=== PATIENT | female | born 1955 | race Caucasian/White ===

== ENCOUNTER 2017-01-07 14:24 | Inpatient (IN) | payer MEDICARE, OTHER ==
[~2017-01-07] VITALS: Ht 172.7 cm; Wt 94.0 kg
[~2017-01-07 14:24] MED LIST: CYCL-36 PO; LORT5TAB PO
[2017-01-07] MEDS ORDERED: SODIUM CHLOR 0.9% 1000 ML INJ 1,000 ML IV ONE ×2 (14:34→18:15)
--- NOTE | 2017-01-07 14:37 | PD ---
HPI Chief Complaint: Seizure Time Seen by Provider: 14:37 Travel History International Travel<30 days: No Contact w/Intl Traveler<30days: No Traveled to known affect area: No History of Present Illness HPI 61-year-old female with history of Graves' disease presents to the emergency department for evaluation. Per [facility] report, patient was having bizarre behavior which caused her friends to call them. When they arrived they state they with just a "grand mal seizure. There is no tongue biting or loss of bowel or bladder. Patient here is a very poor historian. She states that she does not know what happened. She has a bizarre affect. She is intermittently mumbling and saying things that do not make sense. She reports no pain. She can tell me that she is in the hospital and her name. She cannot recall the president or the year at this time. Patient denies illicit drug use or alcohol consumption. PFSH Past Medical History Autoimmune Disease: Yes (GRAVES DISEASE) Diminished Hearing: No Hypertension: Yes Musculoskeletal: Yes (CHRONIC BACK PAIN; DEGENERATIVE DISK DISEASE) ?: Not Menopausal: Yes Social History Alcohol Use: No Tobacco Use: Yes (1 PPD) Substance Use: No Allergies-Medications (Allergen,Severity, Reaction): Coded Allergies: Penicillin (Verified Allergy, Severe, 01/07/17) Uncoded Allergies: NSAIDS (Allergy, Severe, 04/22/09) Reported Meds & Prescriptions Reported Meds & Active Scripts Active Reported Montelukast (Montelukast Sodium) 10 Mg Tab 10 Mg PO DAILY Alprazolam 1 Mg Tab 1 Mg PO TID PRN Crestor (Rosuvastatin Calcium) 10 Mg Tab 10 Mg PO DAILY Levothyroxine (Levothyroxine Sodium) 125 Mcg Tab 125 Mcg PO DAILY Lisinopril-Hctz 20-25 Mg Tab 1 Tab PO DAILY Propranolol (Propranolol HCl) 20 Mg Tab 20 Mg PO TID Review of Systems Except as stated in HPI: all other systems reviewed are Neg Physical Exam Narrative GENERAL: Well-nourished female patient, sitting up in bed, bizarre affect, but in no acute distress SKIN: Focused skin assessment warm/dry. HEAD: Atraumatic. Normocephalic. EYES: Pupils equal and round. No scleral icterus. No injection or drainage. ENT: No nasal bleeding or discharge. Mucous membranes pink and moist. NECK: Trachea midline. No JVD. CARDIOVASCULAR: Elevated rate and rhythm. No murmur appreciated. RESPIRATORY: No accessory muscle use. Clear to auscultation. Breath sounds equal bilaterally. GASTROINTESTINAL: Abdomen soft, non-tender, nondistended. Hepatic and splenic margins not palpable. MUSCULOSKELETAL: No obvious deformities. No clubbing. No cyanosis. No edema. NEUROLOGICAL: She is awake. She has clear speech with occasional intentional mumbling. No obvious cranial nerve deficits. She moves all extremities. Data Data Last Documented VS Vital Signs Date Time Temp Pulse Resp B/P Pulse Ox O2 Delivery O2 Flow Rate FiO2 01/07/17 15:44 92 17 116/55 96 Room Air 01/07/17 14:39 99.4 Orders Complete Blood Count With Diff (01/07/17 14:34) Alcohol (Ethanol) (01/07/17 14:34) Drug Screen, Random Urine (01/07/17 14:34) Blood Culture (01/07/17 14:34) Electrocardiogram (01/07/17 ) Ct Brain W/O Iv Contrast(Rout) (01/07/17 ) Blood Glucose (01/07/17 14:34) Ecg Monitoring (01/07/17 14:34) Iv Access Insert/Monitor (01/07/17 14:34) Oximetry (01/07/17 14:34) Comprehensive Metabolic Panel (01/07/17 14:34) Sodium Chlor 0.9% 1000 Ml Inj (Ns 1000 M (01/07/17 14:34) Sodium Chloride 0.9% Flush (Ns Flush) (01/07/17 14:45) Urinalysis - C+S If Indicated (01/07/17 14:34) Magnesium (Mg) (01/07/17 14:34) Cath For Specimen (01/07/17 14:34) Lorazepam Inj (Ativan Inj) (01/07/17 15:45) Lorazepam Inj (Ativan Inj) (01/07/17 16:00) Potassium Chlor 20 Meq Premix (Kcl 20 Me (01/07/17 16:30) Thyroid Stimulating Hormone (01/07/17 17:47) Labs Laboratory Tests Test 01/07/17 01/07/17 14:52 16:25 White Blood Count 8.5 TH/MM3 Red Blood Count 3.63 MIL/MM3 Hemoglobin 11.5 GM/DL Hematocrit 33.2 % Mean Corpuscular Volume 91.4 FL Mean Corpuscular Hemoglobin 31.8 PG Mean Corpuscular Hemoglobin 34.8 % Concent Red Cell Distribution Width 15.2 % Platelet Count 210 TH/MM3 Mean Platelet Volume 7.7 FL Neutrophils (%) (Auto) 88.5 % Lymphocytes (%) (Auto) 6.7 % Monocytes (%) (Auto) 4.2 % Eosinophils (%) (Auto) 0.3 % Basophils (%) (Auto) 0.3 % Neutrophils # (Auto) 7.5 TH/MM3 Lymphocytes # (Auto) 0.6 TH/MM3 Monocytes # (Auto) 0.4 TH/MM3 Eosinophils # (Auto) 0.0 TH/MM3 Basophils # (Auto) 0.0 TH/MM3 CBC Comment DIFF FINAL Differential Comment Sodium Level 141 MEQ/L Potassium Level 2.3 MEQ/L Chloride Level 100 MEQ/L Carbon Dioxide Level 30.6 MEQ/L Anion Gap 10 MEQ/L Blood Urea Nitrogen 14 MG/DL Creatinine 1.22 MG/DL Estimat Glomerular Filtration 45 ML/MIN Rate Random Glucose 157 MG/DL Calcium Level 10.1 MG/DL Magnesium Level 1.6 MG/DL Total Bilirubin 1.0 MG/DL Aspartate Amino Transf 21 U/L (AST/SGOT) Alanine Aminotransferase 19 U/L (ALT/SGPT) Alkaline Phosphatase 95 U/L Total Protein 7.2 GM/DL Albumin 3.7 GM/DL Ethyl Alcohol Level 4 MG/DL Urine Color YELLOW Urine Turbidity CLEAR Urine pH 5.5 Urine Specific [place] 1.019 Urine Protein TRACE mg/dL Urine Glucose (UA) NEG mg/dL Urine Ketones NEG mg/dL Urine Occult Blood NEG Urine Nitrite NEG Urine Bilirubin NEG Urine Urobilinogen LESS THAN 2.0 MG/DL Urine Leukocyte Esterase NEG Urine RBC LESS THAN 1 /hpf Urine WBC 1 /hpf Urine Hyaline Casts 8 /lpf Urine Mucus FEW /lpf Microscopic Urinalysis Comment CATH-CULT NOT IND Urine Opiates Screen POS Urine Barbiturates Screen NEG Urine Amphetamines Screen NEG Urine Benzodiazepines Screen POS Urine Cocaine Screen NEG Urine Cannabinoids Screen NEG MDM Medical Decision Making Medical Screen Exam Complete: Yes Emergency Medical Condition: Yes Medical Record Reviewed: Yes Differential Diagnosis Electrolyte abnormality versus intracranial process versus dehydration versus psychiatric etiology versus new onset seizure Narrative Course 61-year-old female presents to the emergency department for evaluation. Patient appears without distress. She has a bizarre affect and she is a poor historian. She has no obvious trauma. CBC is without acute concern. Hemoglobin is 11.5. BMP is with hypokalemia 2.3. Repletion as started in the emergency department with 40 mEq IV. Creatinine is 1.22 with a GFR 45. Otherwise without acute concern. Urinalysis is with out acute concern. Toxicology is positive for opiates and benzodiazepine. EtOH is 4. CT imaging of the brain is without acute intracranial on normality. Diagnosis Primary Impression: Altered mental status, unspecified Additional Impression: Hypokalemia Admitting Information Admitting Physician Requests: Admit Condition: Stable Tri Soriano Jan 07, 2017 14:37
[2017-01-07 14:39] VITALS: BP 107/71; PULSE 91; RESP 17; TEMP 99.4; O2SAT 93; O2SAT 94
[2017-01-07] MEDS ORDERED: ALPR1TAB3 PO (15:10)
[2017-01-07] MEDS ORDERED: PROP20TA3 PO (15:10)
[2017-01-07] MEDS ORDERED: LISI20TA3 PO (15:10)
[2017-01-07] MEDS ORDERED: LEVO125T4 PO (15:10)
[2017-01-07] MEDS ORDERED: ROSU10 PO (15:10)
[2017-01-07] MEDS ORDERED: MONT10TA4 PO (15:10)
[2017-01-07 15:11] LABS: AUTOMATED NEUTROPHIL # 7.5 TH/MM3 (1.8-7.7); BASOPHIL % 0.3 % (0.0-2.0); EOSINOPHIL % 0.3 % (0.0-4.0); HEMATOCRIT 33.2 % (35.0-46.0); HEMO FLAGS DIFF FINAL; LYMPH % 6.7 % (9.0-44.0); LYMPHOCYTE # 0.6 TH/MM3 (1.0-4.8); MEAN CELL VOLUME 91.4 FL (80.0-100.0); MEAN CORPUSCULAR HEMOGLOBIN 31.8 PG (27.0-34.0); MEAN CORPUSCULAR HGB CONC 34.8 % (32.0-36.0); MONO % 4.2 % (0.0-8.0); NEUT % 88.5 % (16.0-70.0); PLATELET COUNT 210 TH/MM3 (150-450); RED BLOOD COUNT 3.63 MIL/MM3 (4.00-5.30); RED CELL DISTRIBUTION WIDTH 15.2 % (11.6-17.2); WHITE BLOOD COUNT 8.5 TH/MM3 (4.0-11.0)
[2017-01-07 15:44] VITALS: BP 116/55; PULSE 92; RESP 17; O2SAT 96
[2017-01-07] MEDS ORDERED: LORazepam 2 MG/ML VIAL IV PUSH ONE ×2 (15:45→16:00)
[2017-01-07 15:53] LABS: ALKALINE PHOSPHATASE 95 U/L (45-117); ALT (GPT) 19 U/L (10-53); ANION GAP 10 MEQ/L (5-15); AST (GOT) 21 U/L (15-37); BICARBONATE 30.6 MEQ/L (21.0-32.0); BLOOD UREA NITROGEN 14 MG/DL (7-18); CHLORIDE 100 MEQ/L (98-107); GLOMERULAR FILTRATION RATE 45 ML/MIN (>89); MAGNESIUM 1.6 MG/DL (1.5-2.5); SODIUM (NA) 141 MEQ/L (136-145)
[2017-01-07 16:01] LABS: POTASSIUM 2.3 MEQ/L (3.5-5.1)
[2017-01-07] MEDS: SODIUM CHLORIDE 0.9% FLUSH 10 ML FLUSH IVF PRN (16:44)
[2017-01-07] MEDS: POTASSIUM CHLOR 20 MEQ PREMIX 100 ML IV SCH ×2 (16:44→20:48)
[2017-01-07 16:58] LABS: BLOOD, URINE NEG (NEG); GLUCOSE,URINE NEG (NEG); HYALINE CAST, URINE 8 /lpf (RARE); KETONE, URINE NEG (NEG); MUCUS URINE FEW /lpf (OCC); NITRITE,URINE NEG (NEG); PH, URINE 5.5 (5.0-8.5); URINE COLOR YELLOW (YELLW/STRAW)
[2017-01-07 16:59] LABS: COMMENT (UR) CATH-CULT NOT IND; CULTURE IF INDICATED CATH CULTURE NOT IND
[2017-01-07 17:04] LABS: AMPHETAMINE, URINE NEG (NEG); BARBITURATES, URINE NEG (NEG); COCAINE, URINE NEG (NEG)
--- NOTE | 2017-01-07 17:09 | RADRPT ---
EXAM DATE/TIME: 01/07/2017 16:52 [facility] COMPARISON: No previous studies available for comparison. INDICATIONS : Post ictal, gran mal RADIATION DOSE: 37.37 CTDIvol (mGy) MEDICAL HISTORY : Hypertension. Graves disease SURGICAL HISTORY : None. ENCOUNTER: Initial ACUITY: 1 day PAIN SCALE: 0/10 LOCATION: cranial TECHNIQUE: Multiple contiguous axial images were obtained of the head. Using automated exposure control and adj ustment of the mA and/or kV according to patient size, radiation dose was kept as low as reasonably a chievable to obtain optimal diagnostic quality images. DICOM format image data is available electro nically for review and comparison. FINDINGS: CEREBRUM: The ventricles are normal for age. No evidence of midline shift, mass lesion, hemorrhage or acute in farction. No extra-axial fluid collections are seen. POSTERIOR FOSSA: The cerebellum and brainstem are intact. The 4th ventricle is midline. The cerebellopontine angle i s unremarkable. EXTRACRANIAL: The visualized portion of the orbits is intact. SKULL: The calvaria is intact. No evidence of skull fracture. CONCLUSION: 1. No acute intracranial abnormality. Delio Bourne MD on January 07, 2017 at 17:05 Board Certified Radiologist. This report was verified electronically.
[2017-01-07] MEDS ORDERED: POTASSIUM CHLORIDE 10 MEQ CONTROLLED RELEASE TAB PO ONE (18:15)
--- NOTE | 2017-01-07 18:16 | HHI.HP ---
[facility] [place] [facility] Primary Care Physician Akira Donovan MD Admission Diagnosis ams; hypokalemia; new onset seizure Diagnoses: (1) Altered mental status, unspecified Diagnosis: Principal (2) Hypokalemia Diagnosis: Principal Chief Complaint: seizure Travel History International Travel<30 Days: No Contact w/Intl Traveler <30 Da: No Traveled to Known Affected Are: No History of Present Illness patient is a 61 y/o female with history of Grave's disease and hypertension who was brought to ER after she had a seizure earlier today. she's not a good historian but she says that she's been under a lot of stress lately and hasn't been able to eat or sleep as much. she says that the last thing that she remembers is that she went to sleep earlier this afternoon. she apparently had a witnessed grandmal seizure for which she was brought to ER. there's no report of tongue biting or urine incontinence. she's complaining of mild dull headache.she denies any nausea, vomiting or diarrhea. Review of Systems ROS Limitations: Poor Historian Neurologic: COMPLAINS OF: Seizures Past Family Social History Past Medical History grave's disease hypertension chronic back pain Past Surgical History none reported. Reported Medications Montelukast (Montelukast Sodium) 10 Mg Tab 10 Mg PO DAILY Alprazolam 1 Mg Tab 1 Mg PO TID PRN Crestor (Rosuvastatin Calcium) 10 Mg Tab 10 Mg PO DAILY Levothyroxine (Levothyroxine Sodium) 125 Mcg Tab 125 Mcg PO DAILY Lisinopril-Hctz 20-25 Mg Tab 1 Tab PO DAILY Propranolol (Propranolol HCl) 20 Mg Tab 20 Mg PO TID Allergies: Coded Allergies: Penicillin (Verified Allergy, Severe, 01/07/17) Uncoded Allergies: NSAIDS (Allergy, Severe, 04/22/09) Active Ordered Medications Current Medications Sodium Chloride (NS 1000 ml Inj) 1,000 ml @ 1,000 mls/hr Q1H ONCE IV Last administered on 01/07/17t 15:04; Start 01/07/17 at 14:34; Stop 01/07/17 at 15:33 ; Status DC Sodium Chloride (NS Flush) 2 ml UNSCH PRN IVF FLUSH AFTER USING IV ACCESS; Start 01/07/17 at 14:45 Lorazepam (Ativan Inj) 1 mg ONCE ONCE IV PUSH Last administered on 01/07/17 15:41; Start 01/07/17 at 15:45; Stop 01/07/17 at 15:46; Status DC Lorazepam 1 mg 1 mg ONCE ONCE IV PUSH Last administered on 01/07/17 16:43; Start 01/07/17 at 16:00; Stop 01/07/17 at 16:01; Status DC Potassium Chloride (KCl 20 Meq Premix Inj) 100 ml @ 50 mls/hr Q2H IV Last administered on 01/07/17 16:44; Start 01/07/17 at 16:30; Stop 01/07/17 at 20:29 Family History not relevant to this presentation. Social History smokes a pack a day. denies illicit drug abuse. Physical Exam Vital Signs Vital Signs Date Time Temp Pulse Resp B/P Pulse Ox O2 Delivery O2 Flow Rate FiO2 01/07/17 15:44 92 17 116/55 96 Room Air 01/07/17 14:39 94 Room Air 01/07/17 14:39 99.4 91 17 107/71 93 Room Air Physical Exam GENERAL: This is a well-nourished, well-developed patient, in no apparent distress. SKIN: No rashes, ecchymoses or lesions. Cool and dry. HEAD: Atraumatic. Normocephalic. No temporal or scalp tenderness. EYES: Pupils equal round and reactive. Extraocular motions intact. No scleral icterus. No injection or drainage. ENT: Nose without bleeding, purulent drainage or septal hematoma. Throat without erythema, tonsillar hypertrophy or exudate. Uvula midline. Airway patent. NECK: Trachea midline. No JVD or lymphadenopathy. Supple, nontender, no meningeal signs. CARDIOVASCULAR: Regular rate and rhythm without murmurs, gallops, or rubs. RESPIRATORY: Clear to auscultation. Breath sounds equal bilaterally. No wheezes , rales, or rhonchi. GASTROINTESTINAL: Abdomen soft, non-tender, nondistended. No hepato-splenomegaly , or palpable masses. No guarding. MUSCULOSKELETAL: Extremities without clubbing, cyanosis, or edema. No joint tenderness, effusion, or edema noted. No calf tenderness. Negative Homans sign bilaterally. NEUROLOGICAL: Awake and alert. Cranial nerves II through XII intact. Motor and sensory grossly within normal limits. Five out of 5 muscle strength in all muscle groups. Normal speech. Laboratory Laboratory Tests Test 01/07/17 01/07/17 14:52 16:25 White Blood Count 8.5 Red Blood Count 3.63 Hemoglobin 11.5 Hematocrit 33.2 Mean Corpuscular Volume 91.4 Mean Corpuscular Hemoglobin 31.8 Mean Corpuscular Hemoglobin 34.8 Concent Red Cell Distribution Width 15.2 Platelet Count 210 Mean Platelet Volume 7.7 Neutrophils (%) (Auto) 88.5 Lymphocytes (%) (Auto) 6.7 Monocytes (%) (Auto) 4.2 Eosinophils (%) (Auto) 0.3 Basophils (%) (Auto) 0.3 Neutrophils # (Auto) 7.5 Lymphocytes # (Auto) 0.6 Monocytes # (Auto) 0.4 Eosinophils # (Auto) 0.0 Basophils # (Auto) 0.0 CBC Comment DIFF FINAL Differential Comment Sodium Level 141 Potassium Level 2.3 Chloride Level 100 Carbon Dioxide Level 30.6 Anion Gap 10 Blood Urea Nitrogen 14 Creatinine 1.22 Estimat Glomerular Filtration 45 Rate Random Glucose 157 Calcium Level 10.1 Magnesium Level 1.6 Total Bilirubin 1.0 Aspartate Amino Transf 21 (AST/SGOT) Alanine Aminotransferase 19 (ALT/SGPT) Alkaline Phosphatase 95 Total Protein 7.2 Albumin 3.7 Ethyl Alcohol Level 4 Urine Color YELLOW Urine Turbidity CLEAR Urine pH 5.5 Urine Specific [place] 1.019 Urine Protein TRACE Urine Glucose (UA) NEG Urine Ketones NEG Urine Occult Blood NEG Urine Nitrite NEG Urine Bilirubin NEG Urine Urobilinogen LESS THAN 2.0 Urine Leukocyte Esterase NEG Urine RBC LESS THAN 1 Urine WBC 1 Urine Hyaline Casts 8 Urine Mucus FEW Microscopic Urinalysis Comment CATH-CULT NOT IND Urine Opiates Screen POS Urine Barbiturates Screen NEG Urine Amphetamines Screen NEG Urine Benzodiazepines Screen POS Urine Cocaine Screen NEG Urine Cannabinoids Screen NEG Date/Time Procedure Status Source Growth 01/07/17 14:42 Aerobic Blood Culture Received Blood Peripheral Pending 01/07/17 14:42 Anaerobic Blood Culture Received Blood Peripheral Pending Result Diagram: 01/07/17 1452 01/07/17 1452 Imaging Last Impressions Head CT 01/07/17 0000 Signed Impressions: Service Date/Time: Saturday, January 07, 2017 16:52 - CONCLUSION: 1. No acute intracranial abnormality. Delio Bourne MD Assessment and Plan Assessment and Plan A/P - seizure- ; the patient doesn't have any history of seizure in the past but says that she's been under a lot of stress lately. CT head with no acute abnormality neuro checks and seizure precautions- ativan as needed- will consult neurology. -hypokalemia; will replace and monitor -acute kidney injury; start IV fluid and monitor the renal function -hypertension; hold lisinopril-HCTZ- resume propranolol- will monitor and adjust the regimen as needed. -grave's disease- resume levothyroxine -DVT prophylaxis with SCD's Discussed Condition With ER and the patient. Physician Certification 2 Midnight Certification Type: Admission for Inpatient Services Order for Inpatient Services The services are ordered in accordance with Medicare regulations or non- Medicare payer requirements, as applicable. In the case of services not specified as inpatient-only, they are appropriately provided as inpatient services in accordance with the 2-midnight benchmark. Estimated LOS (days): 2 days is the estimated time the patient will need to remain in the hospital, assuming treatment plan goals are met and no additional complications. Post-Hospital Plan: Home Marycarmen Camejo MD Jan 07, 2017 18:16
--- NOTE | 2017-01-07 18:31 | RADRPT ---
EXAM DATE/TIME: 01/07/2017 18:13 [facility] COMPARISON: No previous studies available for comparison. INDICATIONS : Short of breath. MEDICAL HISTORY : None. SURGICAL HISTORY : None. ENCOUNTER: Initial ACUITY: 1 day PAIN SCORE: Non-responsive. LOCATION: Bilateral chest FINDINGS: A single view of the chest demonstrates the lungs to be symmetrically aerated without evidence of mas s, infiltrate or effusion. The cardiomediastinal contours are unremarkable. Osseous structures are intact. CONCLUSION: Normal examination. Akira Gardner MD on January 07, 2017 at 18:27 Board Certified Radiologist. This report was verified electronically.
[2017-01-07 18:33] VITALS: BP 128/73; PULSE 91; RESP 17; O2SAT 96
[2017-01-07 19:09] VITALS: BP 135/70
[2017-01-07 20:00] VITALS: BP 132/89; PULSE 101; RESP 20; TEMP 97.1; O2SAT 94
[2017-01-07] MEDS: LORazepam 2 MG/ML VIAL IV PUSH PRN (21:14)
[2017-01-08] VITALS (14 sets, daily range): BP systolic 101–138; BP diastolic 57–90; PULSE 65–105; RESP 12–23; TEMP 97–99.3; O2SAT 93–100
[2017-01-08] MEDS ORDERED: POTASSIUM CHLORIDE 25 MEQ EFFERVESCENT TAB PO ONE (00:30)
[2017-01-08] MEDS ORDERED: LORazepam 2 MG/ML VIAL IV PUSH ONE (00:30)
[2017-01-08] MEDS: POTASSIUM CHLOR 20 MEQ PREMIX 100 ML IV SCH ×2 (00:45→03:14)
[2017-01-08] MEDS: LORazepam 2 MG/ML VIAL IV PUSH PRN ×7 (04:33→17:11)
[2017-01-08] MEDS: LEVOTHYROXINE SODIUM 125 MCG TAB PO SCH (05:05)
--- NOTE | 2017-01-08 08:25 | MB ---
cc: CHAYO WAITE DATE OF CONSULTATION: 01/08/2017 HISTORY OF PRESENT ILLNESS A 61-year-old right-handed woman with a history of hypothyroidism, hypertension, hypercholesterolemia, says she had three seizures. I am asked to see her for seizures. She denies any history of seizures. She never had any odd smells, taste, marguerite vu, never woke up, wet the bed of bit her tongue. She lives with her sister. She was having bizarre behavior and the friends called the blacking machine operator. When they arrived they said she just had a grand mal seizure. She was mumbling and saying things that did not make any sense. She has chronic back pain. MEDICATIONS AT HOME 1. Propranolol. 2. Lisinopril. 3. Hydrochlorothiazide. 4. Thyroid medicine. 5. Crestor. 6. Xanax 1 mg three times a day as needed. 7. Montelukast. ALLERGIES PENICILLIN AND NONSTEROIDALS. REVIEW OF SYSTEMS She denied any history of diabetes, ND, CABG, stents, angioplasty, atrial fibrillation, Coumadin, renal, hepatic or pulmonary disease, lupus, ulcer, cancer, seizure, stroke. SOCIAL HISTORY She is a smoker. She says she is not a drinker. She denies any drugs. She has not been on Wellbutrin or tramadol. She lives with his sister. FAMILY HISTORY Positive cancer, negative for seizure or stroke, according to the patient. PHYSICAL EXAMINATION VITAL SIGNS: Afebrile, 78, 18, 130/90. NECK: There are no carotid bruits. HEART: Regular rhythm. I do not detect a murmur. NEURO: Pupils are equal. Visual sepulveda are full. Extraocular movements intact without nystagmus. Face is symmetric with normal sensation. Tongue was midline. There is no drift. She has normal strength in upper and lower extremities bilaterally. She has some scabs on her knees, it looks like she fell in the recent past. DTRs are trace. Pinprick is intact throughout. She is awake and alert. She knows the month and the year. She knows she is in the hospital, she thinks its [facility]. Short-term memory is 0/3 at 3 minutes. She follows commands well. A little bit tangential in her thinking. LABORATORY DATA CBC is normal. Potassium was 2.3. Basic metabolic profile LFTs, TSH otherwise normal. Urine drug screen positive for benzos and opiates. UA was negative. Chest x-ray was normal. CT of the brain negative. IMPRESSION New-onset seizure, a little bit of confusion. Will check an EEG, MRI of the brain, some additional blood work. She says she does not take her Xanax regularly and has not run out of it recently. She tells me she is on some chronic Lortab one to two a day, sometimes a little bit more. She is mildly confused and we will keep an eye on that. MD AKIN Fang/CHRISTA /7:56 AM /8:10 AM
[2017-01-08] MEDS: ATORVASTATIN 20 MG TAB PO SCH (08:46)
[2017-01-08] MEDS: ALPRAZolam 0.25 MG TAB PO SCH ×2 (08:47→20:12)
[2017-01-08] MEDS: PROPRANOLOL HCL 20 MG TAB PO SCH ×4 (08:47→16:11)
[2017-01-08] MEDS: MONTELUKAST SODIUM 10 MG TAB PO SCH (08:48)
[2017-01-08 09:07] LABS: BLOOD GAS BASE EXCESS 3.5 mmol/L (-2-2); BLOOD GAS CARBOXYHEMOGLOBIN 1.9 % (0-4); BLOOD GAS HCO3 27 mmol/L (22-26); BLOOD GAS METHEMOGLOBIN 0.8 % (0-2); BLOOD GAS O2 HGB SATURATION 93 % (90-100); BLOOD GAS OXYGEN CONTENT 15.7 Vol % (12.0-20.0); BLOOD GAS PCO2 33 mmHg (38-42); BLOOD GAS PO2 73 mmHg (61-120); TEMP CORR TO 98.6
--- NOTE | 2017-01-08 09:07 | HHI.PR ---
Subjective Remarks just had another episode of tonic-clonic seizure. received a dose of ativan and now is awake with no acute distress. noted that had to be placed on restraints this morning. has some back pain. no fever. d/w the RN at the bedside. Objective Vitals Vital Signs Date Time Temp Pulse Resp B/P Pulse Ox O2 Delivery O2 Flow Rate FiO2 01/08/17 07:45 99.3 78 18 130/90 96 01/08/17 05:30 97.0 80 18 122/74 96 01/08/17 00:45 98.8 105 20 130/80 95 01/07/17 20:00 97.1 101 20 132/89 94 01/07/17 19:09 89 17 135/70 96 01/07/17 18:33 91 17 128/73 96 Room Air 01/07/17 15:44 92 17 116/55 96 Room Air 01/07/17 14:39 94 Room Air 01/07/17 14:39 99.4 91 17 107/71 93 Room Air I/O 01/07/17 01/07/17 01/07/17 01/08/17 01/08/17 01/08/17 07:00 15:00 23:00 07:00 15:00 23:00 Intake Total 100 ml Balance 100 ml Intake Oral 100 ml # Voids 5 # Bowel Movements 0 Result Diagram: 01/07/17 1452 01/07/17 2302 Imaging Last Impressions Head CT 01/07/17 0000 Signed Impressions: Service Date/Time: Saturday, January 07, 2017 16:52 - CONCLUSION: 1. No acute intracranial abnormality. Delio Bourne MD Chest X-Ray 01/07/17 0000 Signed Impressions: Service Date/Time: Saturday, January 07, 2017 18:13 - CONCLUSION: Normal examination. Akira Gardner MD Objective Remarks GENERAL: This is a well-nourished, well-developed patient, in no apparent distress. CARDIOVASCULAR: Regular rate and regular rhythm without murmurs, gallops, or rubs. RESPIRATORY: Clear to auscultation. Breath sounds equal bilaterally. No wheezes , rales, or rhonchi. GASTROINTESTINAL: Abdomen soft, non-tender, nondistended. Normal, active bowel sounds MUSCULOSKELETAL: Extremities without clubbing, cyanosis, or edema. NEURO: awake and alert. Procedures none Medications and IVs Current Medications Sodium Chloride (NS 1000 ml Inj) 1,000 ml @ 1,000 mls/hr Q1H ONCE IV Last administered on 01/07/17 15:04; Start 01/07/17 at 14:34; Stop 01/07/17 at 15:33 ; Status DC Sodium Chloride (NS Flush) 2 ml UNSCH PRN IVF FLUSH AFTER USING IV ACCESS; Start 01/07/17 at 14:45 Lorazepam (Ativan Inj) 1 mg ONCE ONCE IV PUSH Last administered on 01/07/17 15:41; Start 01/07/17 at 15:45; Stop 01/07/17 at 15:46; Status DC Lorazepam 1 mg 1 mg ONCE ONCE IV PUSH Last administered on 01/07/17 16:43; Start 01/07/17 at 16:00; Stop 01/07/17 at 16:01; Status DC Potassium Chloride (KCl 20 Meq Premix Inj) 100 ml @ 50 mls/hr Q2H IV Last administered on 01/07/17 20:48; Start 01/07/17 at 16:30; Stop 01/07/17 at 20:29 ; Status DC Potassium Chloride 40 meq 40 meq ONCE ONCE PO ; Start 01/07/17 at 18:15; Stop 01/07/17 at 18:17; Status DC Sodium Chloride (NS 1000 ml Inj) 1,000 ml @ 100 mls/hr Q10H ONCE IV Last administered on 01/07/17 18:32; Start 01/07/17 at 18:15; Stop 01/08/17 at 04:14 ; Status DC Lorazepam (Ativan Inj) 1 mg Q15M PRN IV PUSH SEIZURE Last administered on 08:16; Start 01/07/17 at 18:15 Levothyroxine Sodium (Synthroid) 125 mcg DAILY@0600 PO Last administered on 05:05; Start 01/08/17 at 06:00 Montelukast Sodium (Singulair) 10 mg DAILY PO Last administered on 01/08/17 08 :48; Start 01/08/17 at 09:00 Propranolol HCl (Inderal) 20 mg TID PO Last administered on 01/08/17 08:47; Start 01/08/17 at 09:00 Atorvastatin Calcium (Lipitor) 20 mg DAILY PO Last administered on 01/08/17 08 :46; Start 01/08/17 at 09:00 Potassium Bicarb/ Potassium Chloride 50 meq 50 meq ONCE ONCE PO Last administered on 01/08/17 00:44; Start 01/08/17 at 00:30; Stop 01/08/17 at 00:31 ; Status DC Potassium Chloride (KCl 20 Meq Premix Inj) 100 ml @ 50 mls/hr Q2H IV Last administered on 01/08/17 03:14; Start 01/08/17 at 00:30; Stop 01/08/17 at 04:29 ; Status DC Lorazepam (Ativan Inj) 2 mg ONCE ONCE IV PUSH Last administered on 01/08/17 00:44; Start 01/08/17 at 00:30; Stop 01/08/17 at 00:31; Status DC Alprazolam (Xanax) 0.25 mg BID PO Last administered on 01/08/17 08:47; Start 01/08/17 at 09:00 A/P Assessment and Plan A/P seizure- ; the patient doesn't have any history of seizure in the past but says that she's been under a lot of stress lately. patient had another tonic-clonic seizure this morning. continue with ativan- a dose of Keppra was ordered. CT head with no acute abnormality. will check MRI brain and EEG. neurology consult appreciated. continue with neuro checks and seizure precautions- -hypokalemia; will replace and monitor -acute kidney injury; started on IV fluid and monitor the renal function -hypertension; hold lisinopril-HCTZ- resumed propranolol- will monitor and adjust the regimen as needed. -grave's disease- resumed levothyroxine -DVT prophylaxis with SCD's Marycarmen Camejo MD Jan 08, 2017 09:07
[2017-01-08 09:10] LABS: CRITICAL VALUE YES; DRAW SITE RT RADIAL; FIO2 21 %; NUMBER OF ARTERIAL PUNCTURES 1; STAT YES; ULNAR PULSE PRESENT
[2017-01-08] MEDS: levETIRAcetam 1000 MG INJ 100 ML IV SCH ×2 (09:40→21:32)
[2017-01-08 10:49] LABS: BICARBONATE 29.4 MEQ/L (21.0-32.0)
[2017-01-08 11:05] LABS: POTASSIUM 2.8 MEQ/L (3.5-5.1)
[2017-01-08] MEDS: POTASSIUM CHLORIDE 10 MEQ CONTROLLED RELEASE TAB PO ONE ×4 (12:15→15:31)
[2017-01-08] MEDS ORDERED: POTASSIUM CHLOR 20 MEQ PREMIX 100 ML IV ONE (13:00)
--- NOTE | 2017-01-08 14:32 | HHI.PR ---
Addendum To [facility] Progress Not Reason for addendum: Additonal documentation (was notified by the RN that the patient had another seizure episode . patient will be transferred to the ICU for close monitoring,) Marycarmen Camejo MD Jan 08, 2017 14:32
[2017-01-08] MEDS ORDERED: FOSPHENYTOIN SODIUM 500 MG PE/10 ML VIAL IV ONE (16:30)
--- NOTE | 2017-01-08 16:41 | PD.CONS ---
HPI Service Critical Care Medicine Consult Requested By [facility] Reason for Consult Generalized seizures Primary Care Physician Akira Donovan MD History of Present Illness 61 y/o woman has new onset generalized tonic-clonic seizures. Moved to [facility] earlier today. Controlled after ativan 4 mg. History of regular daily xanax use and she states she ran out recently. Neurology Service evaluating for cause. She is conversant now but confused. No further seizure activity. Intermittently very agitated. Review of Systems Constitutional: DENIES: Diaphoretic episodes, Fatigue, Fever, Weight gain, Weight loss, Chills, Dizziness, Change in appetite, Night Sweats Endocrine: DENIES: Abnorml menstrual pattern, Heat/cold intolerance, Polydipsia , Polyuria, Polyphagia Eyes: DENIES: Blurred vision, Diplopia, Eye inflammation, Eye pain, Vision loss , Photosensitivity, Double Vision Respiratory: DENIES: Apneas, Cough, Snoring, Wheezing, Hemoptysis, Sputum production, Shortness of breath Gastrointestinal: DENIES: Abdominal pain, Black stools, Bloody stools, Constipation, Diarrhea, Nausea, Vomiting, Difficulty Swallowing, Anorexia Neurologic: COMPLAINS OF: Seizures Psychiatric: COMPLAINS OF: Confusion Past Family Social History Allergies: Coded Allergies: Penicillin (Verified Allergy, Severe, 01/07/17) Uncoded Allergies: NSAIDS (Allergy, Severe, 04/22/09) Past Medical History Past Medical History grave's disease hypertension chronic back pain Past Surgical History none reported. Reported Medications Montelukast (Montelukast Sodium) 10 Mg Tab 10 Mg PO DAILY Alprazolam 1 Mg Tab 1 Mg PO TID PRN Crestor (Rosuvastatin Calcium) 10 Mg Tab 10 Mg PO DAILY Levothyroxine (Levothyroxine Sodium) 125 Mcg Tab 125 Mcg PO DAILY Lisinopril-Hctz 20-25 Mg Tab 1 Tab PO DAILY Propranolol (Propranolol HCl) 20 Mg Tab 20 Mg PO TID Allergies: Coded Allergies: Penicillin (Verified Allergy, Severe, 01/07/17) Uncoded Allergies: NSAIDS (Allergy, Severe, 04/22/09) Physical Exam Vital Signs Vital Signs Date Time Temp Pulse Resp B/P Pulse Ox O2 Delivery O2 Flow Rate FiO2 01/08/17 16:00 78 01/08/17 16:00 99.3 78 22 132/89 97 01/08/17 14:00 74 01/08/17 12:00 99.3 74 23 119/88 93 01/08/17 12:00 70 01/08/17 11:30 74 01/08/17 11:30 99.3 74 22 101/57 95 01/08/17 08:00 76 01/08/17 07:45 99.3 78 18 130/90 96 01/08/17 05:30 97.0 80 18 122/74 96 01/08/17 00:45 98.8 105 20 130/80 95 01/07/17 20:00 97.1 101 20 132/89 94 01/07/17 19:09 89 17 135/70 96 01/07/17 18:33 91 17 128/73 96 Room Air Physical Exam Gen: Active, talkative. Head: Atraumatic. Neck: Supple. Airway widely patent. No obstruction. Lung: Clear, no wheezes or crackles. Good vanessa air movement. Heart: NL S1S2, 2/6 RADHA, LSB. RRR. No JVD. Abdomen: Soft, no guarding or tenderness. BS active. Extremities: Warm, well perfused. Nailo beds pink. Neuro: Moves 4 limbs with 5/5 strength and purpose. NHI, 2 mm. Speech mildly slurred. Confused. EOMs intact. DTRs patellar 3+ vanessa. Toes down vanessa. Laboratory Laboratory Tests Test 01/07/17 01/08/17 01/08/17 23:02 08:55 09:55 Potassium Level 2.3 2.8 Blood Gas Puncture Site RT RADIAL Blood Gas Patient Temperature 98.6 Blood Gas HCO3 27 Blood Gas Base Excess 3.5 Blood Gas Oxygen Saturation 93 Arterial Blood pH 7.52 Arterial Blood Partial 33 Pressure CO2 Arterial Blood Partial 73 Pressure O2 Arterial Blood Oxygen Content 15.7 Arterial Blood 1.9 Carboxyhemoglobin Arterial Blood Methemoglobin 0.8 Blood Gas Hemoglobin 12.0 Blood Gas Inspired Oxygen 21 Sodium Level 141 Chloride Level 104 Carbon Dioxide Level 29.4 Anion Gap 8 Blood Urea Nitrogen 10 Creatinine 0.78 Estimat Glomerular Filtration 75 Rate Random Glucose 120 Calcium Level 10.0 Vitamin B12 Level 399 Date/Time Procedure Status Source Growth 01/07/17 14:42 Aerobic Blood Culture - Preliminary Resulted Blood Peripheral NO GROWTH IN 1 DAY 01/07/17 14:42 Anaerobic Blood Culture - Preliminary Resulted Blood Peripheral NO GROWTH IN 1 DAY Result Diagram: 01/07/17 1452 01/08/17 0955 Assessment and Plan Assessment and Plan Assessment: 1. New seizures, tonic-clonic. 2. Respiratory alkalosis. 3. Hypokalemia due to #2. 4. Possible benzo dependence. 5. Grave's disease. Plan: 1. Supple O2, maintain sats > 92% 2. Elect protocol. 3. Check Mag and phos. 4. Neurology consult. 5. Pepcid. 6. SCDs. 7. Stat MRI. Overall impression: Highly agitated. Conversant but confused. Will require sedation for MRI. Mauro Gomez MD Jan 08, 2017 16:41
[2017-01-08] MEDS ORDERED: POTASSIUM PHOSPHATE MONOBASIC 500 MG TAB PO PRN (16:45)
[2017-01-08] MEDS ORDERED: POTASSIUM CHLORIDE 25 MEQ EFFERVESCENT TAB PO PRN (16:45)
[2017-01-08] MEDS ORDERED: LACTULOSE SYRUP 20 GM/30 ML CUP PO PRN (16:45)
[2017-01-08] MEDS ORDERED: ACETAMINOPHEN 325 MG TAB PO PRN (16:45)
[2017-01-08] MEDS ORDERED: POTASSIUM CHLOR 40 MEQ PREMIX 100 ML IV PRN ×2 (16:45)
[2017-01-08] MEDS ORDERED: POTASSIUM CHLOR 20 MEQ PREMIX 100 ML IV PRN (16:45)
[2017-01-08] MEDS ORDERED: MAGNESIUM SULFATE INJ 4 GM in SODIUM CHLORIDE 0.9% INJ 92 ML IV PRN (16:45)
[2017-01-08] MEDS ORDERED: MAGNESIUM HYDROXIDE SUSP 30 ML CUP PO PRN (16:45)
[2017-01-08] MEDS ORDERED: POTASSIUM PHOSPHATE INJ 30 MMOL in SODIUM CHLOR 0.9% 250 ML INJ 250 ML IV PRN (16:45)
[2017-01-08] MEDS ORDERED: SODIUM PHOSPHATE INJ 30 MMOL in SODIUM CHLOR 0.9% 250 ML INJ 240 ML IV PRN (16:45)
[2017-01-08] MEDS ORDERED: CHLORHEXIDINE GLUCONATE 2 % 1 PACK (2 CLOTHS) TOP PRN (16:45)
[2017-01-08] MEDS ORDERED: POTASSIUM PHOSPHATE MONOBASIC 500 MG TAB PO/TUBE PRN (16:45)
[2017-01-08] MEDS ORDERED: SENNOSIDES 8.6 MG TAB PO PRN (16:45)
[2017-01-08] MEDS ORDERED: BISACODYL 10 MG SUPP RECTAL PRN (16:45)
[2017-01-08] MEDS ORDERED: MAGNESIUM OXIDE 400 MG TAB PO PRN (16:45)
[2017-01-08] MEDS ORDERED: ONDANSETRON HCL 4 MG/2 ML VIAL IV PRN (16:45)
[2017-01-08] MEDS ORDERED: MISCELLANEOUS NURSING INFORMATION XX SCH (16:45)
[2017-01-08] MEDS ORDERED: MAGNESIUM SULFATE INJ 2 GM in SODIUM CHLORIDE 0.9% INJ 96 ML IV PRN (16:45)
--- NOTE | 2017-01-08 19:13 | MG ---
cc: DESI SAVAGE M.D. Lab No: Date: 01/08/2017 Age: Sex: F Race: REQUESTING PHYSICIAN Dr. Bermudez. INTRODUCTION The patient presents with bizarre behavior. DESCRIPTION The patient is awake and drowsy and confused, and at times she sat up in bed and had to be restrained. This EEG shows some mild rhythmic theta activity posteriorly. There is lot of artifact but this activity seems to build up suspiciously. There are some intermittent reductions of the artifact and there is clear background EEG activity. Some sharp discharges are noted with phase reversal bilaterally, possibly right more than left. There are some alpha rhythms and some beta activity. At times there appears to be a buildup of some rhythmic delta activity bilaterally. This also seems more so on the right than left and it becomes more obvious later on, though there is a lot of associated artifactual activity. This can be seen at epoch 58, on. The patient is described as having some body movements, will sit up and mumbling at times. INTERPRETATION Abnormal EEG because of some mild generalized slowing, bilateral sharp discharges possibly right more than left and a buildup of rhythmic theta activity posteriorly and intermittently there is some build up of rhythmic delta activity bilaterally along with artifact. This is suspicious for an ictal abnormality. Photic stimulation disclosed no change. Followup EEG is recommended. It is my understanding that Dr. Bermudez, neurologist, reviewed this EEG briefly at the time of the recording. MD BRI Ordaz/KK /6:30 PM /7:10 PM
[2017-01-08] MEDS ORDERED: EPINEPHrine HCL (1:10,000) 1 MG/10 ML SYRINGE ONE (19:28)
[2017-01-08] MEDS: FAMOTIDINE 20 MG TAB PO SCH (20:12)
[2017-01-08] MEDS: DOCUSATE SODIUM 50 MG/SENNA 8.6 MG TAB PO SCH (20:12)
[2017-01-08] MEDS ORDERED: GADODIAMIDE PF 287 MG/ML 20 ML VIAL (for RAD MRI) IV ONE (20:13)
[2017-01-08] MEDS ORDERED: PROPOFOL 1000 MG/100 ML INJ 100 ML ONE (20:20)
--- NOTE | 2017-01-08 20:28 | RADRPT ---
EXAM DATE/TIME: 01/08/2017 19:56 [place] COMPARISON: CT BRAIN W/O CONTRAST, January 07, 2017, 16:52. INDICATIONS : Altered mental status. New onset of seizures. CONTRAST: 19 cc Omniscan (gadodiamide) IV MEDICAL HISTORY : Hypertension. Graves disease. SURGICAL HISTORY : None. ENCOUNTER: Initial ACUITY: 1 day PAIN SCORE: 0/10 LOCATION: Head. TECHNIQUE: Multiplanar, multisequence MRI of the brain was performed both prior to and following the administrat ion of paramagnetic contrast. FINDINGS: CEREBRUM: The ventricles are normal for age. No evidence of midline shift, mass lesion, hemorrhage or acute in farction. No extraaxial fluid collections are seen. The pituitary gland and suprasellar cistern are normal in configuration. WHITE MATTER: No significant signal abnormalities are seen in the white matter. POSTERIOR FOSSA: The cerebellum and brainstem are intact. The 4th ventricle is midline. The cerebellopontine angle is unremarkable. The cerebellar tonsils are normal in position. DIFFUSION IMAGING: No focal areas of restricted diffusion are seen. No evidence of acute infarction. EXTRACRANIAL: The visualized portions of the orbits and paranasal sinuses are unremarkable. POST-CONTRAST: No abnormal areas of parenchymal or dural enhancement. No evidence of blood-brain barrier breakdown. CONCLUSION: Unremarkable exam no evidence of acute hemorrhage, mass or infarction. Carlton Vigil MD on January 08, 2017 at 20:23 Board Certified Radiologist. This report was verified electronically.
[2017-01-08] MEDS: POTASSIUM CHLOR 20 MEQ PREMIX 100 ML IV PRN (21:32)
[2017-01-08 21:58] LABS: BLOOD GAS BASE EXCESS 2.1 mmol/L (-2-2); BLOOD GAS CARBOXYHEMOGLOBIN 1.8 % (0-4); BLOOD GAS HCO3 26 mmol/L (22-26); BLOOD GAS METHEMOGLOBIN 0.9 % (0-2); BLOOD GAS O2 HGB SATURATION 94 % (90-100); BLOOD GAS OXYGEN CONTENT 14.8 Vol % (12.0-20.0); BLOOD GAS PCO2 39 mmHg (38-42); BLOOD GAS PO2 83 mmHg (61-120); BLOOD GAS TOTAL HGB 11.1 G/DL (12.0-16.0); CRITICAL VALUE NO; DRAW SITE RT RADIAL; FIO2 40 %; NUMBER OF ARTERIAL PUNCTURES 1; OXYGEN DEVICE VENTILATOR; STAT NO; TEMP CORR TO 98.6; ULNAR PULSE PRESENT; VENT SETTINGS AC 12/500/5PEEP
[2017-01-08] MEDS: FOSPHENYTOIN SODIUM 100 MG PE/2 ML VIAL IV SCH (22:25)
[2017-01-08] MEDS: PROPOFOL 1000 MG/100 ML IV SCH (22:30)
[2017-01-08] MEDS ORDERED: MIDAZOLAM HCL 5 MG/ML VIAL (1 ML) ONE (23:28)
[2017-01-08] MEDS ORDERED: MIDAZOLAM HCL 5 MG/ML VIAL (1 ML) IV PUSH ONE (23:30)
--- NOTE | 2017-01-08 23:41 | EKG ---
Date Performed: 01/07/2017 Time Performed: 14:46:49 PTAGE: 61 years EKG: Sinus rhythm PROBABLE INFERIOR MYOCARDIAL INFARCTION ABNORMAL ECG NO PREVIOUS TRACING DOCTOR: Shelley Tovar Interpretating Date/Time 01/08/2017 23:40:07
[2017-01-09] VITALS (14 sets, daily range): BP systolic 84–146; BP diastolic 54–82; PULSE 50–71; RESP 12–22; TEMP 97.4–99.1; O2SAT 96–100
[2017-01-09] MEDS ORDERED: MIDAZOLAM HCL 2 MG/2 ML VIAL IV PUSH PRN
[2017-01-09] MEDS: PROPOFOL 1000 MG/100 ML IV SCH (00:07)
[2017-01-09 00:48] LABS: GROSS BLOOD TUBE #1 TRACE (0); GROSS BLOOD TUBE #2 1+ (0); SUPERNATE COLOR TUBE #1 CLEAR (CLEAR); SUPERNATE COLOR TUBE #2 CLEAR (CLEAR); SUPERNATE COLOR TUBE #3 CLEAR (CLEAR); VOLUME TUBE # 1 1.7 ML; VOLUME TUBE # 2 1.9 ML
[2017-01-09 00:49] LABS: GROSS BLOOD TUBE #3 1+ (0); GROSS BLOOD TUBE #4 2+ (0); SUPERNATE COLOR TUBE #4 CLEAR (CLEAR); WBC TUBE #4 5 /MM3 (0-10)
[2017-01-09] MEDS: CHLORHEXIDINE GLUCONATE 2 % 1 PACK (2 CLOTHS) TOP SCH (01:06)
[2017-01-09 01:29] LABS: CSF LYMPHOCYTES 43 %; CSF MONOCYTES 11 %; CSF NEUTROPHILS 46 %
--- NOTE | 2017-01-09 03:45 | PD.PROCEDR ---
Procedure Note Procedure Lumbar puncture A time-out was completed verifying correct patient, procedure, site, positioning , and special equipment if applicable. The patient was placed in the left lateral decubitus position in a semi- position with help from the nursing staff. The area was cleansed and draped in usual sterile fashion. 1% lidocaine was used anesthetize the surrounding skin area. A 20-gauge 3.5-inch spinal needle was placed in the L3-L4 interspace. Clear cerebral spinal fluid was obtained and the opening pressure was noted to be 23. Four tubes were filled with 4 mL of CSF. These were sent for the usual tests, including 1 tube to be held for further analysis if needed. The closing pressure was noted to be 16. Estimated Blood Loss: 1 mL The patient tolerated the procedure well and there were no complications. Wallace Sullivan MD Jan 09, 2017 03:45
[2017-01-09] MEDS: DEXMEDETOMIDINE INJ 200 MCG in SODIUM CHLORIDE 0.9% INJ 50 ML IV SCH ×3 (04:35→23:25)
[2017-01-09 05:05] LABS: BICARBONATE 27.6 MEQ/L (21.0-32.0); MAGNESIUM 1.5 MG/DL (1.5-2.5)
[2017-01-09 05:23] LABS: POTASSIUM 2.8 MEQ/L (3.5-5.1)
[2017-01-09] MEDS: LEVOTHYROXINE SODIUM 125 MCG TAB PO SCH (05:25)
[2017-01-09] MEDS: POTASSIUM CHLOR 20 MEQ PREMIX 100 ML IV PRN ×2 (05:29→08:09)
[2017-01-09] MEDS: FOSPHENYTOIN SODIUM 100 MG PE/2 ML VIAL IV SCH ×3 (05:29→21:10)
[2017-01-09] MEDS: levETIRAcetam 1000 MG INJ 100 ML IV SCH ×2 (08:09→19:27)
[2017-01-09] MEDS: FAMOTIDINE 20 MG TAB PO SCH ×2 (08:09→19:26)
[2017-01-09] MEDS: DOCUSATE SODIUM 50 MG/SENNA 8.6 MG TAB PO SCH ×2 (08:09→19:27)
[2017-01-09] MEDS: PROPRANOLOL HCL 20 MG TAB PO SCH ×3 (08:09→17:30)
--- NOTE | 2017-01-09 08:09 | HHI.PR ---
Objective Vital Signs Date Time Temp Pulse Resp B/P Pulse Ox O2 Delivery O2 Flow Rate FiO2 01/09/17 07:00 Nasal Cannula 2.00 01/09/17 06:00 53 01/09/17 04:50 96 21 01/09/17 04:40 96 Room Air 21 01/09/17 04:32 100 40 01/09/17 04:00 61 01/09/17 04:00 99.1 61 17 146/74 100 01/09/17 02:00 59 01/09/17 01:04 100 40 01/09/17 00:00 40 01/09/17 00:00 97.4 58 12 129/82 100 01/09/17 00:00 71 01/08/17 22:25 100 40 01/08/17 22:00 71 01/08/17 20:30 100 40 01/08/17 20:00 98.8 65 12 138/89 100 01/08/17 20:00 65 01/08/17 18:00 84 01/08/17 17:06 97 21 01/08/17 16:00 78 01/08/17 16:00 99.3 78 22 132/89 97 01/08/17 14:00 74 01/08/17 12:00 99.3 74 23 119/88 93 01/08/17 12:00 70 01/08/17 12:00 71 01/08/17 11:30 74 01/08/17 11:30 99.3 74 22 101/57 95 I/O 01/08/17 01/08/17 01/08/17 01/09/17 01/09/17 01/09/17 07:00 15:00 23:00 07:00 15:00 23:00 Intake Total 100 ml 192 ml 491 ml 556 ml Output Total 275 ml 200 ml Balance 100 ml 192 ml 216 ml 356 ml Intake Oral 100 ml IV Total 192 ml 491 ml 556 ml Output Urine Total 275 ml 200 ml # Voids 5 1 # Bowel Movements 0 1 0 0 Result Diagram: 01/07/17 1452 01/09/17 0355 Objective Remarks just off precedex awake a little drowsy december [address] shows left thumb 5/5 t/o no aphasic Assessment and Plan Assessment and Plan imp on keppra and dil 5.9 alb nl mri nl eeg bilat [facility] ok so far dc precedex should do better today evidently ran out of xanax recheck eeg inc dil 200 bid cont keppra 1500 bid should do beter today keep off precedex Jayson Bermudez MD Jan 09, 2017 08:09
[2017-01-09] MEDS: MONTELUKAST SODIUM 10 MG TAB PO SCH (08:10)
[2017-01-09] MEDS: ATORVASTATIN 20 MG TAB PO SCH (08:11)
[2017-01-09 09:33] LABS: RAPID PLASMA REAGIN SCREEN NON-REACTIVE (NON-REACTVE)
[2017-01-09] MEDS: ALPRAZolam 0.25 MG TAB PO SCH ×2 (09:35→19:26)
--- NOTE | 2017-01-09 11:32 | HHI.CCPN ---
Subjective Remarks/Hospital Course 1 y/o woman has new onset generalized tonic-clonic seizures. Moved to [facility] earlier today. Controlled after ativan 4 mg. History of regular daily xanax use and she states she ran out recently. Neurology Service evaluating for cause. She is conversant now but confused. No further seizure activity. Intermittently very agitated. 01/09: No seizures today. Protects airway well. Objective Vital Signs Date Time Temp Pulse Resp B/P Pulse Ox O2 Delivery O2 Flow Rate FiO2 01/09/17 08:00 51 01/09/17 08:00 97.7 22 84/54 97 01/09/17 07:00 Nasal Cannula 2.00 01/09/17 04:50 21 Intake and Output 01/08/17 01/08/17 01/09/17 08:00 16:00 00:00 Intake Total 100 ml 192 ml 491 ml Output Total 275 ml Balance 100 ml 192 ml 216 ml Result Diagram: 01/07/17 1452 01/09/17 0355 Other Results Laboratory Tests Test 01/08/17 21:28 Blood Gas Puncture Site RT RADIAL Blood Gas Patient Temperature 98.6 Blood Gas HCO3 26 mmol/L (22-26) Blood Gas Base Excess 2.1 mmol/L (-2-2) Blood Gas Oxygen Saturation 94 % (90-100) Arterial Blood pH 7.44 (7.380-7.420) Arterial Blood Partial 39 mmHg (38-42) Pressure CO2 Arterial Blood Partial 83 mmHg Pressure O2 (61-120) Arterial Blood Oxygen Content 14.8 Vol % (12.0-20.0) Arterial Blood 1.8 % (0-4) Carboxyhemoglobin Arterial Blood Methemoglobin 0.9 % (0-2) Blood Gas Hemoglobin 11.1 G/DL (12.0-16.0) Oxygen Delivery Device VENTILATOR Blood Gas Ventilator Setting AC 12/500/5PEEP Blood Gas Inspired Oxygen 40 % Objective Remarks Gen: Calm. Head: Atraumatic. Neck: Supple. Airway widely patent. No obstruction. Lung: Clear, no wheezes or crackles. Good vanessa air movement. Heart: NL S1S2, 2/6 RADHA, LSB. RRR. No JVD. Abdomen: Soft, no guarding or tenderness. BS active. Extremities: Warm, well perfused. Nailo beds pink. Neuro: Moves 4 limbs with 5/5 strength and purpose. NHI, 2 mm. Confused. EOMs intact. Procedures none A/P Assessment and Plan Assessment: 1. New seizures, tonic-clonic. 2. Respiratory alkalosis. 3. Hypokalemia due to #2. 4. Possible benzo dependence. 5. Grave's disease. Plan: 1. Supple O2, maintain sats > 92% 2. Elect protocol. 3. Check Mag and phos. 4. Neurology consult. 5. Pepcid. 6. SCDs. Overall impression: Seizure control achieved. LP looks benign. MRI benign. Mauro Gomez MD Jan 09, 2017 11:32
--- NOTE | 2017-01-09 16:49 | MG ---
cc: CHAYO BERMUDEZ Lab No: Date:01/09/2017 Age: 61 Sex: F Race: REQUESTING PHYSICIAN: Dr. Bermudez. An EEG was obtained on this 61-year-old patient with history of seizure. MEDICATIONS 1. Cerebyx 2. Inderal PROCEDURE: The patient is described as awake during the study. The EEG shows a mixture of beta with alpha rhythms diffusely. There is some intermittent slower alpha with theta rhythms seen bilaterally and probably more so during drowsiness. There is intermixed sharp contoured waves in the temporal head regions bilaterally. At times there are some low rhythmic theta activity on the temporal head regions, left more than right, no ictal pattern noted. Photic stimulation showed some possible driving response. INTERPRETATION This EEG is mildly abnormal. There is some intermittent slowing bilaterally, possibly maximum left temporal. There are some associated sharp waves which do not seem to be distinctively epileptiform but at times the rhythmicity of the sharp waves / theta activity in the temporal head region is suspicious for an epileptiform abnormality. MD BRI Ordaz/siena /4:24 PM /4:44 PM
[2017-01-09] MEDS: LORazepam 2 MG/ML VIAL IV PRN (19:47)
[2017-01-10] VITALS (12 sets, daily range): BP systolic 79–148; BP diastolic 42–96; PULSE 49–94; RESP 18–27; TEMP 98.2–99.1; O2SAT 92–98
[2017-01-10] MEDS: CHLORHEXIDINE GLUCONATE 2 % 1 PACK (2 CLOTHS) TOP SCH ×2 (04:38→21:28)
[2017-01-10] MEDS: LORazepam 2 MG/ML VIAL IV PRN (04:52)
[2017-01-10] MEDS: LEVOTHYROXINE SODIUM 125 MCG TAB PO SCH (06:23)
[2017-01-10 06:42] LABS: BICARBONATE 24.2 MEQ/L (21.0-32.0); POTASSIUM 3.3 MEQ/L (3.5-5.1)
--- NOTE | 2017-01-10 08:17 | HHI.PR ---
Subjective Remarks still on precedex Objective Vital Signs Date Time Temp Pulse Resp B/P Pulse Ox O2 Delivery O2 Flow Rate FiO2 01/10/17 07:00 97 Room Air 21 01/10/17 06:00 82 01/10/17 04:00 58 01/10/17 04:00 98.9 58 23 135/78 94 01/10/17 02:00 51 01/10/17 00:00 49 01/10/17 00:00 98.5 49 22 79/42 92 01/09/17 22:00 51 01/09/17 20:00 51 01/09/17 20:00 98.5 50 18 94/55 100 01/09/17 19:13 99 Nasal Cannula 2.00 01/09/17 19:00 100 Nasal Cannula 2.00 01/09/17 16:00 98.9 51 19 93/55 97 01/09/17 12:00 98.8 60 19 85/62 96 I/O 01/09/17 01/09/17 01/09/17 01/10/17 01/10/17 01/10/17 07:00 15:00 23:00 07:00 15:00 23:00 Intake Total 556 ml 1303 ml 713 ml 484 ml Output Total 200 ml 600 ml 700 ml 400 ml Balance 356 ml 703 ml 13 ml 84 ml Intake Oral 480 ml IV Total 556 ml 823 ml 713 ml 484 ml Output Urine Total 200 ml 600 ml 700 ml 400 ml # Bowel Movements 0 0 2 3 Result Diagram: 01/07/17 1452 01/10/17 0557 Objective Remarks awake a little drowsy december 2016 hospital shows left thumb 5/5 t/o not aphasic agitated bue constant moves Assessment and Plan Assessment and Plan imp on keppra and dil 5.9 alb nl mri nl eeg bilat [facility] ok so far dc precedex should do better today evidently ran out of xanax recheck eeg inc dil 200 bid cont keppra 1500 bid should do beter today keep off precedex 01/10/17 LP neg mri neg labs ok dil level pend eeg still some sharps keppra very restless could be med effect dc precedex and banegas and osen let her work some of her motor energy off call me with [employer] xanax dose not a drinker she tells me Jayson Bermudez MD Jan 10, 2017 08:16
[2017-01-10] MEDS: DOCUSATE SODIUM 50 MG/SENNA 8.6 MG TAB PO SCH ×2 (09:00→21:00)
[2017-01-10 09:11] LABS: HSV 1,PCR Negative (Negative)
[2017-01-10] MEDS: levETIRAcetam 1000 MG INJ 100 ML IV SCH ×2 (09:32→21:22)
[2017-01-10] MEDS: FAMOTIDINE 20 MG TAB PO SCH ×2 (09:33→21:26)
[2017-01-10] MEDS: FOSPHENYTOIN SODIUM 100 MG PE/2 ML VIAL IV SCH (09:33)
[2017-01-10] MEDS: ATORVASTATIN 20 MG TAB PO SCH (09:33)
[2017-01-10] MEDS: MONTELUKAST SODIUM 10 MG TAB PO SCH (09:34)
[2017-01-10] MEDS: PROPRANOLOL HCL 20 MG TAB PO SCH ×3 (09:35→17:30)
[2017-01-10] MEDS: ALPRAZolam 0.5 MG TAB PO SCH ×2 (09:42→21:26)
--- NOTE | 2017-01-10 10:07 | HHI.CCPN ---
Subjective Remarks/Hospital Course 61 y/o woman has new onset generalized tonic-clonic seizures. Moved to [facility] earlier today. Controlled after ativan 4 mg. History of regular daily xanax use and she states she ran out recently. Neurology Service evaluating for cause. She is conversant now but confused. No further seizure activity. Intermittently very agitated. 01/09: No seizures today. Protects airway well. 01/10: Sleeping now. Nonfocal exam. This process looks more and more like acute benzodiazepine withdrawal. Objective Vital Signs Date Time Temp Pulse Resp B/P Pulse Ox O2 Delivery O2 Flow Rate FiO2 01/10/17 08:00 60 01/10/17 07:00 97 Room Air 21 01/10/17 04:00 98.9 23 135/78 01/09/17 19:13 2.00 Intake and Output 01/09/17 01/09/17 01/10/17 08:00 16:00 00:00 Intake Total 556 ml 1303 ml 713 ml Output Total 200 ml 600 ml 700 ml Balance 356 ml 703 ml 13 ml Result Diagram: 01/07/17 1452 01/10/17 0557 Objective Remarks Gen: Calm. Asleep. Head: Atraumatic. Neck: Supple. Airway widely patent. No obstruction. Lung: Clear, no wheezes or crackles. Good vanessa air movement. Heart: NL S1S2, 2/6 RADHA, LSB. RRR. No JVD. Abdomen: Soft, no guarding or tenderness. BS active. Extremities: Warm, well perfused. Neuro: Moves 4 limbs with 5/5 strength and purpose when awake. NHI, 2 mm. EOMs intact. Procedures none A/P Assessment and Plan Assessment: 1. New seizures, tonic-clonic. 2. Respiratory alkalosis. 3. Hypokalemia due to #2. 4. Possible benzo dependence. 5. Grave's disease. Plan: 1. Supple O2, maintain sats > 92% 2. Elect protocol. 3. Check Mag and phos. 4. Neurology consult. 5. Pepcid. 6. SCDs. 7. Stat MRI -> no pathology. Overall impression: She ran out of xanax several days prior to admission. She takes it 3 X day. Suspect seizures from sudden withdrawal. Remainder of neurological workup is benign. Mauro Gomez MD Jan 10, 2017 10:07
[2017-01-10 11:25] LABS: ANA SCREEN NEG (NEG)
[2017-01-10] MEDS ORDERED: PHENYTOIN SODIUM 100 MG CAP PO ONE (13:00)
[2017-01-10] MEDS: POTASSIUM CHLOR 20 MEQ PREMIX 100 ML IV PRN (17:30)
[2017-01-10] MEDS: PHENYTOIN SODIUM 100 MG CAP PO SCH (21:27)
[2017-01-11 01:29] LABS: ENTEROVIRUS PCR RESULT Negative (Negative); ENTEROVIRUS PCR SPEC SOURCE CSF (()); LYME IGG IMMUNOBLOT CSF None Detected bands (None Detected); LYME IGM IMMUNOBLOT CSF None Detected bands (None Detected)
[2017-01-11 04:00] VITALS: BP 165/109; PULSE 76; RESP 20; TEMP 98.6; O2SAT 98
[2017-01-11] MEDS: LEVOTHYROXINE SODIUM 125 MCG TAB PO SCH (05:18)
[2017-01-11 08:15] VITALS: BP 158/86; PULSE 75; RESP 19; TEMP 99; O2SAT 98
[2017-01-11] MEDS: levETIRAcetam 1000 MG INJ 100 ML IV SCH ×2 (09:45→21:46)
[2017-01-11] MEDS: PHENYTOIN SODIUM 100 MG CAP PO SCH ×2 (09:46→21:48)
[2017-01-11] MEDS: FAMOTIDINE 20 MG TAB PO SCH ×2 (09:47→21:00)
[2017-01-11] MEDS: ALPRAZolam 0.5 MG TAB PO SCH ×2 (09:47→21:48)
[2017-01-11] MEDS: MONTELUKAST SODIUM 10 MG TAB PO SCH (09:47)
[2017-01-11] MEDS: PROPRANOLOL HCL 20 MG TAB PO SCH ×3 (09:48→17:13)
[2017-01-11] MEDS: DOCUSATE SODIUM 50 MG/SENNA 8.6 MG TAB PO SCH ×2 (09:48→21:00)
[2017-01-11] MEDS: ATORVASTATIN 20 MG TAB PO SCH (09:48)
[2017-01-11 11:02] LABS: ALBUMIN SERUM 3780 mg/dL (3200 - 4800); IGG CSF 4.1 mg/dL (<=8.1); IGG INDEX CSF 0.61 (<=0.85); IGG SERUM 866 mg/dL (767 - 1590); IGG/ALBUMIN CSF 0.14 (<=0.21); IGG/ALBUMIN SERUM 0.23 (<=0.40); SYNTHESIS RATE CSF 4.04 mg/24 h (<=12)
[2017-01-11 12:04] VITALS: BP 154/75; PULSE 64; RESP 18; TEMP 97.5; O2SAT 97
--- NOTE | 2017-01-11 12:21 | HHI.PR ---
Subjective Remarks in no acute distress. awake and alert. no seizures over night. has mild low back pain. d/w the RN. Objective Vitals Vital Signs Date Time Temp Pulse Resp B/P Pulse Ox O2 Delivery O2 Flow Rate FiO2 01/11/17 12:04 97.5 64 18 154/75 97 01/11/17 08:15 99.0 75 19 158/86 98 01/11/17 04:00 98.6 76 20 165/109 98 01/10/17 20:00 99.1 62 18 145/84 97 01/10/17 19:00 98 Room Air 01/10/17 18:08 99.1 66 19 148/75 98 01/10/17 16:00 71 01/10/17 16:00 98.3 65 25 128/71 96 01/10/17 14:00 72 I/O 01/10/17 01/10/17 01/10/17 01/11/17 01/11/17 01/11/17 07:00 15:00 23:00 07:00 15:00 23:00 Intake Total 484 ml 570 ml 240 ml Output Total 400 ml 450 ml Balance 84 ml 120 ml 240 ml Intake Oral 420 ml 240 ml IV Total 484 ml 150 ml Output Urine Total 400 ml 450 ml # Voids 1 1 # Bowel Movements 3 2 1 Result Diagram: 01/07/17 1452 01/10/17 0557 Imaging Last Impressions Brain MRI 01/08/17 0755 Signed Impressions: Service Date/Time: Sunday, January 08, 2017 19:56 - CONCLUSION: Unremarkable exam no evidence of acute hemorrhage, mass or infarction. Carlton Vigil MD Head CT 01/07/17 0000 Signed Impressions: Service Date/Time: Saturday, January 07, 2017 16:52 - CONCLUSION: 1. No acute intracranial abnormality. Delio Bourne MD Chest X-Ray 01/07/17 0000 Signed Impressions: Service Date/Time: Saturday, January 07, 2017 18:13 - CONCLUSION: Normal examination. Akira Gardner MD Objective Remarks GENERAL: This is a well-nourished, well-developed patient, in no apparent distress. CARDIOVASCULAR: Regular rate and regular rhythm without murmurs, gallops, or rubs. RESPIRATORY: Clear to auscultation. Breath sounds equal bilaterally. No wheezes , rales, or rhonchi. GASTROINTESTINAL: Abdomen soft, non-tender, nondistended. Normal, active bowel sounds MUSCULOSKELETAL: Extremities without clubbing, cyanosis, or edema. NEURO: awake and alert. Procedures LP Medications and IVs Current Medications Sodium Chloride (NS 1000 ml Inj) 1,000 ml @ 1,000 mls/hr Q1H ONCE IV Last administered on 01/07/17 15:04; Start 01/07/17 at 14:34; Stop 01/07/17 at 15:33 ; Status DC Sodium Chloride (NS Flush) 2 ml UNSCH PRN IVF FLUSH AFTER USING IV ACCESS; Start 01/07/17 at 14:45 Lorazepam (Ativan Inj) 1 mg ONCE ONCE IV PUSH Last administered on 01/07/17 15:41; Start 01/07/17 at 15:45; Stop 01/07/17 at 15:46; Status DC Lorazepam 1 mg 1 mg ONCE ONCE IV PUSH Last administered on 01/07/17 16:43; Start 01/07/17 at 16:00; Stop 01/07/17 at 16:01; Status DC Potassium Chloride (KCl 20 Meq Premix Inj) 100 ml @ 50 mls/hr Q2H IV Last administered on 01/07/17 20:48; Start 01/07/17 at 16:30; Stop 01/07/17 at 20:29 ; Status DC Potassium Chloride 40 meq 40 meq ONCE ONCE PO ; Start 01/07/17 at 18:15; Stop 01/07/17 at 18:17; Status DC Sodium Chloride (NS 1000 ml Inj) 1,000 ml @ 100 mls/hr Q10H ONCE IV Last administered on 01/07/17 18:32; Start 01/07/17 at 18:15; Stop 01/08/17 at 04:14 ; Status DC Lorazepam (Ativan Inj) 1 mg Q15M PRN IV PUSH SEIZURE Last administered on 17:11; Start 01/07/17 at 18:15; Stop 01/08/17 at 18:07; Status DC Levothyroxine Sodium (Synthroid) 125 mcg DAILY@0600 PO Last administered on 01/11 05:18; Start 01/08/17 at 06:00 Montelukast Sodium (Singulair) 10 mg DAILY PO Last administered on 01/11/17 09: 47; Start 01/08/17 at 09:00 Propranolol HCl (Inderal) 20 mg TID PO Last administered on 01/11/17 09:48; Start 01/08/17 at 09:00 Atorvastatin Calcium (Lipitor) 20 mg DAILY PO Last administered on 01/11/17 09: 48; Start 01/08/17 at 09:00 Potassium Bicarb/ Potassium Chloride 50 meq 50 meq ONCE ONCE PO Last administered on 01/08/17 00:44; Start 01/08/17 at 00:30; Stop 01/08/17 at 00:31 ; Status DC Potassium Chloride (KCl 20 Meq Premix Inj) 100 ml @ 50 mls/hr Q2H IV Last administered on 01/08/17 03:14; Start 01/08/17 at 00:30; Stop 01/08/17 at 04:29 ; Status DC Lorazepam (Ativan Inj) 2 mg ONCE ONCE IV PUSH Last administered on 01/08/17 00:44; Start 01/08/17 at 00:30; Stop 01/08/17 at 00:31; Status DC Alprazolam 0.25 mg 0.25 mg BID PO Last administered on 01/09/17 19:26; Start 01/08/17 at 09:00; Stop 01/10/17 at 08:12; Status DC Levetriacetam 100 ml @ 400 mls/hr Q12HR IV Last administered on 01/11/17 09:45 ; Start 01/08/17 at 09:30 Potassium Chloride (KCl 20 Meq Premix Inj) 100 ml @ 50 mls/hr BOLUS ONCE IV Last administered on 01/08/17 12:33; Start 01/08/17 at 13:00; Stop 01/08/17 at 14:59; Status DC Potassium Chloride (KCl) 30 meq ONCE ONCE PO ; Start 01/08/17 at 12:15; Stop at 12:20; Status DC Potassium Chloride (KCl) 30 meq ONCE ONCE PO ; Start 01/08/17 at 16:00; Stop at 16:01; Status DC Fosphenytoin Sodium (Cerebyx Inj) 1,000 mgpe ONCE ONCE IV Last administered on 01/08/17 17:25; Start 01/08/17 at 16:30; Stop 01/08/17 at 16:31; Status DC Fosphenytoin Sodium (Cerebyx Inj) 100 mgpe Q8HR IV Last administered on 05:29; Start 01/08/17 at 22:00; Stop 01/09/17 at 08:09; Status DC Acetaminophen (Tylenol) 650 mg Q6H PRN PO PAIN 1-10 AND/OR FEVER >101F Last administered on 01/11/17 00:55; Start 01/08/17 at 16:45 Famotidine (Pepcid) 20 mg Q12HR PO Last administered on 01/11/17 09:47; Start 01/08/17 at 21:00 Lorazepam (Ativan Inj) 1 mg Q1H PRN IV seizures Last administered on 01/10/17 04:52; Start 01/08/17 at 16:45 Ondansetron HCl (Zofran Inj) 4 mg Q6H PRN IV NAUSEA OR VOMITING; Start at 16:45 Miscellaneous Information 1 Q361D XX Last administered on 01/08/17 20:12; Start 01/08/17 at 16:45 Chlorhexidine Gluconate (Chlorhexidine 2% Cloth) 3 pack Taper DAILY@04 TOP Last administered on 01/10/17 04:38; Start 01/09/17 at 04:00; Stop 01/05/18 at 03:59 Chlorhexidine Gluconate (Chlorhexidine 2% Cloth) 3 pack UNSCH PRN TOP HYGIENIC CARE; Start 01/08/17 at 16:45 Senna/Docusate Sodium (Marilyn-Colace) 1 tab BID PO Last administered on 01/11/17 09:48; Start 01/08/17 at 21:00 Magnesium Hydroxide (Milk Of Magnesia Liq) 30 ml Q12H PRN PO MILD - MODERATE CONSTIPATION; Start 01/08/17 at 16:45 Sennosides (Senokot) 17.2 mg Q12H PRN PO MODERATE - SEVERE CONSTIPATION; Start 01/08/17 at 16:45 Bisacodyl (Dulcolax Supp) 10 mg DAILY PRN RECTAL SEVERE CONSITIPATION; Start at 16:45 Lactulose 30 ml 30 ml DAILY PRN PO SEVERE CONSITIPATION; Start 01/08/17 at 16: 45 Potassium Chloride 100 ml @ 50 mls/hr Q2H PRN IV For Potassium 2.8 - 3.2 mEq/L ; Start 01/08/17 at 16:45; Stop 01/11/17 at 08:32; Status DC Potassium Chloride (KCl 20 Meq Premix Inj) 100 ml @ 50 mls/hr Q2H PRN IV For Potassium 2.8 - 3.2 mEq/L Last administered on 01/10/17 17:30; Start 01/08/17 at 16:45; Stop 01/11/17 at 08:32; Status DC Potassium Bicarb/ Potassium Chloride 50 meq 50 meq UNSCH PRN PO For Potassium 3.3 - 3.5 mEq/L; Start 01/08/17 at 16:45; Stop 01/11/17 at 08:32; Status DC Potassium Chloride 100 ml @ 25 mls/hr UNSCH PRN IV For Potassium 3.3 - 3.5 mEq /L; Start 01/08/17 at 16:45; Stop 01/11/17 at 08:32; Status DC Potassium Chloride 100 ml @ 50 mls/hr Q2H PRN IV For Potassium 3.3 - 3.5 mEq/ L Last administered on 01/10/17 09:32; Start 01/08/17 at 16:45; Stop 01/11/17 at 08:32; Status DC Magnesium Sulfate/ Sodium Chloride (Magnesium Sulfate Inj/NS Inj) 100 ml @ 50 mls/hr UNSCH PRN IV For Magnesium 0.9 - 1.1 mg/dL; Start 01/08/17 at 16:45; Stop 01/11/17 at 08:32; Status DC Magnesium Oxide 800 mg 800 mg UNSCH PRN PO For Magnesium 1.2 - 1.6 mg/dL; Start 01/08/17 at 16:45; Stop 01/11/17 at 08:32; Status DC Magnesium Sulfate/ Sodium Chloride (Magnesium Sulfate Inj/NS Inj) 100 ml @ 50 mls/hr UNSCH PRN IV For Magnesium 1.2 - 1.6 mg/dL; Start 01/08/17 at 16:45; Stop 01/11/17 at 08:32; Status DC Potassium Phosphate 2000 mg 2,000 mg Q4H PRN PO For Phosphorus < 2.5 mg/dL; Start 01/08/17 at 16:45; Stop 01/11/17 at 08:32; Status DC Sodium Phosphate/ Sodium Chloride (Sodium Phosphate Inj/NS 250 ml Inj) 250 ml @ 42 mls/hr UNSCH PRN IV For Phosphorus < 2.5 mg/dL; Start 01/08/17 at 16:45; Stop 01/11/17 at 08:32; Status DC Potassium Phosphate 2000 mg 2,000 mg UNSCH PRN PO/TUBE SEE LABEL COMMENTS; Start 01/08/17 at 16:45; Stop 01/11/17 at 08:32; Status DC Potassium Phosphate/Sodium Chloride (Potassium Phosphate Inj/NS 250 ml Inj) 260 ml @ 42 mls/hr UNSCH PRN IV SEE LABEL COMMENTS; Start 01/08/17 at 16:45; Stop 01/11/17 at 08:32; Status DC Fentanyl Citrate (fentaNYL INJ) 100 mcg STK-MED ONCE .ROUTE ; Start 01/08/17 at 19:06; Stop 01/08/17 at 19:07; Status DC Epinephrine HCl (EPINEPHrine (1:10,000) INJ) 1 mg STK-MED ONCE .ROUTE ; Start at 19:28; Stop 01/08/17 at 19:29; Status DC Gadodiamide 19 ml 19 ml STK-MED ONCE IV Last administered on 01/08/17 20:13; Start 01/08/17 at 20:13; Stop 01/08/17 at 20:14; Status DC Propofol 100 ml @ As Directed STK-MED ONCE .ROUTE ; Start 01/08/17 at 20:20; Stop 01/08/17 at 20:21; Status DC Propofol (Diprivan 1000 Mg/100ml Inj) 100 ml @ 0 mls/hr TITRATE IV Last administered on 01/09/17 00:07; Start 01/08/17 at 22:15 Fentanyl Citrate (fentaNYL INJ) 100 mcg STK-MED ONCE .ROUTE ; Start 01/08/17 at 23:28; Stop 01/08/17 at 23:29; Status DC Midazolam HCl (Versed Inj) 5 mg STK-MED ONCE .ROUTE ; Start 01/08/17 at 23:28; Stop 01/08/17 at 23:29; Status DC Midazolam HCl (Versed Inj) 2 mg Q1H PRN IV PUSH agitation Last administered on 01/09/17 02:10; Start 01/09/17 at 00:00 Fentanyl Citrate (fentaNYL INJ) 100 mcg ONCE ONCE IV PUSH Last administered on 01/09/17 00:27; Start 01/08/17 at 23:30; Stop 01/09/17 at 00:25; Status DC Midazolam HCl 2 mg 2 mg ONCE ONCE IV PUSH Last administered on 01/09/17 00:27 ; Start 01/08/17 at 23:30; Stop 01/09/17 at 00:25; Status DC Dexmedetomidine HCl/Sodium Chloride (Precedex Inj/NS Inj) 52 ml @ 0 mls/hr TITRATE IV Last administered on 01/09/17 23:25; Start 01/09/17 at 04:30; Stop 01/10/17 at 08:09; Status DC Fosphenytoin Sodium (Cerebyx Inj) 200 mgpe BID IV Last administered on 09:33; Start 01/09/17 at 09:00; Stop 01/10/17 at 12:51; Status DC Alprazolam (Xanax) 0.5 mg BID PO Last administered on 01/11/17 09:47; Start at 09:00 Phenytoin (Dilantin) 300 mg BID PO Last administered on 01/11/17 09:46; Start 01/10/17 at 21:00 Phenytoin (Dilantin) 100 mg NOW ONCE PO Last administered on 01/10/17 12:57; Start 01/10/17 at 13:00; Stop 01/10/17 at 13:01; Status DC A/P Assessment and Plan A/P seizure- ; the patient doesn't have any history of seizure in the past . suspicious for benzo withdrawal. MRI with no acute abnormality. EEG with some sharp waves in temporal lobe CSF culture negative so far. continue Keppra and Dilantin. neurology following. continue with neuro checks and seizure precautions- -hypokalemia; replaced. -acute kidney injury; resolved. -hypertension; lisinopril-HCTZ on hold- resumed propranolol- will monitor and adjust the regimen as needed. -grave's disease- resumed levothyroxine -DVT prophylaxis with SCD's -PT consulted; recommended short-term rehab. Discharge Planning case management for dc planning to rehab. Marycarmen Camejo MD Jan 11, 2017 12:21
[2017-01-11 16:19] VITALS: BP 133/77; PULSE 66; RESP 19; TEMP 97; O2SAT 99
--- NOTE | 2017-01-11 16:37 | HHI.PR ---
Review/Management Daily Summary 01/11 no seizures per staff she feels fine anxious but pleasant and grossly oriented moves 4 limbs well continue meds as is Subjective Subjective Comments No seizure events reported No headache Active Medications Current Medications Medications (Trade) Dose Ordered Sig/Sheng Route Start Time Stop Time Status Last Admin (NS Flush) 2 ml UNSCH PRN IVF 01/07/17 14:45 (Synthroid) 125 mcg DAILY@0600 PO 01/08/17 06:00 01/11/17 05:18 (Singulair) 10 mg DAILY PO 01/08/17 09:00 01/11/17 09:47 (Inderal) 20 mg TID PO 01/08/17 09:00 01/11/17 13:29 Atorvastatin Calcium 20 mg 20 mg DAILY PO 01/08/17 09:00 01/11/17 09:48 (Keppra 1000 Mg Inj) 100 ml @ 400 mls/hr Q12HR IV 01/08/17 09:30 01/11/17 09:45 (Tylenol) 650 mg Q6H PRN PO 01/08/17 16:45 01/11/17 00:55 (Pepcid) 20 mg Q12HR PO 01/08/17 21:00 01/11/17 09:47 (Ativan Inj) 1 mg Q1H PRN IV 01/08/17 16:45 01/10/17 04:52 (Zofran Inj) 4 mg Q6H PRN IV 01/08/17 16:45 Miscellaneous Information 1 Q361D XX 01/08/17 16:45 01/08/17 20:12 (Chlorhexidine 2% Cloth) 3 pack Taper DAILY@04 TOP 01/09/17 04:00 01/05/18 03:59 01/10/17 04:38 (Chlorhexidine 2% Cloth) 3 pack UNSCH PRN TOP 01/08/17 16:45 (Marilyn-Colace) 1 tab BID PO 01/08/17 21:00 01/11/17 09:48 (Milk Of Magnesia Liq) 30 ml Q12H PRN PO 01/08/17 16:45 (Senokot) 17.2 mg Q12H PRN PO 01/08/17 16:45 (Dulcolax Supp) 10 mg DAILY PRN RECTAL 01/08/17 16:45 Lactulose 30 ml 30 ml DAILY PRN PO 01/08/17 16:45 (Diprivan 1000 Mg/100ml Inj) 100 ml @ 0 mls/hr TITRATE IV 01/08/17 22:15 01/09/17 00:07 (Versed Inj) 2 mg Q1H PRN IV PUSH 01/09/17 00:00 01/09/17 02:10 (Xanax) 0.5 mg BID PO 01/10/17 09:00 01/11/17 09:47 (Dilantin) 300 mg BID PO 01/10/17 21:00 01/11/17 09:46 Allergies Allergies Coded Allergies Penicillin (Verified Allergy, Severe, 01/07/17) Uncoded Allergies NSAIDS ( Allergy, Severe, 04/22/09) Exam I&O / VS 01/10/17 01/10/17 01/11/17 15:00 23:00 07:00 Intake Total 570 ml 240 ml Output Total 450 ml Balance 120 ml 240 ml Intake Oral 420 ml 240 ml IV Total 150 ml Output Urine Total 450 ml # Voids 1 # Bowel Movements 2 1 Vital Signs Date Time Temp Pulse Resp B/P Pulse Ox O2 Delivery O2 Flow Rate FiO2 01/11/17 16:19 97.0 66 19 133/77 99 01/11/17 13:30 Room Air 01/11/17 12:04 97.5 64 18 154/75 97 01/11/17 08:15 99.0 75 19 158/86 98 01/11/17 04:00 98.6 76 20 165/109 98 01/10/17 20:00 99.1 62 18 145/84 97 01/10/17 19:00 98 Room Air 01/10/17 18:08 99.1 66 19 148/75 98 Objective Micro and Labs Laboratory Tests Test 01/11/17 05:43 Phenytoin (Dilantin) Level 9.1 Date/Time Procedure Status Source Growth 01/08/17 23:45 Gram Stain - Final Resulted Cerebral Spinal Fluid Lumbar Puncture 01/08/17 23:45 CSF Culture - Preliminary Resulted Cerebral Spinal Fluid Lumbar Puncture NO GROWTH IN 48 HOURS. 01/07/17 14:42 Aerobic Blood Culture - Preliminary Resulted Blood Peripheral NO GROWTH IN 4 DAYS 01/07/17 14:42 Anaerobic Blood Culture - Preliminary Resulted Blood Peripheral NO GROWTH IN 4 DAYS Dontrell Garcia MD Jan 11, 2017 16:36
[2017-01-11 17:51] LABS: VDRL CSF NON-REACTIVE (())
[2017-01-11 20:00] VITALS: BP 130/76; PULSE 68; RESP 20; TEMP 98.1; O2SAT 98
[2017-01-11] MEDS: CHLORHEXIDINE GLUCONATE 2 % 1 PACK (2 CLOTHS) TOP SCH (23:11)
[2017-01-12] VITALS (7 sets, daily range): BP systolic 103–142; BP diastolic 60–100; PULSE 58–76; RESP 18–19; TEMP 97.5–99.2; O2SAT 96–99
[2017-01-12 03:51] LABS: CSF ANGIOTENSIN CONV ENZYME LESS THAN 5 U/L (< OR = 15)
[2017-01-12] MEDS: LEVOTHYROXINE SODIUM 125 MCG TAB PO SCH (05:00)
[2017-01-12] MEDS: FAMOTIDINE 20 MG TAB PO SCH ×2 (08:37→21:00)
[2017-01-12] MEDS: levETIRAcetam 1000 MG INJ 100 ML IV SCH ×2 (08:37→21:27)
[2017-01-12] MEDS: PHENYTOIN SODIUM 100 MG CAP PO SCH ×2 (08:38→21:27)
[2017-01-12] MEDS: ALPRAZolam 0.5 MG TAB PO SCH ×2 (08:39→21:27)
[2017-01-12] MEDS: MONTELUKAST SODIUM 10 MG TAB PO SCH (08:39)
[2017-01-12] MEDS: PROPRANOLOL HCL 20 MG TAB PO SCH ×3 (08:39→17:49)
[2017-01-12] MEDS: ATORVASTATIN 20 MG TAB PO SCH (08:39)
[2017-01-12] MEDS: DOCUSATE SODIUM 50 MG/SENNA 8.6 MG TAB PO SCH ×2 (08:39→21:00)
[2017-01-12] MEDS: SODIUM CHLORIDE 0.9% FLUSH 10 ML FLUSH IVF PRN (08:40)
[2017-01-12 10:07] LABS: POTASSIUM 3.7 MEQ/L (3.5-5.1)
--- NOTE | 2017-01-12 10:11 | HHI.PR ---
Subjective Remarks in no acute distress. no reported seizures. had confusional episodes over night per RN. Objective Vitals Vital Signs Date Time Temp Pulse Resp B/P Pulse Ox O2 Delivery O2 Flow Rate FiO2 01/12/17 08:53 96 Room Air 01/12/17 08:04 98.6 67 19 131/87 96 01/12/17 04:11 97.6 76 18 142/81 98 01/12/17 00:11 98.2 65 18 135/82 98 01/11/17 21:48 Room Air 01/11/17 20:00 98.1 68 20 130/76 98 01/11/17 16:19 97.0 66 19 133/77 99 01/11/17 13:30 Room Air 01/11/17 12:04 97.5 64 18 154/75 97 I/O 01/11/17 01/11/17 01/11/17 01/12/17 01/12/17 01/12/17 07:00 15:00 23:00 07:00 15:00 23:00 Intake Total 100 ml Balance 100 ml IV Total 100 ml # Voids 1 6 3 1 # Bowel Movements 0 0 Result Diagram: 01/10/17 0557 Imaging Last Impressions Brain MRI 01/08/17 0755 Signed Impressions: Service Date/Time: Sunday, January 08, 2017 19:56 - CONCLUSION: Unremarkable exam no evidence of acute hemorrhage, mass or infarction. Carlton Vigil MD Head CT 01/07/17 0000 Signed Impressions: Service Date/Time: Saturday, January 07, 2017 16:52 - CONCLUSION: 1. No acute intracranial abnormality. Delio Bourne MD Chest X-Ray 01/07/17 0000 Signed Impressions: Service Date/Time: Saturday, January 07, 2017 18:13 - CONCLUSION: Normal examination. Akira Gardner MD Objective Remarks GENERAL: This is a well-nourished, well-developed patient, in no apparent distress. CARDIOVASCULAR: Regular rate and regular rhythm without murmurs, gallops, or rubs. RESPIRATORY: Clear to auscultation. Breath sounds equal bilaterally. No wheezes , rales, or rhonchi. GASTROINTESTINAL: Abdomen soft, non-tender, nondistended. Normal, active bowel sounds MUSCULOSKELETAL: Extremities without clubbing, cyanosis, or edema. NEURO: awake , alert, oriented to person, place and partly to time. Procedures LP Medications and IVs Current Medications Sodium Chloride (NS 1000 ml Inj) 1,000 ml @ 1,000 mls/hr Q1H ONCE IV Last administered on 01/07/17 15:04; Start 01/07/17 at 14:34; Stop 01/07/17 at 15:33 ; Status DC Sodium Chloride (NS Flush) 2 ml UNSCH PRN IVF FLUSH AFTER USING IV ACCESS Last administered on 01/12/17 08:40; Start 01/07/17 at 14:45 Lorazepam (Ativan Inj) 1 mg ONCE ONCE IV PUSH Last administered on 01/07/17 15:41; Start 01/07/17 at 15:45; Stop 01/07/17 at 15:46; Status DC Lorazepam 1 mg 1 mg ONCE ONCE IV PUSH Last administered on 01/07/17 16:43; Start 01/07/17 at 16:00; Stop 01/07/17 at 16:01; Status DC Potassium Chloride (KCl 20 Meq Premix Inj) 100 ml @ 50 mls/hr Q2H IV Last administered on 01/07/17 20:48; Start 01/07/17 at 16:30; Stop 01/07/17 at 20:29 ; Status DC Potassium Chloride 40 meq 40 meq ONCE ONCE PO ; Start 01/07/17 at 18:15; Stop 01/07/17 at 18:17; Status DC Sodium Chloride (NS 1000 ml Inj) 1,000 ml @ 100 mls/hr Q10H ONCE IV Last administered on 01/07/17 18:32; Start 01/07/17 at 18:15; Stop 01/08/17 at 04:14 ; Status DC Lorazepam (Ativan Inj) 1 mg Q15M PRN IV PUSH SEIZURE Last administered on 17:11; Start 01/07/17 at 18:15; Stop 01/08/17 at 18:07; Status DC Levothyroxine Sodium (Synthroid) 125 mcg DAILY@0600 PO Last administered on 01/12 05:00; Start 01/08/17 at 06:00 Montelukast Sodium (Singulair) 10 mg DAILY PO Last administered on 01/12/17 08: 39; Start 01/08/17 at 09:00 Propranolol HCl (Inderal) 20 mg TID PO Last administered on 01/12/17 08:39; Start 01/08/17 at 09:00 Atorvastatin Calcium (Lipitor) 20 mg DAILY PO Last administered on 01/12/17 08: 39; Start 01/08/17 at 09:00 Potassium Bicarb/ Potassium Chloride 50 meq 50 meq ONCE ONCE PO Last administered on 01/08/17 00:44; Start 01/08/17 at 00:30; Stop 01/08/17 at 00:31 ; Status DC Potassium Chloride (KCl 20 Meq Premix Inj) 100 ml @ 50 mls/hr Q2H IV Last administered on 01/08/17 03:14; Start 01/08/17 at 00:30; Stop 01/08/17 at 04:29 ; Status DC Lorazepam (Ativan Inj) 2 mg ONCE ONCE IV PUSH Last administered on 01/08/17 00:44; Start 01/08/17 at 00:30; Stop 01/08/17 at 00:31; Status DC Alprazolam 0.25 mg 0.25 mg BID PO Last administered on 01/09/17 19:26; Start 01/08/17 at 09:00; Stop 01/10/17 at 08:12; Status DC Levetriacetam 100 ml @ 400 mls/hr Q12HR IV Last administered on 01/12/17 08:37 ; Start 01/08/17 at 09:30 Potassium Chloride (KCl 20 Meq Premix Inj) 100 ml @ 50 mls/hr BOLUS ONCE IV Last administered on 01/08/17 12:33; Start 01/08/17 at 13:00; Stop 01/08/17 at 14:59; Status DC Potassium Chloride (KCl) 30 meq ONCE ONCE PO ; Start 01/08/17 at 12:15; Stop at 12:20; Status DC Potassium Chloride (KCl) 30 meq ONCE ONCE PO ; Start 01/08/17 at 16:00; Stop at 16:01; Status DC Fosphenytoin Sodium (Cerebyx Inj) 1,000 mgpe ONCE ONCE IV Last administered on 01/08/17 17:25; Start 01/08/17 at 16:30; Stop 01/08/17 at 16:31; Status DC Fosphenytoin Sodium (Cerebyx Inj) 100 mgpe Q8HR IV Last administered on 05:29; Start 01/08/17 at 22:00; Stop 01/09/17 at 08:09; Status DC Acetaminophen (Tylenol) 650 mg Q6H PRN PO PAIN 1-10 AND/OR FEVER >101F Last administered on 01/11/17 00:55; Start 01/08/17 at 16:45 Famotidine (Pepcid) 20 mg Q12HR PO Last administered on 01/12/17 08:37; Start 01/08/17 at 21:00 Lorazepam (Ativan Inj) 1 mg Q1H PRN IV seizures Last administered on 01/10/17 04:52; Start 01/08/17 at 16:45 Ondansetron HCl (Zofran Inj) 4 mg Q6H PRN IV NAUSEA OR VOMITING; Start at 16:45 Miscellaneous Information 1 Q361D XX Last administered on 01/08/17 20:12; Start 01/08/17 at 16:45 Chlorhexidine Gluconate (Chlorhexidine 2% Cloth) 3 pack Taper DAILY@04 TOP Last administered on 01/10/17 04:38; Start 01/09/17 at 04:00; Stop 01/05/18 at 03:59 Chlorhexidine Gluconate (Chlorhexidine 2% Cloth) 3 pack UNSCH PRN TOP HYGIENIC CARE; Start 01/08/17 at 16:45 Senna/Docusate Sodium (Marilyn-Colace) 1 tab BID PO Last administered on 01/11/17 09:48; Start 01/08/17 at 21:00 Magnesium Hydroxide (Milk Of Magnesia Liq) 30 ml Q12H PRN PO MILD - MODERATE CONSTIPATION; Start 01/08/17 at 16:45 Sennosides (Senokot) 17.2 mg Q12H PRN PO MODERATE - SEVERE CONSTIPATION; Start 01/08/17 at 16:45 Bisacodyl (Dulcolax Supp) 10 mg DAILY PRN RECTAL SEVERE CONSITIPATION; Start at 16:45 Lactulose 30 ml 30 ml DAILY PRN PO SEVERE CONSITIPATION; Start 01/08/17 at 16: 45 Potassium Chloride 100 ml @ 50 mls/hr Q2H PRN IV For Potassium 2.8 - 3.2 mEq/L ; Start 01/08/17 at 16:45; Stop 01/11/17 at 08:32; Status DC Potassium Chloride (KCl 20 Meq Premix Inj) 100 ml @ 50 mls/hr Q2H PRN IV For Potassium 2.8 - 3.2 mEq/L Last administered on 01/10/17 17:30; Start 01/08/17 at 16:45; Stop 01/11/17 at 08:32; Status DC Potassium Bicarb/ Potassium Chloride 50 meq 50 meq UNSCH PRN PO For Potassium 3.3 - 3.5 mEq/L; Start 01/08/17 at 16:45; Stop 01/11/17 at 08:32; Status DC Potassium Chloride 100 ml @ 25 mls/hr UNSCH PRN IV For Potassium 3.3 - 3.5 mEq /L; Start 01/08/17 at 16:45; Stop 01/11/17 at 08:32; Status DC Potassium Chloride 100 ml @ 50 mls/hr Q2H PRN IV For Potassium 3.3 - 3.5 mEq/ L Last administered on 01/10/17t 09:32; Start 01/08/17 at 16:45; Stop 01/11/17 at 08:32; Status DC Magnesium Sulfate/ Sodium Chloride (Magnesium Sulfate Inj/NS Inj) 100 ml @ 50 mls/hr UNSCH PRN IV For Magnesium 0.9 - 1.1 mg/dL; Start 01/08/17 at 16:45; Stop 01/11/17 at 08:32; Status DC Magnesium Oxide 800 mg 800 mg UNSCH PRN PO For Magnesium 1.2 - 1.6 mg/dL; Start 01/08/17 at 16:45; Stop 01/11/17 at 08:32; Status DC Magnesium Sulfate/ Sodium Chloride (Magnesium Sulfate Inj/NS Inj) 100 ml @ 50 mls/hr UNSCH PRN IV For Magnesium 1.2 - 1.6 mg/dL; Start 01/08/17 at 16:45; Stop 01/11/17 at 08:32; Status DC Potassium Phosphate 2000 mg 2,000 mg Q4H PRN PO For Phosphorus < 2.5 mg/dL; Start 01/08/17 at 16:45; Stop 01/11/17 at 08:32; Status DC Sodium Phosphate/ Sodium Chloride (Sodium Phosphate Inj/NS 250 ml Inj) 250 ml @ 42 mls/hr UNSCH PRN IV For Phosphorus < 2.5 mg/dL; Start 01/08/17 at 16:45; Stop 01/11/17 at 08:32; Status DC Potassium Phosphate 2000 mg 2,000 mg UNSCH PRN PO/TUBE SEE LABEL COMMENTS; Start 01/08/17 at 16:45; Stop 01/11/17 at 08:32; Status DC Potassium Phosphate/Sodium Chloride (Potassium Phosphate Inj/NS 250 ml Inj) 260 ml @ 42 mls/hr UNSCH PRN IV SEE LABEL COMMENTS; Start 01/08/17 at 16:45; Stop 01/11/17 at 08:32; Status DC Fentanyl Citrate (fentaNYL INJ) 100 mcg STK-MED ONCE .ROUTE ; Start 01/08/17 at 19:06; Stop 01/08/17 at 19:07; Status DC Epinephrine HCl (EPINEPHrine (1:10,000) INJ) 1 mg STK-MED ONCE .ROUTE ; Start at 19:28; Stop 01/08/17 at 19:29; Status DC Gadodiamide 19 ml 19 ml STK-MED ONCE IV Last administered on 01/08/17 20:13; Start 01/08/17 at 20:13; Stop 01/08/17 at 20:14; Status DC Propofol 100 ml @ As Directed STK-MED ONCE .ROUTE ; Start 01/08/17 at 20:20; Stop 01/08/17 at 20:21; Status DC Propofol (Diprivan 1000 Mg/100ml Inj) 100 ml @ 0 mls/hr TITRATE IV Last administered on 01/09/17 00:07; Start 01/08/17 at 22:15 Fentanyl Citrate (fentaNYL INJ) 100 mcg STK-MED ONCE .ROUTE ; Start 01/08/17 at 23:28; Stop 01/08/17 at 23:29; Status DC Midazolam HCl (Versed Inj) 5 mg STK-MED ONCE .ROUTE ; Start 01/08/17 at 23:28; Stop 01/08/17 at 23:29; Status DC Midazolam HCl (Versed Inj) 2 mg Q1H PRN IV PUSH agitation Last administered on 01/09/17 02:10; Start 01/09/17 at 00:00 Fentanyl Citrate (fentaNYL INJ) 100 mcg ONCE ONCE IV PUSH Last administered on 01/09/17 00:27; Start 01/08/17 at 23:30; Stop 01/09/17 at 00:25; Status DC Midazolam HCl 2 mg 2 mg ONCE ONCE IV PUSH Last administered on 01/09/17 00:27 ; Start 01/08/17 at 23:30; Stop 01/09/17 at 00:25; Status DC Dexmedetomidine HCl/Sodium Chloride (Precedex Inj/NS Inj) 52 ml @ 0 mls/hr TITRATE IV Last administered on 01/09/17 23:25; Start 01/09/17 at 04:30; Stop 01/10/17 at 08:09; Status DC Fosphenytoin Sodium (Cerebyx Inj) 200 mgpe BID IV Last administered on 09:33; Start 01/09/17 at 09:00; Stop 01/10/17 at 12:51; Status DC Alprazolam (Xanax) 0.5 mg BID PO Last administered on 01/12/17 08:39; Start at 09:00 Phenytoin (Dilantin) 300 mg BID PO Last administered on 01/12/17 08:38; Start 01/10/17 at 21:00 Phenytoin (Dilantin) 100 mg NOW ONCE PO Last administered on 01/10/17 12:57; Start 01/10/17 at 13:00; Stop 01/10/17 at 13:01; Status DC A/P Assessment and Plan A/P seizure- ; the patient doesn't have any history of seizure in the past . suspicious for benzo withdrawal. MRI with no acute abnormality. EEG with some sharp waves in temporal lobe CSF culture negative so far. continue Keppra and Dilantin. neurology follow-up appreciated. continue with neuro checks and seizure precautions- -hypokalemia; replaced. -acute kidney injury; resolved. -hypertension; lisinopril-HCTZ on hold- resumed propranolol- will monitor and adjust the regimen as needed. -grave's disease- resumed levothyroxine -DVT prophylaxis with SCD's -PT consulted; recommended short-term rehab. Discharge Planning dc to SNF when cleared by neurology. Marycarmen Camejo MD Jan 12, 2017 10:11
[2017-01-12] MEDS ORDERED: PHENYTOIN INJ 250 MG/5 ML VIAL IV ONE (14:15)
--- NOTE | 2017-01-12 19:08 | HHI.PR ---
Review/Management Daily Summary 01/11 no seizures per staff she feels fine anxious but pleasant and grossly oriented moves 4 limbs well continue meds as is 01/12 she had 2 episodes of confusion and behavior change after first seizure, we ordered bolus dph as level was low, then she had another episode possible complex partial seizures, dilantin boost given when i saw her this evening she was back to baseline, some anxiety dx as well , Subjective Subjective Comments she has had a couple of episodes of confusion and begavior change Active Medications Current Medications Medications (Trade) Dose Ordered Sig/Sheng Route Start Time Stop Time Status Last Admin (NS Flush) 2 ml UNSCH PRN IVF 01/07/17 14:45 01/12/17 08:40 (Synthroid) 125 mcg DAILY@0600 PO 01/08/17 06:00 01/12/17 05:00 (Singulair) 10 mg DAILY PO 01/08/17 09:00 01/12/17 08:39 (Inderal) 20 mg TID PO 01/08/17 09:00 01/12/17 17:49 Atorvastatin Calcium 20 mg 20 mg DAILY PO 01/08/17 09:00 01/12/17 08:39 (Keppra 1000 Mg Inj) 100 ml @ 400 mls/hr Q12HR IV 01/08/17 09:30 01/12/17 08:37 (Tylenol) 650 mg Q6H PRN PO 01/08/17 16:45 01/11/17 00:55 (Pepcid) 20 mg Q12HR PO 01/08/17 21:00 01/12/17 08:37 (Ativan Inj) 1 mg Q1H PRN IV 01/08/17 16:45 01/10/17 04:52 (Zofran Inj) 4 mg Q6H PRN IV 01/08/17 16:45 Miscellaneous Information 1 Q361D XX 01/08/17 16:45 01/08/17 20:12 (Chlorhexidine 2% Cloth) 3 pack Taper DAILY@04 TOP 01/09/17 04:00 01/05/18 03:59 01/10/17 04:38 (Chlorhexidine 2% Cloth) 3 pack UNSCH PRN TOP 01/08/17 16:45 (Marilyn-Colace) 1 tab BID PO 01/08/17 21:00 01/11/17 09:48 (Milk Of Magnesia Liq) 30 ml Q12H PRN PO 01/08/17 16:45 (Senokot) 17.2 mg Q12H PRN PO 01/08/17 16:45 (Dulcolax Supp) 10 mg DAILY PRN RECTAL 01/08/17 16:45 Lactulose 30 ml 30 ml DAILY PRN PO 01/08/17 16:45 (Diprivan 1000 Mg/100ml Inj) 100 ml @ 0 mls/hr TITRATE IV 01/08/17 22:15 01/09/17 00:07 (Versed Inj) 2 mg Q1H PRN IV PUSH 01/09/17 00:00 01/09/17 02:10 (Xanax) 0.5 mg BID PO 01/10/17 09:00 01/12/17 08:39 (Dilantin) 400 mg BID PO 01/12/17 21:00 Allergies Allergies Coded Allergies Penicillin (Verified Allergy, Severe, 01/07/17) Uncoded Allergies NSAIDS ( Allergy, Severe, 04/22/09) Exam I&O / VS 01/11/17 01/11/17 01/12/17 14:59 22:59 06:59 Intake Total 100 ml Balance 100 ml IV Total 100 ml # Voids 1 6 3 # Bowel Movements 0 0 Vital Signs Date Time Temp Pulse Resp B/P Pulse Ox O2 Delivery O2 Flow Rate FiO2 01/12/17 16:15 99.1 59 18 135/67 96 01/12/17 13:36 103/60 01/12/17 12:02 99.2 58 18 120/65 99 01/12/17 08:53 96 Room Air 01/12/17 08:04 98.6 67 19 131/87 96 01/12/17 04:11 97.6 76 18 142/81 98 01/12/17 00:11 98.2 65 18 135/82 98 01/11/17 21:48 Room Air 01/11/17 20:00 98.1 68 20 130/76 98 Objective Micro and Labs Laboratory Tests Test 01/12/17 01/12/17 08:23 15:38 Potassium Level 3.7 Phenytoin (Dilantin) Level 7.9 9.3 Date/Time Procedure Status Source Growth 01/08/17 23:45 Gram Stain - Final Complete Cerebral Spinal Fluid Lumbar Puncture 01/08/17 23:45 CSF Culture - Final Complete Cerebral Spinal Fluid Lumbar Puncture NO GROWTH IN 72 HOURS Dontrell Garcia MD Jan 12, 2017 19:08
[2017-01-12 23:53] LABS: B. BURGDORFERI DNA PCR CSF NOT DETECTED (())
[2017-01-13] VITALS: BP_SYST 135; BP_SYST 140; BP_DIAS 78; BP_DIAS 82; PULSE 61; PULSE 74; RESP 20; TEMP 97.9; TEMP 99; O2SAT 97; O2SAT 98
[2017-01-13] MEDS: CHLORHEXIDINE GLUCONATE 2 % 1 PACK (2 CLOTHS) TOP SCH (01:00)
[2017-01-13 04:00] VITALS: BP 140/82; PULSE 74; RESP 20; TEMP 99; O2SAT 97
[2017-01-13] MEDS: LEVOTHYROXINE SODIUM 125 MCG TAB PO SCH (05:33)
[2017-01-13 08:00] VITALS: BP 147/81; PULSE 77; RESP 18; TEMP 98.3; O2SAT 96
[2017-01-13] MEDS: levETIRAcetam 1000 MG INJ 100 ML IV SCH ×2 (08:54→21:06)
[2017-01-13] MEDS: PROPRANOLOL HCL 20 MG TAB PO SCH ×3 (08:55→17:50)
[2017-01-13] MEDS: ALPRAZolam 0.5 MG TAB PO SCH ×2 (08:55→21:07)
[2017-01-13] MEDS: PHENYTOIN SODIUM 100 MG CAP PO SCH ×2 (08:55→21:07)
[2017-01-13] MEDS: MONTELUKAST SODIUM 10 MG TAB PO SCH (08:56)
[2017-01-13] MEDS: DOCUSATE SODIUM 50 MG/SENNA 8.6 MG TAB PO SCH ×2 (08:56→21:00)
[2017-01-13] MEDS: ATORVASTATIN 20 MG TAB PO SCH (08:56)
[2017-01-13] MEDS: FAMOTIDINE 20 MG TAB PO SCH ×2 (08:56→21:07)
--- NOTE | 2017-01-13 09:18 | HHI.PR ---
Subjective Remarks off sedatives one cpsz yest Objective Vital Signs Date Time Temp Pulse Resp B/P Pulse Ox O2 Delivery O2 Flow Rate FiO2 01/13/17 08:00 98.3 77 18 147/81 96 01/13/17 04:00 99.0 74 20 140/82 97 01/13/17 00:00 97.9 61 20 135/78 98 01/12/17 21:27 98 Room Air 01/12/17 20:55 97.5 62 18 114/100 98 01/12/17 16:15 99.1 59 18 135/67 96 01/12/17 13:36 103/60 01/12/17 12:02 99.2 58 18 120/65 99 I/O 01/12/17 01/12/17 01/12/17 01/13/17 01/13/17 01/13/17 07:00 15:00 23:00 07:00 15:00 23:00 Intake Total 100 ml 400 ml Balance 100 ml 400 ml Intake Oral 400 ml IV Total 100 ml # Voids 3 4 3 2 # Bowel Movements 0 0 Result Diagram: 01/12/17822 Objective Remarks awake alert january 13 2017 hospital not aphasic no gait speeech clear Assessment and Plan Assessment and Plan imp on keppra and dil 5.9 alb nl mri nl eeg bilat [facility] lab ok so far dc precedex should do better today evidently ran out of xanax recheck eeg inc dil 200 bid cont keppra 1500 bid should do beter today keep off precedex 01/10/17 LP neg mri neg labs ok dil level pend eeg still some sharps keppra very restless could be med effect dc precedex and [place] and oob let her work some of her motor energy off call me with noon update inc xanax dose not a drinker she tells me 01/13/17 she looks ok now get dil over 12 cont keppra last eeg ok much better unclear why sz starting up now should be dc few day maybe tomorrow Jayson Bermudez MD Jan 13, 2017 09:18
--- NOTE | 2017-01-13 10:19 | HHI.PR ---
Subjective Remarks resting comfortably with no distress. no new complaints. Objective Vitals Vital Signs Date Time Temp Pulse Resp B/P Pulse Ox O2 Delivery O2 Flow Rate FiO2 01/13/17 08:00 98.3 77 18 147/81 96 01/13/17 04:00 99.0 74 20 140/82 97 01/13/17 00:00 97.9 61 20 135/78 98 01/12/17 21:27 98 Room Air 01/12/17 20:55 97.5 62 18 114/100 98 01/12/17 16:15 99.1 59 18 135/67 96 01/12/17 13:36 103/60 01/12/17 12:02 99.2 58 18 120/65 99 I/O 01/12/17 01/12/17 01/12/17 01/13/17 01/13/17 01/13/17 07:00 15:00 23:00 07:00 15:00 23:00 Intake Total 100 ml 400 ml Balance 100 ml 400 ml Intake Oral 400 ml IV Total 100 ml # Voids 3 4 3 2 # Bowel Movements 0 0 Result Diagram: 01/12/17 0823 Imaging Last Impressions Brain MRI 01/08/17 0755 Signed Impressions: Service Date/Time: Sunday, January 08, 2017 19:56 - CONCLUSION: Unremarkable exam no evidence of acute hemorrhage, mass or infarction. Carlton Vigil MD Head CT 01/07/17 0000 Signed Impressions: Service Date/Time: Saturday, January 07, 2017 16:52 - CONCLUSION: 1. No acute intracranial abnormality. Delio Bourne MD Chest X-Ray 01/07/17 0000 Signed Impressions: Service Date/Time: Saturday, January 07, 2017 18:13 - CONCLUSION: Normal examination. Akira Gardner MD Objective Remarks GENERAL: This is a well-nourished, well-developed patient, in no apparent distress. CARDIOVASCULAR: Regular rate and regular rhythm without murmurs, gallops, or rubs. RESPIRATORY: Clear to auscultation. Breath sounds equal bilaterally. No wheezes , rales, or rhonchi. GASTROINTESTINAL: Abdomen soft, non-tender, nondistended. Normal, active bowel sounds MUSCULOSKELETAL: Extremities without clubbing, cyanosis, or edema. NEURO: awake , alert, oriented to person, place and partly to time. Procedures LP Medications and IVs Current Medications Sodium Chloride (NS 1000 ml Inj) 1,000 ml @ 1,000 mls/hr Q1H ONCE IV Last administered on 01/07/17 15:04; Start 01/07/17 at 14:34; Stop 01/07/17 at 15:33 ; Status DC Sodium Chloride (NS Flush) 2 ml UNSCH PRN IVF FLUSH AFTER USING IV ACCESS Last administered on 01/12/17 08:40; Start 01/07/17 at 14:45 Lorazepam (Ativan Inj) 1 mg ONCE ONCE IV PUSH Last administered on 01/07/17 15:41; Start 01/07/17 at 15:45; Stop 01/07/17 at 15:46; Status DC Lorazepam 1 mg 1 mg ONCE ONCE IV PUSH Last administered on 01/07/17 16:43; Start 01/07/17 at 16:00; Stop 01/07/17 at 16:01; Status DC Potassium Chloride (KCl 20 Meq Premix Inj) 100 ml @ 50 mls/hr Q2H IV Last administered on 01/07/17 20:48; Start 01/07/17 at 16:30; Stop 01/07/17 at 20:29 ; Status DC Potassium Chloride 40 meq 40 meq ONCE ONCE PO ; Start 01/07/17 at 18:15; Stop 01/07/17 at 18:17; Status DC Sodium Chloride (NS 1000 ml Inj) 1,000 ml @ 100 mls/hr Q10H ONCE IV Last administered on 01/07/17 18:32; Start 01/07/17 at 18:15; Stop 01/08/17 at 04:14 ; Status DC Lorazepam (Ativan Inj) 1 mg Q15M PRN IV PUSH SEIZURE Last administered on 17:11; Start 01/07/17 at 18:15; Stop 01/08/17 at 18:07; Status DC Levothyroxine Sodium (Synthroid) 125 mcg DAILY@0600 PO Last administered on 01/13 05:33; Start 01/08/17 at 06:00 Montelukast Sodium (Singulair) 10 mg DAILY PO Last administered on 01/13/17 08: 56; Start 01/08/17 at 09:00 Propranolol HCl (Inderal) 20 mg TID PO Last administered on 01/13/17 08:55; Start 01/08/17 at 09:00 Atorvastatin Calcium (Lipitor) 20 mg DAILY PO Last administered on 01/13/17 08: 56; Start 01/08/17 at 09:00 Potassium Bicarb/ Potassium Chloride 50 meq 50 meq ONCE ONCE PO Last administered on 01/08/17 00:44; Start 01/08/17 at 00:30; Stop 01/08/17 at 00:31 ; Status DC Potassium Chloride (KCl 20 Meq Premix Inj) 100 ml @ 50 mls/hr Q2H IV Last administered on 01/08/17 03:14; Start 01/08/17 at 00:30; Stop 01/08/17 at 04:29 ; Status DC Lorazepam (Ativan Inj) 2 mg ONCE ONCE IV PUSH Last administered on 01/08/17 00:44; Start 01/08/17 at 00:30; Stop 01/08/17 at 00:31; Status DC Alprazolam 0.25 mg 0.25 mg BID PO Last administered on 01/09/17 19:26; Start 01/08/17 at 09:00; Stop 01/10/17 at 08:12; Status DC Levetriacetam 100 ml @ 400 mls/hr Q12HR IV Last administered on 01/13/17 08:54 ; Start 01/08/17 at 09:30 Potassium Chloride (KCl 20 Meq Premix Inj) 100 ml @ 50 mls/hr BOLUS ONCE IV Last administered on 01/08/17 12:33; Start 01/08/17 at 13:00; Stop 01/08/17 at 14:59; Status DC Potassium Chloride (KCl) 30 meq ONCE ONCE PO ; Start 01/08/17 at 12:15; Stop at 12:20; Status DC Potassium Chloride (KCl) 30 meq ONCE ONCE PO ; Start 01/08/17 at 16:00; Stop at 16:01; Status DC Fosphenytoin Sodium (Cerebyx Inj) 1,000 mgpe ONCE ONCE IV Last administered on 01/08/17 17:25; Start 01/08/17 at 16:30; Stop 01/08/17 at 16:31; Status DC Fosphenytoin Sodium (Cerebyx Inj) 100 mgpe Q8HR IV Last administered on 05:29; Start 01/08/17 at 22:00; Stop 01/09/17 at 08:09; Status DC Acetaminophen (Tylenol) 650 mg Q6H PRN PO PAIN 1-10 AND/OR FEVER >101F Last administered on 01/11/17 00:55; Start 01/08/17 at 16:45 Famotidine (Pepcid) 20 mg Q12HR PO Last administered on 01/13/17 08:56; Start 01/08/17 at 21:00 Lorazepam (Ativan Inj) 1 mg Q1H PRN IV seizures Last administered on 01/10/17 04:52; Start 01/08/17 at 16:45 Ondansetron HCl (Zofran Inj) 4 mg Q6H PRN IV NAUSEA OR VOMITING; Start at 16:45 Miscellaneous Information 1 [id number] XX Last administered on 01/08/17 20:12; Start 01/08/17 at 16:45 Chlorhexidine Gluconate (Chlorhexidine 2% Cloth) 3 pack Taper DAILY@04 TOP Last administered on 01/10/17 04:38; Start 01/09/17 at 04:00; Stop 01/05/18 at 03:59 Chlorhexidine Gluconate (Chlorhexidine 2% Cloth) 3 pack UNSCH PRN TOP HYGIENIC CARE; Start 01/08/17 at 16:45 Senna/Docusate Sodium (Marilyn-Colace) 1 tab BID PO Last administered on 01/11/17 09:48; Start 01/08/17 at 21:00 Magnesium Hydroxide (Milk Of Magnesia Liq) 30 ml Q12H PRN PO MILD - MODERATE CONSTIPATION; Start 01/08/17 at 16:45 Sennosides (Senokot) 17.2 mg Q12H PRN PO MODERATE - SEVERE CONSTIPATION; Start 01/08/17 at 16:45 Bisacodyl (Dulcolax Supp) 10 mg DAILY PRN RECTAL SEVERE CONSITIPATION; Start at 16:45 Lactulose 30 ml 30 ml DAILY PRN PO SEVERE CONSITIPATION; Start 01/08/17 at 16: 45 Potassium Chloride 100 ml @ 50 mls/hr Q2H PRN IV For Potassium 2.8 - 3.2 mEq/L ; Start 01/08/17 at 16:45; Stop 01/11/17 at 08:32; Status DC Potassium Chloride (KCl 20 Meq Premix Inj) 100 ml @ 50 mls/hr Q2H PRN IV For Potassium 2.8 - 3.2 mEq/L Last administered on 01/10/17t 17:30; Start 01/08/17 at 16:45; Stop 01/11/17 at 08:32; Status DC Potassium Bicarb/ Potassium Chloride 50 meq 50 meq UNSCH PRN PO For Potassium 3.3 - 3.5 mEq/L; Start 01/08/17 at 16:45; Stop 01/11/17 at 08:32; Status DC Potassium Chloride 100 ml @ 25 mls/hr UNSCH PRN IV For Potassium 3.3 - 3.5 mEq /L; Start 01/08/17 at 16:45; Stop 01/11/17 at 08:32; Status DC Potassium Chloride 100 ml @ 50 mls/hr Q2H PRN IV For Potassium 3.3 - 3.5 mEq/ L Last administered on 01/10/17t 09:32; Start 01/08/17 at 16:45; Stop 01/11/17 at 08:32; Status DC Magnesium Sulfate/ Sodium Chloride (Magnesium Sulfate Inj/NS Inj) 100 ml @ 50 mls/hr UNSCH PRN IV For Magnesium 0.9 - 1.1 mg/dL; Start 01/08/17 at 16:45; Stop 01/11/17 at 08:32; Status DC Magnesium Oxide 800 mg 800 mg UNSCH PRN PO For Magnesium 1.2 - 1.6 mg/dL; Start 01/08/17 at 16:45; Stop 01/11/17 at 08:32; Status DC Magnesium Sulfate/ Sodium Chloride (Magnesium Sulfate Inj/NS Inj) 100 ml @ 50 mls/hr UNSCH PRN IV For Magnesium 1.2 - 1.6 mg/dL; Start 01/08/17 at 16:45; Stop 01/11/17 at 08:32; Status DC Potassium Phosphate 2000 mg 2,000 mg Q4H PRN PO For Phosphorus < 2.5 mg/dL; Start 01/08/17 at 16:45; Stop 01/11/17 at 08:32; Status DC Sodium Phosphate/ Sodium Chloride (Sodium Phosphate Inj/NS 250 ml Inj) 250 ml @ 42 mls/hr UNSCH PRN IV For Phosphorus < 2.5 mg/dL; Start 01/08/17 at 16:45; Stop 01/11/17 at 08:32; Status DC Potassium Phosphate 2000 mg 2,000 mg UNSCH PRN PO/TUBE SEE LABEL COMMENTS; Start 01/08/17 at 16:45; Stop 01/11/17 at 08:32; Status DC Potassium Phosphate/Sodium Chloride (Potassium Phosphate Inj/NS 250 ml Inj) 260 ml @ 42 mls/hr UNSCH PRN IV SEE LABEL COMMENTS; Start 01/08/17 at 16:45; Stop 01/11/17 at 08:32; Status DC Fentanyl Citrate (fentaNYL INJ) 100 mcg STK-MED ONCE .ROUTE ; Start 01/08/17 at 19:06; Stop 01/08/17 at 19:07; Status DC Epinephrine HCl (EPINEPHrine (1:10,000) INJ) 1 mg STK-MED ONCE .ROUTE ; Start at 19:28; Stop 01/08/17 at 19:29; Status DC Gadodiamide 19 ml 19 ml STK-MED ONCE IV Last administered on 01/08/17 20:13; Start 01/08/17 at 20:13; Stop 01/08/17 at 20:14; Status DC Propofol 100 ml @ As Directed STK-MED ONCE .ROUTE ; Start 01/08/17 at 20:20; Stop 01/08/17 at 20:21; Status DC Propofol (Diprivan 1000 Mg/100ml Inj) 100 ml @ 0 mls/hr TITRATE IV Last administered on 01/09/17 00:07; Start 01/08/17 at 22:15 Fentanyl Citrate (fentaNYL INJ) 100 mcg STK-MED ONCE .ROUTE ; Start 01/08/17 at 23:28; Stop 01/08/17 at 23:29; Status DC Midazolam HCl (Versed Inj) 5 mg STK-MED ONCE .ROUTE ; Start 01/08/17 at 23:28; Stop 01/08/17 at 23:29; Status DC Midazolam HCl (Versed Inj) 2 mg Q1H PRN IV PUSH agitation Last administered on 01/09/17 02:10; Start 01/09/17 at 00:00 Fentanyl Citrate (fentaNYL INJ) 100 mcg ONCE ONCE IV PUSH Last administered on 01/09/17 00:27; Start 01/08/17 at 23:30; Stop 01/09/17 at 00:25; Status DC Midazolam HCl 2 mg 2 mg ONCE ONCE IV PUSH Last administered on 01/09/17 00:27 ; Start 01/08/17 at 23:30; Stop 01/09/17 at 00:25; Status DC Dexmedetomidine HCl/Sodium Chloride (Precedex Inj/NS Inj) 52 ml @ 0 mls/hr TITRATE IV Last administered on 01/09/17 23:25; Start 01/09/17 at 04:30; Stop 01/10/17 at 08:09; Status DC Fosphenytoin Sodium (Cerebyx Inj) 200 mgpe BID IV Last administered on 09:33; Start 01/09/17 at 09:00; Stop 01/10/17 at 12:51; Status DC Alprazolam (Xanax) 0.5 mg BID PO Last administered on 01/13/17 08:55; Start at 09:00 Phenytoin (Dilantin) 300 mg BID PO Last administered on 01/12/17 08:38; Start 01/10/17 at 21:00; Stop 01/12/17 at 14:06; Status DC Phenytoin (Dilantin) 100 mg NOW ONCE PO Last administered on 01/10/17 12:57; Start 01/10/17 at 13:00; Stop 01/10/17 at 13:01; Status DC Phenytoin Sodium (Dilantin Inj) 500 mg NOW ONCE IV Last administered on 15:19; Start 01/12/17 at 14:15; Stop 01/12/17 at 14:16; Status DC Phenytoin (Dilantin) 400 mg BID PO Last administered on 01/13/17 08:55; Start 01/12/17 at 21:00 A/P Assessment and Plan A/P seizure- ; the patient doesn't have any history of seizure in the past . suspicious for benzo withdrawal. MRI with no acute abnormality. EEG with some sharp waves in temporal lobe CSF culture negative so far. continue Keppra and Dilantin- will monitor dilantin level. neurology follow-up appreciated. continue with neuro checks and seizure precautions- -hypokalemia; replaced. -acute kidney injury; resolved. -hypertension; lisinopril-HCTZ on hold- resumed propranolol- will monitor and adjust the regimen as needed. -grave's disease- resumed levothyroxine -DVT prophylaxis with SCD's -PT consulted; recommended short-term rehab. Discharge Planning dc to SNF when cleared by neurology. Marycarmen Camejo MD Jan 13, 2017 10:18
[2017-01-13 12:00] VITALS: BP 142/78; PULSE 62; RESP 18; TEMP 98.8; O2SAT 99
[2017-01-13 16:00] VITALS: BP 142/83; PULSE 69; RESP 18; TEMP 98.4; O2SAT 96
[2017-01-14 00:32] VITALS: BP 122/78; PULSE 66; RESP 20; TEMP 98.8; O2SAT 96
[2017-01-14] MEDS: CHLORHEXIDINE GLUCONATE 2 % 1 PACK (2 CLOTHS) TOP SCH (04:00)
[2017-01-14 04:45] VITALS: BP 160/77; PULSE 69; RESP 16; TEMP 98.5; O2SAT 97
[2017-01-14] MEDS: LEVOTHYROXINE SODIUM 125 MCG TAB PO SCH (05:41)
[2017-01-14 08:00] VITALS: BP 142/81; PULSE 65; RESP 20; TEMP 98.8; O2SAT 96
[2017-01-14] MEDS: levETIRAcetam 1000 MG INJ 100 ML IV SCH ×2 (08:16→20:43)
[2017-01-14] MEDS: PHENYTOIN SODIUM 100 MG CAP PO SCH ×2 (08:16→20:43)
[2017-01-14] MEDS: ATORVASTATIN 20 MG TAB PO SCH (08:17)
[2017-01-14] MEDS: FAMOTIDINE 20 MG TAB PO SCH ×2 (08:17→20:44)
[2017-01-14] MEDS: ALPRAZolam 0.5 MG TAB PO SCH ×2 (08:17→20:44)
[2017-01-14] MEDS: PROPRANOLOL HCL 20 MG TAB PO SCH ×3 (08:17→18:19)
[2017-01-14] MEDS: MONTELUKAST SODIUM 10 MG TAB PO SCH (08:19)
[2017-01-14] MEDS: DOCUSATE SODIUM 50 MG/SENNA 8.6 MG TAB PO SCH ×2 (08:19→20:45)
[2017-01-14 12:00] VITALS: BP 127/80; PULSE 58; RESP 20; TEMP 98.1; O2SAT 98
--- NOTE | 2017-01-14 13:20 | HHI.PR ---
Subjective Remarks Follow-up seizure disorder 01/14/17-patient seen and examined, stable and no seizure activity 3 days. No acute event overnight. Vitals stable Objective Vitals Vital Signs Date Time Temp Pulse Resp B/P Pulse Ox O2 Delivery O2 Flow Rate FiO2 01/14/17 12:00 98.1 58 20 127/80 98 01/14/17 08:00 98.8 65 20 142/81 96 01/14/17 04:45 98.5 69 16 160/77 97 01/14/17 02:37 Room Air 01/14/17 00:32 98.8 66 20 122/78 96 01/13/17 20:00 Room Air 01/13/17 16:00 98.4 69 18 142/83 96 I/O 01/13/17 01/13/17 01/13/17 01/14/17 01/14/17 01/14/17 07:00 15:00 23:00 07:00 15:00 23:00 # Voids 2 6 2 # Bowel Movements 2 0 Result Diagram: 01/12/17 0823 Imaging Last Impressions Brain MRI 01/08/17 0755 Signed Impressions: Service Date/Time: Sunday, January 08, 2017 19:56 - CONCLUSION: Unremarkable exam no evidence of acute hemorrhage, mass or infarction. Carlton Vigil MD Head CT 01/07/17 0000 Signed Impressions: Service Date/Time: Saturday, January 07, 2017 16:52 - CONCLUSION: 1. No acute intracranial abnormality. Delio Bourne MD Chest X-Ray 01/07/17 0000 Signed Impressions: Service Date/Time: Saturday, January 07, 2017 18:13 - CONCLUSION: Normal examination. Akira Gardner MD Objective Remarks GENERAL: NAD SKIN: Warm and dry. HEAD: Normocephalic. EYES: No scleral icterus. No injection or drainage. NECK: Supple, trachea midline. No JVD or lymphadenopathy. CARDIOVASCULAR: Regular rate and rhythm without murmurs, gallops, or rubs. RESPIRATORY: Breath sounds equal bilaterally. No accessory muscle use. GASTROINTESTINAL: Abdomen soft, non-tender, nondistended. MUSCULOSKELETAL: No cyanosis, or edema. BACK: Nontender without obvious deformity. No CVA tenderness. Procedures LP A/P Problem List: (1) Altered mental status, unspecified ICD Code: R41.82 Status: Acute (2) Hypokalemia ICD Code: E87.6 Status: Acute (3) Seizure disorder ICD Code: G40.909 Status: Acute Assessment and Plan 61-year-old female with -Seizure disorder No known history of seizure prior to these admissions however suspicious for benzo withdrawal All workup negative including brain MRI, CSF EEG with some sharp waves in temporal lobe Currently on Keppra and Dilantin, seizure precautions Appreciate input from neurology Anxiety: Stable on Xanax twice a day -Hypokalemia: Resolved -Acute kidney injury; resolved. -Hypertension: Normotensive on Inderal, continue to hold lisinopril -Hyperlipidemia: Continue Lipitor -Grave's disease- continue levothyroxine -DVT prophylaxis with SCD's -PT consulted; recommended short-term rehab. Hesham Forbes MD Jan 14, 2017 13:20
[2017-01-14 16:00] VITALS: BP 129/78; PULSE 65; RESP 20; TEMP 97.6; O2SAT 100
[2017-01-14 22:13] VITALS: BP 140/80; PULSE 63; RESP 20; TEMP 98.7; O2SAT 98
[2017-01-15] VITALS: BP 131/67; PULSE 60; RESP 18; TEMP 98.4; O2SAT 98
[2017-01-15] MEDS: CHLORHEXIDINE GLUCONATE 2 % 1 PACK (2 CLOTHS) TOP SCH (04:00)
[2017-01-15] MEDS: LEVOTHYROXINE SODIUM 125 MCG TAB PO SCH (05:55)
[2017-01-15 08:04] VITALS: BP 147/85; PULSE 64; RESP 17; TEMP 98.4; O2SAT 96
--- NOTE | 2017-01-15 08:27 | HHI.PR ---
Subjective Remarks no more sz Objective Vital Signs Date Time Temp Pulse Resp B/P Pulse Ox O2 Delivery O2 Flow Rate FiO2 01/15/17 08:04 98.4 64 17 147/85 96 01/15/17 00:00 98.4 60 18 131/67 98 01/14/17 22:13 98.7 63 20 140/80 98 01/14/17 20:00 Room Air 01/14/17 16:00 97.6 65 20 129/78 100 01/14/17 12:00 98.1 58 20 127/80 98 I/O 01/14/17 01/14/17 01/14/17 01/15/17 01/15/17 01/15/17 07:00 15:00 23:00 07:00 15:00 23:00 # Voids 2 5 # Bowel Movements 0 2 Result Diagram: 01/12/17 0823 Objective Remarks awake alert january 15 2017 hospital not aphasic nl gait nl exam Assessment and Plan Assessment and Plan imp on keppra and dil 5.9 alb nl mri nl eeg bilat [facility] lab ok so far dc precedex should do better today evidently ran out of xanax recheck eeg inc dil 200 bid cont keppra 1500 bid should do beter today keep off precedex 01/10/17 LP neg mri neg labs ok dil level pend eeg still some sharps keppra very restless could be med effect dc precedex and [place]eg[place] and joel let her work some of her motor energy off call me with [employer] inc xanax dose not a drinker she tells me 01/13/17 she looks ok now get dil over 12 cont keppra last eeg ok much better unclear why sz starting up now should be dc few day maybe tomorrow 01/15/17 dil 16 on keppra no more sz ok to dc check dil level in am eduardo need office fu in one month should not live alone until then Jayson Bermudez MD Jan 15, 2017 08:27
[2017-01-15] MEDS: PROPRANOLOL HCL 20 MG TAB PO SCH ×2 (08:29→13:34)
[2017-01-15] MEDS: FAMOTIDINE 20 MG TAB PO SCH (08:29)
[2017-01-15] MEDS: MONTELUKAST SODIUM 10 MG TAB PO SCH (08:29)
[2017-01-15] MEDS: ATORVASTATIN 20 MG TAB PO SCH (08:29)
[2017-01-15] MEDS: levETIRAcetam 1000 MG INJ 100 ML IV SCH (08:30)
[2017-01-15] MEDS: DOCUSATE SODIUM 50 MG/SENNA 8.6 MG TAB PO SCH (09:00)
[2017-01-15] MEDS: ALPRAZolam 0.5 MG TAB PO SCH (09:20)
[2017-01-15] MEDS: PHENYTOIN SODIUM 100 MG CAP PO SCH (09:20)
[2017-01-15] MEDS ORDERED: LEVE500 PO (10:08)
[2017-01-15] MEDS ORDERED: ALPR.5 PO (10:08)
[2017-01-15] MEDS ORDERED: DILA100C PO (10:08)
--- NOTE | 2017-01-15 10:11 | HHI.PR ---
Subjective Remarks Follow-up seizure disorder 01/14/17-patient seen and examined, stable and no seizure activity 3 days. No acute event overnight. Vitals stable 01/15/17-patient seen and examined, stable and no seizure activity. No acute event overnight. Afebrile Objective Vitals Vital Signs Date Time Temp Pulse Resp B/P Pulse Ox O2 Delivery O2 Flow Rate FiO2 01/15/17 08:04 98.4 64 17 147/85 96 01/15/17 00:00 98.4 60 18 131/67 98 01/14/17 22:13 98.7 63 20 140/80 98 01/14/17 20:00 Room Air 01/14/17 16:00 97.6 65 20 129/78 100 01/14/17 12:00 98.1 58 20 127/80 98 I/O 01/14/17 01/14/17 01/14/17 01/15/17 01/15/17 01/15/17 07:00 15:00 23:00 07:00 15:00 23:00 # Voids 2 5 # Bowel Movements 0 2 Result Diagram: 01/12/17 0823 Imaging Last Impressions Brain MRI 01/08/17 0755 Signed Impressions: Service Date/Time: Sunday, January 08, 2017 19:56 - CONCLUSION: Unremarkable exam no evidence of acute hemorrhage, mass or infarction. Carlton Vigil MD Head CT 01/07/17 0000 Signed Impressions: Service Date/Time: Saturday, January 07, 2017 16:52 - CONCLUSION: 1. No acute intracranial abnormality. Delio Bourne MD Chest X-Ray 01/07/17 0000 Signed Impressions: Service Date/Time: Saturday, January 07, 2017 18:13 - CONCLUSION: Normal examination. Akira Gardner MD Objective Remarks GENERAL: NAD SKIN: Warm and dry. HEAD: Normocephalic. EYES: No scleral icterus. No injection or drainage. NECK: Supple, trachea midline. No JVD or lymphadenopathy. CARDIOVASCULAR: Regular rate and rhythm without murmurs, gallops, or rubs. RESPIRATORY: Breath sounds equal bilaterally. No accessory muscle use. GASTROINTESTINAL: Abdomen soft, non-tender, nondistended. MUSCULOSKELETAL: No cyanosis, or edema. BACK: Nontender without obvious deformity. No CVA tenderness. Procedures LP A/P Problem List: (1) Altered mental status, unspecified ICD Code: R41.82 Status: Acute (2) Hypokalemia ICD Code: E87.6 Status: Acute (3) Seizure disorder ICD Code: G40.909 Status: Acute Assessment and Plan 61-year-old female with -Seizure disorder No known history of seizure prior to these admissions however suspicious for benzo withdrawal All workup negative including brain MRI, CSF EEG with some sharp waves in temporal lobe Currently on Keppra and Dilantin, seizure precautions Appreciate input from neurology Anxiety: Stable on Xanax twice a day -Hypokalemia: Resolved -Acute kidney injury; resolved. -Hypertension: Normotensive on Inderal, will resume lisinopril on discharge -Hyperlipidemia: Continue Lipitor -Grave's disease- continue levothyroxine -DVT prophylaxis with SCD's -PT consulted; recommended short-term rehab. Hesham Forbes MD Jan 15, 2017 10:11
--- NOTE | 2017-01-15 10:13 | HHI.DS ---
Discharge Summary Admission Date Jan 07, 2017 at 17:56 Discharge Date: Jan 15, 2017 Admitting Diagnosis ams; hypokalemia; new onset seizure (1) Altered mental status, unspecified ICD Code: R41.82 (2) Hypokalemia ICD Code: E87.6 (3) Seizure disorder ICD Code: G40.909 Procedures LP Brief History - From Admission patient is a 61 y/o female with history of Grave's disease and hypertension who was brought to ER after she had a seizure earlier today. she's not a good historian but she says that she's been under a lot of stress lately and hasn't been able to eat or sleep as much. she says that the last thing that she remembers is that she went to sleep earlier this afternoon. she apparently had a witnessed grandmal seizure for which she was brought to ER. there's no report of tongue biting or urine incontinence. she's complaining of mild dull headache.she denies any nausea, vomiting or diarrhea. CBC/BMP: 01/12/17 0823 Significant Findings Laboratory Tests Test 01/12/17 15:38 Phenytoin (Dilantin) Level 9.3 MCG/ML (10.0-20.0) Imaging Last Impressions Brain MRI 01/08/17 0755 Signed Impressions: Service Date/Time: Sunday, January 08, 2017 19:56 - CONCLUSION: Unremarkable exam no evidence of acute hemorrhage, mass or infarction. Carlton Vigil MD Head CT 01/07/17 0000 Signed Impressions: Service Date/Time: Saturday, January 07, 2017 16:52 - CONCLUSION: 1. No acute intracranial abnormality. Delio Bourne MD Chest X-Ray 01/07/17 0000 Signed Impressions: Service Date/Time: Saturday, January 07, 2017 18:13 - CONCLUSION: Normal examination. Akira Gardner MD PE at Discharge GENERAL: NAD SKIN: Warm and dry. HEAD: Normocephalic. EYES: No scleral icterus. No injection or drainage. NECK: Supple, trachea midline. No JVD or lymphadenopathy. CARDIOVASCULAR: Regular rate and rhythm without murmurs, gallops, or rubs. RESPIRATORY: Breath sounds equal bilaterally. No accessory muscle use. GASTROINTESTINAL: Abdomen soft, non-tender, nondistended. MUSCULOSKELETAL: No cyanosis, or edema. BACK: Nontender without obvious deformity. No CVA tenderness. Hospital Course Patient admitted secondary to seizure which all worked up were negative, however patient started on antiepileptic drugs with consultation to neurology. Her conditions improved. Patient was subsequently put back on her blood pressure medications. PT was consulted. DVT and GI prophylaxis were provided. Prior to discharge, patient conditions improved and vitals remained stable. Pt Condition on Discharge: Stable Discharge Disposition: Discharge to SNF Discharge Time: > 30 minutes Discharge Instructions DIET: Follow Instructions for: Heart Healthy Diet Activities you can perform: Regular-No Restrictions Activities to Avoid: Driving Follow up Referrals: Neurology - 1 Month PCP Follow-up - 2-3 Days New Orders: PHENYTOIN (DILANTIN) - 2-3 Days New Medications: Alprazolam (Xanax) 0.5 Mg Tab 0.5 MG PO BID Control Anxiety #10 TAB Levetiracetam (Keppra) 500 Mg Tab 500 MG PO Q12HR Control Seizures #60 Ref 3 TAB Phenytoin Extended (Dilantin) 100 Mg Cap 400 MG PO BID Control Seizures #60 Ref 3 CAP Continued Medications: Levothyroxine (Levothyroxine) 125 Mcg Tab 125 MCG PO DAILY Thyroid #30 Ref 0 TAB Lisinopril-Hctz (Lisinopril-Hctz) 20-25 Mg Tab 1 TAB PO DAILY Blood Pressure Management #30 Ref 0 TAB Montelukast (Montelukast) 10 Mg Tab 10 MG PO DAILY Allergies #30 Ref 0 TAB Propranolol (Propranolol) 20 Mg Tab 20 MG PO TID #90 Ref 0 TAB Rosuvastatin (Crestor) 10 Mg Tab 10 MG PO DAILY Cholesterol Management #30 Ref 0 TAB Discontinued Medications: Alprazolam (Alprazolam) 1 Mg Tab 1 MG PO TID PRN ANXIETY Ref 0 TAB Hesham Forbes MD Jan 15, 2017 10:13
[2017-01-15 12:04] VITALS: BP 125/67; PULSE 57; RESP 17; TEMP 97.7; O2SAT 97
[2017-01-15 13:24] VITALS: PULSE 66
[2017-01-15] MEDS ORDERED: levETIRAcetam 500 MG TAB PO SCH (21:00)
== END 2017-01-15 13:45 | DRG 101 ==
LOC: NEPE 14:24 → NEDA 17:56 → N05A 20:37 → N03B 01-08 11:22 → N05A 01-10 17:40 → N05B 01-13 21:53
PROVIDERS: ADMIT Hospitalist; ATTEND Hospitalist
PROC: 009U3ZX Drainage of Spinal Canal, Percutaneous Approach, Diagnostic (ICD-10-PCS; principal; 2017-01-09)
DX: G40.909 Epilepsy, unspecified, not intractable, without status epilepticus (principal); N17.9 Acute kidney failure, unspecified; E87.3 Alkalosis; F13.239 Sedative, hypnotic or anxiolytic dependence with withdrawal, unspecified; T42.4X5A Adverse effect of benzodiazepines, initial encounter; Y92.009 Unspecified place in unspecified non-institutional (private) residence as the place of occurrence of the external cause; F41.9 Anxiety disorder, unspecified; I10 Essential (primary) hypertension; E87.6 Hypokalemia; E05.00 Thyrotoxicosis with diffuse goiter without thyrotoxic crisis or storm; G89.29 Other chronic pain; M54.5 Low back pain; E78.5 Hyperlipidemia, unspecified; F17.210 Nicotine dependence, cigarettes, uncomplicated; Z78.1 Physical restraint status; Z79.899 Other long term (current) drug therapy
CPT/HCPCS: 36600; 70450; 70553; 71010; 80048; 80053; 80185; 80307; 81001; 82040; 82042; 82140; 82164; 82607; 82784; 82805; 82945; 83605; 83615; 83735; 84100; 84132; 84157; 84425; 84443; 85025; 85652; 86038; 86592; 86618; 87040; 87070; 87205; 87498; 87529; 87641; 87801; 89051; 93005; 94002; 94003; 95819; 96365; 96374; 96376; A9579; J0171; J1165; J1953; J2060; J2250; J3010; J3480; J7030; P9612; Q2009

== ENCOUNTER 2017-02-13 14:44 | Inpatient (IN) | payer MEDICARE, OTHER ==
[~2017-02-13] VITALS: Ht 167.6 cm; Wt 88.5 kg
[~2017-02-13 14:44] MED LIST changes: +ALPR.5 PO; -CYCL-36 PO; +DILA100C PO; +LEVE500 PO; +LEVO125T4 PO; +LISI20TA3 PO; -LORT5TAB PO; +MONT10TA4 PO; +PROP20TA3 PO; +ROSU10 PO
[2017-02-13 15:15] VITALS: BP 118/80; PULSE 77; RESP 21; TEMP 99.1; O2SAT 96
[2017-02-13] MEDS ORDERED: SODIUM CHLOR 0.9% 1000 ML INJ 1,000 ML IV ONE ×3 (15:37→22:00)
[2017-02-13 15:40] LABS: MEAN CORPUSCULAR HGB CONC 36.4 % (32.0-36.0)
[2017-02-13] MEDS ORDERED: SODIUM CHLORIDE 0.9% FLUSH 10 ML FLUSH IVF PRN (15:45)
--- NOTE | 2017-02-13 15:57 | PD ---
HPI Chief Complaint: Syncope/Near-Syncope Time Seen by Provider: 15:52 Travel History International Travel<30 days: No Contact w/Intl Traveler<30days: No Traveled to known affect area: No History of Present Illness HPI 61-year-old female presents to the ED for evaluation of 3 day history of dizziness. Patient states that the dizziness is constant. She states that she has had 2 falls at home. The first was 2 days ago, she states she fell, landing on her left hip. The second was at 2 AM this morning. She fell and struck her face on a milk crate. Also complains of intermittent nauseous and decreased appetite accompanying the dizziness. She denies chest pain, shortness of breath, abdominal pain, dysuria, unilateral weakness, difficulties with speech. She thinks the dizziness is caused by recent initiation of Dilantin and Keppra. PFSH Past Medical History Arthritis: No Autoimmune Disease: Yes (GRAVES DISEASE) Heart Rhythm Problems: No Cardiovascular Problems: Yes High Cholesterol: Yes Chest Pain: No Congestive Heart Failure: No Cerebrovascular Accident: No Diminished Hearing: No Hypertension: Yes Medical other: Yes (DEGENERATIVE CERVICAL SPINE, LUMBAR) Musculoskeletal: No Neurologic: No Respiratory: No Migraines: No Seizures: Yes Thyroid Disease: Yes (HYPOTHYROIDISM ) Menopausal: Yes Past Surgical History Surgical History: No Previous Surgery Other Surgery: No Social History Alcohol Use: No Tobacco Use: Yes (1 PPD) Substance Use: No Allergies-Medications (Allergen,Severity, Reaction): Coded Allergies: Penicillin (Verified Allergy, Severe, 02/13/17) Uncoded Allergies: NSAIDS (Allergy, Severe, 04/22/09) Reported Meds & Prescriptions Reported Meds & Active Scripts Active Dilantin (Phenytoin Extended) 100 Mg Cap 400 Mg PO BID Keppra (Levetiracetam) 500 Mg Tab 500 Mg PO Q12HR Xanax (Alprazolam) 0.5 Mg Tab 0.5 Mg PO BID Reported Montelukast (Montelukast Sodium) 10 Mg Tab 10 Mg PO DAILY Crestor (Rosuvastatin Calcium) 10 Mg Tab 10 Mg PO DAILY Levothyroxine (Levothyroxine Sodium) 125 Mcg Tab 125 Mcg PO DAILY Lisinopril-Hctz 20-25 Mg Tab 1 Tab PO DAILY Propranolol (Propranolol HCl) 20 Mg Tab 20 Mg PO TID Review of Systems Except as stated in HPI: all other systems reviewed are Neg Physical Exam Narrative GENERAL: Well-nourished, well-developed white female in no acute distress. SKIN: Warm and dry. Thorough evaluation reveals no other edema, ecchymosis, abrasion, or laceration of the skin. HEAD: Normocephalic. Atraumatic. No schulz sign. Bilateral periorbital ecchymosis and edema .++ TPP of the nasal bones. No tenderness to palpation of the skull. No bony step-offs. No malocclusion of the teeth. EYES: No scleral icterus. No injection or drainage. PERRLA. EOMI. ENT: Pearly amor tympanic membrane is bilaterally. Nasal mucosa is moist. Oropharynx without erythema, edema or exudate. NECK: Supple, trachea midline. No JVD or lymphadenopathy. No midline tenderness to palpation. Patient retains full, active, painless range of motion of the neck. CARDIOVASCULAR: Regular rate and rhythm without murmurs, gallops, or rubs. 2+ DP and radial pulses bilaterally. RESPIRATORY: Breath sounds clear and equal bilaterally. No accessory muscle use. GASTROINTESTINAL: Abdomen soft, non-tender, nondistended. + Bowel sounds MUSCULOSKELETAL: No cyanosis, or edema. No tenderness to palpation or limitations to range of motion of the joints of the upper and lower extremities bilaterally. NEUROLOGICAL: Awake and alert. Cranial nerves II through XII intact. Motor and sensory grossly within normal limits. 5/5 muscle strength in all muscle groups. Normal speech. BACK: Nontender without obvious deformity. No CVA tenderness. No midline tenderness. Data Data Last Documented VS Vital Signs Date Time Temp Pulse Resp B/P Pulse Ox O2 Delivery O2 Flow Rate FiO2 02/13/17 21:45 68 18 117/69 98 Room Air 02/13/17 15:15 99.1 Orders Electrocardiogram (02/13/17 15:37) Complete Blood Count With Diff (02/13/17 15:37) Comprehensive Metabolic Panel (02/13/17 15:37) Magnesium (Mg) (02/13/17 15:37) Ckmb (Isoenzyme) Profile (02/13/17 15:37) Troponin I (02/13/17 15:37) Act Partial Throm Time (Ptt) (02/13/17 15:37) Prothrombin Time / Inr (Pt) (02/13/17 15:37) Urinalysis - C+S If Indicated (02/13/17 15:37) Chest, Single Ap (02/13/17 15:37) Ct Brain W/O Iv Contrast(Rout) (02/13/17 15:37) Ct Cerv Spine W/O Contrast (02/13/17 15:37) Ecg Monitoring (02/13/17 15:37) Iv Access Insert/Monitor (02/13/17 15:37) Oximetry (02/13/17 15:37) Sodium Chloride 0.9% Flush (Ns Flush) (02/13/17 15:45) Sodium Chlor 0.9% 1000 Ml Inj (Ns 1000 M (02/13/17 15:37) Ct Facial Bones W/O Iv Cont (02/13/17 ) Sodium Chlor 0.9% 1000 Ml Inj (Ns 1000 M (02/13/17 15:45) Ondansetron Inj (Zofran Inj) (02/13/17 16:00) Orthostatic Blood Pressure (02/13/17 16:17) Meclizine (Antivert) (02/13/17 19:15) Phenytoin (Dilantin) (02/13/17 14:30) CKMB (02/13/17 20:55) CKMB% (02/13/17 20:55) Sodium Chlor 0.9% 1000 Ml Inj (Ns 1000 M (02/13/17 22:00) Admit Order (Ed Use Only) (02/13/17 21:55) Labs Laboratory Tests Test 02/13/17 02/13/17 02/13/17 14:30 19:30 20:55 White Blood Count 6.5 TH/MM3 Red Blood Count 3.71 MIL/MM3 Hemoglobin 12.2 GM/DL Hematocrit 33.6 % Mean Corpuscular Volume 90.5 FL Mean Corpuscular Hemoglobin 33.0 PG Mean Corpuscular Hemoglobin 36.4 % Concent Red Cell Distribution Width 14.9 % Platelet Count 268 TH/MM3 Mean Platelet Volume 8.4 FL Neutrophils (%) (Auto) 82.7 % Lymphocytes (%) (Auto) 11.2 % Monocytes (%) (Auto) 5.1 % Eosinophils (%) (Auto) 0.3 % Basophils (%) (Auto) 0.7 % Neutrophils # (Auto) 5.3 TH/MM3 Lymphocytes # (Auto) 0.7 TH/MM3 Monocytes # (Auto) 0.3 TH/MM3 Eosinophils # (Auto) 0.0 TH/MM3 Basophils # (Auto) 0.0 TH/MM3 CBC Comment AUTO DIFF Differential Comment AUTO DIFF CONFIRMED Prothrombin Time 11.1 SEC Prothromb Time International 1.0 RATIO Ratio Activated Partial 22.4 SEC Thromboplast Time Urine Color YELLOW Urine Turbidity HAZY Urine pH 5.5 Urine Specific [place] 1.014 Urine Protein NEG mg/dL Urine Glucose (UA) NEG mg/dL Urine Ketones NEG mg/dL Urine Occult Blood NEG Urine Nitrite NEG Urine Bilirubin NEG Urine Urobilinogen LESS THAN 2.0 MG/DL Urine Leukocyte Esterase NEG Urine RBC 1 /hpf Urine WBC 2 /hpf Urine Squamous Epithelial 4 /hpf Cells Urine Bacteria RARE /hpf Urine Mucus FEW /lpf Microscopic Urinalysis Comment CULT NOT INDICATED Sodium Level 129 MEQ/L Potassium Level 3.4 MEQ/L Chloride Level 91 MEQ/L Carbon Dioxide Level 26.1 MEQ/L Anion Gap 12 MEQ/L Blood Urea Nitrogen 14 MG/DL Creatinine 1.08 MG/DL Estimat Glomerular Filtration 52 ML/MIN Rate Random Glucose 120 MG/DL Calcium Level 10.1 MG/DL Magnesium Level 1.3 MG/DL Total Bilirubin 0.6 MG/DL Aspartate Amino Transf 25 U/L (AST/SGOT) Alanine Aminotransferase 29 U/L (ALT/SGPT) Alkaline Phosphatase 138 U/L Total Creatine Kinase 138 U/L Creatine Kinase MB 0.9 NG/ML Troponin I LESS THAN 0.02 NG/ML Total Protein 7.5 GM/DL Albumin 3.8 GM/DL Phenytoin (Dilantin) Level 39.0 MCG/ML [facility] Medical Decision Making Medical Screen Exam Complete: Yes Emergency Medical Condition: Yes Differential Diagnosis medication side effect versus electrolyte abnormality versus UTI versus ICH versus ACS versus orthostatic hypotension versus altered mental status versus other Narrative Course 61-year-old female with recent diagnosis of seizures of unknown origin presents to the ED for evaluation 3 day history of constant dizziness. Patient states that she's had 2 falls at home. She also complains of intermittent nausea and decreased appetite. She was discharged from the hospital on January 15 and from rehabilitation 3 days ago. She states that she started taking Dilantin since discharge. She called her primary care provider who told her to stop this medication. Last dose yesterday. Vitals reviewed. Physical exam reveals a white female in no acute distress. She has bilateral periorbital ecchymosis and edema but the physical exam is otherwise unremarkable. She was administered a liter of fluids, Zofran and meclizine. EKG rate 70, sinus rhythm. WY interval 175, QRS 74, QTC 372. Normal axis. No acute ST changes. Reviewed by Dr. Dos Santos. CT of the head, cervical spine and facial bones negative for acute process. Chest x-ray without acute abnormality. CBC: No acute abnormalities. CMP: Dilantin level: 39.0 UA: No culture indicated. Review of the record reveals the patient had a negative MRI on 01/08. On recheck the patient states that her symptoms have not improved at all. We' ll admit her to observation for intractable dizziness 2/2 Dilantin toxicity. I spoke with Dr. Boss who agrees to accept the patient to the medicine service. Please see medicine notes for disposition. Agnes Larry Feb 13, 2017 15:57
[2017-02-13] MEDS ORDERED: ONDANSETRON HCL 4 MG/2 ML VIAL IV PUSH ONE (16:00)
--- NOTE | 2017-02-13 16:37 | RADRPT ---
EXAM DATE/TIME: 02/13/2017 16:27 [facility] COMPARISON: CT BRAIN W/O CONTRAST, January 07, 2017, 16:52. INDICATIONS : Head pain from fall. RADIATION DOSE: 36.97 CTDIvol (mGy) MEDICAL HISTORY : Seizures. Cardiovascular disease Hypertension.Graves Disease, Hypothyroidism. SURGICAL HISTORY : None. ENCOUNTER: Initial ACUITY: 2 days PAIN SCALE: 3/10 LOCATION: Bilateral cranial TECHNIQUE: Multiple contiguous axial images were obtained of the head. Using automated exposure control and adj ustment of the mA and/or kV according to patient size, radiation dose was kept as low as reasonably a chievable to obtain optimal diagnostic quality images. DICOM format image data is available electro nically for review and comparison. FINDINGS: CEREBRUM: The ventricles are normal for age. No evidence of midline shift, mass lesion, hemorrhage or acute in farction. No extra-axial fluid collections are seen. POSTERIOR FOSSA: The cerebellum and brainstem are intact. The 4th ventricle is midline. The cerebellopontine angle i s unremarkable. EXTRACRANIAL: The visualized portion of the orbits is intact. SKULL: The calvaria is intact. No evidence of skull fracture. CONCLUSION: Normal examination. No significant change has occurred. Delfino Stapleton MD on February 13, 2017 at 16:33 Board Certified Radiologist. This report was verified electronically.
--- NOTE | 2017-02-13 16:39 | RADRPT ---
EXAM DATE/TIME: 02/13/2017 15:43 [facility] COMPARISON: CHEST SINGLE AP, January 07, 2017, 18:13. INDICATIONS : Chest palpitations. Dizziness. MEDICAL HISTORY : Hypertension. Graves disease. SURGICAL HISTORY : None. ENCOUNTER: Initial ACUITY: 2 days PAIN SCORE: 0/10 LOCATION: Bilateral chest FINDINGS: Portable AP view of the chest demonstrates a normal-sized cardiac silhouette. No effusion, consolidat ion, or pneumothorax is visualized. The bones and soft tissues demonstrate no acute abnormality. CONCLUSION: No acute cardiopulmonary abnormality is identified. Akira Hernandez MD on February 13, 2017 at 16:37 Board Certified Radiologist. This report was verified electronically.
[2017-02-13 17:00] VITALS: O2SAT 100
--- NOTE | 2017-02-13 17:43 | RADRPT ---
EXAM DATE/TIME: 02/13/2017 16:27 [facility] COMPARISON: No previous studies available for comparison. INDICATIONS : Facial pain from fall. RADIATION DOSE: 63.01 CTDIvol (mGy) MEDICAL HISTORY : Seizures. Cardiovascular disease Hypertension.Graves Disease, Hypothyroidism. SURGICAL HISTORY : None. ENCOUNTER: Initial ACUITY: 2 days PAIN SCORE: 3/10 LOCATION: Bilateral facial upper nose region. TECHNIQUE: Volumetric scanning of the facial bones was performed. Using automated exposure control and adjustme nt of the mA and/or kV according to patient size, radiation dose was kept as low as reasonably achiev able to obtain optimal diagnostic quality images. DICOM format image data is available electronicall y for review and comparison. FINDINGS: ORBITS: The orbital and infraorbital osseous structures are intact. The retroconal structures have a normal configuration. No radiopaque foreign bodies are seen. NASAL BONE: The nasal bone and maxillary spine are intact ZYGOMATIC ARCHES: Symmetric without evidence of fracture. SINUSES: The maxillary, ethmoid and frontal sinuses are intact. No air-fluid levels seen. NASAL CAVITY: The nasal septum is intact and midline. The lacrimal ducts are intact. SOFT TISSUES: No radiopaque foreign bodies seen. No soft-tissue swelling is seen. INTRACRANIAL: No intracranial air seen. CRIBIFORM PLATE: Grossly intact. CONCLUSION: 1. No acute findings. Delfino Stapleton MD on February 13, 2017 at 17:39 Board Certified Radiologist. This report was verified electronically.
--- NOTE | 2017-02-13 17:46 | RADRPT ---
EXAM DATE/TIME: 02/13/2017 16:27 [facility] COMPARISON: No previous studies available for comparison. INDICATIONS : Neck pain from fall. RADIATION DOSE: 20.70 CTDIvol (mGy) MEDICAL HISTORY : Seizures. Hypothyroidism. Hypertension.Graves Disease, Cardiac. SURGICAL HISTORY : None. ENCOUNTER: Initial ACUITY: 2 days PAIN SCALE: 8/10 LOCATION: Bilateral neck region. TECHNIQUE: Volumetric scanning of the cervical spine was performed. Multiplanar reconstructions in the sagittal, coronal and oblique axial planes were performed. Using automated exposure control and adjustment o f the mA and/or kV according to patient size, radiation dose was kept as low as reasonably achievable to obtain optimal diagnostic quality images. DICOM format image data is available electronically f or review and comparison. FINDINGS: There is moderate to severe degenerative disc disease and facet arthropathy in the cervical spine wit h slight reversal of the normal cervical lordosis. There is no significant central canal stenosis. Th ere is multilevel foraminal encroachment which is chronic. No prevertebral soft tissue swelling. No f racture or spondylolisthesis. CONCLUSION: 1. No acute findings. Multilevel degenerative disc disease and facet arthropathy. Delfino Stapleton MD on February 13, 2017 at 17:42 Board Certified Radiologist. This report was verified electronically.
[2017-02-13 17:56] VITALS: PULSE 78; RESP 19; O2SAT 100
[2017-02-13 18:14] LABS: AUTOMATED NEUTROPHIL # 5.3 TH/MM3 (1.8-7.7); BASOPHIL % 0.7 % (0.0-2.0); EOSINOPHIL % 0.3 % (0.0-4.0); HEMATOCRIT 33.6 % (35.0-46.0); LYMPH % 11.2 % (9.0-44.0); LYMPHOCYTE # 0.7 TH/MM3 (1.0-4.8); MEAN CELL VOLUME 90.5 FL (80.0-100.0); MONO % 5.1 % (0.0-8.0); NEUT % 82.7 % (16.0-70.0); PLATELET COUNT 268 TH/MM3 (150-450); RED BLOOD COUNT 3.71 MIL/MM3 (4.00-5.30); RED CELL DISTRIBUTION WIDTH 14.9 % (11.6-17.2); WHITE BLOOD COUNT 6.5 TH/MM3 (4.0-11.0)
[2017-02-13 18:24] LABS: HEMO FLAGS AUTO DIFF
[2017-02-13] MEDS ORDERED: MECLIZINE HCL 25 MG TAB PO ONE (19:15)
[2017-02-13 19:20] LABS: APTT (PATIENT) 22.4 SEC (24.3-30.1); PROTHROMBIN TIME - PATIENT 11.1 SEC (9.8-11.6)
[2017-02-13 19:35] LABS: SCAN/DIFF AUTO DIFF CONFIRMED
[2017-02-13 21:19] LABS: BACTERIA, URINE RARE /hpf; BLOOD, URINE NEG (NEG); COMMENT (UR) CULT NOT INDICATED; CULTURE IF INDICATED CULT NOT INDICATED; GLUCOSE,URINE NEG (NEG); KETONE, URINE NEG (NEG); MUCUS URINE FEW /lpf (OCC); NITRITE,URINE NEG (NEG); PH, URINE 5.5 (5.0-8.5); SQUAMOUS EPITHELIAL CELL URINE 4 /hpf (0-5); URINE COLOR YELLOW (YELLW/STRAW)
[2017-02-13 21:30] LABS: ALT (GPT) 29 U/L (10-53)
[2017-02-13 21:37] LABS: ALKALINE PHOSPHATASE 138 U/L (45-117); ANION GAP 12 MEQ/L (5-15); AST (GOT) 25 U/L (15-37); BICARBONATE 26.1 MEQ/L (21.0-32.0); BLOOD UREA NITROGEN 14 MG/DL (7-18); CHLORIDE 91 MEQ/L (98-107); CREATINE KINASE 138 U/L (26-192); GLOMERULAR FILTRATION RATE 52 ML/MIN (>89); MAGNESIUM 1.3 MG/DL (1.5-2.5); POTASSIUM 3.4 MEQ/L (3.5-5.1); SODIUM (NA) 129 MEQ/L (136-145); TOTAL BILIRUBIN ADULT 0.6 MG/DL (0.2-1.0)
[2017-02-13 21:45] VITALS: BP 117/69; PULSE 68; RESP 18; O2SAT 98
[2017-02-13 21:52] LABS: CKMB 0.9 NG/ML (0.5-3.6)
--- NOTE | 2017-02-13 22:13 | HHI.HP ---
[facility] Kaycee Wong MD Admission Diagnosis Dilantin toxicity, hyponatremia Diagnoses: (1) Dizziness Diagnosis: Principal (2) Dilantin toxicity Diagnosis: Principal (3) Renal insufficiency Diagnosis: Principal (4) Seizure disorder Diagnosis: Principal (5) Tobacco abuse Diagnosis: Principal Travel History International Travel<30 Days: No Contact w/Intl Traveler <30 Da: No Traveled to Known Affected Are: No History of Present Illness This is a 61-year-old female with a PMH of Seizure Disorder, HTN, Hyperlipidemia and Tobacco Abuse who presents to ER with complaints of dizziness in addition to multiple falls at home for the last 2-3 days. Denies LOC or seizure activity. No fever, chills, nausea, vomiting or diarrhea. Recent admit 01/07-01/15/17 w/ AMS and New Onset Seizure Disorder, d/c'd home on Keppra 500mg bid and Dilantin 400mg bid, reports compliance w/ medications. States dizziness started shortly after starting new medications. On arrival, BP 118/80, HR 77, O2 sat 96% on RA, Temp 99.1. CBC essentially unremarkable. K + 3.4. Creatinine 1.08, previously 0.71 on 01/10/17. Trop negative. Phenytoin 39. CT Head normal. CT C-spine with degenerative disc disease, no acute findings. CT Maxillofacial negative. CXR with no acute findings. S/p IVF and Meclizine in ER. Review of Systems Except as stated in HPI: all other systems reviewed are Neg ROS: 14 point review of systems otherwise negative. Past Family Social History Past Medical History PMH: Seizure Disorder, HTN, Hyperlipidemia and Tobacco Abuse Past Surgical History PAST SURGICAL HISTORY: None Allergies: Coded Allergies: Penicillin (Verified Allergy, Severe, 02/13/17) Uncoded Allergies: NSAIDS (Allergy, Severe, 04/22/09) Family History PAST FAMILY HISTORY: Reviewed. No h/o DM or CAD Social History PAST SOCIAL HISTORY: Negative for alcohol or drugs. Smokes 1ppd. Physical Exam Vital Signs Vital Signs Date Time Temp Pulse Resp B/P Pulse Ox O2 Delivery O2 Flow Rate FiO2 02/13/17 17:56 78 19 100 Room Air 02/13/17 17:00 100 Room Air 02/13/17 15:15 99.1 77 21 118/80 96 Physical Exam PE: GENERAL: Middle-aged female in no acute distress. HEENT: PERRLA, EOMI. No scleral icterus or conjunctival pallor. No lid lag or facial droop. Facial ecchymosis CARDIOVASCULAR: Regular rate and rhythm. No obvious murmurs to auscultation. No chest tenderness to palpation. RESPIRATORY: No obvious rhonchi or wheezing. Clear to auscultation. Breath sounds equal bilaterally. GASTROINTESTINAL: Abdomen soft, non-tender, nondistended. BS normal. MUSCULOSKELETAL: Extremities without clubbing, cyanosis, or edema. No obvious deformities. NEUROLOGICAL: Awake, alert and oriented x4. No focal neurologic deficits. Moving both upper and lower extremities spontaneously. Laboratory Laboratory Tests Test 02/13/17 02/13/17 02/13/17 14:30 19:30 20:55 White Blood Count 6.5 Red Blood Count 3.71 Hemoglobin 12.2 Hematocrit 33.6 Mean Corpuscular Volume 90.5 Mean Corpuscular Hemoglobin 33.0 Mean Corpuscular Hemoglobin 36.4 Concent Red Cell Distribution Width 14.9 Platelet Count 268 Mean Platelet Volume 8.4 Neutrophils (%) (Auto) 82.7 Lymphocytes (%) (Auto) 11.2 Monocytes (%) (Auto) 5.1 Eosinophils (%) (Auto) 0.3 Basophils (%) (Auto) 0.7 Neutrophils # (Auto) 5.3 Lymphocytes # (Auto) 0.7 Monocytes # (Auto) 0.3 Eosinophils # (Auto) 0.0 Basophils # (Auto) 0.0 CBC Comment AUTO DIFF Differential Comment AUTO DIFF CONFIRMED Prothrombin Time 11.1 Prothromb Time International 1.0 Ratio Activated Partial 22.4 Thromboplast Time Urine Color YELLOW Urine Turbidity HAZY Urine pH 5.5 Urine Specific [place] 1.014 Urine Protein NEG Urine Glucose (UA) NEG Urine Ketones NEG Urine Occult Blood NEG Urine Nitrite NEG Urine Bilirubin NEG Urine Urobilinogen LESS THAN 2.0 Urine Leukocyte Esterase NEG Urine RBC 1 Urine WBC 2 Urine Squamous Epithelial 4 Cells Urine Bacteria RARE Urine Mucus FEW Microscopic Urinalysis Comment CULT NOT INDICATED Sodium Level 129 Potassium Level 3.4 Chloride Level 91 Carbon Dioxide Level 26.1 Anion Gap 12 Blood Urea Nitrogen 14 Creatinine 1.08 Estimat Glomerular Filtration 52 Rate Random Glucose 120 Calcium Level 10.1 Magnesium Level 1.3 Total Bilirubin 0.6 Aspartate Amino Transf 25 (AST/SGOT) Alanine Aminotransferase 29 (ALT/SGPT) Alkaline Phosphatase 138 Total Creatine Kinase 138 Creatine Kinase MB 0.9 Troponin I LESS THAN 0.02 Total Protein 7.5 Albumin 3.8 Phenytoin (Dilantin) Level 39.0 Result Diagram: 02/13/17 1430 02/13/172054 Assessment and Plan Problem List: (1) Dizziness ICD Code: R42 Status: Acute (2) Dilantin toxicity ICD Code: T42.0X1A Status: Acute (3) Renal insufficiency ICD Code: N28.9 Status: Acute (4) Seizure disorder ICD Code: G40.909 Status: Acute (5) Tobacco abuse ICD Code: Z72.0 Status: Acute Assessment and Plan A/P: 1. Dizziness: Likely secondary to medication/Dilantin toxicity. CT Head w/ no acute findings, images reviewed by me. S/p recurrent falls due to symptoms, CT C-Spine/Maxillofacial w/ no acute findings, images reviewed by me. 2. Dilantin Toxicity: Dilantin 39. On Dilatin 400mg po bid at home, will hold , repeat Dilantin level in am. 3. Seizure Disorder: No reported seizure activity. Hold Dilantin secondary to above, resume Keppra 500mg bid. Neuro eval if needed. 4. Renal Insufficiency: HE. Creatinine 1.08, previously 0.71 on 01/10/17. UA negative. IVF for hydration and repeat labs in a.m. 5. DVT Prophylaxis: SCD/teds. 6. Social work for DC planning as needed. 7. Case discussed at length with ER physician. Katherine Boss MD Feb 13, 2017 22:13
[2017-02-13 22:14] LABS: MEAN CORPUSCULAR HGB CONC 36.1 % (32.0-36.0)
[2017-02-13] MEDS ORDERED: BISACODYL 10 MG SUPP RECTAL PRN (22:15)
[2017-02-13] MEDS ORDERED: LACTULOSE SYRUP 20 GM/30 ML CUP PO PRN (22:15)
[2017-02-13] MEDS ORDERED: MAGNESIUM HYDROXIDE SUSP 30 ML CUP PO PRN (22:15)
[2017-02-13] MEDS ORDERED: SENNOSIDES 8.6 MG TAB PO PRN (22:15)
[2017-02-13] MEDS ORDERED: ACETAMINOPHEN 325 MG TAB PO PRN (22:15)
[2017-02-13] MEDS: SODIUM CHLOR 0.9% 1000 ML INJ 1,000 ML IV SCH (23:02)
[2017-02-14] VITALS (8 sets, daily range): BP systolic 93–162; BP diastolic 61–88; PULSE 64–80; RESP 17–20; TEMP 97.6–98.7; O2SAT 94–100
[2017-02-14] MEDS: SODIUM CHLORIDE 0.9% FLUSH 10 ML FLUSH IV FLUSH PRN (00:26)
[2017-02-14] MEDS: ONDANSETRON HCL 4 MG/2 ML VIAL IVP PRN ×4 (00:26→20:08)
[2017-02-14] MEDS: ACETAMINOPHEN/HYDROcodone 325 MG/5 MG TAB PO PRN (05:09)
[2017-02-14] MEDS: SODIUM CHLOR 0.9% 1000 ML INJ 1,000 ML IV SCH ×2 (08:10→22:08)
[2017-02-14 08:18] LABS: ALKALINE PHOSPHATASE 117 U/L (45-117); ALT (GPT) 24 U/L (10-53); ANION GAP 9 MEQ/L (5-15); AST (GOT) 22 U/L (15-37); BICARBONATE 26.5 MEQ/L (21.0-32.0); BLOOD UREA NITROGEN 9 MG/DL (7-18); CHLORIDE 98 MEQ/L (98-107); GLOMERULAR FILTRATION RATE 83 ML/MIN (>89); POTASSIUM 3.2 MEQ/L (3.5-5.1); SODIUM (NA) 133 MEQ/L (136-145); TOTAL BILIRUBIN ADULT 0.5 MG/DL (0.2-1.0)
[2017-02-14] MEDS ORDERED: PROMETHAZINE HCL 25 MG SUPP RECTAL PRN (08:30)
--- NOTE | 2017-02-14 08:45 | HHI.PR ---
Subjective Remarks Follow-up for dizziness and abdominal pain. The patient continues to complain of dizziness. Symptoms are persistent at rest, but are worse with sitting or standing. She states it feels like she is spinning. She states the dizziness has been going on for the past 2 or 3 days since she was released from [facility]. She states she called her neurologist because she missed the appointment with them yesterday, and says her neurologist told her to stop Dilantin and Keppra. The patient states about 4 AM she developed left-sided abdominal discomfort. She states that she's been having nausea and retching with vomiting for the past few days. Reports no improvement with Zofran. She reports small soft stools, no dark or bloody stools. She has chronic neck and back pain for which she is on [place], denies any acute worsening. She does have facial pain from where she fell. Objective Vitals Vital Signs Date Time Temp Pulse Resp B/P Pulse Ox O2 Delivery O2 Flow Rate FiO2 02/14/17 03:21 97.6 72 17 93/61 94 02/14/17 00:14 98.7 74 18 162/85 100 146/85 154/88 02/13/17 21:45 68 18 117/69 98 Room Air 02/13/17 17:56 78 19 100 Room Air 02/13/17 17:00 100 Room Air 02/13/17 15:15 99.1 77 21 118/80 96 Result Diagram: 02/13/17 1430 02/13/172054 Imaging Last Impressions Head CT 02/13/177 Signed Impressions: Service Date/Time: February 16:27 - CONCLUSION: Normal examination. No significant change has occurred. Delfino Stapleton MD Chest X-Ray 02/13/171536 Signed Impressions: Service Date/Time: February 15:43 - CONCLUSION: No acute cardiopulmonary abnormality is identified. Akira Hernandez MD Cervical Spine CT 02/13/171536 Signed Impressions: Service Date/Time: February 16:27 - CONCLUSION: 1. No acute findings. Multilevel degenerative disc disease and facet arthropathy. Delfino Stapleton MD Maxillofacial CT 02/13/17 0000 Signed Impressions: Service Date/Time: February 16:27 - CONCLUSION: 1. No acute findings. Delfino Stapleton MD Objective Remarks GENERAL: Well-developed well-nourished. In no acute distress. SKIN: Warm and dry. No lesions noted. HEENT: Normocephalic. Bilateral periorbital ecchymosis and swelling. Pupils equal and round. Mucous membranes pink and moist. CARDIOVASCULAR: Regular rate and rhythm. No murmur appreciated. RESPIRATORY: No accessory muscle use. Clear to auscultation. Breath sounds equal bilaterally. GASTROINTESTINAL: Abdomen soft, mild LLQ TTP, nondistended. Bowel sounds x4. MUSCULOSKELETAL: No obvious deformities. No clubbing or cyanosis. No edema. NEUROLOGICAL: Awake and alert. No focal neurological deficits. Moves upper and lower extremities spontaneously. Normal speech. PSYCHIATRIC: Appropriate mood and affect; insight and judgment normal. A/P Problem List: (1) Dizziness ICD Code: R42 Status: Acute (2) Dilantin toxicity ICD Code: T42.0X1A Status: Acute (3) Renal insufficiency ICD Code: N28.9 Status: Resolved (4) Seizure disorder ICD Code: G40.909 Status: Chronic (5) Tobacco abuse ICD Code: Z72.0 Status: Chronic Assessment and Plan 61-year-old female with a PMH of Seizure Disorder, HTN, Hyperlipidemia and Tobacco Abuse who presented for dizziness and multiple falls Dizziness: Likely secondary to medication/Dilantin toxicity, dehydration, and possibly over controlled BP. CT Head w/ no acute findings. Not orthostatic. Hold Dilantin and BP meds. IVF. Check TSH. Falls: Secondary to dizziness. CT C-Spine/Maxillofacial w/ no acute findings. Continue [place] for pain control. PT eval. Dilantin Toxicity: Dilantin 39. On Dilatin 400mg po bid at home, holding. Level improving to 31.7. Continue to monitor. Abdominal pain: Left lower quadrant. New-onset overnight. Suspect abdominal cramping from nausea and retching due to Dilantin toxicity. Check abdominal CT and lipase. Zofran and Phenergan as needed for nausea. Seizure Disorder: No reported seizure activity. Hold Dilantin secondary to above. Continue Keppra 500mg bid. Neuro eval if needed. HE: Creatinine 1.08, previously 0.71 on 01/10/17. Creatinine improved to 0.72 with IVF overnight. DVT Prophylaxis: SCD/teds. Discharge Planning Discussed with case management, meets inpatient criteria. [place] Feb 14, 2017 08:45
[2017-02-14 09:21] LABS: AUTOMATED NEUTROPHIL # 7.7 TH/MM3 (1.8-7.7); BASOPHIL # 0.1 TH/MM3 (0-0.2); BASOPHIL % 0.9 % (0.0-2.0); EOSINOPHIL # 0.1 TH/MM3 (0-0.4); EOSINOPHIL % 0.6 % (0.0-4.0); HEMATOCRIT 32.4 % (35.0-46.0); LYMPH % 5.6 % (9.0-44.0); LYMPHOCYTE # 0.5 TH/MM3 (1.0-4.8); MEAN CELL VOLUME 91.4 FL (80.0-100.0); MONO % 5.8 % (0.0-8.0); NEUT % 87.1 % (16.0-70.0); PLATELET COUNT 179 TH/MM3 (150-450); RED BLOOD COUNT 3.54 MIL/MM3 (4.00-5.30); RED CELL DISTRIBUTION WIDTH 14.7 % (11.6-17.2); WHITE BLOOD COUNT 8.9 TH/MM3 (4.0-11.0)
[2017-02-14 09:39] LABS: HEMO FLAGS AUTO DIFF
[2017-02-14] MEDS: DOCUSATE SODIUM 50 MG/SENNA 8.6 MG TAB PO SCH ×2 (09:56→21:00)
[2017-02-14] MEDS: MONTELUKAST SODIUM 10 MG TAB PO SCH (09:56)
[2017-02-14] MEDS: ATORVASTATIN 20 MG TAB PO SCH (09:57)
[2017-02-14] MEDS: ALPRAZolam 0.5 MG TAB PO SCH ×2 (09:57→22:55)
[2017-02-14] MEDS: levETIRAcetam 500 MG TAB PO SCH ×2 (09:57→22:02)
[2017-02-14] MEDS ORDERED: DIATRIZOATE MEGLUM/DIATRIZOATE SOD 9 ML CUP PO ONE (10:00)
[2017-02-14 10:20] LABS: SCAN/DIFF AUTO DIFF CONFIRMED
[2017-02-14] MEDS ORDERED: POTASSIUM CHLORIDE 20 MEQ PWD PACKET PO ONE (10:30)
[2017-02-14] MEDS: ACETAMINOPHEN/HYDROcodone 325 MG/10 MG TAB PO PRN ×3 (10:33→22:03)
[2017-02-14] MEDS: SODIUM CHLORIDE 0.9% FLUSH 10 ML FLUSH IV FLUSH SCH ×2 (10:34→21:00)
--- NOTE | 2017-02-14 11:06 | EKG ---
Date Performed: 02/13/2017 Time Performed: 16:56:33 PTAGE: 61 years EKG: Sinus rhythm NONSPECIFIC T-WAVE ABNORMALITY BORDERLINE ECG Since PREVIOUS TRACING , no significant change noted PREVIOUS TRACIN01/07/2017 14.46 DOCTOR: Jayson Murray Interpretating Date/Time 02/14/2017 11:05:30
[2017-02-14] MEDS ORDERED: IOHEXOL 350 MG/ML 10 ML VIAL (for RAD DIAG) IV ONE (15:13)
--- NOTE | 2017-02-14 15:43 | RADRPT ---
EXAM DATE/TIME: 02/14/2017 15:13 [place] COMPARISON: No previous studies available for comparison. INDICATIONS : Abdominal pain. IV CONTRAST: 100 cc Omnipaque 350 (iohexol) IV ORAL CONTRAST: Prescribed oral contrast ingested. RADIATION DOSE: 11.56 CTDIvol (mGy) MEDICAL HISTORY : Hypertension. Graves disease. SURGICAL HISTORY : None. ENCOUNTER: Initial ACUITY: 1 day PAIN SCALE: 8/10 LOCATION: Left lower quadrant TECHNIQUE: Volumetric scanning of the abdomen and pelvis was performed. Using automated exposure control and ad justment of the mA and/or kV according to patient size, radiation dose was kept as low as reasonably achievable to obtain optimal diagnostic quality images. DICOM format image data is available electro nically for review and comparison. FINDINGS: LOWER LUNGS: The visualized lower lungs are clear. There is a soft tissue density mass containing a small focus of calcification in the right posterior mediastinum abutting the proximal distal esophagus and inferior vena cava. The lesion contains no fat and there is no connection with the spinal canal. LIVER: Homogeneous density without lesion. The liver is enlarged measuring 23 cm in length. There is mild i ntrahepatic bile duct dilatation in the left lobe and the common bile duct measures between 9 and 10 mm. There is a 4 mm round hyperdense structure in the distal common bile duct. SPLEEN: Mildly enlarged measuring 13.3 cm. PANCREAS: Within normal limits. KIDNEYS: Normal in size and shape. There is no stone or hydronephrosis. There are 2 hyperdense lesions in the left kidney does not meet criteria for simple cysts. One of the upper pole measures 18 mm and anothe r in the midportion measures 13 mm. ADRENAL GLANDS: Within normal limits. VASCULAR: There is no aortic aneurysm. There is moderate atherosclerotic disease. BOWEL/MESENTERY: The stomach, small bowel, and colon demonstrate no acute abnormality. There is no free intraperitone al air or fluid. Sigmoid diverticulosis is present. ABDOMINAL WALL: Within normal limits. RETROPERITONEUM: There is no lymphadenopathy. BLADDER: No wall thickening or mass. REPRODUCTIVE: Uterus demonstrates a lobular contour on the right likely representing a fibroid. INGUINAL: There is no lymphadenopathy or hernia. MUSCULOSKELETAL: There are degenerative changes of the lumbar spine with mild scoliosis. CONCLUSION: 1. There is a 4 mm round hyperdense structure in the distal common bile duct with associated enlargem ent of the common bile duct and left intrahepatic bile ducts. The small density could represent a sto ne or small mass. 2. 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 Etiology is uncertain. N eurogenic tumor is a consideration but there is no connection with the spinal canal. Complex duplicat ion cyst/lesion of the esophagus is another consideration. Suggest correlating with any prior imaging studies to assess for chronicity of this finding. This lesion would be amenable to image guided perc utaneous biopsy, if needed. 3. There are 2 hyperdense lesions in the left kidney measuring up to 1.8 cm. The sternotomy criteria for simple cysts. Again, suggest correlating with prior imaging studies that could offer additional c haracterization. If none are available suggest elective further evaluation with either ultrasound or renal protocol CT or MRI. 4. Nonacute findings include mild splenomegaly, moderate atherosclerotic disease, and sigmoid diverti culosis. Akira Hernandez MD on February 14, 2017 at 15:25 Board Certified Radiologist. This report was verified electronically.
[2017-02-15] VITALS (7 sets, daily range): BP systolic 95–174; BP diastolic 60–86; PULSE 69–114; RESP 16–19; TEMP 97.2–99.1; O2SAT 94–99
[2017-02-15] MEDS: LEVOTHYROXINE SODIUM 125 MCG TAB PO SCH (06:37)
[2017-02-15] MEDS: SODIUM CHLOR 0.9% 1000 ML INJ 1,000 ML IV SCH ×2 (06:38→14:10)
[2017-02-15] MEDS: SODIUM CHLORIDE 0.9% FLUSH 10 ML FLUSH IV FLUSH SCH ×2 (09:34→21:00)
[2017-02-15] MEDS: DOCUSATE SODIUM 50 MG/SENNA 8.6 MG TAB PO SCH ×2 (09:35→20:24)
[2017-02-15] MEDS: MONTELUKAST SODIUM 10 MG TAB PO SCH (09:35)
[2017-02-15] MEDS: ATORVASTATIN 20 MG TAB PO SCH (09:35)
[2017-02-15] MEDS: ALPRAZolam 0.5 MG TAB PO SCH ×3 (09:35→20:24)
[2017-02-15] MEDS: ACETAMINOPHEN/HYDROcodone 325 MG/5 MG TAB PO PRN ×2 (09:36→09:38)
[2017-02-15] MEDS: levETIRAcetam 500 MG TAB PO SCH ×2 (09:38→20:21)
[2017-02-15] MEDS: ONDANSETRON HCL 4 MG/2 ML VIAL IVP PRN ×2 (09:42→17:03)
--- NOTE | 2017-02-15 10:21 | HHI.PR ---
Subjective Remarks This is a 61-year-old female with a PMH of Seizure Disorder, HTN, Hyperlipidemia and Tobacco Abuse who presents to ER with complaints of dizziness in addition to multiple falls at home for the last 2-3 days. Denies LOC or seizure activity. No fever, chills, nausea, vomiting or diarrhea. Recent admit 01/07-01/15/17 w/ AMS and New Onset Seizure Disorder, d/c'd home on Keppra 500mg bid and Dilantin 400mg bid, reports compliance w/ medications. States dizziness started shortly after starting new medications. On arrival, BP 118/80, HR 77, O2 sat 96% on RA, Temp 99.1. CBC essentially unremarkable. K + 3.4. Creatinine 1.08, previously 0.71 on 01/10/17. Trop negative. Phenytoin 39. CT Head normal. CT C-spine with degenerative disc disease, no acute findings. CT Maxillofacial negative. CXR with no acute findings. S/p IVF and Meclizine in ER. 8-4 Follow-up for dizziness and abdominal pain. The patient continues to complain of dizziness. Symptoms are persistent at rest, but are worse with sitting or standing. She states it feels like she is spinning. She states the dizziness has been going on for the past 2 or 3 days since she was released from SNF. She states she called her neurologist because she missed the appointment with them yesterday, and says her neurologist told her to stop Dilantin and Keppra. The patient states about 4 AM she developed left-sided abdominal discomfort. She states that she's been having nausea and retching with vomiting for the past few days. Reports no improvement with Zofran. She reports small soft stools, no dark or bloody stools. She has chronic neck and back pain for which she is on Plain, denies any acute worsening. She does have facial pain from where she fell. 8-5 MEDIASTINAL MASS - WILL ASK INTERVENTIONAL TO BIOPSY IF THEY CAN STILL COMPLAINS OF DIZZINESS HAS NOT BEEN VERY MOBILE YET LIVES IN A HOUSE WITH A FEW ROOMMATES STATES SHE CAN DO IT BY HERSELF SEEN WITH RN NO NAUSEA, NO VOMITING, NO FEVERS, NO CHILLS, SOME DIZZINESS STILL DW PATIENT AND RN Objective Vitals Vital Signs Date Time Temp Pulse Resp B/P Pulse Ox O2 Delivery O2 Flow Rate FiO2 02/15/17 08:00 99.1 69 18 99/60 96 02/15/17 04:07 99.0 73 16 107/64 96 02/15/17 00:05 99.1 77 16 95/66 96 02/14/17 22:51 69 102/61 95 02/14/17 20:20 67 02/14/17 19:54 98.5 73 20 110/75 100 121/79 157/87 02/14/17 16:28 97.9 70 18 117/82 95 02/14/17 12:22 97.9 64 18 115/78 96 02/14/17 10:27 98.5 80 20 121/77 95 I/O 02/14/17 02/14/17 02/14/17 02/15/17 02/15/17 02/15/17 07:00 15:00 23:00 07:00 15:00 23:00 Intake Total 1672 ml 240 ml Balance 1672 ml 240 ml Intake Oral 1426 ml 240 ml IV Total 246 ml # Voids 6 3 # Bowel Movements 1 0 Result Diagram: 02/14/17 0841 02/14/17 0610 Other Results Laboratory Tests Test 02/13/17 02/13/17 02/13/17 02/14/17 14:30 19:30 20:55 06:10 White Blood Count 6.5 TH/MM3 Red Blood Count 3.71 MIL/MM3 Hemoglobin 12.2 GM/DL Hematocrit 33.6 % Mean Corpuscular Volume 90.5 FL Mean Corpuscular Hemoglobin 33.0 PG Mean Corpuscular Hemoglobin 36.4 % Concent Red Cell Distribution Width 14.9 % Platelet Count 268 TH/MM3 Mean Platelet Volume 8.4 FL Neutrophils (%) (Auto) 82.7 % Lymphocytes (%) (Auto) 11.2 % Monocytes (%) (Auto) 5.1 % Eosinophils (%) (Auto) 0.3 % Basophils (%) (Auto) 0.7 % Neutrophils # (Auto) 5.3 TH/MM3 Lymphocytes # (Auto) 0.7 TH/MM3 Monocytes # (Auto) 0.3 TH/MM3 Eosinophils # (Auto) 0.0 TH/MM3 Basophils # (Auto) 0.0 TH/MM3 CBC Comment AUTO DIFF Differential Comment AUTO DIFF CONFIRMED Prothrombin Time 11.1 SEC Prothromb Time International 1.0 RATIO Ratio Activated Partial 22.4 SEC Thromboplast Time Urine Color YELLOW Urine Turbidity HAZY Urine pH 5.5 Urine Specific [place] 1.014 Urine Protein NEG mg/dL Urine Glucose (UA) NEG mg/dL Urine Ketones NEG mg/dL Urine Occult Blood NEG Urine Nitrite NEG Urine Bilirubin NEG Urine Urobilinogen LESS THAN 2.0 MG/DL Urine Leukocyte Esterase NEG Urine RBC 1 /hpf Urine WBC 2 /hpf Urine Squamous Epithelial 4 /hpf Cells Urine Bacteria RARE /hpf Urine Mucus FEW /lpf Microscopic Urinalysis Comment CULT NOT INDICATED Sodium Level 129 MEQ/L 133 MEQ/L Potassium Level 3.4 MEQ/L 3.2 MEQ/L Chloride Level 91 MEQ/L 98 MEQ/L Carbon Dioxide Level 26.1 MEQ/L 26.5 MEQ/L Anion Gap 12 MEQ/L 9 MEQ/L Blood Urea Nitrogen 14 MG/DL 9 MG/DL Creatinine 1.08 MG/DL 0.72 MG/DL Estimat Glomerular Filtration 52 ML/MIN 83 ML/MIN Rate Random Glucose 120 MG/DL 89 MG/DL Calcium Level 10.1 MG/DL 9.1 MG/DL Magnesium Level 1.3 MG/DL Total Bilirubin 0.6 MG/DL 0.5 MG/DL Aspartate Amino Transf 25 U/L 22 U/L (AST/SGOT) Alanine Aminotransferase 29 U/L 24 U/L (ALT/SGPT) Alkaline Phosphatase 138 U/L 117 U/L Total Creatine Kinase 138 U/L Creatine Kinase MB 0.9 NG/ML Troponin I LESS THAN 0.02 NG/ML Total Protein 7.5 GM/DL 6.5 GM/DL Albumin 3.8 GM/DL 3.2 GM/DL Phenytoin (Dilantin) Level 39.0 MCG/ML 31.7 MCG/ML Lipase 82 U/L Thyroid Stimulating Hormone 2.400 uIU/ML 3rd Gen Test 02/14/17 08:41 White Blood Count 8.9 TH/MM3 Red Blood Count 3.54 MIL/MM3 Hemoglobin 11.7 GM/DL Hematocrit 32.4 % Mean Corpuscular Volume 91.4 FL Mean Corpuscular Hemoglobin 33.0 PG Mean Corpuscular Hemoglobin 36.1 % Concent Red Cell Distribution Width 14.7 % Platelet Count 179 TH/MM3 Mean Platelet Volume 7.5 FL Neutrophils (%) (Auto) 87.1 % Lymphocytes (%) (Auto) 5.6 % Monocytes (%) (Auto) 5.8 % Eosinophils (%) (Auto) 0.6 % Basophils (%) (Auto) 0.9 % Neutrophils # (Auto) 7.7 TH/MM3 Lymphocytes # (Auto) 0.5 TH/MM3 Monocytes # (Auto) 0.5 TH/MM3 Eosinophils # (Auto) 0.1 TH/MM3 Basophils # (Auto) 0.1 TH/MM3 CBC Comment AUTO DIFF Differential Comment AUTO DIFF CONFIRMED Imaging Last 72 hours Impressions Abdomen/Pelvis CT 02/14/17 0000 Signed Impressions: Service Date/Time: Tuesday, February 14, 2017 15:13 - CONCLUSION: 1. There is a 4 mm round hyperdense structure in the distal common bile duct with associated enlargement of the common bile duct and left intrahepatic bile ducts. The small density could represent a stone or small mass. 2. 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 Etiology is uncertain. Neurogenic tumor is a consideration but there is no connection with the spinal canal. Complex duplication cyst/lesion of the esophagus is another consideration. Suggest correlating with any prior imaging studies to assess for chronicity of this finding. This lesion would be amenable to image guided percutaneous biopsy, if needed. 3. There are 2 hyperdense lesions in the left kidney measuring up to 1.8 cm. The sternotomy criteria for simple cysts. Again , suggest correlating with prior imaging studies that could offer additional characterization. If none are available suggest elective further evaluation with either ultrasound or renal protocol CT or MRI. 4. Nonacute findings include mild splenomegaly, moderate atherosclerotic disease, and sigmoid diverticulosis. Akira Hernandez MD Head CT 02/13/17 1537 Signed Impressions: Service Date/Time: February 16:27 - CONCLUSION: Normal examination. No significant change has occurred. Delfino Stapleton MD Chest X-Ray 02/13/17 1537 Signed Impressions: Service Date/Time: February 15:43 - CONCLUSION: No acute cardiopulmonary abnormality is identified. Akira Hernandez MD Cervical Spine CT 02/13/17 1537 Signed Impressions: Service Date/Time: , February 13, 2017 16:27 - CONCLUSION: 1. No acute findings. Multilevel degenerative disc disease and facet arthropathy. Delfino Stapleton MD Maxillofacial CT 02/13/17 0000 Signed Impressions: Service Date/Time: February 16:27 - CONCLUSION: 1. No acute findings. Delfino Stapleton MD Objective Remarks GENERAL: SKIN: Warm and dry. HEAD: Atraumatic. Normocephalic. EYES: Pupils equal and round. No scleral icterus. No injection or drainage. ECCHYMOSIS BL ORBITAL AREA- RACCOON EYES ENT: No nasal bleeding or discharge. Mucous membranes pink and moist.TONGUE MIDLINE NECK: Trachea midline. No JVD. CARDIOVASCULAR: Regular rate and rhythm. RESPIRATORY: No accessory muscle use. Clear to auscultation. Breath sounds equal bilaterally. GASTROINTESTINAL: Abdomen soft, non-tender, nondistended. Hepatic and splenic margins not palpable. MUSCULOSKELETAL: Extremities without clubbing, cyanosis, or edema. No obvious deformities. NEUROLOGICAL: Awake and alert. No obvious cranial nerve deficits. Motor grossly within normal limits. Five out of 5 muscle strength in the arms and legs. Normal speech.SOME DIZZINESS PSYCHIATRIC: Appropriate mood and affect; insight and judgment normal. Medications and IVs Current Medications Sodium Chloride 2 ml 2 ml UNSCH PRN IVF FLUSH AFTER USING IV ACCESS; Start 02/13 at 15:45; Stop 02/13/17 at 22:36; Status DC Sodium Chloride 1,000 ml @ 1,000 mls/hr Q1H ONCE IV Last administered on 16:17; Start 02/13/17 at 15:37; Stop 02/13/17 at 16:36; Status DC Sodium Chloride (NS 1000 ml Inj) 1,000 ml @ 999 mls/hr BOLUS ONCE IV Last administered on 02/13/17 15:45; Start 02/13/17 at 15:45; Stop 02/13/17 at 16:45; Status DC Ondansetron HCl (Zofran Inj) 4 mg ONCE ONCE IV PUSH Last administered on 16:17; Start 02/13/17 at 16:00; Stop 02/13/17 at 16:01; Status DC Meclizine HCl 25 mg 25 mg ONCE ONCE PO Last administered on 02/13/17 19:39; Start 02/13/17 at 19:15; Stop 02/13/17 at 19:16; Status DC Sodium Chloride 1,000 ml @ 999 mls/hr BOLUS ONCE IV Last administered on 22:01; Start 02/13/17 at 22:00; Stop 02/13/17 at 23:00; Status DC Sodium Chloride (NS 1000 ml Inj) 1,000 ml @ 100 mls/hr Q10H IV Last administered on 02/15/17 06:38; Start 02/13/17 at 22:10 Sodium Chloride (NS Flush) 2 ml UNSCH PRN IV FLUSH FLUSH AFTER USING IV ACCESS Last administered on 02/14/17 00:26; Start 02/13/17 at 22:15 Sodium Chloride (NS Flush) 2 ml BID IV FLUSH Last administered on 02/15/17 09: 34; Start 02/14/17 at 09:00 Ondansetron HCl (Zofran Inj) 4 mg Q6H PRN IVP NAUSEA OR VOMITING Last administered on 02/15/17 09:42; Start 02/13/17 at 22:15 Acetaminophen (Tylenol) 650 mg Q6H PRN PO FEVER/PAIN 1-2; Start 02/13/17 at 22: 15 Acetaminophen/ Hydrocodone Bitart (Plain 5-325 Mg) 1 tab Q4H PRN PO PAIN SCALE 3 TO 5 Last administered on 02/15/17 09:38; Start 02/13/17 at 22:15 Acetaminophen/ Hydrocodone Bitart (Plain 10-325 Mg) 1 tab Q4H PRN PO PAIN SCALE 6 TO 10 Last administered on 02/14/17 22:03; Start 02/13/17 at 22:15 Senna/Docusate Sodium (Marilyn-Colace) 1 tab BID PO Last administered on 02/14/17 09:56; Start 02/14/17 at 09:00 Magnesium Hydroxide (Milk Of Magnesia Liq) 30 ml Q12H PRN PO MILD - MODERATE CONSTIPATION; Start 02/13/17 at 22:15 Sennosides (Senokot) 17.2 mg Q12H PRN PO MODERATE - SEVERE CONSTIPATION; Start 02/13/17 at 22:15 Bisacodyl (Dulcolax Supp) 10 mg DAILY PRN RECTAL SEVERE CONSITIPATION; Start at 22:15 Lactulose (Lactulose Liq) 30 ml DAILY PRN PO SEVERE CONSITIPATION; Start at 22:15 Alprazolam (Xanax) 0.5 mg BID PO Last administered on 02/14/17 22:55; Start 02/14/17 at 09:00 Levetriacetam (Keppra) 500 mg Q12HR PO Last administered on 02/15/17 09:38; Start 02/14/17 at 09:00 Montelukast Sodium (Singulair) 10 mg DAILY PO Last administered on 02/15/17 09: 35; Start 02/14/17 at 09:00 Atorvastatin Calcium (Lipitor) 20 mg DAILY PO CM Last administered on 02/15/17 09:35; Start 02/14/17 at 09:00 Promethazine HCl (Phenergan Supp) 25 mg Q6H PRN RECTAL NAUSEA OR VOMITING; Start 02/14/17 at 08:30 Diatrizoate Meglum/ Diatrizoate Sod ( Gastroview Liq) 18 ml ONCE ONCE PO Last administered on 02/14/17 10:35; Start 02/14/17 at 10:00; Stop 02/14/17 at 10: 01; Status DC Levothyroxine Sodium (Synthroid) 125 mcg DAILY@06 PO Last administered on 06:37; Start 02/15/17 at 06:00 Potassium Chloride (KCl Powder) 40 meq ONCE ONCE PO Last administered on 11:38; Start 02/14/17 at 10:30; Stop 02/14/17 at 10:43; Status DC Urinary Catheter: No Vascular Central Line Catheter: No A/P Problem List: (1) Dizziness ICD Code: R42 Status: Acute Plan: POSSIBLY DUE TO DILANTIN TOXICITY RECHECK LEVEL TODAY AND TOMORROW (2) Dilantin toxicity ICD Code: T42.0X1A Status: Acute Plan: RECHECK LEVELS TODAY AND TOMORROW (3) Renal insufficiency ICD Code: N28.9 Status: Resolved Plan: AM LABS (4) Seizure disorder ICD Code: G40.909 Status: Chronic Plan: HOLD DILANTIN CONTINUE KEPPRA BID 500MG (5) Tobacco abuse ICD Code: Z72.0 Status: Chronic Plan: SMOKING CESSATION RECOMMENDED Assessment and Plan 61-year-old female with a PMH of Seizure Disorder, HTN, Hyperlipidemia and Tobacco Abuse who presented for dizziness and multiple falls Dizziness: Likely secondary to medication/Dilantin toxicity, dehydration, and possibly over controlled BP. CT Head w/ no acute findings. Not orthostatic. Hold Dilantin and BP meds. IVF. Check TSH. Falls: Secondary to dizziness. CT C-Spine/Maxillofacial w/ no acute findings. Continue Plain for pain control. PT eval. AND OT EVEL Dilantin Toxicity: Dilantin 39. On Dilatin 400mg po bid at home, holding. Level improving to 31.7. Continue to monitor. CHECK LEVEL TODAY AND TOMORROW Abdominal pain: Left lower quadrant. New-onset overnight. Suspect abdominal cramping from nausea and retching due to Dilantin toxicity. Check abdominal CT and lipase. Zofran and Phenergan as needed for nausea. IMPROVED- MEDIASTINAL MASS NOTED ON CT Seizure Disorder: No reported seizure activity. Hold Dilantin secondary to above. Continue Keppra 500mg bid. Neuro eval if needed. HE: Creatinine 1.08, previously 0.71 on 01/10/17. Creatinine improved to 0.72 with IVF overnight. HYPOKALEMIA- REPLACE MEDIASTINAL MASS- CONSULT INTERVENTIONAL RADIOLOGY FOR BIOPSY DVT Prophylaxis: SCD/teds. Discharge Planning PT AND OT EVAL SNF VS [facility] Fawad Pagan DO Feb 15, 2017 10:21
[2017-02-15] MEDS: ACETAMINOPHEN/HYDROcodone 325 MG/10 MG TAB PO PRN ×2 (15:56→20:21)
[2017-02-15] MEDS ORDERED: LORazepam 2 MG/ML VIAL IV PUSH ONE (21:15)
[2017-02-15] MEDS ORDERED: HYDROmorphone HCL PF 1 MG/ML VIAL IV PUSH ONE (23:00)
[2017-02-16 00:10] VITALS: BP 136/85; PULSE 75; RESP 18; TEMP 97.1; O2SAT 97
[2017-02-16] MEDS: SODIUM CHLOR 0.9% 1000 ML INJ 1,000 ML IV SCH ×3 (00:10→20:10)
[2017-02-16 04:03] VITALS: BP 113/65; PULSE 63; RESP 18; TEMP 96.8; O2SAT 98
[2017-02-16] MEDS: LEVOTHYROXINE SODIUM 125 MCG TAB PO SCH (05:46)
[2017-02-16] MEDS: ACETAMINOPHEN/HYDROcodone 325 MG/10 MG TAB PO PRN ×2 (05:51→11:03)
[2017-02-16 08:00] VITALS: BP 98/56; PULSE 60; PULSE 63; RESP 18; TEMP 97.2; O2SAT 98
[2017-02-16 08:26] LABS: AUTOMATED NEUTROPHIL # 1.7 TH/MM3 (1.8-7.7); BASOPHIL % 0.4 % (0.0-2.0); EOSINOPHIL # 0.1 TH/MM3 (0-0.4); EOSINOPHIL % 4.5 % (0.0-4.0); HEMATOCRIT 25.6 % (35.0-46.0); HEMO FLAGS DIFF FINAL; LYMPH % 29.7 % (9.0-44.0); LYMPHOCYTE # 0.8 TH/MM3 (1.0-4.8); MEAN CELL VOLUME 92.8 FL (80.0-100.0); MEAN CORPUSCULAR HEMOGLOBIN 32.4 PG (27.0-34.0); MEAN CORPUSCULAR HGB CONC 34.9 % (32.0-36.0); MONO % 6.6 % (0.0-8.0); NEUT % 58.8 % (16.0-70.0); PLATELET COUNT 177 TH/MM3 (150-450); RED BLOOD COUNT 2.75 MIL/MM3 (4.00-5.30); RED CELL DISTRIBUTION WIDTH 14.7 % (11.6-17.2); WHITE BLOOD COUNT 2.8 TH/MM3 (4.0-11.0)
[2017-02-16 08:49] LABS: ANION GAP 8 MEQ/L (5-15); AST (GOT) 12 U/L (15-37); BICARBONATE 27.7 MEQ/L (21.0-32.0); BLOOD UREA NITROGEN 7 MG/DL (7-18); CHLORIDE 101 MEQ/L (98-107); GLOMERULAR FILTRATION RATE 98 ML/MIN (>89); MAGNESIUM 1.3 MG/DL (1.5-2.5); POTASSIUM 3.3 MEQ/L (3.5-5.1); SODIUM (NA) 137 MEQ/L (136-145)
[2017-02-16 08:58] LABS: ALKALINE PHOSPHATASE 103 U/L (45-117); ALT (GPT) 15 U/L (10-53); TOTAL BILIRUBIN ADULT 0.3 MG/DL (0.2-1.0)
[2017-02-16] MEDS: ATORVASTATIN 20 MG TAB PO SCH (09:29)
[2017-02-16] MEDS: levETIRAcetam 500 MG TAB PO SCH ×2 (09:29→23:46)
[2017-02-16] MEDS: MONTELUKAST SODIUM 10 MG TAB PO SCH (09:29)
[2017-02-16] MEDS: ALPRAZolam 0.5 MG TAB PO SCH ×2 (09:29→18:29)
[2017-02-16] MEDS: DOCUSATE SODIUM 50 MG/SENNA 8.6 MG TAB PO SCH ×2 (09:30→21:00)
[2017-02-16] MEDS: SODIUM CHLORIDE 0.9% FLUSH 10 ML FLUSH IV FLUSH SCH ×2 (09:30→23:46)
[2017-02-16 12:00] VITALS: BP 118/69; PULSE 61; RESP 18; TEMP 97.4; O2SAT 97
[2017-02-16] MEDS: ONDANSETRON HCL 4 MG/2 ML VIAL IVP PRN (12:32)
[2017-02-16] MEDS: SODIUM CHLORIDE 0.9% FLUSH 10 ML FLUSH IV FLUSH PRN (12:33)
[2017-02-16 12:58] LABS: HEMOGLOBIN A1a 0.8 %; HEMOGLOBIN A1b 1.1 %; HEMOGLOBIN F 0.2 %; HEMOGLOBIN LA1C 1.6 %; HEMOGLOBIN P3 4.4 %
[2017-02-16] MEDS ORDERED: POTASSIUM CHLORIDE 20 MEQ CONTROLLED RELEASE TAB PO ONE (14:15)
[2017-02-16] MEDS ORDERED: oxyCODONE/ACETAMINOPHEN 5 MG/325 MG TAB PO PRN (14:15)
[2017-02-16] MEDS ORDERED: oxyCODONE/ACETAMINOPHEN 7.5 MG/325 MG TAB PO PRN (14:15)
--- NOTE | 2017-02-16 14:30 | HHI.PR ---
Subjective Remarks Patient with no acute events overnight. Afebrile, vital signs stable. She complains of severe pain all over her body. She has a history of chronic neck and back pain for which she is disabled, states the pain has been worse recently. States her [place] is no longer working. Requests Dilaudid. Patient also continues to complain of dizziness that is worse when she sits up. She states if she sits up for more than just a moment she feels as though she is spinning within the room. She states the dizziness causes severe nausea. Also complains of sensitivity to light which she states is from her cataracts. This is not an acute finding. Objective Vitals Vital Signs Date Time Temp Pulse Resp B/P Pulse Ox O2 Delivery O2 Flow Rate FiO2 02/16/17 12:00 97.4 61 18 118/69 97 02/16/17 08:00 97.2 63 18 98/56 98 02/16/17 04:03 96.8 63 18 113/65 98 02/16/17 00:10 97.1 75 18 136/85 97 02/15/17 20:40 98.0 90 19 174/85 99 02/15/17 16:00 98.0 114 18 133/86 94 I/O 02/15/17 02/15/17 02/15/17 02/16/17 02/16/17 02/16/17 07:00 15:00 23:00 07:00 15:00 23:00 Intake Total 240 ml 650 ml 240 ml 240 ml Balance 240 ml 650 ml 240 ml 240 ml Intake Oral 240 ml 650 ml 240 ml 240 ml # Voids 3 4 1 3 # Bowel Movements 0 1 0 0 Result Diagram: 02/16/17 0656 02/16/17 0656 Objective Remarks SKIN: Warm and dry. Ecchymoses on left posterior thigh near gluteal region, right knee, left back/chest. HEAD: Atraumatic. Normocephalic. EYES: Pupils equal and round. No scleral icterus. No injection or drainage. ECCHYMOSIS BL ORBITAL AREA- RACCOON EYES. No Nystagmus Noted. ENT: No nasal bleeding or discharge. Mucous membranes pink and moist.TONGUE MIDLINE NECK: Trachea midline. No JVD. CARDIOVASCULAR: Regular rate and rhythm. RESPIRATORY: No accessory muscle use. Clear to auscultation. Breath sounds equal bilaterally. GASTROINTESTINAL: Abdomen soft, non-tender, nondistended. Hepatic and splenic margins not palpable. MUSCULOSKELETAL: Extremities without clubbing, cyanosis, or edema. No obvious deformities. NEUROLOGICAL: Awake and alert. No obvious cranial nerve deficits. Motor grossly within normal limits. Five out of 5 muscle strength in the arms and legs. Normal speech. DIZZINESS PSYCHIATRIC: Appropriate mood and affect; insight and judgment normal. A/P Problem List: (1) Dizziness ICD Code: R42 Status: Acute (2) Dilantin toxicity ICD Code: T42.0X1A Status: Acute (3) Renal insufficiency ICD Code: N28.9 Status: Resolved (4) Seizure disorder ICD Code: G40.909 Status: Chronic (5) Tobacco abuse ICD Code: Z72.0 Status: Chronic Assessment and Plan 61-year-old female with a PMH of Seizure Disorder, HTN, Hyperlipidemia and Tobacco Abuse who presented for dizziness and multiple falls. Found to have Dilantin toxicity on admission, since that time Dilantin has been discontinued. Patient remains on Keppra. Dizziness: Unclear etiology at this time. Was initially thought to be secondary to Dilantin toxicity, dehydration and hypotension however all of these have resolved and patient continues to complain of spinning within the room. TSH within normal limits. Head CT with no acute findings. Holding Dilantin and blood pressure medications. Given persistent nature of this symptom, will consult neurology for further evaluation and workup. Appreciate their recommendations. Falls: Secondary to dizziness. CT C-Spine/Maxillofacial w/ no acute findings. Dilantin Toxicity: Dilantin 39 on admission. On Dilatin 400mg po bid at home, holding. Level currently 16.1. Appreciate Neurology recommendations as to whether to continue this mediation. Abdominal pain: Resolved. CT of abdomen and pelvis showed mediastinal mass. Mediastinal mass: Interventional radiology consulted for biopsy of mass Seizure Disorder: No reported seizure activity. Hold Dilantin secondary to above. Continue Keppra 500mg bid. Appreciate neurology recommendations. HE: Creatinine 1.08, previously 0.71 on 01/10/17. Resolved with IV fluids. HYPOKALEMIA: Replace 02/16. Repeat BMP in the morning DVT Prophylaxis: SCD/teds. Discharge Planning Plan pending clinical improvement and neurology recommendations. Cassie Padilla MD R3 Feb 16, 2017 14:30
[2017-02-16] MEDS: oxyCODONE/ACETAMINOPHEN 10 MG/325 MG TAB PO PRN ×2 (15:41→23:47)
[2017-02-16 20:05] VITALS: BP 150/87; PULSE 60; RESP 17; TEMP 97.7; O2SAT 97
[2017-02-16] MEDS: BACLOFEN 10 MG TAB PO SCH (23:46)
[2017-02-17] VITALS (10 sets, daily range): BP systolic 99–173; BP diastolic 43–95; PULSE 58–97; RESP 16–19; TEMP 96.4–98.3; O2SAT 95–98
[2017-02-17] MEDS: SODIUM CHLOR 0.9% 1000 ML INJ 1,000 ML IV SCH (06:10)
[2017-02-17] MEDS: BACLOFEN 10 MG TAB PO SCH ×3 (06:22→21:34)
[2017-02-17] MEDS: LEVOTHYROXINE SODIUM 125 MCG TAB PO SCH (06:22)
[2017-02-17] MEDS: oxyCODONE/ACETAMINOPHEN 10 MG/325 MG TAB PO PRN (06:23)
[2017-02-17] MEDS: DOCUSATE SODIUM 50 MG/SENNA 8.6 MG TAB PO SCH ×2 (09:00→21:35)
[2017-02-17] MEDS: MONTELUKAST SODIUM 10 MG TAB PO SCH (09:47)
[2017-02-17] MEDS: levETIRAcetam 500 MG TAB PO SCH ×2 (09:47→21:26)
[2017-02-17] MEDS: ATORVASTATIN 20 MG TAB PO SCH (09:47)
[2017-02-17] MEDS: SODIUM CHLORIDE 0.9% FLUSH 10 ML FLUSH IV FLUSH SCH ×2 (09:47→21:25)
[2017-02-17] MEDS: ALPRAZolam 0.5 MG TAB PO SCH ×3 (09:47→18:00)
[2017-02-17] MEDS: ONDANSETRON HCL 4 MG/2 ML VIAL IVP PRN (09:55)
[2017-02-17] MEDS ORDERED: LIDOCAINE 1%/EPINEPHrine 1:100,000 SOLN 20 ML VIAL ONE (12:56)
--- NOTE | 2017-02-17 13:08 | HHI.PR ---
Subjective Remarks Follow up for dizziness, mediastinal mass. The patient is seen after returning from unsuccessful biopsy attempt. She is very upset, anxious, agitated. She believes she is having a panic attack. States her pain is not controlled at all. She states she's had increasing diffuse pain since her fall, much worse at the lower back. Denies any lower extremity numbness/weakness. Patient states both the percocet and norco is not touching her pain. She is requesting "at least" oxycodone. Explained percocet has oxycodone however then patient states she has friend's that are on oxycodone 30mg and she doesn't understand why she can't get that. She is very fixed on discussing pain medications throughout conversation. Otherwise, she denies any specific dizziness or chest pains, she states "well yeah it's all related to my anxiety". Objective Vitals Vital Signs Date Time Temp Pulse Resp B/P Pulse Ox O2 Delivery O2 Flow Rate FiO2 02/17/17 12:00 97.4 65 17 148/87 98 02/17/17 08:40 58 02/17/17 08:00 97.3 62 16 99/69 96 02/17/17 07:45 Room Air 02/17/17 04:10 96.4 72 17 135/95 97 02/17/17 00:10 98.3 66 17 128/74 98 02/16/17 20:05 97.7 60 17 150/87 97 I/O 02/16/17 02/16/17 02/16/17 02/17/17 02/17/17 02/17/17 07:00 15:00 23:00 07:00 15:00 23:00 Intake Total 240 ml 600 ml 240 ml 240 ml Balance 240 ml 600 ml 240 ml 240 ml Intake Oral 240 ml 600 ml 240 ml 240 ml # Voids 3 2 1 3 # Bowel Movements 0 0 0 0 Result Diagram: 02/16/17 0656 02/16/17 0656 Imaging Last Impressions Abdomen/Pelvis CT 02/14/17 0000 Signed Impressions: Service Date/Time: Tuesday, February 14, 2017 15:13 - CONCLUSION: 1. There is a 4 mm round hyperdense structure in the distal common bile duct with associated enlargement of the common bile duct and left intrahepatic bile ducts. The small density could represent a stone or small mass. 2. 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 Etiology is uncertain. Neurogenic tumor is a consideration but there is no connection with the spinal canal. Complex duplication cyst/lesion of the esophagus is another consideration. Suggest correlating with any prior imaging studies to assess for chronicity of this finding. This lesion would be amenable to image guided percutaneous biopsy, if needed. 3. There are 2 hyperdense lesions in the left kidney measuring up to 1.8 cm. The sternotomy criteria for simple cysts. Again , suggest correlating with prior imaging studies that could offer additional characterization. If none are available suggest elective further evaluation with either ultrasound or renal protocol CT or MRI. 4. Nonacute findings include mild splenomegaly, moderate atherosclerotic disease, and sigmoid diverticulosis. Akira Hernandez MD Head CT 02/13/17 1537 Signed Impressions: Service Date/Time: , February 13, 2017 16:27 - CONCLUSION: Normal examination. No significant change has occurred. Delfino Stapleton MD Chest X-Ray 02/13/17 153 Signed Impressions: Service Date/Time: , February 13, 2017 15:43 - CONCLUSION: No acute cardiopulmonary abnormality is identified. Akira Hernandez MD Cervical Spine CT 02/13/17 1537 Signed Impressions: Service Date/Time: February 16:27 - CONCLUSION: 1. No acute findings. Multilevel degenerative disc disease and facet arthropathy. Delfino Stapleton MD Maxillofacial CT 02/13/17 0000 Signed Impressions: Service Date/Time: February 16:27 - CONCLUSION: 1. No acute findings. Delfino tSapleton MD Objective Remarks GENERAL: Well-nourished, well-developed female patient in NAD. SKIN: Warm and dry. Diffuse ecchymosis throughout left thigh, b/l knees, back/ chest. HEENT: Normocephalic. Periorbital ecchymosis. Pupils equal and round. Mucous membranes pink and moist. NECK: Supple. Trachea midline. CARDIOVASCULAR: Regular rate and rhythm. S1, S2 noted. No murmur appreciated. RESPIRATORY: No accessory muscle use. Clear to auscultation. Breath sounds equal bilaterally. GASTROINTESTINAL: Abdomen soft, non-tender, nondistended. Normoactive bowel sounds x4. MUSCULOSKELETAL: No obvious deformities. Extremities without clubbing, cyanosis , or edema. Diffuse lumbar paraspinous muscle TTP, no bony point tenderness. NEUROLOGICAL: Awake and alert. No obvious cranial nerve deficits. Motor grossly within normal limits. Normal speech. PSYCHIATRIC: Very anxious mood; histrionic; insight and judgement normal. Medications and IVs Current Medications Medications (Trade) Dose Ordered Sig/Sheng Route Start Time Stop Time Status Last Admin (NS 1000 ml Inj) 1,000 ml @ 100 mls/hr Q10H IV 02/13/17 22:10 02/15/17 06:38 (NS Flush) 2 ml UNSCH PRN IV FLUSH 02/13/17 22:15 02/16/17 12:33 (NS Flush) 2 ml BID IV FLUSH 02/14/17 09:00 02/17/17 09:47 (Zofran Inj) 4 mg Q6H PRN IVP 02/13/17 22:15 02/17/17 09:55 (Tylenol) 650 mg Q6H PRN PO 02/13/17 22:15 (Marilyn-Colace) 1 tab BID PO 02/14/17 09:00 02/14/17 09:56 (Milk Of Magnesia Liq) 30 ml Q12H PRN PO 02/13/17 22:15 (Senokot) 17.2 mg Q12H PRN PO 02/13/17 22:15 (Dulcolax Supp) 10 mg DAILY PRN RECTAL 02/13/17 22:15 (Lactulose Liq) 30 ml DAILY PRN PO 02/13/17 22:15 (Keppra) 500 mg Q12HR PO 02/14/17 09:00 02/17/17 09:47 (Singulair) 10 mg DAILY PO 02/14/17 09:00 02/17/17 09:47 (Lipitor) 20 mg DAILY PO 02/14/17 09:00 02/17/17 09:47 (Phenergan Supp) 25 mg Q6H PRN RECTAL 02/14/17 08:30 (Synthroid) 125 mcg DAILY@06 PO 02/15/17 06:00 02/17/17 06:22 (Xanax) 0.5 mg TID PO 02/16/17 18:00 02/17/17 09:47 (Percocet 5-325 Mg) 1 tab Q6H PRN PO 02/16/17 14:15 (Percocet 7.5-325 Mg) 1 tab Q6H PRN PO 02/16/17 14:15 (Percocet 10-325 Mg) 1 tab Q6H PRN PO 02/16/17 14:15 02/17/17 06:23 (Lioresal) 10 mg Q8HR PO 02/16/17 22:00 02/17/17 06:22 A/P Problem List: (1) Dizziness ICD Code: R42 Status: Acute (2) Dilantin toxicity ICD Code: T42.0X1A Status: Acute (3) Renal insufficiency ICD Code: N28.9 Status: Resolved (4) Seizure disorder ICD Code: G40.909 Status: Chronic (5) Tobacco abuse ICD Code: Z72.0 Status: Chronic Assessment and Plan 61-year-old female with a PMH of Seizure Disorder, HTN, Hyperlipidemia and Tobacco Abuse who presented for dizziness and multiple falls. Found to have Dilantin toxicity on admission, since that time Dilantin has been discontinued. Patient remains on Keppra. Dizziness: Unclear etiology, initially thought to be secondary to Dilantin toxicity, dehydration, and hypotension however all of these have resolved and patient continues to complain of dizziness/room spinning. Possible BPPV, no nystagmus on exam. TSH wnl. Head CT with no acute findings. Orthostatics negative. -Holding Dilantin and BP meds. -Trial of meclizine 25mg q8h sheng -Antiemetics prn -Given persistent nature of the dizziness, consulted neurology for further evaluation and workup, appreciate recommendations. -Discussed with Dr. Felix, recommends brain MRI w&w/out contrast Falls: Secondary to dizziness. CT C-Spine/Maxillofacial w/ no acute findings. -Consult PT, recommends HHC and walker Dilantin Toxicity: Dilantin 39 on admission. -On Dilantin 400mg po bid at home, holding. -Level currently 16.1. -Appreciate Neurology recommendations as to whether to continue this mediation. Abdominal pain: Resolved. -CT of abdomen and pelvis showed mediastinal mass, see below -antiemetics and pain control prn Mediastinal mass: unclear etiology -IR consulted for biopsy of mass, attempt unsuccessful 02/17, plan for biopsy under anesthesia 02/18 -await cytology results Seizure Disorder: No reported seizure activity. -Hold Dilantin secondary to above. -Continue Keppra 500mg bid. -Appreciate neurology recommendations. -seizure precautions HE: Creatinine 1.08, previously 0.71 on 01/10/17. -Resolved with IV fluids. Hypokalemia: Replaced 02/16. -Repeat BMP pending Normocytic Anemia: Hgb 8.9 today, no reported active bleeding -check stool hemoccult -check iron studies/ferritin/folate/B12 -Monitor CBC Anxiety: acute on chronic, patient complains of multiple panic attacks and uncontrolled anxiety while in hospital -continue patient's Xanax 1mg tid (verified on [facility]) -patient appears in anxiety attack, received po Xanax with no relief, will give IV Ativan 1mg x1 now Acute on Chronic Pain: patient sees Dr. Wong as outpatient, per [facility], patient fills Soma 350mg tid, Xanax 1mg tid, and [place] 10/325mg q6h. -holding patient's Soma, may be contributing to dizziness -continue patient's xanax prn -patient complains [place] not working, changed to Percocet po however still not working, change to oxycodone and increased from q6h to q4h -patient in "excruciating" 10/10 low back pain today, give IV dilaudid 0.5mg x1, check lumbar spine MRI DVT Prophylaxis: SCD/teds. I spent 35 minutes [id number] with the patient or on the young discussing the patient's disposition, prognosis, and plan of care with her caregivers. Over half the time spent was devoted to counseling the patient regarding placement in coordinating care with caregivers and case management. Gaby Nathan PA-C Feb 17, 2017 1:08 pm
[2017-02-17] MEDS ORDERED: fentaNYL CITRATE 250 MCG/5 ML AMP ONE (13:27)
[2017-02-17] MEDS ORDERED: MIDAZOLAM HCL 2 MG/2 ML VIAL ONE (13:27)
--- NOTE | 2017-02-17 14:34 | RADRPT ---
EXAM DATE/TIME: 02/17/2017 13:32 [facility] COMPARISON: No previous studies available for comparison. INDICATIONS : Mediastinal mass. RADIATION DOSE: 12.79 CTDIvol (mGy) MEDICAL HISTORY : Cardiovascular disease. Hypertension. SURGICAL HISTORY : None. ENCOUNTER: Initial ACUITY: 1 day PAIN SCALE: 0/10 LOCATION: Right chest TECHNIQUE: Volumetric scanning of the chest was performed. Using automated exposure control and adjustment of t he mA and/or kV according to patient size, radiation dose was kept as low as reasonably achievable to obtain optimal diagnostic quality images. DICOM format image data is available electronically for r eview and comparison. Follow-up recommendations for incidentally detected pulmonary nodules are based at a minimum on nodul e size and patient risk factors according to Fleischner Society Guidelines. FINDINGS: An attempt was made to biopsy the posterior mediastinal mass under conscious sedation. This was unsu ccessful. The patient has been rescheduled for repeat biopsy with anesthesia provided sedation. The mass is identified as the 5.4 cm soft tissue mass slightly to the right of midline. This is accessible by right paravertebral approach. Cores and culture will be obtained. CONCLUSION: Unsuccessful attempt at biopsy. Rescheduled in the AM with anesthesia. Fawad Murguia MD FACR on February 17, 2017 at 14:31 Board Certified Radiologist. This report was verified electronically.
[2017-02-17] MEDS: MECLIZINE HCL 25 MG TAB PO SCH ×2 (15:06→21:26)
[2017-02-17] MEDS ORDERED: HYDROmorphone HCL PF 1 MG/ML VIAL IV PUSH ONE (15:30)
[2017-02-17] MEDS ORDERED: LORazepam 2 MG/ML VIAL IV PUSH ONE (15:30)
[2017-02-17] MEDS ORDERED: GADODIAMIDE PF 287 MG/ML 5 ML VIAL (for RAD MRI) IV ONE (18:40)
--- NOTE | 2017-02-17 19:18 | RADRPT ---
EXAM DATE/TIME: 02/17/2017 18:00 [facility] COMPARISON: No previous studies available for comparison. INDICATIONS : Pain. MEDICAL HISTORY : Hypertension. Hypercholesterolemia. Graves disease. Neuropathy. SURGICAL HISTORY : None. ENCOUNTER: Subsequent ACUITY: 3 day PAIN SCORE: 5/10 LOCATION: Lower back. TECHNIQUE: Multiplanar multisequence MRI of the lumbar spine was performed without contrast. FINDINGS: There is a very mild syrinx in the conus medullaris measuring just over 1 mm in diameter at the centr al canal. At T12-L1 there is no significant abnormality. At L1-2, L2-3, L3-4 and L4-5 there are mild posterior disc osteophyte complexes without significant c entral canal stenosis. Minimal encroachment the lateral recesses. No significant foraminal encroachme nt. At L5-S1 is a broad-based posterior disc protrusion with extruded disc material extending above the d isc interspace on the right side resulting in lateral recess encroachment and slight contact with the right S1 nerve root. CONCLUSION: 1. Mild syrinx and conus medullaris with central canal measuring just over 1 mm in diameter. 2. At L5-S1 there is a broad-based central to right paracentral disc protrusion with extruded disc ma terial extending cephalad above the disc interspace, slightly more the right side with encroachment o f the lateral recesses bilaterally as above. 3. Mild degenerative changes in the remainder of the lumbar spine without significant central canal s tenosis Delfino Stapleton MD on February 17, 2017 at 19:12 Board Certified Radiologist. This report was verified electronically.
--- NOTE | 2017-02-17 21:19 | MB ---
cc: KIM LATIF M.D. DATE OF CONSULTATION 02/17/2017 REASON FOR CONSULTATION Dizziness. HISTORY OF PRESENT ILLNESS Ms. Navarro is a 61-year-old woman who has history of seizure disorder for which she takes Dilantin as well as Keppra. She came in with severe dizziness and numerous falls with head trauma. Her Dilantin dose was 400 mg b.i.d. Keppra dose 500 mg b.i.d. Her initial Dilantin level was high at 39. It has been on hold and her level today is 16 but she still has dizziness and vertigo. PAST MEDICAL HISTORY 1. Seizures. 2. Hypertension. 3. Hyperlipidemia. ALLERGIES PENICILLIN. MEDICATIONS Current medications are: 1. Meclizine 25 milligrams q.8h. 2. Baclofen 10 mg q.8h. 3. Xanax as needed for anxiety. 4. Percocet for pain. 5. Synthroid. 6. Keppra 500 mg b.i.d. 7. Lipitor 20 mg daily. 8. Zofran p.r.n. 9. Tylenol p.r.n. 10. Milk of Magnesia as needed. 11. Lactulose. NEUROLOGIC EXAMINATION VITAL SIGNS: Blood pressure is 173/72, pulse 67, respirations 18, temperature 98 degrees. Higher cortical functions are intact. Cranial nerves are normal. Motor exam, normal strength and tone of all groups. No focal deficits. There is no drift. Reflexes are symmetric. IMAGING CT scan of the head is normal. Maxillofacial CT is normal with no fracture. Cervical spine CT no acute change. No fracture identified. LABORATORY DATA The white count is 2800, hemoglobin 8.9, hematocrit 25.6%, platelet count 177,000. PT 11.1, INR 1.0, APTT 22.4. Sodium is 137, potassium 3.3, chloride 101, CO2 is 27.7. The BUN is 7, creatinine 0.62, GFR is 98, glucose is 78. AST 12, ALT 15. Dilantin level today 16.1. IMPRESSION Vertigo, probably related to recent Dilantin toxicity and also head injury with concussion. RECOMMENDATIONS MRI brain. Would recommend restarting Dilantin at a lower dose of 200 mg b.i.d. Follow levels. Continue Keppra. MD DARRICK Holm /3:36 PM /9:06 PM
[2017-02-17] MEDS: PHENYTOIN SODIUM 100 MG CAP PO SCH (21:26)
[2017-02-17] MEDS ORDERED: ALPRAZolam 1 MG TAB PO ONE (21:45)
[2017-02-17] MEDS ORDERED: CHLORHEXIDINE GLUCONATE 2 % 1 PACK (2 CLOTHS) TOPICAL PRN (22:30)
[2017-02-17] MEDS ORDERED: SODIUM CHLORID 0.9% 500 ML IV PRN (22:30)
[2017-02-17] MEDS ORDERED: INSULIN HUMAN REGULAR 1,000 UNITS/10 ML VIAL SQ PRN (22:30)
[2017-02-17] MEDS ORDERED: POVIDONE IODINE 5% (ANTISEPSIS KIT) 4 APPLICATIONS EACH NARE PRN (22:30)
[2017-02-17] MEDS ORDERED: METOPROLOL TARTRATE 25 MG TAB PO PRN (22:30)
[2017-02-17] MEDS ORDERED: LACTATED RINGER'S 1000 ML IV PRN (22:30)
[2017-02-17 22:34] LABS: AUTOMATED NEUTROPHIL # 3.1 TH/MM3 (1.8-7.7); BASOPHIL % 0.7 % (0.0-2.0); EOSINOPHIL # 0.2 TH/MM3 (0-0.4); EOSINOPHIL % 3.9 % (0.0-4.0); HEMATOCRIT 30.8 % (35.0-46.0); HEMO FLAGS DIFF FINAL; LYMPH % 21.8 % (9.0-44.0); MEAN CELL VOLUME 92.8 FL (80.0-100.0); MEAN CORPUSCULAR HEMOGLOBIN 32.4 PG (27.0-34.0); MONO % 5.1 % (0.0-8.0); NEUT % 68.5 % (16.0-70.0); PLATELET COUNT 246 TH/MM3 (150-450); RED BLOOD COUNT 3.32 MIL/MM3 (4.00-5.30); RED CELL DISTRIBUTION WIDTH 14.8 % (11.6-17.2); WHITE BLOOD COUNT 4.5 TH/MM3 (4.0-11.0)
[2017-02-17 22:40] LABS: BICARBONATE 29.8 MEQ/L (21.0-32.0); POTASSIUM 3.7 MEQ/L (3.5-5.1)
--- NOTE | 2017-02-17 23:21 | RADRPT ---
EXAM DATE/TIME: 02/17/2017 18:00 [facility] COMPARISON: MRI BRAIN W & W/O CONTRAST, January 08, 2017, 19:56. INDICATIONS : Cephalgia. CONTRAST: 18 cc Omniscan (gadodiamide) IV MEDICAL HISTORY : Hypertension. Hypercholesterolemia. Graves disease. Neuropathy. SURGICAL HISTORY : None. ENCOUNTER: Subsequent ACUITY: 3 day PAIN SCORE: 5/10 LOCATION: cranial TECHNIQUE: Multiplanar, multisequence MRI of the brain was performed both prior to and following the administrat ion of paramagnetic contrast. FINDINGS: CEREBRUM: The ventricles are normal for age. No evidence of midline shift, mass lesion, hemorrhage or acute in farction. No extraaxial fluid collections are seen. The pituitary gland and suprasellar cistern are normal in configuration. WHITE MATTER: No significant signal abnormalities are seen in the white matter. POSTERIOR FOSSA: The cerebellum and brainstem are intact. The 4th ventricle is midline. The cerebellopontine angle is unremarkable. The cerebellar tonsils are normal in position. DIFFUSION IMAGING: No focal areas of restricted diffusion are seen. No evidence of acute infarction. EXTRACRANIAL: The visualized portions of the orbits and paranasal sinuses are unremarkable. POST-CONTRAST: No abnormal areas of parenchymal or dural enhancement. No evidence of blood-brain barrier breakdown. CONCLUSION: Normal examination. Keegan Weaver MD on February 17, 2017 at 23:18 Board Certified Radiologist. This report was verified electronically.
[2017-02-18] VITALS (8 sets, daily range): BP systolic 105–156; BP diastolic 66–89; PULSE 57–73; RESP 16–21; TEMP 96.4–97.9; O2SAT 96–99
[2017-02-18] MEDS: LEVOTHYROXINE SODIUM 125 MCG TAB PO SCH (03:49)
[2017-02-18] MEDS: MECLIZINE HCL 25 MG TAB PO SCH ×3 (03:49→22:00)
[2017-02-18] MEDS: BACLOFEN 10 MG TAB PO SCH ×3 (06:11→22:00)
[2017-02-18 08:54] LABS: BASOPHIL % 0.4 % (0.0-2.0); EOSINOPHIL # 0.2 TH/MM3 (0-0.4); EOSINOPHIL % 3.5 % (0.0-4.0); HEMATOCRIT 28.8 % (35.0-46.0); HEMO FLAGS DIFF FINAL; LYMPH % 24.9 % (9.0-44.0); LYMPHOCYTE # 1.1 TH/MM3 (1.0-4.8); MEAN CELL VOLUME 93.5 FL (80.0-100.0); MEAN CORPUSCULAR HEMOGLOBIN 32.2 PG (27.0-34.0); MEAN CORPUSCULAR HGB CONC 34.4 % (32.0-36.0); MONO % 4.9 % (0.0-8.0); NEUT % 66.3 % (16.0-70.0); PLATELET COUNT 227 TH/MM3 (150-450); RED BLOOD COUNT 3.08 MIL/MM3 (4.00-5.30); WHITE BLOOD COUNT 4.5 TH/MM3 (4.0-11.0)
[2017-02-18 09:24] LABS: ANION GAP 6 MEQ/L (5-15); BICARBONATE 29.4 MEQ/L (21.0-32.0); CHLORIDE 103 MEQ/L (98-107); GLOMERULAR FILTRATION RATE 76 ML/MIN (>89); POTASSIUM 3.8 MEQ/L (3.5-5.1); SODIUM (NA) 138 MEQ/L (136-145)
[2017-02-18] MEDS: MONTELUKAST SODIUM 10 MG TAB PO SCH (09:28)
[2017-02-18] MEDS: ATORVASTATIN 20 MG TAB PO SCH (09:28)
[2017-02-18] MEDS: DOCUSATE SODIUM 50 MG/SENNA 8.6 MG TAB PO SCH ×2 (09:28→22:03)
[2017-02-18] MEDS: levETIRAcetam 500 MG TAB PO SCH ×2 (09:28→22:00)
[2017-02-18] MEDS: PHENYTOIN SODIUM 100 MG CAP PO SCH ×2 (09:29→22:00)
[2017-02-18] MEDS: SODIUM CHLORIDE 0.9% FLUSH 10 ML FLUSH IV FLUSH SCH ×2 (09:29→22:07)
[2017-02-18] MEDS: ALPRAZolam 0.5 MG TAB PO SCH ×3 (09:34→17:52)
[2017-02-18 10:11] LABS: FERRITIN 72 NG/ML (8-252); TRANSFERRIN IRON PROFILE 199 MG/DL (200-360)
[2017-02-18 10:22] LABS: BLOOD UREA NITROGEN 13 MG/DL (7-18)
[2017-02-18] MEDS ORDERED: LIDOCAINE 1%/EPINEPHrine 1:100,000 SOLN 20 ML VIAL ONE (13:40)
[2017-02-18] MEDS ORDERED: fentaNYL CITRATE 250 MCG/5 ML AMP ONE (13:44)
--- NOTE | 2017-02-18 14:56 | PD.RAD ---
Post CT Procedure Prog Note Pre Procedure Diagnosis: (1) Mediastinal mass Post Procedure Diagnosis: (1) Mediastinal mass Procedure Date: Feb 18, 2017 Supervising Radiologist: Titus Brunner Anesthesia: General, Local Plan of Activity Patient to Unit: PACU Patient Condition: Good See PACS Report for procedural detail/treatment Biopsy Side: Right Biopsy Procedure: Mediastinal Mass Specimen: Core Biopsy Titus Brunner MD Feb 18, 2017 14:56
[2017-02-18] MEDS ORDERED: DO NOT ADM ANY ANTICOAGULANT DRUGS PRN (15:15)
[2017-02-18] MEDS ORDERED: LORazepam 2 MG/ML VIAL ONE (15:31)
[2017-02-18] MEDS ORDERED: *morphine SULFATE 8 MG/ML PERIprocedure ONLY ONE (15:40)
--- NOTE | 2017-02-18 15:58 | RADRPT ---
EXAM DATE/TIME: 02/18/2017 14:14 [facility] COMPARISON: No previous studies available for comparison. INDICATIONS : Right mediastinal mass BIOPSY SITE: Right lung/mediastinum Anesthesia and pain control was provided by the Anesthesia department. DEVICE(S): 1.) 20 gauge [place] core biopsy needle 2.) 18 gauge [place] blunt needle MEDICAL HISTORY : Seizures. SURGICAL HISTORY : None. ENCOUNTER: Initial ACUITY: 1 day PAIN SCORE: 0/10 LOCATION: Right chest A total of eight core specimen(s) were obtained and sent to the laboratory for pathologic evaluation. PROCEDURE: 1. CT guided mediastinal biopsy. Prior to the procedure informed consent was obtained. Any appropriate prior imaging studies were rev iewed. Using automated exposure control and adjustment of the mA and/or kV according to patient size, radiation dose was kept as low as reasonably achievable to obtain optimal diagnostic quality images. DICOM format image data is available electronically for review and comparison. The site was prepped in a sterile fashion. Full sterile technique was used, including cap, mask, sukhjinder rile gloves and gown and a large sterile sheet. Hand hygiene and 2% chlorhexidine and/or betadine/al cohol prep was utilized per protocol for cutaneous antisepsis. The skin and subcutaneous tissues wer e infiltrated with local anesthetic solution. With CT guidance the previously identified target was localized. Biopsy was performed using the presc ribed needle as above. Adequate hemostasis was obtained with compression at the puncture site. Follow-up CT scan reveals no pneumothorax. Conscious sedation was performed with the prescribed dosages and duration as above in the presence of an independent trained radiology nurse to assist in the monitoring of the patient. EKG and oximetry remained stable throughout the procedure. The patient tolerated the procedure well and there were no complications. The patient was sent to Radiology Outpatient Unit in stable condition. CONCLUSION: Uncomplicated CT guided biopsy. Titus Brunner MD on February 18, 2017 at 15:55 Board Certified Radiologist. This report was verified electronically.
[2017-02-18] MEDS ORDERED: LORazepam 2 MG/ML VIAL IV PUSH ONE (16:00)
--- NOTE | 2017-02-18 16:08 | RADRPT ---
EXAM DATE/TIME: 02/18/2017 15:20 [facility] COMPARISON: No previous studies available for comparison. INDICATIONS : Post right lung biopsy. MEDICAL HISTORY : Cardiovascular disease. Hypertension. SURGICAL HISTORY : None. ENCOUNTER: Subsequent ACUITY: 2 days PAIN SCORE: 0/10 LOCATION: Bilateral chest FINDINGS: A single frontal expiratory view of the chest was performed. The lungs demonstrate mild interstitial prominence but no evidence of consolidating airspace disease. No evidence of pneumothorax. Mediast inal structures are in the midline. The cardio-mediastinal contours and bronchopulmonary markings are unremarkable for an expiratory exam . Osseous structures are intact. CONCLUSION: No evidence of pneumothorax post right-sided mediastinal biopsy. Titus Brunner MD on February 18, 2017 at 16:06 Board Certified Radiologist. This report was verified electronically.
[2017-02-18] MEDS ORDERED: HYDROmorphone HCL PF 1 MG/ML VIAL IV PUSH PRN (16:15)
--- NOTE | 2017-02-18 16:20 | HHI.PR ---
Subjective Remarks The patient was seen in the PACU. She was complaining of pain and anxiety. She said she has light sensitivity secondary to cataracts so she must keep her eyes covered. Discussed with nursing. Objective Vitals Vital Signs Date Time Temp Pulse Resp B/P Pulse Ox O2 Delivery O2 Flow Rate FiO2 02/18/17 12:00 96.4 67 18 105/66 98 02/18/17 08:00 97.5 73 18 114/66 98 02/18/17 04:17 96.9 64 18 117/70 98 02/18/17 00:10 97.0 68 18 156/89 96 02/17/17 20:10 96.7 69 18 146/95 96 I/O 02/17/17 02/17/17 02/17/17 02/18/17 02/18/17 02/18/17 07:00 15:00 23:00 07:00 15:00 23:00 Intake Total 240 ml 0 ml 240 ml 0 ml Balance 240 ml 0 ml 240 ml 0 ml Intake Oral 240 ml 0 ml 240 ml 0 ml # Voids 3 5 3 3 # Bowel Movements 0 0 0 0 Result Diagram: 02/18/17 0611 02/18/17 0611 Imaging Last Impressions Lung Biopsy CT 02/18/17 1009 Signed Impressions: Service Date/Time: Saturday, February 18, 2017 14:14 - CONCLUSION: Uncomplicated CT guided biopsy. Titus Brunner MD Chest X-Ray 02/18/17 0000 Signed Impressions: Service Date/Time: Saturday, February 18, 2017 15:20 - CONCLUSION: No evidence of pneumothorax post right-sided mediastinal biopsy. Titus Brunner MD Lumbar Spine MRI 02/17/17 0000 Signed Impressions: Service Date/Time: Friday, February 17, 2017 18:00 - CONCLUSION: 1. Mild syrinx and conus medullaris with central canal measuring just over 1 mm in diameter. 2. At L5-S1 there is a broad-based central to right paracentral disc protrusion with extruded disc material extending cephalad above the disc interspace, slightly more the right side with encroachment of the lateral recesses bilaterally as above. 3. Mild degenerative changes in the remainder of the lumbar spine without significant central canal stenosis Delfino Stapleton MD Chest CT 02/17/17 0000 Signed Impressions: Service Date/Time: Friday, February 17, 2017 13:32 - CONCLUSION: Unsuccessful attempt at biopsy. Rescheduled in the AM with anesthesia. Fawad Murguia MD FACR Brain MRI 02/17/17 Signed Impressions: Service Date/Time: Friday, February 17, 2017 18:00 - CONCLUSION: Normal examination. Keegan Weaver MD Abdomen/Pelvis CT 02/14/17 Signed Impressions: Service Date/Time: Tuesday, February 14, 2017 15:13 - CONCLUSION: 1. There is a 4 mm round hyperdense structure in the distal common bile duct with associated enlargement of the common bile duct and left intrahepatic bile ducts. The small density could represent a stone or small mass. 2. 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 Etiology is uncertain. Neurogenic tumor is a consideration but there is no connection with the spinal canal. Complex duplication cyst/lesion of the esophagus is another consideration. Suggest correlating with any prior imaging studies to assess for chronicity of this finding. This lesion would be amenable to image guided percutaneous biopsy, if needed. 3. There are 2 hyperdense lesions in the left kidney measuring up to 1.8 cm. The sternotomy criteria for simple cysts. Again , suggest correlating with prior imaging studies that could offer additional characterization. If none are available suggest elective further evaluation with either ultrasound or renal protocol CT or MRI. 4. Nonacute findings include mild splenomegaly, moderate atherosclerotic disease, and sigmoid diverticulosis. Akira Hernandez MD Head CT 02/13/17 1537 Signed Impressions: Service Date/Time: February 16:27 - CONCLUSION: Normal examination. No significant change has occurred. Delfino Stapleton MD Cervical Spine CT 02/13/17 1537 Signed Impressions: Service Date/Time: February 16:27 - CONCLUSION: 1. No acute findings. Multilevel degenerative disc disease and facet arthropathy. Delfino Stapleton MD Maxillofacial CT 02/13/17 0000 Signed Impressions: Service Date/Time: February 16:27 - CONCLUSION: 1. No acute findings. Delfino Stapleton MD Objective Remarks GENERAL: Well-nourished, well-developed female sitting up in bed in some discomfort. SKIN: Warm and dry. Diffuse ecchymosis throughout left thigh, b/l knees, back/ chest. HEENT: Normocephalic. Mucous membranes pink and moist. Eyes are currently wrapped up s/t light sensitivity. NECK: Supple. Trachea midline. CARDIOVASCULAR: Regular rate and rhythm. S1, S2 noted. No murmur appreciated. RESPIRATORY: No accessory muscle use. Clear to auscultation. Breath sounds equal bilaterally. GASTROINTESTINAL: Abdomen soft, non-tender, nondistended. Normoactive bowel sounds x4. MUSCULOSKELETAL: No obvious deformities. Extremities without clubbing, cyanosis , or edema. Diffuse lumbar paraspinous muscle TTP, no bony point tenderness. NEUROLOGICAL: Awake and alert. No obvious cranial nerve deficits. Motor grossly within normal limits. Normal speech. PSYCHIATRIC: Very anxious. Procedures CT guided mediastinal mass biopsy Medications and IVs Current Medications Medications (Trade) Dose Ordered Sig/Sheng Route Start Time Stop Time Status Last Admin (NS Flush) 2 ml UNSCH PRN IV FLUSH 02/13/17 22:15 02/16/17 12:33 (NS Flush) 2 ml BID IV FLUSH 02/14/17 09:00 02/18/17 09:29 (Zofran Inj) 4 mg Q6H PRN IVP 02/13/17 22:15 02/17/17 09:55 (Tylenol) 650 mg Q6H PRN PO 02/13/17 22:15 (Marilyn-Colace) 1 tab BID PO 02/14/17 09:00 02/18/17 09:28 (Milk Of Magnesia Liq) 30 ml Q12H PRN PO 02/13/17 22:15 (Senokot) 17.2 mg Q12H PRN PO 02/13/17 22:15 (Dulcolax Supp) 10 mg DAILY PRN RECTAL 02/13/17 22:15 (Lactulose Liq) 30 ml DAILY PRN PO 02/13/17 22:15 (Keppra) 500 mg Q12HR PO 02/14/17 09:00 02/18/17 09:28 (Singulair) 10 mg DAILY PO 02/14/17 09:00 02/18/17 09:28 (Lipitor) 20 mg DAILY PO 02/14/17 09:00 02/18/17 09:28 (Phenergan Supp) 25 mg Q6H PRN RECTAL 02/14/17 08:30 (Synthroid) 125 mcg DAILY@06 PO 02/15/17 06:00 02/17/17 06:22 (Lioresal) 10 mg Q8HR PO 02/16/17 22:00 02/18/17 06:11 (Antivert) 25 mg Q8HR PO 02/17/17 14:00 02/17/17 21:26 (Xanax) 1 mg TID PO 02/17/17 18:00 02/18/17 09:34 (Roxicodone) 5 mg Q4H PRN PO 02/17/17 15:30 (Roxicodone) 10 mg Q4H PRN PO 02/17/17 15:30 02/18/17 12:33 Phenytoin 200 mg 200 mg BID PO 02/17/17 21:00 02/18/17 09:29 Lactated Ringer's 1,000 ml @ 30 mls/hr Q24H PRN IV 02/17/17 22:30 02/20/17 22:29 (NS 500 ml Inj) 500 ml @ 30 mls/hr [id number] PRN IV 02/17/17 22:30 02/20/17 22:29 Miscellaneous Information ALL NURSING DEPARTME... UNSCH PRN .XX 02/18/17 15:15 02/19/17 15:14 (Dilaudid Pf Inj) 0.5 mg Q4H PRN IV PUSH 02/18/17 16:15 UNV A/P Problem List: (1) Dizziness ICD Code: R42 Status: Acute (2) Dilantin toxicity ICD Code: T42.0X1A Status: Acute (3) Renal insufficiency ICD Code: N28.9 Status: Resolved (4) Seizure disorder ICD Code: G40.909 Status: Chronic (5) Tobacco abuse ICD Code: Z72.0 Status: Chronic Assessment and Plan 61-year-old female with a PMH of Seizure Disorder, HTN, Hyperlipidemia and Tobacco Abuse who presented for dizziness and multiple falls. Found to have Dilantin toxicity on admission, since that time Dilantin has been discontinued. Patient remains on Keppra. Dizziness: Unclear etiology, initially thought to be secondary to Dilantin toxicity, dehydration, and hypotension, however, all of these have resolved and patient continues to complain of dizziness/room spinning. Possible BPPV, no nystagmus on exam. TSH wnl. Head CT with no acute findings. Orthostatics negative. Neurology consult appreciated. Brain MRI normal. -resume Dilantin and BP meds. -Trial of meclizine 25mg q8h sheng -Antiemetics prn Falls: Secondary to dizziness. CT C-Spine/Maxillofacial w/ no acute findings. -Consult PT, recommends HHC and walker Dilantin Toxicity: Dilantin 39 on admission. -On Dilantin 400mg po bid at home, changed to 200 mg BID per neurology. -monitor levels as needed Abdominal pain: Resolved. -CT of abdomen and pelvis showed mediastinal mass, see below. Also CBD mass and dilatation noted. Check a GB US. -antiemetics and pain control prn Mediastinal mass: unclear etiology -IR consulted for biopsy of mass, biopsy under anesthesia performed 02/18 -await cytology results Seizure Disorder: No reported seizure activity. -Hold Dilantin secondary to above. -Continue Keppra 500mg bid. -Appreciate neurology recommendations. -seizure precautions Normocytic Anemia: Hgb 8.9, no reported active bleeding. B12 and folate levels low. -check stool Hemoccult -B12 injection x 1. -start PO folate daily. -Monitor CBC Anxiety: acute on chronic, patient complains of multiple panic attacks and uncontrolled anxiety while in hospital -continue patient's Xanax 1mg tid (verified on [facility]) Acute on Chronic Pain: patient sees Dr. Wong as outpatient, per [facility], patient fills Soma 350mg tid, Xanax 1mg tid, and [place] 10/325mg q6h. -holding patient's Soma, may be contributing to dizziness -continue patient's Xanax prn -oxycodone with Dilaudid for breakthrough -MRI: mild syrinx and conus medullaris with central canal measuring just over 1 mm in diameter; At L5-S1 there is a broad-based central to right paracentral disc protrusion with extruded disc material extending cephalad above the disc interspace. Follow up with neuro. DVT Prophylaxis: SCD/teds. Discharge Planning Awaiting clinical improvement Carlton Dacosta DO Feb 18, 2017 16:19
[2017-02-18] MEDS ORDERED: CYANOCOBALAMIN 1000 MCG/ML VIAL IM ONE (17:00)
[2017-02-18] MEDS: PROPRANOLOL HCL 20 MG TAB PO SCH (17:52)
[2017-02-18] MEDS: FOLIC ACID 1 MG TAB PO SCH (18:00)
[2017-02-18] MEDS: ONDANSETRON HCL 4 MG/2 ML VIAL IVP PRN (23:52)
[2017-02-19] VITALS (10 sets, daily range): BP systolic 112–162; BP diastolic 62–97; PULSE 55–117; RESP 16–19; TEMP 96–97.9; O2SAT 92–99
[2017-02-19] MEDS: LEVOTHYROXINE SODIUM 125 MCG TAB PO SCH (04:23)
[2017-02-19] MEDS: MECLIZINE HCL 25 MG TAB PO SCH ×3 (04:23→22:03)
[2017-02-19] MEDS: BACLOFEN 10 MG TAB PO SCH ×3 (04:23→22:03)
[2017-02-19] MEDS: PROPRANOLOL HCL 20 MG TAB PO SCH ×3 (09:00→18:00)
[2017-02-19] MEDS: LISINOPRIL 20 MG TAB PO SCH (09:00)
[2017-02-19] MEDS: HYDROCHLOROTHIAZIDE 25 MG TAB PO SCH (09:00)
[2017-02-19] MEDS ORDERED: NON-FORMULARY DRUG (Lisinopril-Hctz 1 TAB) PO SCH (09:00)
[2017-02-19] MEDS: ALPRAZolam 0.5 MG TAB PO SCH ×3 (09:58→19:20)
[2017-02-19] MEDS: levETIRAcetam 500 MG TAB PO SCH ×2 (10:00→22:03)
[2017-02-19] MEDS: PHENYTOIN SODIUM 100 MG CAP PO SCH ×2 (10:00→22:03)
[2017-02-19] MEDS: MONTELUKAST SODIUM 10 MG TAB PO SCH ×2 (10:03→13:46)
[2017-02-19] MEDS: DOCUSATE SODIUM 50 MG/SENNA 8.6 MG TAB PO SCH ×2 (10:03→22:03)
[2017-02-19] MEDS: ATORVASTATIN 20 MG TAB PO SCH (10:03)
[2017-02-19] MEDS: FOLIC ACID 1 MG TAB PO SCH (10:03)
[2017-02-19] MEDS: SODIUM CHLORIDE 0.9% FLUSH 10 ML FLUSH IV FLUSH SCH ×2 (10:04→22:04)
--- NOTE | 2017-02-19 11:26 | RADRPT ---
EXAM DATE/TIME: 02/19/2017 10:11 [facility] COMPARISON: CT ABDOMEN & PELVIS W CONTRAST, February 14, 2017, 15:13. INDICATIONS : Evaluate common bile duct. MEDICAL HISTORY : Hypothyroidism. Hypercholesterolemia. Seizures. Syncope. Neuropathy. HTN. Graves disease. Degenerat rajeev cervical spine. SURGICAL HISTORY : None. ENCOUNTER: Initial ACUITY: 4-6 days PAIN SCORE: 4/10 LOCATION: Right upper quadrant MEASUREMENTS: LIVER: 19.0 cm length COMMON DUCT: 7 mm RIGHT KIDNEY: 11.0 x 4.3 x 4.5 cm FINDINGS: LIVER: Normal echotexture without focal lesion or ductal dilatation. COMMON DUCT: No filling defect identified. Minimally prominent diameter GALLBLADDER: Mild diffuse wall thickening. 4 mm echogenic wall adherent focus in the posterior body of the gallbla dder which may be adherent sludge or polyp. PANCREAS: The visualized portions are within normal limits. RIGHT KIDNEY: No evidence of hydronephrosis, stone, or mass. CONCLUSION: Abnormal gallbladder appearance. No common duct filling defect is identified. Akira Morris MD on February 19, 2017 at 11:21 Board Certified Radiologist. This report was verified electronically.
[2017-02-19] MEDS ORDERED: LORazepam 2 MG/ML VIAL IV PUSH PRN (12:00)
--- NOTE | 2017-02-19 12:14 | HHI.PR ---
Subjective Remarks The patient was sitting up in bed. She said she was about to have a panic attack. She said it happened all the time. She was willing to discuss with psychiatry. She says she is no longer dizzy. Discussed with nursing. Objective Vitals Vital Signs Date Time Temp Pulse Resp B/P Pulse Ox O2 Delivery O2 Flow Rate FiO2 02/19/17 11:57 96.8 117 18 147/97 93 02/19/17 11:12 99 02/19/17 09:57 56 02/19/17 09:55 61 02/19/17 07:59 96.0 105 18 112/67 99 02/19/17 07:39 Room Air 02/19/17 04:15 97.4 55 17 134/62 97 02/19/17 00:22 21 02/19/17 00:20 97.1 74 16 144/82 92 02/18/17 20:10 97.9 60 16 134/89 97 02/18/17 20:06 57 02/18/17 17:35 99 21 02/18/17 16:00 96.9 71 21 133/79 96 02/18/17 16:00 98.0 75 27 144/92 95 Room Air 02/18/17 15:45 74 24 149/79 95 Room Air 02/18/17 15:30 72 26 142/75 96 Room Air 02/18/17 15:15 98.0 77 19 179/100 96 Room Air I/O 02/18/17 02/18/17 02/18/17 02/19/17 02/19/17 02/19/17 07:00 15:00 23:00 07:00 15:00 23:00 Intake Total 0 ml 120 ml 890 ml 0 ml Output Total 800 ml 0 ml Balance 0 ml -680 ml 890 ml 0 ml Intake Oral 0 ml 120 ml 290 ml 0 ml IV Total 200 ml Other 400 ml Output Urine Total 800 ml Estimated Blood Loss 0 ml # Voids 3 1 2 1 # Bowel Movements 0 0 0 Result Diagram: 02/18/17 0611 02/18/17 0611 Imaging Last Impressions Gall Bladder Ultrasound 02/19/17 0000 Signed Impressions: Service Date/Time: Sunday, February 19, 2017 10:11 - CONCLUSION: Abnormal gallbladder appearance. No common duct filling defect is identified. Akira Morris MD Lung Biopsy CT 02/18/17 1009 Signed Impressions: Service Date/Time: Saturday, February 18, 2017 14:14 - CONCLUSION: Uncomplicated CT guided biopsy. Titus Brunner MD Chest X-Ray 02/18/17 0000 Signed Impressions: Service Date/Time: Saturday, February 18, 2017 15:20 - CONCLUSION: No evidence of pneumothorax post right-sided mediastinal biopsy. Titus Brunner MD Lumbar Spine MRI 02/17/17 0000 Signed Impressions: Service Date/Time: Friday, February 17, 2017 18:00 - CONCLUSION: 1. Mild syrinx and conus medullaris with central canal measuring just over 1 mm in diameter. 2. At L5-S1 there is a broad-based central to right paracentral disc protrusion with extruded disc material extending cephalad above the disc interspace, slightly more the right side with encroachment of the lateral recesses bilaterally as above. 3. Mild degenerative changes in the remainder of the lumbar spine without significant central canal stenosis Delfino Stapleton MD Chest CT 02/17/17 0000 Signed Impressions: Service Date/Time: Friday, February 17, 2017 13:32 - CONCLUSION: Unsuccessful attempt at biopsy. Rescheduled in the AM with anesthesia. Fawad Murguia MD FACR Brain MRI 02/17/17 0000 Signed Impressions: Service Date/Time: Friday, February 17, 2017 18:00 - CONCLUSION: Normal examination. Keegan Weaver MD Abdomen/Pelvis CT 02/14/17 0000 Signed Impressions: Service Date/Time: Tuesday, February 14, 2017 15:13 - CONCLUSION: 1. There is a 4 mm round hyperdense structure in the distal common bile duct with associated enlargement of the common bile duct and left intrahepatic bile ducts. The small density could represent a stone or small mass. 2. 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 Etiology is uncertain. Neurogenic tumor is a consideration but there is no connection with the spinal canal. Complex duplication cyst/lesion of the esophagus is another consideration. Suggest correlating with any prior imaging studies to assess for chronicity of this finding. This lesion would be amenable to image guided percutaneous biopsy, if needed. 3. There are 2 hyperdense lesions in the left kidney measuring up to 1.8 cm. The sternotomy criteria for simple cysts. Again , suggest correlating with prior imaging studies that could offer additional characterization. If none are available suggest elective further evaluation with either ultrasound or renal protocol CT or MRI. 4. Nonacute findings include mild splenomegaly, moderate atherosclerotic disease, and sigmoid diverticulosis. Akira Hernandez MD Head CT 02/13/17 1537 Signed Impressions: Service Date/Time: , February 13, 2017 16:27 - CONCLUSION: Normal examination. No significant change has occurred. Delfino Stapleton MD Cervical Spine CT 02/13/17 1537 Signed Impressions: Service Date/Time: , February 13, 2017 16:27 - CONCLUSION: 1. No acute findings. Multilevel degenerative disc disease and facet arthropathy. Delfino Stapleton MD Maxillofacial CT 02/13/17 0000 Signed Impressions: Service Date/Time: , February 13, 2017 16:27 - CONCLUSION: 1. No acute findings. Delfino Stapleton MD Objective Remarks GENERAL: Well-nourished, well-developed female sitting up in bed. SKIN: Warm and dry. Diffuse ecchymosis throughout left thigh, b/l knees, back/ chest. HEENT: Normocephalic. Mucous membranes pink and moist. Eyes are currently wrapped up s/t light sensitivity. NECK: Supple. Trachea midline. CARDIOVASCULAR: Regular rate and rhythm. S1, S2 noted. No murmur appreciated. RESPIRATORY: No accessory muscle use. Clear to auscultation. Breath sounds equal bilaterally. GASTROINTESTINAL: Abdomen soft, non-tender, nondistended. Normoactive bowel sounds x4. MUSCULOSKELETAL: No obvious deformities. Extremities without clubbing, cyanosis , or edema. Diffuse lumbar paraspinous muscle TTP, no bony point tenderness. NEUROLOGICAL: Awake and alert. No obvious cranial nerve deficits. Motor grossly within normal limits. Normal speech. PSYCHIATRIC: Very anxious. Procedures CT guided mediastinal mass biopsy Medications and IVs Current Medications Medications (Trade) Dose Ordered Sig/Sheng Route Start Time Stop Time Status Last Admin (NS Flush) 2 ml UNSCH PRN IV FLUSH 02/13/17 22:15 02/16/17 12:33 (NS Flush) 2 ml BID IV FLUSH 02/14/17 09:00 02/19/17 10:04 (Zofran Inj) 4 mg Q6H PRN IVP 02/13/17 22:15 02/18/17 23:52 (Tylenol) 650 mg Q6H PRN PO 02/13/17 22:15 (Marilyn-Colace) 1 tab BID PO 02/14/17 09:00 02/19/17 10:03 (Milk Of Magnesia Liq) 30 ml Q12H PRN PO 02/13/17 22:15 (Senokot) 17.2 mg Q12H PRN PO 02/13/17 22:15 (Dulcolax Supp) 10 mg DAILY PRN RECTAL 02/13/17 22:15 (Lactulose Liq) 30 ml DAILY PRN PO 02/13/17 22:15 (Keppra) 500 mg Q12HR PO 02/14/17 09:00 02/19/17 10:00 (Singulair) 10 mg DAILY PO 02/14/17 09:00 02/19/17 10:03 (Lipitor) 20 mg DAILY PO 02/14/17 09:00 02/19/17 10:03 (Phenergan Supp) 25 mg Q6H PRN RECTAL 02/14/17 08:30 (Synthroid) 125 mcg DAILY@06 PO 02/15/17 06:00 02/19/17 04:23 (Lioresal) 10 mg Q8HR PO 02/16/17 22:00 02/19/17 04:23 (Antivert) 25 mg Q8HR PO 02/17/17 14:00 02/19/17 04:23 (Xanax) 1 mg TID PO 02/17/17 18:00 02/19/17 09:58 (Roxicodone) 5 mg Q4H PRN PO 02/17/17 15:30 (Roxicodone) 10 mg Q4H PRN PO 02/17/17 15:30 02/19/17 10:00 Phenytoin 200 mg 200 mg BID PO 02/17/17 21:00 02/19/17 10:00 Lactated Ringer's 1,000 ml @ 30 mls/hr Q24H PRN IV 02/17/17 22:30 02/20/17 22:29 (NS 500 ml Inj) 500 ml @ 30 mls/hr [id number] PRN IV 02/17/17 22:30 02/20/17 22:29 Miscellaneous Information ALL NURSING DEPARTME... UNSCH PRN .XX 02/18/17 15:15 02/19/17 15:14 (Dilaudid Pf Inj) 0.5 mg Q4H PRN IV PUSH 02/18/17 16:15 02/19/17 01:15 (Inderal) 20 mg TID PO 02/18/17 18:00 02/18/17 17:52 (Folate) 1 mg DAILY PO 02/18/17 16:30 02/19/17 10:03 (Prinivil) 20 mg DAILY PO 02/19/17 09:00 (Hydrodiuril) 25 mg DAILY PO 02/19/17 09:00 (Ativan Inj) 1 mg Q6H PRN IV PUSH 02/19/17 12:00 UNV A/P Problem List: (1) Dizziness ICD Code: R42 Status: Acute (2) Dilantin toxicity ICD Code: T42.0X1A Status: Acute (3) Renal insufficiency ICD Code: N28.9 Status: Resolved (4) Seizure disorder ICD Code: G40.909 Status: Chronic (5) Tobacco abuse ICD Code: Z72.0 Status: Chronic Assessment and Plan 61-year-old female with a PMH of Seizure Disorder, HTN, Hyperlipidemia and Tobacco Abuse who presented for dizziness and multiple falls. Found to have Dilantin toxicity on admission, since that time Dilantin has been discontinued. Patient remains on Keppra. Dizziness: Unclear etiology, initially thought to be secondary to Dilantin toxicity, dehydration, and hypotension, however, all of these have resolved and patient continues to complain of dizziness/room spinning. Possible BPPV, no nystagmus on exam. TSH wnl. Head CT with no acute findings. Orthostatics negative. Neurology consult appreciated. Brain MRI normal. Improved 02/19. -resume Dilantin and BP meds. -Trial of meclizine 25mg q8h sheng -Antiemetics prn Falls: Secondary to dizziness. CT C-Spine/Maxillofacial w/ no acute findings. -Consult PT, recommends HHC and walker Dilantin Toxicity: Dilantin 39 on admission. -On Dilantin 400mg po bid at home, changed to 200 mg BID per neurology. -monitor levels as needed Abdominal pain: Resolved. -CT of abdomen and pelvis showed mediastinal mass, see below. Also CBD mass and dilatation noted. GB US: Abnormal GB appearance but no acute abnormality. -antiemetics and pain control prn -ADAT Mediastinal mass: unclear etiology -IR consulted for biopsy of mass, biopsy under anesthesia performed 02/18 -await cytology results Seizure Disorder: No reported seizure activity. -Continue Keppra 500mg bid and Dilantin 200 mg BID. -Appreciate neurology recommendations. -seizure precautions Normocytic Anemia: Hgb 8.9, no reported active bleeding. B12 and folate levels low. -check stool Hemoccult -B12 injection x 1. -start PO folate daily. -Monitor CBC Anxiety: acute on chronic Patient complains of multiple panic attacks and uncontrolled anxiety on a regular basis. -continue patient's Xanax 1mg tid (verified on [facility]) -Ativan IV as needed. -Psychiatry consult requested. Acute on Chronic Pain: patient sees Dr. Wong as outpatient, per [facility], patient fills Soma 350mg tid, Xanax 1mg tid, and [place] 10/325mg q6h. -holding patient's Soma, may be contributing to dizziness -continue patient's Xanax prn -oxycodone with Dilaudid for breakthrough -MRI: mild syrinx and conus medullaris with central canal measuring just over 1 mm in diameter; At L5-S1 there is a broad-based central to right paracentral disc protrusion with extruded disc material extending cephalad above the disc interspace. Follow up with neuro. DVT Prophylaxis: SCD/teds. Discharge Planning Awaiting clinical improvement Carlton Dacosta DO Feb 19, 2017 12:14
--- NOTE | 2017-02-19 17:17 | HHI.PR ---
Review/Management Diagnosis dilantin toxicity resolved Plan recheck dilantin level in am Diagnosis/Plan: Subjective Subjective Comments No acute events reported vertigo resolved now with reduction in dilantin level Active Medications Current Medications Medications (Trade) Dose Ordered Sig/Sheng Route Start Time Stop Time Status Last Admin (NS Flush) 2 ml UNSCH PRN IV FLUSH 02/13/17 22:15 02/16/17 12:33 (NS Flush) 2 ml BID IV FLUSH 02/14/17 09:00 02/19/17 10:04 (Zofran Inj) 4 mg Q6H PRN IVP 02/13/17 22:15 02/18/17 23:52 (Tylenol) 650 mg Q6H PRN PO 02/13/17 22:15 (Marilyn-Colace) 1 tab BID PO 02/14/17 09:00 02/19/17 10:03 (Milk Of Magnesia Liq) 30 ml Q12H PRN PO 02/13/17 22:15 (Senokot) 17.2 mg Q12H PRN PO 02/13/17 22:15 (Dulcolax Supp) 10 mg DAILY PRN RECTAL 02/13/17 22:15 (Lactulose Liq) 30 ml DAILY PRN PO 02/13/17 22:15 (Keppra) 500 mg Q12HR PO 02/14/17 09:00 02/19/17 10:00 (Singulair) 10 mg DAILY PO 02/14/17 09:00 02/19/17 13:46 (Lipitor) 20 mg DAILY PO 02/14/17 09:00 02/19/17 10:03 (Phenergan Supp) 25 mg Q6H PRN RECTAL 02/14/17 08:30 (Synthroid) 125 mcg DAILY@06 PO 02/15/17 06:00 02/19/17 04:23 (Lioresal) 10 mg Q8HR PO 02/16/17 22:00 02/19/17 13:46 (Antivert) 25 mg Q8HR PO 02/17/17 14:00 02/19/17 13:46 (Xanax) 1 mg TID PO 02/17/17 18:00 02/19/17 13:45 (Roxicodone) 5 mg Q4H PRN PO 02/17/17 15:30 (Roxicodone) 10 mg Q4H PRN PO 02/17/17 15:30 02/19/17 13:45 Phenytoin 200 mg 200 mg BID PO 02/17/17 21:00 02/19/17 10:00 Lactated Ringer's 1,000 ml @ 30 mls/hr Q24H PRN IV 02/17/17 22:30 02/20/17 22:29 (NS 500 ml Inj) 500 ml @ 30 mls/hr [id number] PRN IV 02/17/17 22:30 02/20/17 22:29 (Dilaudid Pf Inj) 0.5 mg Q4H PRN IV PUSH 02/18/17 16:15 02/19/17 01:15 (Inderal) 20 mg TID PO 02/18/17 18:00 02/19/17 13:46 (Folate) 1 mg DAILY PO 02/18/17 16:30 02/19/17 10:03 (Prinivil) 20 mg DAILY PO 02/19/17 09:00 (Hydrodiuril) 25 mg DAILY PO 02/19/17 09:00 (Ativan Inj) 1 mg Q6H PRN IV PUSH 02/19/17 12:00 02/19/17 15:00 Allergies Allergies Coded Allergies Penicillin (Verified Allergy, Severe, 02/13/17) Uncoded Allergies NSAIDS ( Allergy, Severe, 04/22/09) Exam I&O / VS 02/18/17 02/18/17 02/19/17 15:00 23:00 07:00 Intake Total 120 ml 890 ml 0 ml Output Total 800 ml 0 ml Balance -680 ml 890 ml 0 ml Intake Oral 120 ml 290 ml 0 ml IV Total 200 ml Other 400 ml Output Urine Total 800 ml Estimated Blood Loss 0 ml # Voids 1 2 1 # Bowel Movements 0 0 Vital Signs Date Time Temp Pulse Resp B/P Pulse Ox O2 Delivery O2 Flow Rate FiO2 02/19/17 11:57 96.8 117 18 147/97 93 02/19/17 11:12 99 02/19/17 09:57 56 02/19/17 09:55 61 02/19/17 07:59 96.0 105 18 112/67 99 02/19/17 07:39 Room Air 8/9/17 04:15 97.4 55 17 134/62 97 02/19/17 00:22 21 02/19/17 00:20 97.1 74 16 144/82 92 02/18/17 20:10 97.9 60 16 134/89 97 02/18/17 20:06 57 02/18/17 17:35 99 21 Exam Comments alert, oriented, speech normal CN normal MOTOR 5/5 Ehsan Morley PhD Feb 19, 2017 17:17
[2017-02-20] VITALS (7 sets, daily range): BP systolic 120–161; BP diastolic 69–81; PULSE 54–62; RESP 17–22; TEMP 95.6–97.9; O2SAT 97–98
[2017-02-20] MEDS: BACLOFEN 10 MG TAB PO SCH ×3 (04:03→21:49)
[2017-02-20] MEDS: MECLIZINE HCL 25 MG TAB PO SCH ×3 (04:03→15:23)
[2017-02-20] MEDS: LEVOTHYROXINE SODIUM 125 MCG TAB PO SCH ×2 (04:03→07:46)
[2017-02-20] MEDS: DOCUSATE SODIUM 50 MG/SENNA 8.6 MG TAB PO SCH ×2 (07:47→20:38)
[2017-02-20] MEDS: levETIRAcetam 500 MG TAB PO SCH ×2 (07:47→20:38)
[2017-02-20] MEDS: HYDROCHLOROTHIAZIDE 25 MG TAB PO SCH (07:47)
[2017-02-20] MEDS: MONTELUKAST SODIUM 10 MG TAB PO SCH (07:47)
[2017-02-20] MEDS: ATORVASTATIN 20 MG TAB PO SCH (07:48)
[2017-02-20] MEDS: PHENYTOIN SODIUM 100 MG CAP PO SCH ×2 (07:48→20:37)
[2017-02-20] MEDS: LISINOPRIL 20 MG TAB PO SCH (07:48)
[2017-02-20] MEDS: PROPRANOLOL HCL 20 MG TAB PO SCH ×3 (07:49→18:28)
[2017-02-20] MEDS: ALPRAZolam 0.5 MG TAB PO SCH ×3 (07:49→18:29)
[2017-02-20] MEDS: FOLIC ACID 1 MG TAB PO SCH (07:49)
[2017-02-20] MEDS ORDERED: POLYETHYLENE GLYCOL 17 GM PKG PO ONE (08:30)
--- NOTE | 2017-02-20 08:51 | HHI.PR ---
Review/Management Diagnosis dilantin toxicity resolved dilantin level now subtherapeutic at 7.3 Plan increase dilantin Diagnosis/Plan: Subjective Subjective Comments No acute events reported Active Medications Current Medications Medications (Trade) Dose Ordered Sig/Sheng Route Start Time Stop Time Status Last Admin (NS Flush) 2 ml UNSCH PRN IV FLUSH 02/13/17 22:15 02/16/17 12:33 (NS Flush) 2 ml BID IV FLUSH 02/14/17 09:00 02/19/17 22:04 (Zofran Inj) 4 mg Q6H PRN IVP 02/13/17 22:15 02/18/17 23:52 (Tylenol) 650 mg Q6H PRN PO 02/13/17 22:15 (Marilyn-Colace) 1 tab BID PO 02/14/17 09:00 02/20/17 07:47 (Milk Of Magnesia Liq) 30 ml Q12H PRN PO 02/13/17 22:15 (Senokot) 17.2 mg Q12H PRN PO 02/13/17 22:15 (Dulcolax Supp) 10 mg DAILY PRN RECTAL 02/13/17 22:15 (Lactulose Liq) 30 ml DAILY PRN PO 02/13/17 22:15 (Keppra) 500 mg Q12HR PO 02/14/17 09:00 02/20/17 07:47 (Singulair) 10 mg DAILY PO 02/14/17 09:00 02/20/17 07:47 (Lipitor) 20 mg DAILY PO 02/14/17 09:00 02/20/17 07:48 (Phenergan Supp) 25 mg Q6H PRN RECTAL 02/14/17 08:30 (Synthroid) 125 mcg DAILY@06 PO 02/15/17 06:00 02/20/17 07:46 (Lioresal) 10 mg Q8HR PO 02/16/17 22:00 02/20/17 04:03 (Antivert) 25 mg Q8HR PO 02/17/17 14:00 02/20/17 07:47 (Xanax) 1 mg TID PO 02/17/17 18:00 02/20/17 07:49 (Roxicodone) 5 mg Q4H PRN PO 02/17/17 15:30 (Roxicodone) 10 mg Q4H PRN PO 02/17/17 15:30 02/20/17 07:49 Phenytoin 200 mg 200 mg BID PO 02/17/17 21:00 02/20/17 07:48 Lactated Ringer's 1,000 ml @ 30 mls/hr Q24H PRN IV 02/17/17 22:30 02/20/17 22:29 (NS 500 ml Inj) 500 ml @ 30 mls/hr [id number] PRN IV 02/17/17 22:30 02/20/17 22:29 (Dilaudid Pf Inj) 0.5 mg Q4H PRN IV PUSH 02/18/17 16:15 02/19/17 01:15 (Inderal) 20 mg TID PO 02/18/17 18:00 02/20/17 07:49 (Folate) 1 mg DAILY PO 02/18/17 16:30 02/20/17 07:49 (Prinivil) 20 mg DAILY PO 02/19/17 09:00 02/20/17 07:48 (Hydrodiuril) 25 mg DAILY PO 02/19/17 09:00 02/20/17 07:47 (Ativan Inj) 1 mg Q6H PRN IV PUSH 02/19/17 12:00 02/19/17 15:00 Allergies Allergies Coded Allergies Penicillin (Verified Allergy, Severe, 02/13/17) Uncoded Allergies NSAIDS ( Allergy, Severe, 04/22/09) Exam I&O / VS 02/19/17 02/19/17 02/20/17 15:00 23:00 07:00 Intake Total 480 ml 240 ml 240 ml Balance 480 ml 240 ml 240 ml Intake Oral 480 ml 240 ml 240 ml # Voids 1 2 2 # Bowel Movements 0 0 0 Vital Signs Date Time Temp Pulse Resp B/P Pulse Ox O2 Delivery O2 Flow Rate FiO2 02/20/17 08:00 95.6 60 18 127/78 98 02/20/17 03:45 96.6 62 18 120/69 98 02/19/17 23:40 97.3 65 19 162/83 97 02/19/17 21:09 21 02/19/17 20:15 97.1 62 16 120/66 98 02/19/17 16:00 97.9 58 18 155/84 97 8/9/17 11:57 96.8 117 18 147/97 93 02/19/17 11:12 99 02/19/17 09:57 56 02/19/17 09:55 61 Exam Comments alert, oriented, speech normal CN normal MOTOR 5/5 BUE Objective Micro and Labs Laboratory Tests Test 02/20/17 06:38 Phenytoin (Dilantin) Level 7.3 Ehsan Felix PhD Feb 20, 2017 08:51
--- NOTE | 2017-02-20 08:53 | HHI.PR ---
Subjective Remarks The patient was talking about how her son would not talk to her on the phone and would not visit her. She says she is still having constant panic attacks. She seems open to talking with psychiatry. She says her dizziness is okay as long as she lays in bed or sits up. It is worse with ambulation. Objective Vitals Vital Signs Date Time Temp Pulse Resp B/P Pulse Ox O2 Delivery O2 Flow Rate FiO2 02/20/17 08:00 95.6 60 18 127/78 98 02/20/17 03:45 96.6 62 18 120/69 98 02/19/17 23:40 97.3 65 19 162/83 97 02/19/17 21:09 21 02/19/17 20:15 97.1 62 16 120/66 98 02/19/17 16:00 97.9 58 18 155/84 97 02/19/17 11:57 96.8 117 18 147/97 93 02/19/17 11:12 99 02/19/17 09:57 56 02/19/17 09:55 61 I/O 02/19/17 02/19/17 02/19/17 02/20/17 02/20/17 02/20/17 06:59 14:59 22:59 06:59 14:59 22:59 Intake Total 0 ml 480 ml 240 ml 240 ml Balance 0 ml 480 ml 240 ml 240 ml Intake Oral 0 ml 480 ml 240 ml 240 ml # Voids 1 1 2 2 # Bowel Movements 0 0 0 0 Result Diagram: 02/18/17 0611 02/18/17 0611 Imaging Last Impressions Gall Bladder Ultrasound 02/19/17 0000 Signed Impressions: Service Date/Time: Sunday, February 19, 2017 10:11 - CONCLUSION: Abnormal gallbladder appearance. No common duct filling defect is identified. Akira Morris MD Lung Biopsy CT 02/18/17 1009 Signed Impressions: Service Date/Time: Saturday, February 18, 2017 14:14 - CONCLUSION: Uncomplicated CT guided biopsy. Titus Brunner MD Chest X-Ray 02/18/17 0000 Signed Impressions: Service Date/Time: Saturday, February 18, 2017 15:20 - CONCLUSION: No evidence of pneumothorax post right-sided mediastinal biopsy. Titus Brunner MD Lumbar Spine MRI 02/17/17 0000 Signed Impressions: Service Date/Time: Friday, February 17, 2017 18:00 - CONCLUSION: 1. Mild syrinx and conus medullaris with central canal measuring just over 1 mm in diameter. 2. At L5-S1 there is a broad-based central to right paracentral disc protrusion with extruded disc material extending cephalad above the disc interspace, slightly more the right side with encroachment of the lateral recesses bilaterally as above. 3. Mild degenerative changes in the remainder of the lumbar spine without significant central canal stenosis Delfino Stapleton MD Chest CT 02/17/17 0000 Signed Impressions: Service Date/Time: Friday, February 17, 2017 13:32 - CONCLUSION: Unsuccessful attempt at biopsy. Rescheduled in the AM with anesthesia. Fawad Murguia MD FACR Brain MRI 02/17/17 0000 Signed Impressions: Service Date/Time: Friday, February 17, 2017 18:00 - CONCLUSION: Normal examination. Keegan Weaver MD Abdomen/Pelvis CT 02/14/17 0000 Signed Impressions: Service Date/Time: Tuesday, February 14, 2017 15:13 - CONCLUSION: 1. There is a 4 mm round hyperdense structure in the distal common bile duct with associated enlargement of the common bile duct and left intrahepatic bile ducts. The small density could represent a stone or small mass. 2. 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 Etiology is uncertain. Neurogenic tumor is a consideration but there is no connection with the spinal canal. Complex duplication cyst/lesion of the esophagus is another consideration. Suggest correlating with any prior imaging studies to assess for chronicity of this finding. This lesion would be amenable to image guided percutaneous biopsy, if needed. 3. There are 2 hyperdense lesions in the left kidney measuring up to 1.8 cm. The sternotomy criteria for simple cysts. Again , suggest correlating with prior imaging studies that could offer additional characterization. If none are available suggest elective further evaluation with either ultrasound or renal protocol CT or MRI. 4. Nonacute findings include mild splenomegaly, moderate atherosclerotic disease, and sigmoid diverticulosis. Akira Hernandez MD Head CT 02/13/17 1537 Signed Impressions: Service Date/Time: February 16:27 - CONCLUSION: Normal examination. No significant change has occurred. Delfino Stapleton MD Cervical Spine CT 02/13/17 1537 Signed Impressions: Service Date/Time: February 16:27 - CONCLUSION: 1. No acute findings. Multilevel degenerative disc disease and facet arthropathy. Delfino Stapleton MD Maxillofacial CT 02/13/17 0000 Signed Impressions: Service Date/Time: February 16:27 - CONCLUSION: 1. No acute findings. Delfino Stapleton MD Objective Remarks GENERAL: Well-nourished, well-developed female sitting up in bed. SKIN: Warm and dry. Diffuse ecchymosis throughout left thigh, b/l knees, back/ chest. HEENT: Normocephalic. Mucous membranes pink and moist. Bruising noted around eyes. NECK: Supple. Trachea midline. CARDIOVASCULAR: Regular rate and rhythm. S1, S2 noted. No murmur appreciated. RESPIRATORY: No accessory muscle use. Clear to auscultation. Breath sounds equal bilaterally. GASTROINTESTINAL: Abdomen soft, non-tender, nondistended. Normoactive bowel sounds x4. MUSCULOSKELETAL: No obvious deformities. Extremities without clubbing, cyanosis , or edema. Diffuse lumbar paraspinous muscle TTP, no bony point tenderness. NEUROLOGICAL: Awake and alert. No obvious cranial nerve deficits. Motor grossly within normal limits. Normal speech. PSYCHIATRIC: Very anxious. Procedures CT guided mediastinal mass biopsy Medications and IVs Current Medications Medications (Trade) Dose Ordered Sig/Sheng Route Start Time Stop Time Status Last Admin (NS Flush) 2 ml UNSCH PRN IV FLUSH 02/13/17 22:15 02/16/17 12:33 (NS Flush) 2 ml BID IV FLUSH 02/14/17 09:00 02/19/17 22:04 (Zofran Inj) 4 mg Q6H PRN IVP 02/13/17 22:15 02/18/17 23:52 (Tylenol) 650 mg Q6H PRN PO 02/13/17 22:15 (Marilyn-Colace) 1 tab BID PO 02/14/17 09:00 02/20/17 07:47 (Milk Of Magnesia Liq) 30 ml Q12H PRN PO 02/13/17 22:15 (Senokot) 17.2 mg Q12H PRN PO 02/13/17 22:15 (Dulcolax Supp) 10 mg DAILY PRN RECTAL 02/13/17 22:15 (Lactulose Liq) 30 ml DAILY PRN PO 02/13/17 22:15 (Keppra) 500 mg Q12HR PO 02/14/17 09:00 02/20/17 07:47 (Singulair) 10 mg DAILY PO 02/14/17 09:00 02/20/17 07:47 (Lipitor) 20 mg DAILY PO 02/14/17 09:00 02/20/17 07:48 (Phenergan Supp) 25 mg Q6H PRN RECTAL 02/14/17 08:30 (Synthroid) 125 mcg DAILY@06 PO 02/15/17 06:00 02/20/17 07:46 (Lioresal) 10 mg Q8HR PO 02/16/17 22:00 02/20/17 04:03 (Antivert) 25 mg Q8HR PO 02/17/17 14:00 02/20/17 07:47 (Xanax) 1 mg TID PO 02/17/17 18:00 02/20/17 07:49 (Roxicodone) 5 mg Q4H PRN PO 02/17/17 15:30 (Roxicodone) 10 mg Q4H PRN PO 02/17/17 15:30 02/20/17 07:49 Phenytoin 200 mg 200 mg BID PO 02/17/17 21:00 02/20/17 07:48 Lactated Ringer's 1,000 ml @ 30 mls/hr Q24H PRN IV 02/17/17 22:30 02/20/17 22:29 (NS 500 ml Inj) 500 ml @ 30 mls/hr [id number] PRN IV 02/17/17 22:30 02/20/17 22:29 (Dilaudid Pf Inj) 0.5 mg Q4H PRN IV PUSH 02/18/17 16:15 02/19/17 01:15 (Inderal) 20 mg TID PO 02/18/17 18:00 02/20/17 07:49 (Folate) 1 mg DAILY PO 02/18/17 16:30 02/20/17 07:49 (Prinivil) 20 mg DAILY PO 02/19/17 09:00 02/20/17 07:48 (Hydrodiuril) 25 mg DAILY PO 02/19/17 09:00 02/20/17 07:47 (Ativan Inj) 1 mg Q6H PRN IV PUSH 02/19/17 12:00 02/19/17 15:00 A/P Problem List: (1) Dizziness ICD Code: R42 Status: Acute (2) Dilantin toxicity ICD Code: T42.0X1A Status: Acute (3) Renal insufficiency ICD Code: N28.9 Status: Resolved (4) Seizure disorder ICD Code: G40.909 Status: Chronic (5) Tobacco abuse ICD Code: Z72.0 Status: Chronic Assessment and Plan 61-year-old female with a PMH of Seizure Disorder, HTN, Hyperlipidemia and Tobacco Abuse who presented for dizziness and multiple falls. Found to have Dilantin toxicity on admission, since that time Dilantin has been discontinued. Patient remains on Keppra. Dizziness: Unclear etiology, initially thought to be secondary to Dilantin toxicity, dehydration, and hypotension, however, all of these have resolved and patient continues to complain of dizziness/room spinning. Possible BPPV, no nystagmus on exam. TSH wnl. Head CT with no acute findings. Orthostatics negative. Neurology consult appreciated. Brain MRI normal. Improved 02/20. -resume Dilantin and BP meds. -Trial of meclizine 25mg q8h sheng -Antiemetics prn Falls: Secondary to dizziness. CT C-Spine/Maxillofacial w/ no acute findings. -Consult PT, recommends HHC and walker Dilantin Toxicity: Dilantin 39 on admission. -On Dilantin 400mg po bid at home, changed to 200 mg BID per neurology. -monitor levels as needed. Level low at 7.3 02/20. Follow up with neurology. Abdominal pain: Resolved. -CT of abdomen and pelvis showed mediastinal mass, see below. Also CBD mass and dilatation noted. GB US: Abnormal GB appearance but no acute abnormality. -antiemetics and pain control prn -ADAT Mediastinal mass: unclear etiology -IR consulted for biopsy of mass, biopsy under anesthesia performed 02/18 -await cytology results Seizure Disorder: No reported seizure activity. -Continue Keppra 500mg bid and Dilantin 200 mg BID. -Appreciate neurology recommendations. -seizure precautions Normocytic Anemia: Hgb 8.9, no reported active bleeding. B12 and folate levels low. -check stool Hemoccult -B12 injection x 1. -start PO folate daily. -Monitor CBC Anxiety: acute on chronic Patient complains of multiple panic attacks and uncontrolled anxiety on a regular basis. She cites family problems as triggers. -continue patient's Xanax 1mg tid (verified on [facility]) -Ativan IV as needed. -Psychiatry consult requested. Acute on Chronic Pain: patient sees Dr. Wong as outpatient, per [facility], patient fills Soma 350mg tid, Xanax 1mg tid, and [place] 10/325mg q6h. -holding patient's Soma, may be contributing to dizziness -continue patient's Xanax prn -oxycodone with Dilaudid for breakthrough -MRI: mild syrinx and conus medullaris with central canal measuring just over 1 mm in diameter; At L5-S1 there is a broad-based central to right paracentral disc protrusion with extruded disc material extending cephalad above the disc interspace. Follow up with neuro. DVT Prophylaxis: SCD/teds. Discharge Planning Awaiting psychiatry evaluation Carlton Dacosta DO Feb 20, 2017 08:52
[2017-02-20] MEDS ORDERED: PHENYTOIN SODIUM 100 MG CAP PO ONE (09:00)
[2017-02-20] MEDS: SODIUM CHLORIDE 0.9% FLUSH 10 ML FLUSH IV FLUSH SCH ×2 (09:00→20:41)
[2017-02-21] VITALS (9 sets, daily range): BP systolic 99–169; BP diastolic 56–86; PULSE 52–84; RESP 16–20; TEMP 96.8–98.1; O2SAT 95–100
[2017-02-21] MEDS: MECLIZINE HCL 25 MG TAB PO SCH ×3 (06:36→21:36)
[2017-02-21] MEDS: LEVOTHYROXINE SODIUM 125 MCG TAB PO SCH (06:36)
[2017-02-21] MEDS: PHENYTOIN SODIUM 100 MG CAP PO SCH (06:36)
[2017-02-21] MEDS: BACLOFEN 10 MG TAB PO SCH ×3 (06:37→21:36)
[2017-02-21] MEDS: ALPRAZolam 0.5 MG TAB PO SCH ×3 (08:09→17:33)
[2017-02-21] MEDS: PROPRANOLOL HCL 20 MG TAB PO SCH ×3 (08:09→17:33)
[2017-02-21] MEDS: ATORVASTATIN 20 MG TAB PO SCH (08:09)
[2017-02-21] MEDS: FOLIC ACID 1 MG TAB PO SCH (08:09)
[2017-02-21] MEDS: DOCUSATE SODIUM 50 MG/SENNA 8.6 MG TAB PO SCH ×2 (08:10→21:36)
[2017-02-21] MEDS: MONTELUKAST SODIUM 10 MG TAB PO SCH (08:10)
[2017-02-21] MEDS: LISINOPRIL 20 MG TAB PO SCH (08:10)
[2017-02-21] MEDS: levETIRAcetam 500 MG TAB PO SCH ×2 (08:10→21:36)
[2017-02-21] MEDS: HYDROCHLOROTHIAZIDE 25 MG TAB PO SCH (08:10)
--- NOTE | 2017-02-21 08:59 | PD.PSY.CON ---
Provisional Diagnosis Admission Date Feb 14, 2017 at 08:55 [place] I. Unspecified anxiety, self reported panic disorder, r/o sedative hypnotic use disorder, [place] II. 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 Found to have Dilantin toxicity on admission, since that time Dilantin has been discontinued. Patient remains on Keppra. Dizziness: Unclear etiology, initially thought to be secondary to Dilantin toxicity, dehydration, and hypotension, however, all of these have resolved and patient continues to complain of dizziness/room spinning. Possible BPPV, no nystagmus on exam. TSH wnl. Head CT with no acute findings. Orthostatics negative. Neurology consult appreciated. Brain MRI normal. Consulted to psychiatry due to recurrent panic attacks. On psychiatric evaluation patient was oppositional, resistant, very irritable, stating that she doesn't need to speak with a psychiatrist because her anxiety symptoms are under control with Xanax. Patient denies depressive symptoms, she reports frequent panic attacks during this hospitalization. Patient states that she is reluctant to take SSRIs, and she doesn't want to even hear about it "because I hate dedication with side effects", patient doesn't want to consider other alternatives for anxiety such as gabapentin, hydroxyzine, SNRIS. Patient is mostly focused in pain medication and benzodiazepines. She denies suicidal and homicidal ideation, she denies visual and auditory hallucinations. He is oriented 3, no frequent patient of consciousness, no delirium present. Patient denies the use of substances and alcohol. On evaluation patient is very dramatic, at the beginning she was acting as she was having a panic attack and was complaining of palpitations, an EKG was done while we are in the room and the EKG actually shows bradycardia. Review of Systems Constitutional: DENIES: Diaphoretic episodes, Fatigue, Fever, Weight gain, Weight loss, Chills, Dizziness, Change in appetite, Night Sweats Endocrine: DENIES: Abnorml menstrual pattern, Heat/cold intolerance, Polydipsia , Polyuria, Polyphagia Eyes: DENIES: Blurred vision, Diplopia, Eye inflammation, Eye pain, Vision loss , Photosensitivity, Double Vision Ears, nose, mouth, throat: DENIES: Tinnitus, Hearing loss, Vertigo, Nasal discharge, Oral lesions, Throat pain, Hoarseness, Ear Pain, Running Nose, Epistaxis, Sinus Pain, Toothache, Odynophagia Respiratory: DENIES: Apneas, Cough, Snoring, Wheezing, Hemoptysis, Sputum production, Shortness of breath Cardiovascular: DENIES: Chest pain, Palpitations, Syncope, Dyspnea on Exertion , PND, Lower Extremity Edema, Orthopnea, Claudication Gastrointestinal: DENIES: Abdominal pain, Black stools, Bloody stools, Constipation, Diarrhea, Nausea, Vomiting, Difficulty Swallowing, Anorexia Musculoskeletal: DENIES: Joint pain, Muscle aches, Stiffness, Joint Swelling, Back pain, Neck pain Integumentary: DENIES: Abnormal pigmentation, Pruritus, Rash, Nail changes, Breast masses, Breast skin changes, Nipple discharge Hematologic/lymphatic: DENIES: Bruising, Lymphadenopathy Immunologic/allergic: DENIES: Eczema, Urticaria Neurologic: DENIES: Abnormal gait, Headache, Localized weakness, Paresthesias, Seizures, Speech Problems, Tremor, Poor Balance Psychiatric: COMPLAINS OF: Anxiety, DENIES: Confusion, Mood changes, Depression, Hallucinations, Agitation, Suicidal Ideation, Homicidal Ideation, Delusions Past Family Social History Coded Allergies: Penicillin (Verified Allergy, Severe, 02/13/17) Uncoded Allergies: NSAIDS (Allergy, Severe, 04/22/09) Active Scripts Phenytoin Extended (Dilantin)100 Mg [id number] Mg PO BID #60 CAP Ref 3 Prov:Hesham Forbes MD 01/15/17 Levetiracetam (Keppra)500 Mg [id number] Mg PO Q12HR #60 TAB Ref 3 Prov:Hesham Forbes MD 01/15/17 Alprazolam (Xanax)0.5 Mg Tab0.5 Mg PO BID #10 TAB Prov:Hesham Forbes MD 01/15/17 Reported Medications Montelukast 10 Mg Tab10 Mg PO DAILY #30 TAB Ref 0 01/07/17 Rosuvastatin (Crestor)10 Mg Tab10 Mg PO DAILY #30 TAB Ref 0 01/07/17 Levothyroxine 125 Mcg Ulw014 Mcg PO DAILY #30 TAB Ref 0 01/07/17 Lisinopril-Hctz 20-25 Mg Tab1 Tab PO DAILY #30 TAB Ref 0 01/07/17 Propranolol 20 Mg Tab20 Mg PO TID #90 TAB Ref 0 01/07/17 Current Medications Medications (Trade) Dose Ordered Sig/Sheng Route Start Time Stop Time Status Last Admin (NS Flush) 2 ml UNSCH PRN IV FLUSH 02/13/17 22:15 02/16/17 12:33 (NS Flush) 2 ml BID IV FLUSH 02/14/17 09:00 02/20/17 20:41 (Zofran Inj) 4 mg Q6H PRN IVP 02/13/17 22:15 02/18/17 23:52 (Tylenol) 650 mg Q6H PRN PO 02/13/17 22:15 (Marilyn-Colace) 1 tab BID PO 02/14/17 09:00 02/21/17 08:10 (Milk Of Magnesia Liq) 30 ml Q12H PRN PO 02/13/17 22:15 (Senokot) 17.2 mg Q12H PRN PO 02/13/17 22:15 (Dulcolax Supp) 10 mg DAILY PRN RECTAL 02/13/17 22:15 (Lactulose Liq) 30 ml DAILY PRN PO 02/13/17 22:15 (Keppra) 500 mg Q12HR PO 02/14/17 09:00 02/21/17 08:10 (Singulair) 10 mg DAILY PO 02/14/17 09:00 02/21/17 08:10 (Lipitor) 20 mg DAILY PO 02/14/17 09:00 02/21/17 08:09 (Phenergan Supp) 25 mg Q6H PRN RECTAL 02/14/17 08:30 (Synthroid) 125 mcg DAILY@06 PO 02/15/17 06:00 02/21/17 06:36 (Lioresal) 10 mg Q8HR PO 02/16/17 22:00 02/21/17 06:37 (Antivert) 25 mg Q8HR PO 02/17/17 14:00 02/21/17 06:36 (Xanax) 1 mg TID PO 02/17/17 18:00 02/21/17 08:09 (Roxicodone) 5 mg Q4H PRN PO 02/17/17 15:30 (Roxicodone) 10 mg Q4H PRN PO 02/17/17 15:30 02/21/17 08:10 (Dilaudid Pf Inj) 0.5 mg Q4H PRN IV PUSH 02/18/17 16:15 02/19/17 01:15 (Inderal) 20 mg TID PO 02/18/17 18:00 02/21/17 08:09 (Folate) 1 mg DAILY PO 02/18/17 16:30 02/21/17 08:09 (Prinivil) 20 mg DAILY PO 02/19/17 09:00 02/21/17 08:10 (Hydrodiuril) 25 mg DAILY PO 02/19/17 09:00 02/21/17 08:10 (Ativan Inj) 1 mg Q6H PRN IV PUSH 02/19/17 12:00 02/19/17 15:00 (Dilantin) 200 mg DAILY@0600 PO 02/21/17 06:00 02/21/17 06:36 (Dilantin) 300 mg HS PO 02/20/17 21:00 02/20/17 20:37 Family History Patient denies family psychiatric history Social History He was born and raised in [place], she lives in [place], 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 2) Verbal communication Physical Exam Patient is tremulous, shaking, restless. Vital Signs Vital Signs Date Time Temp Pulse Resp B/P Pulse Ox O2 Delivery O2 Flow Rate FiO2 02/21/17 08:00 97.0 57 16 103/66 97 02/20/17 11:28 21 02/19/17 07:39 Room Air I/O 02/20/17 02/20/17 02/20/17 07:59 15:59 23:59 Intake Total 240 ml 720 ml 240 ml Output Total 650 ml Balance 240 ml 70 ml 240 ml Lab Results Result Diagram: 02/18/17 0611 02/18/17 0611 Mental Status Examination Appearance overweigh, woman, for hygiene, irritable, oppositional, resistant Speech: Rapid Orientation: x3 Memory: Unremarkable Thought Process: Logical, Goal Directed, Linear Thought Content: Unremarkable Language Fluent and spontaneous Fund of Knowledge Adequate for level of education Suicidal Ideation: No Previous Suicide Attempts: No Homicidal Ideation: No Previous Homicide Attempts: No Judgment: Poor Affect: Irritable Mood: Angry Motor Activity: Normal gait Assessment & Plan Problem List: (1) Anxiety disorder, unspecified Assessment & Plan: The patient is a 51-year-old woman with self- reported psychiatric history of generalized anxiety disorder, panic disorder, no previous psychiatric hospitalizations, no previous suicidal attempts, she is on Xanax 1 mg 3 times a day prescribed by PCP, medical history of Seizure Disorder, HTN, Hyperlipidemia and Tobacco Abuse who presented for dizziness and multiple falls. Found to have Dilantin toxicity on admission, since that time Dilantin has been discontinued. Patient remains on Keppra. Dizziness: Unclear etiology, initially thought to be secondary to Dilantin toxicity, dehydration, and hypotension, however, all of these have resolved and patient continues to complain of dizziness/room spinning. Possible BPPV, no nystagmus on exam. TSH wnl. Head CT with no acute findings. Orthostatics negative. Neurology consult appreciated. Brain MRI normal. Consulted to psychiatry due to recurrent panic attacks. On psychiatric evaluation patient presents at the beginning resistant and oppositional to the interview stating she is not anxious anymore and she is already getting her Xanax for primary medical team. She gets very upset and even more oppositional when SSRI is offered for her Panic Attack. Most of the interview the patient is focus in getting her Xanax or Ativan. She denies depression and suicidal ideation. No perceptual disturbances, paranoia, delusions, elicited during evaluation. Patient does not meet criteria for psychiatric admission at this moment. There are some clear evidence of potential benzodiazepine abuse and character structure in this patient. Can continue low dose of Xanax 0.5 mg bid or clonazepam 0.5 mg bid for panic attacks, but not first line for anxiety, specially if abuse is suspected. SSRIs are first line and recommended treatment for panic attacks, in this case Citalopram 10 mg or Zoloft 25 mg daily would be appropriate. Especially with high risk for fall. Set clear and firm boundaries with drug seeking behavior. Support and psychoeducation provided. Consult appreciated. ICD Code: F41.9 Assessment & Plan Estimated LOS: days James Cardenas MD Feb 21, 2017 08:59
[2017-02-21] MEDS: SODIUM CHLORIDE 0.9% FLUSH 10 ML FLUSH IV FLUSH SCH ×2 (09:00→21:37)
--- NOTE | 2017-02-21 12:34 | HHI.PR ---
Subjective Remarks The patient was upset about the psychiatric evaluation, even though she was agreeable with it yesterday. She said she did not like to be told that benzos are bad. She did not want to start an SSRI. She complained about chest pain yesterday. She said it was sudden and on the left side of her chest. It was not associated with shortness of breath or diaphoresis. It has resolved. Objective Vitals Vital Signs Date Time Temp Pulse Resp B/P Pulse Ox O2 Delivery O2 Flow Rate FiO2 02/21/17 10:27 98 21 02/21/17 08:00 97.0 57 16 103/66 97 02/21/17 04:10 96.8 56 18 99/56 97 02/21/17 00:10 97.9 55 18 116/59 98 02/20/17 22:12 55 02/20/17 20:15 97.3 54 17 148/81 97 02/20/17 16:00 97.1 61 17 129/77 98 I/O 02/20/17 02/20/17 02/20/17 02/21/17 02/21/17 02/21/17 07:00 15:00 23:00 07:00 15:00 23:00 Intake Total 240 ml 720 ml 240 ml 240 ml Output Total 650 ml Balance 240 ml 70 ml 240 ml 240 ml Intake Oral 240 ml 720 ml 240 ml 240 ml Output Urine Total 650 ml # Voids 2 2 1 1 # Bowel Movements 0 0 1 Result Diagram: 02/18/17 0611 02/18/17 0611 Imaging Last Impressions Gall Bladder Ultrasound 02/19/17 0000 Signed Impressions: Service Date/Time: Sunday, February 19, 2017 10:11 - CONCLUSION: Abnormal gallbladder appearance. No common duct filling defect is identified. Akira Morris MD Lung Biopsy CT 02/18/17 1009 Signed Impressions: Service Date/Time: Saturday, February 18, 2017 14:14 - CONCLUSION: Uncomplicated CT guided biopsy. Titus Brunner MD Chest X-Ray 02/18/17 0000 Signed Impressions: Service Date/Time: Saturday, February 18, 2017 15:20 - CONCLUSION: No evidence of pneumothorax post right-sided mediastinal biopsy. Titus Brunner MD Lumbar Spine MRI 02/17/17 0000 Signed Impressions: Service Date/Time: Friday, February 17, 2017 18:00 - CONCLUSION: 1. Mild syrinx and conus medullaris with central canal measuring just over 1 mm in diameter. 2. At L5-S1 there is a broad-based central to right paracentral disc protrusion with extruded disc material extending cephalad above the disc interspace, slightly more the right side with encroachment of the lateral recesses bilaterally as above. 3. Mild degenerative changes in the remainder of the lumbar spine without significant central canal stenosis Delfino Stapleton MD Chest CT 02/17/17 0000 Signed Impressions: Service Date/Time: Friday, February 17, 2017 13:32 - CONCLUSION: Unsuccessful attempt at biopsy. Rescheduled in the AM with anesthesia. Fawad Murguia MD FACR Brain MRI 02/17/17 0000 Signed Impressions: Service Date/Time: Friday, February 17, 2017 18:00 - CONCLUSION: Normal examination. Keegan Weaver MD Abdomen/Pelvis CT 02/14/17 Signed Impressions: Service Date/Time: Tuesday, February 14, 2017 15:13 - CONCLUSION: 1. There is a 4 mm round hyperdense structure in the distal common bile duct with associated enlargement of the common bile duct and left intrahepatic bile ducts. The small density could represent a stone or small mass. 2. 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 Etiology is uncertain. Neurogenic tumor is a consideration but there is no connection with the spinal canal. Complex duplication cyst/lesion of the esophagus is another consideration. Suggest correlating with any prior imaging studies to assess for chronicity of this finding. This lesion would be amenable to image guided percutaneous biopsy, if needed. 3. There are 2 hyperdense lesions in the left kidney measuring up to 1.8 cm. The sternotomy criteria for simple cysts. Again , suggest correlating with prior imaging studies that could offer additional characterization. If none are available suggest elective further evaluation with either ultrasound or renal protocol CT or MRI. 4. Nonacute findings include mild splenomegaly, moderate atherosclerotic disease, and sigmoid diverticulosis. Akira Hernandez MD Head CT 02/13/17 1537 Signed Impressions: Service Date/Time: February 16:27 - CONCLUSION: Normal examination. No significant change has occurred. Delfino Stapleton MD Cervical Spine CT 8/3/17 1537 Signed Impressions: Service Date/Time: February 16:27 - CONCLUSION: 1. No acute findings. Multilevel degenerative disc disease and facet arthropathy. Delfino Stapleton MD Maxillofacial CT 02/13/17 0000 Signed Impressions: Service Date/Time: February 16:27 - CONCLUSION: 1. No acute findings. Delfino Stapleton MD Objective Remarks GENERAL: Well-nourished, well-developed female sitting up in bed. SKIN: Warm and dry. Diffuse ecchymosis throughout left thigh, b/l knees, back/ chest. HEENT: Normocephalic. Mucous membranes pink and moist. Bruising noted around eyes. NECK: Supple. Trachea midline. CARDIOVASCULAR: Regular rate and rhythm. S1, S2 noted. No murmur appreciated. RESPIRATORY: No accessory muscle use. Clear to auscultation. Breath sounds equal bilaterally. GASTROINTESTINAL: Abdomen soft, non-tender, nondistended. Normoactive bowel sounds x4. MUSCULOSKELETAL: No obvious deformities. Extremities without clubbing, cyanosis , or edema. Diffuse lumbar paraspinous muscle TTP, no bony point tenderness. NEUROLOGICAL: Awake and alert. No obvious cranial nerve deficits. Motor grossly within normal limits. Normal speech. PSYCHIATRIC: Very anxious. Procedures CT guided mediastinal mass biopsy Medications and IVs Current Medications Medications (Trade) Dose Ordered Sig/Sheng Route Start Time Stop Time Status Last Admin (NS Flush) 2 ml UNSCH PRN IV FLUSH 02/13/17 22:15 02/16/17 12:33 (NS Flush) 2 ml BID IV FLUSH 02/14/17 09:00 02/21/17 09:00 (Zofran Inj) 4 mg Q6H PRN IVP 02/13/17 22:15 02/18/17 23:52 (Tylenol) 650 mg Q6H PRN PO 02/13/17 22:15 (Marilyn-Colace) 1 tab BID PO 02/14/17 09:00 02/21/17 08:10 (Milk Of Magnesia Liq) 30 ml Q12H PRN PO 02/13/17 22:15 (Senokot) 17.2 mg Q12H PRN PO 02/13/17 22:15 (Dulcolax Supp) 10 mg DAILY PRN RECTAL 02/13/17 22:15 (Lactulose Liq) 30 ml DAILY PRN PO 02/13/17 22:15 (Keppra) 500 mg Q12HR PO 02/14/17 09:00 02/21/17 08:10 (Singulair) 10 mg DAILY PO 02/14/17 09:00 02/21/17 08:10 (Lipitor) 20 mg DAILY PO 02/14/17 09:00 02/21/17 08:09 (Phenergan Supp) 25 mg Q6H PRN RECTAL 02/14/17 08:30 (Synthroid) 125 mcg DAILY@06 PO 02/15/17 06:00 02/21/17 06:36 (Lioresal) 10 mg Q8HR PO 02/16/17 22:00 02/21/17 06:37 (Antivert) 25 mg Q8HR PO 02/17/17 14:00 02/21/17 06:36 (Roxicodone) 5 mg Q4H PRN PO 02/17/17 15:30 (Roxicodone) 10 mg Q4H PRN PO 02/17/17 15:30 02/21/17 08:10 (Dilaudid Pf Inj) 0.5 mg Q4H PRN IV PUSH 02/18/17 16:15 02/19/17 01:15 (Inderal) 20 mg TID PO 02/18/17 18:00 02/21/17 08:09 (Folate) 1 mg DAILY PO 02/18/17 16:30 02/21/17 08:09 (Prinivil) 20 mg DAILY PO 02/19/17 09:00 02/21/17 08:10 (Hydrodiuril) 25 mg DAILY PO 02/19/17 09:00 02/21/17 08:10 (Dilantin) 200 mg DAILY@0600 PO 02/21/17 06:00 02/21/17 06:36 (Dilantin) 300 mg HS PO 02/20/17 21:00 02/20/17 20:37 (Xanax) 0.5 mg TID PO 02/21/17 13:00 UNV A/P Problem List: (1) Dizziness ICD Code: R42 Status: Acute (2) Dilantin toxicity ICD Code: T42.0X1A Status: Acute (3) Renal insufficiency ICD Code: N28.9 Status: Resolved (4) Seizure disorder ICD Code: G40.909 Status: Chronic (5) Tobacco abuse ICD Code: Z72.0 Status: Chronic Assessment and Plan 61-year-old female with a PMH of Seizure Disorder, HTN, Hyperlipidemia and Tobacco Abuse who presented for dizziness and multiple falls. Found to have Dilantin toxicity on admission, since that time Dilantin has been discontinued. Patient remains on Keppra. Dizziness: Unclear etiology, initially thought to be secondary to Dilantin toxicity, dehydration, and hypotension, however, all of these have resolved and patient continues to complain of dizziness/room spinning. Possible BPPV, no nystagmus on exam. TSH wnl. Head CT with no acute findings. Orthostatics negative. Neurology consult appreciated. Brain MRI normal. -resume Dilantin and BP meds. -Trial of meclizine 25mg q8h sheng -Antiemetics prn -PT Falls: Secondary to dizziness. CT C-Spine/Maxillofacial w/ no acute findings. -Consult PT, recommends C and walker Dilantin Toxicity: Dilantin 39 on admission. -On Dilantin 400mg po bid at home, changed to 200 mg daily, 300 mg HS per neurology. -monitor levels as needed. Level low at 9.6 02/21. Follow up with neurology. Chest pain Acute, left sided 02/20. Resolved. EKG without acute ischemic changes. - CXR, EKG, trend trops x 3. Abdominal pain: Resolved. -CT of abdomen and pelvis showed mediastinal mass, see below. Also CBD mass and dilatation noted. GB US: Abnormal GB appearance but no acute abnormality. -antiemetics and pain control prn -ADAT Mediastinal mass: unclear etiology -IR consulted for biopsy of mass, biopsy under anesthesia performed 02/18. Pathology results suggest vascular component but otherwise unable to characterize the mass. Oncology consult has been requested. Seizure Disorder: No reported seizure activity. -Continue Keppra 500mg bid and Dilantin 200 mg BID. -Appreciate neurology recommendations. -seizure precautions Normocytic Anemia: Hgb 8.9, no reported active bleeding. B12 and folate levels low. -check stool Hemoccult -B12 injection x 1. -start PO folate daily. -Monitor CBC Anxiety: acute on chronic Patient complains of multiple panic attacks and uncontrolled anxiety on a regular basis. She cites family problems as triggers. Psych consult appreciated. -continue patient's Xanax 1mg tid (verified on [facility]). Wean to 0.5 TID . -Psychiatry following. Acute on Chronic Pain: patient sees Dr. Wong as outpatient, per [facility], patient fills Soma 350mg tid, Xanax 1mg tid, and Ten Sleep 10/325mg q6h. -holding patient's Soma, may be contributing to dizziness -continue patient's Xanax prn -oxycodone with Dilaudid for breakthrough -MRI: mild syrinx and conus medullaris with central canal measuring just over 1 mm in diameter; At L5-S1 there is a broad-based central to right paracentral disc protrusion with extruded disc material extending cephalad above the disc interspace. Follow up with neuro. DVT Prophylaxis: SCD/teds. Discharge Planning Awaiting psychiatry evaluation Carlton Dacosta DO Feb 21, 2017 12:34
--- NOTE | 2017-02-21 13:49 | RADRPT ---
EXAM DATE/TIME: 02/21/2017 13:19 [facility] COMPARISON: CHEST EXPIRATION ONLY, February 18, 2017, 15:20. INDICATIONS : Chest pain. MEDICAL HISTORY : Hypothyroidism. Hypercholesterolemia. Seizures. Syncope. Neuropathy. HTGraves disease. Degenerative c ervical spine.N. SURGICAL HISTORY : None. ENCOUNTER: Subsequent ACUITY: 4 - 6 days PAIN SCORE: 7/10 LOCATION: Bilateral chest FINDINGS: A single view of the chest demonstrates the lungs to be symmetrically aerated without evidence of mas s, infiltrate or effusion. The cardiomediastinal contours are unremarkable. Osseous structures are intact. CONCLUSION: No acute disease. Akira Morris MD on February 21, 2017 at 13:47 Board Certified Radiologist. This report was verified electronically.
--- NOTE | 2017-02-21 17:05 | EKG ---
Date Performed: 02/20/2017 Time Performed: 12:59:35 PTAGE: 61 years EKG: SINUS BRADYCARDIA LOW QRS VOLTAGE IN PRECORDIAL LEADS Poor initial anterior forces V1-V3, p robable normal variant Compared to previous tracing, T wave changes have improved ABNORMAL ECG PREVIOUS TRACING : 02/13/2017 16.56 DOCTOR: Jovany Das Interpretating Date/Time 02/21/2017 17:04:46
[2017-02-21] MEDS ORDERED: PHENYTOIN SODIUM 100 MG CAP PO ONE (18:15)
--- NOTE | 2017-02-21 18:16 | HHI.PR ---
Review/Management Diagnosis dilantin toxicity resolved dilantin level still slightly subtherapeutic Plan give additional dilantin 300 mg po and recheck level friday Diagnosis/Plan: Subjective Subjective Comments No acute events reported Active Medications Current Medications Medications (Trade) Dose Ordered Sig/Sheng Route Start Time Stop Time Status Last Admin (NS Flush) 2 ml UNSCH PRN IV FLUSH 02/13/17 22:15 02/16/17 12:33 (NS Flush) 2 ml BID IV FLUSH 02/14/17 09:00 02/21/17 09:00 (Zofran Inj) 4 mg Q6H PRN IVP 02/13/17 22:15 02/18/17 23:52 (Tylenol) 650 mg Q6H PRN PO 02/13/17 22:15 (Marilyn-Colace) 1 tab BID PO 02/14/17 09:00 02/21/17 08:10 (Milk Of Magnesia Liq) 30 ml Q12H PRN PO 02/13/17 22:15 (Senokot) 17.2 mg Q12H PRN PO 02/13/17 22:15 (Dulcolax Supp) 10 mg DAILY PRN RECTAL 02/13/17 22:15 (Lactulose Liq) 30 ml DAILY PRN PO 02/13/17 22:15 (Keppra) 500 mg Q12HR PO 02/14/17 09:00 02/21/17 08:10 (Singulair) 10 mg DAILY PO 02/14/17 09:00 02/21/17 08:10 (Lipitor) 20 mg DAILY PO 02/14/17 09:00 02/21/17 08:09 (Phenergan Supp) 25 mg Q6H PRN RECTAL 02/14/17 08:30 (Synthroid) 125 mcg DAILY@06 PO 02/15/17 06:00 02/21/17 06:36 (Lioresal) 10 mg Q8HR PO 02/16/17 22:00 02/21/17 14:00 (Antivert) 25 mg Q8HR PO 02/17/17 14:00 02/21/17 14:00 (Roxicodone) 5 mg Q4H PRN PO 02/17/17 15:30 (Roxicodone) 10 mg Q4H PRN PO 02/17/17 15:30 02/21/17 17:34 (Dilaudid Pf Inj) 0.5 mg Q4H PRN IV PUSH 02/18/17 16:15 02/19/17 01:15 (Inderal) 20 mg TID PO 02/18/17 18:00 02/21/17 17:33 (Folate) 1 mg DAILY PO 02/18/17 16:30 02/21/17 08:09 (Prinivil) 20 mg DAILY PO 02/19/17 09:00 02/21/17 08:10 (Hydrodiuril) 25 mg DAILY PO 02/19/17 09:00 02/21/17 08:10 (Dilantin) 200 mg DAILY@0600 PO 02/21/17 06:00 02/21/17 06:36 (Dilantin) 300 mg HS PO 02/20/17 21:00 02/20/17 20:37 (Xanax) 0.5 mg TID PO 02/21/17 13:00 02/21/17 17:33 Allergies Allergies Coded Allergies Penicillin (Verified Allergy, Severe, 02/13/17) Uncoded Allergies NSAIDS ( Allergy, Severe, 04/22/09) Exam I&O / VS 02/20/17 02/20/17 02/21/17 15:00 23:00 07:00 Intake Total 720 ml 240 ml 240 ml Output Total 650 ml Balance 70 ml 240 ml 240 ml Intake Oral 720 ml 240 ml 240 ml Output Urine Total 650 ml # Voids 2 1 1 # Bowel Movements 0 1 Vital Signs Date Time Temp Pulse Resp B/P Pulse Ox O2 Delivery O2 Flow Rate FiO2 02/21/17 11:30 96.8 84 16 117/78 100 02/21/17 10:27 98 21 02/21/17 08:00 97.0 57 16 103/66 97 02/21/17 04:10 96.8 56 18 99/56 97 02/21/17 00:10 97.9 55 18 116/59 98 02/20/17 22:12 55 02/20/17 20:15 97.3 54 17 148/81 97 Exam Comments alert, oriented, speech normal CN normal MOTOR no focal deficit Objective Micro and Labs Laboratory Tests Test 02/21/17 02/21/17 06:10 13:57 Phenytoin (Dilantin) Level 9.6 Troponin I LESS THAN 0.02 Ehsan Felix PhD Feb 21, 2017 18:16
--- NOTE | 2017-02-21 20:38 | MB ---
cc: GÓMEZ ASHTON MD DATE OF CONSULTATION 02/21/17 HISTORY OF PRESENT ILLNESS Ms. Garcia is a 61 year old lady with a history of a seizure disorder, hypertension, hyperlipidemia, former tobacco abuse and anxiety who presented to the emergency room on February 13 with complaints of dizziness and falls at home for approximately 2-3 days before admission as well as abdominal pain. She was found to be dehydrated with acute kidney injury that has since resolved and hypotension. She was also discovered on laboratory studies to have a dilantin level of 39 and she was treated for dilantin toxicity. Her symptoms have improved. REVIEW OF SYSTEMS MUSCULOSKELETAL: She reports that she has diffuse body aches that are generalized from history of falls at home. PSYCHIATRIC: She reports anxiety related to her medical conditions, her relationship with her son and daughter in law and this hospitalization. Other review of systems negative. PAST MEDICAL HISTORY 1. Cervical and lumbar degenerative disk disease 2. History of Graves' disease 3. Seizure disorder 4. Anxiety 5. Insomnia 6. Hypertension 7. Hyperlipidemia SOCIAL HISTORY She is a previous [employer]. She is currently disabled. She lives in [place] by herself. She reports a poor social support system. She is a former smoker. She quit smoking around six months ago and, prior to that, she had smoked about 1 1/2 packs per day since she was a teenager. She denies current tobacco, alcohol and illicit drug use. FAMILY HISTORY Her mother and father of lung cancer. PHYSICAL EXAMINATION GENERAL: The patient is a well-developed, well-nourished lady. EYES: Perioribital bruising present bilaterally. ENT: Oropharynx clear. Dentures present. CARDIOVASCULAR: Regular rate and rhythm. Normal S1 and S2. RESPIRATORY: No respiratory distress, clear to auscultation bilaterally. GASTROINTESTINAL: Abdomen is soft, nontender, nondistended with present bowel sounds. MUSCULOSKELETAL: muscle tenderness to palpation from healing bruises SKIN: Scrapes and bruising present from falls. EXTREMITIES: No edema present. NEUROLOGIC: No focal deficits. PSYCHIATRIC: The patient is very anxious. LABORATORY DATA White blood cell count is 4.5, hemoglobin 9.9, platelets 227 with a normal differential. The most recent CBC that we have is from February 18. On admission, her white blood cell count was 6.5, hemoglobin 12.2, platelet count 268,000 with a normal differential. Vitamin B12 was checked and was 232. Folate 2.9. Ferritin 72, percent saturation is 31.9, total iron binding capacity is 279, iron is 89. IMAGING STUDIES CT abdomen and pelvis from February 14 shows a homogenous density in the liver. The liver is enlarged measuring 23 cm. There is mild intrahepatic bile duct dilation in the left lobe and the common bile duct measures between 9 and 10 mm. There is a 44 mm round hyperdense structure in the distal common bile duct. In the lungs, there is a soft tissue density mass containing a small focus of calcification in the right superior mediastinum abutting the proximal distal esophagus and inferior vena cava. The lesion contains no fat and there is no connection with the spinal canal. Kidneys shows two hyperdense lesions in the left kidney that do not meet the criteria for simple cysts. One is in the upper pole and measures 18 mm and another is in the mid portion and measures 13 mm. The etiology of the lung mass was uncertain per the radiologist. Neurogenic tumor could be considered, however, there is no connection with the spinal canal and complex duplication cyst or lesion of the esophagus could also be considered. She had a gallbladder ultrasound on February 19, 2011 which showed mild diffuse wall thickening of the gallbladder with a 4 mm echogenic wall adherent focus in the posterior body of the gallbladder which may be adherent sludge or a polyp. No common duct filling defect was identified. ASSESSMENT AND PLAN 1. Mediastinal lung mass. Uncertain of the etiology of this mass. The patient underwent a CT guided lung biopsy on February 18 and pathology revealed a densely collagenized tissue with vascular spaces. The biopsy material consists of numerous cores of collagenous tissue exhibiting slit like spaces. Immunohistochemical studies were positive for CD 31 and CD 34. The pathologist notes that it is unclear as to the exact nature of this lesions, however, the positive staining for CD 31 and CD 34 suggests a vascular component. Would recommend consultation of CT surgery for further evaluation and consideration of repeat biopsy, excision of the mass or observation. 2. Normocytic anemia. Hemoglobin on admission was 12.2 and most recent value was 9.9. MCV is normal. Differential is normal. Platelet count and total white blood cell count are also normal. Iron studies within normal limits, however, B12 and folate were found to be low. Previous values include a hemoglobin of 11.5 in December of 2016. 3. Folate deficiency and vitamin B12 deficiency. Deficiencies of folate and vitamin B12 have been associated with anti-epileptic therapy such as phenytoin which she has been taking. Recommend oral replacement of both including folate 1 mg daily which she is currently taking and vitamin B12 1000 mcg daily. These levels can be followed outpatient and can be rechecked in 2-3 months to ensure that they are replete. We will also order methylmalonic acid and homocysteine levels. 4. Left kidney lesions visualized on CT scan of the abdomen and pelvis. The radiology report indicates that these are not consistent with simple cysts. Please consider renal ultrasound, MRI of kidneys or CT with renal protocol for further evaluation. 5. Gallbladder with diffuse wall thickening with 4 mm focus which could be sludge or polyp. Please consider GI evaluation for further characterization and need for further workup. This can be done in the outpatient setting. MD DIYA Borrego/ /6:16 PM /7:57 PM EM[facility]IO
[2017-02-22] VITALS (9 sets, daily range): BP systolic 105–159; BP diastolic 58–119; PULSE 48–102; RESP 16–22; TEMP 97.5–98.7; O2SAT 93–99
[2017-02-22] MEDS: PHENYTOIN SODIUM 100 MG CAP PO SCH ×3 (00:50→20:06)
[2017-02-22] MEDS: LEVOTHYROXINE SODIUM 125 MCG TAB PO SCH (06:27)
[2017-02-22] MEDS: MECLIZINE HCL 25 MG TAB PO SCH ×3 (06:27→22:43)
[2017-02-22] MEDS: BACLOFEN 10 MG TAB PO SCH ×3 (06:28→22:43)
[2017-02-22] MEDS: LISINOPRIL 20 MG TAB PO SCH (09:00)
[2017-02-22] MEDS: HYDROCHLOROTHIAZIDE 25 MG TAB PO SCH (09:00)
[2017-02-22] MEDS: PROPRANOLOL HCL 20 MG TAB PO SCH ×3 (09:00→17:50)
[2017-02-22] MEDS: FOLIC ACID 1 MG TAB PO SCH (11:32)
[2017-02-22] MEDS: MONTELUKAST SODIUM 10 MG TAB PO SCH (11:32)
[2017-02-22] MEDS: ATORVASTATIN 20 MG TAB PO SCH (11:32)
[2017-02-22] MEDS: DOCUSATE SODIUM 50 MG/SENNA 8.6 MG TAB PO SCH ×2 (11:32→20:07)
[2017-02-22] MEDS: levETIRAcetam 500 MG TAB PO SCH ×2 (11:32→20:06)
[2017-02-22] MEDS: ALPRAZolam 0.5 MG TAB PO SCH ×3 (11:32→17:48)
[2017-02-22] MEDS: SODIUM CHLORIDE 0.9% FLUSH 10 ML FLUSH IV FLUSH SCH ×2 (11:33→20:07)
--- NOTE | 2017-02-22 12:02 | PD.CONS ---
History of Present Illness Service CT Surgery Consult Requested By Dr. Dacosta Reason for Consult Posterior mediastinal mass Primary Care Physician Kaycee Wong MD Diagnoses: (1) Mediastinal mass History of Present Illness 61 y/o female presents with dilantin toxicity s/p falls with head trauma. She also has an anxiety disorder. During her evaluation, she was noted to have a ~ 5 cm posterior mediastinal mass found incidentally on imaging. She is asymptomatic from this mass. Percutaneous biopsy was performed and was non- diagnostic. She is being considered for surgical biopsy of this mass. Review of Systems ROS Limitations: Clinical Condition Constitutional: COMPLAINS OF: Fatigue, DENIES: Diaphoretic episodes, Fever, Weight gain, Weight loss, Chills, Dizziness, Change in appetite, Night Sweats Endocrine: DENIES: Abnorml menstrual pattern, Heat/cold intolerance, Polydipsia , Polyuria, Polyphagia Eyes: DENIES: Blurred vision, Diplopia, Eye inflammation, Eye pain, Vision loss , Photosensitivity, Double Vision Ears, nose, mouth, throat: DENIES: Tinnitus, Hearing loss, Vertigo, Nasal discharge, Oral lesions, Throat pain, Hoarseness, Ear Pain, Running Nose, Epistaxis, Sinus Pain, Toothache, Odynophagia Respiratory: DENIES: Apneas, Cough, Snoring, Wheezing, Hemoptysis, Sputum production, Shortness of breath Cardiovascular: DENIES: Chest pain, Palpitations, Syncope, Dyspnea on Exertion , PND, Lower Extremity Edema, Orthopnea, Claudication Gastrointestinal: DENIES: Abdominal pain, Black stools, Bloody stools, Constipation, Diarrhea, Nausea, Vomiting, Difficulty Swallowing, Anorexia Genitourinary: DENIES: Abnormal vaginal bleeding, Dysmenorrhea, Dyspareunia, Sexual dysfunction, Urinary frequency, Urinary incontinence, Urgency, Hematuria , Dysuria, Nocturia, Vaginal discharge Musculoskeletal: DENIES: Joint pain, Muscle aches, Stiffness, Joint Swelling, Back pain, Neck pain Integumentary: DENIES: Abnormal pigmentation, Pruritus, Rash, Nail changes, Breast masses, Breast skin changes, Nipple discharge Hematologic/lymphatic: DENIES: Bruising, Lymphadenopathy Immunologic/allergic: DENIES: Eczema, Urticaria Neurologic: COMPLAINS OF: Seizures Psychiatric: COMPLAINS OF: Anxiety, Confusion, Mood changes, Agitation Past Family Social History Allergies: Coded Allergies: Penicillin (Verified Allergy, Severe, 02/13/17) Uncoded Allergies: NSAIDS (Allergy, Severe, 04/22/09) Past Medical History PMH: Seizure Disorder, HTN, Hyperlipidemia and Tobacco Abuse Past Surgical History none Active Ordered Medications Current Medications Medications (Trade) Dose Ordered Sig/Sheng Route Start Time Stop Time Status Last Admin (NS Flush) 2 ml UNSCH PRN IV FLUSH 02/13/17 22:15 02/16/17 12:33 (NS Flush) 2 ml BID IV FLUSH 02/14/17 09:00 02/22/17 11:33 (Zofran Inj) 4 mg Q6H PRN IVP 02/13/17 22:15 02/18/17 23:52 (Tylenol) 650 mg Q6H PRN PO 02/13/17 22:15 (Marilyn-Colace) 1 tab BID PO 02/14/17 09:00 02/22/17 11:32 (Milk Of Magnesia Liq) 30 ml Q12H PRN PO 02/13/17 22:15 (Senokot) 17.2 mg Q12H PRN PO 02/13/17 22:15 (Dulcolax Supp) 10 mg DAILY PRN RECTAL 02/13/17 22:15 (Lactulose Liq) 30 ml DAILY PRN PO 02/13/17 22:15 (Keppra) 500 mg Q12HR PO 02/14/17 09:00 02/22/17 11:32 (Singulair) 10 mg DAILY PO 02/14/17 09:00 02/22/17 11:32 (Lipitor) 20 mg DAILY PO 02/14/17 09:00 02/22/17 11:32 (Phenergan Supp) 25 mg Q6H PRN RECTAL 02/14/17 08:30 (Synthroid) 125 mcg DAILY@06 PO 02/15/17 06:00 02/22/17 06:27 (Lioresal) 10 mg Q8HR PO 02/16/17 22:00 02/22/17 06:28 (Antivert) 25 mg Q8HR PO 02/17/17 14:00 02/22/17 06:27 (Roxicodone) 5 mg Q4H PRN PO 02/17/17 15:30 (Roxicodone) 10 mg Q4H PRN PO 02/17/17 15:30 02/22/17 11:36 (Dilaudid Pf Inj) 0.5 mg Q4H PRN IV PUSH 02/18/17 16:15 02/19/17 01:15 (Inderal) 20 mg TID PO 02/18/17 18:00 02/21/17 17:33 (Folate) 1 mg DAILY PO 02/18/17 16:30 02/22/17 11:32 (Prinivil) 20 mg DAILY PO 02/19/17 09:00 02/21/17 08:10 (Hydrodiuril) 25 mg DAILY PO 02/19/17 09:00 02/21/17 08:10 (Dilantin) 200 mg DAILY@0600 PO 02/21/17 06:00 02/22/17 06:28 (Dilantin) 300 mg HS PO 02/20/17 21:00 02/22/17 00:50 (Xanax) 0.5 mg TID PO 02/21/17 13:00 02/22/17 11:32 Family History unremarkable Social History Tobacco 1 ppd x ~45yrs Denies ETOH/illicit drugs, but seems to be addicted to benzodiazepines Physical Exam Vital Signs Vital Signs Date Time Temp Pulse Resp B/P Pulse Ox O2 Delivery O2 Flow Rate FiO2 02/22/17 08:00 97.6 53 18 105/58 97 02/22/17 07:28 Room Air 02/22/17 06:28 48 02/22/17 06:23 94 02/22/17 04:00 98.0 102 16 131/84 93 02/22/17 00:00 97.7 77 20 139/80 95 02/21/17 23:35 52 02/21/17 20:00 98.1 59 17 143/86 96 02/21/17 19:25 98.0 58 20 169/85 99 02/21/17 16:00 97.8 56 16 140/74 95 Physical Exam GENERAL: This is an incoherent patient. She is not in distress SKIN: Cool and dry. Numerous areas of ecchymosis HEAD: Valdivia's sign. Normocephalic. No temporal or scalp tenderness. EYES: Pupils equal round and reactive. Extraocular motions intact. No scleral icterus. No injection or drainage. ENT: Nose without bleeding, purulent drainage or septal hematoma. Throat without erythema, tonsillar hypertrophy or exudate. Uvula midline. Airway patent. NECK: Trachea midline. No JVD or lymphadenopathy. Supple, nontender, no meningeal signs. CARDIOVASCULAR: Regular rate and rhythm without murmurs, gallops, or rubs. RESPIRATORY: Clear to auscultation. Breath sounds equal bilaterally. No wheezes , rales, or rhonchi. GASTROINTESTINAL: Abdomen soft, non-tender, nondistended. No hepato-splenomegaly , or palpable masses. No guarding. MUSCULOSKELETAL: Extremities without clubbing, cyanosis, or edema. No joint tenderness, effusion, or edema noted. No calf tenderness. Negative Homans sign bilaterally. NEUROLOGICAL: Lethargic, incoherent, somnolent. She kept rambling on about her anxiety and stated she can't ambulate more than 3-4 steps. Cranial nerves II through XII intact. Slurred speech. Laboratory Laboratory Tests Test 02/21/17 02/21/17 02/22/17 13:57 19:10 03:40 Troponin I LESS THAN 0.02 LESS THAN 0.02 LESS THAN 0.02 Phenytoin (Dilantin) Level 14.1 Result Diagram: 02/18/17 0611 02/18/17 0611 Imaging Last Impressions Chest X-Ray 02/21/17 0000 Signed Impressions: Service Date/Time: Tuesday, February 21, 2017 13:19 - CONCLUSION: No acute disease. Akira Morris MD Gall Bladder Ultrasound 02/19/17 0000 Signed Impressions: Service Date/Time: Sunday, February 19, 2017 10:11 - CONCLUSION: Abnormal gallbladder appearance. No common duct filling defect is identified. Akira Morris MD Lung Biopsy CT 02/18/17 1009 Signed Impressions: Service Date/Time: Saturday, February 18, 2017 14:14 - CONCLUSION: Uncomplicated CT guided biopsy. Titus Brunner MD Lumbar Spine MRI 02/17/17 0000 Signed Impressions: Service Date/Time: Friday, February 17, 2017 18:00 - CONCLUSION: 1. Mild syrinx and conus medullaris with central canal measuring just over 1 mm in diameter. 2. At L5-S1 there is a broad-based central to right paracentral disc protrusion with extruded disc material extending cephalad above the disc interspace, slightly more the right side with encroachment of the lateral recesses bilaterally as above. 3. Mild degenerative changes in the remainder of the lumbar spine without significant central canal stenosis Delfino Stapleton MD Chest CT 02/17/17 0000 Signed Impressions: Service Date/Time: Friday, February 17, 2017 13:32 - CONCLUSION: Unsuccessful attempt at biopsy. Rescheduled in the AM with anesthesia. Fawad Murguia MD FACR Brain MRI 02/17/17 Signed Impressions: Service Date/Time: Friday, February 17, 2017 18:00 - CONCLUSION: Normal examination. Keegna Weaver MD Abdomen/Pelvis CT 02/14/17 Signed Impressions: Service Date/Time: Tuesday, February 14, 2017 15:13 - CONCLUSION: 1. There is a 4 mm round hyperdense structure in the distal common bile duct with associated enlargement of the common bile duct and left intrahepatic bile ducts. The small density could represent a stone or small mass. 2. 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 Etiology is uncertain. Neurogenic tumor is a consideration but there is no connection with the spinal canal. Complex duplication cyst/lesion of the esophagus is another consideration. Suggest correlating with any prior imaging studies to assess for chronicity of this finding. This lesion would be amenable to image guided percutaneous biopsy, if needed. 3. There are 2 hyperdense lesions in the left kidney measuring up to 1.8 cm. The sternotomy criteria for simple cysts. Again , suggest correlating with prior imaging studies that could offer additional characterization. If none are available suggest elective further evaluation with either ultrasound or renal protocol CT or MRI. 4. Nonacute findings include mild splenomegaly, moderate atherosclerotic disease, and sigmoid diverticulosis. Akira Hernandez MD Head CT 02/13/17 1537 Signed Impressions: Service Date/Time: February 16:27 - CONCLUSION: Normal examination. No significant change has occurred. Delfino Stapleton MD Cervical Spine CT 02/13/17 1537 Signed Impressions: Service Date/Time: February 16:27 - CONCLUSION: 1. No acute findings. Multilevel degenerative disc disease and facet arthropathy. Delfino Stapleton MD Maxillofacial CT 02/13/17 Signed Impressions: Service Date/Time: February 16:27 - CONCLUSION: 1. No acute findings. Delfino Stapleton MD Course Patient was treated for dilantin toxicity and was seen by Neurology and Oncology. Her initial symptoms have resolved. She appears deconditioned and mentally incapacitated. She is unable to understand the details of undergoing mediastinal mass biopsy. Assessment and Plan Problem List: (1) Mediastinal mass Status: Acute Assessment and Plan 61 y/o female presents with fall, head trauma, dilantin toxicity, anxiety disorder, and found to have a posterior mediastinal mass on CT scan. Biopsy of this mass was inconclusive for a diagnosis and pathology requested more tissue. Unfortunately, this patient is in no condition to undergo surgery. I attempted to discuss this with her, but don't think she understands anything I said. I would be glad to see her as an outpatient when she might be more alert and oriented, but will not recommend surgery anytime soon for this mass. Jen Samaniego MD Feb 22, 2017 12:02
--- NOTE | 2017-02-22 17:17 | EKG ---
Date Performed: 02/21/2017 Time Performed: 13:40:46 PTAGE: 61 years EKG: SINUS BRADYCARDIA LOW QRS VOLTAGE IN PRECORDIAL LEADS BORDERLINE ECG Compared to prior trac ing no significant change PREVIOUS TRACING : 02/20/2017 12.59 DOCTOR: Obinna Crespo Interpretating Date/Time 02/22/2017 17:15:27
--- NOTE | 2017-02-22 19:11 | HHI.PR ---
Subjective Remarks PAtient states she is very anxious denies cp/sob stable vital signs States she has light sensitivity cataracts Objective Vitals Vital Signs Date Time Temp Pulse Resp B/P Pulse Ox O2 Delivery O2 Flow Rate FiO2 02/22/17 16:00 98.7 95 18 159/119 97 02/22/17 08:00 97.6 53 18 105/58 97 02/22/17 07:28 Room Air 02/22/17 06:28 48 02/22/17 06:23 94 02/22/17 04:00 98.0 102 16 131/84 93 02/22/17 00:00 97.7 77 20 139/80 95 02/21/17 23:35 52 02/21/17 20:00 98.1 59 17 143/86 96 02/21/17 19:25 98.0 58 20 169/85 99 I/O 02/21/17 02/21/17 02/21/17 02/22/17 02/22/17 02/22/17 06:59 14:59 22:59 06:59 14:59 22:59 Intake Total 240 ml 1200 ml 240 ml 720 ml Balance 240 ml 1200 ml 240 ml 720 ml Intake Oral 240 ml 1200 ml 240 ml 720 ml # Voids 1 5 3 3 # Bowel Movements 1 2 0 Result Diagram: 02/18/17 0611 02/18/17 0611 Imaging Last Impressions Chest X-Ray 02/21/17 0000 Signed Impressions: Service Date/Time: Tuesday, February 21, 2017 13:19 - CONCLUSION: No acute disease. Akira Morris MD Gall Bladder Ultrasound 02/19/17 0000 Signed Impressions: Service Date/Time: Sunday, February 19, 2017 10:11 - CONCLUSION: Abnormal gallbladder appearance. No common duct filling defect is identified. Akira Morris MD Lung Biopsy CT 02/18/17 1009 Signed Impressions: Service Date/Time: Saturday, February 18, 2017 14:14 - CONCLUSION: Uncomplicated CT guided biopsy. Titus Brunner MD Lumbar Spine MRI 02/17/17 0000 Signed Impressions: Service Date/Time: Friday, February 17, 2017 18:00 - CONCLUSION: 1. Mild syrinx and conus medullaris with central canal measuring just over 1 mm in diameter. 2. At L5-S1 there is a broad-based central to right paracentral disc protrusion with extruded disc material extending cephalad above the disc interspace, slightly more the right side with encroachment of the lateral recesses bilaterally as above. 3. Mild degenerative changes in the remainder of the lumbar spine without significant central canal stenosis Delfino Stapleton MD Chest CT 02/17/17 0000 Signed Impressions: Service Date/Time: Friday, February 17, 2017 13:32 - CONCLUSION: Unsuccessful attempt at biopsy. Rescheduled in the AM with anesthesia. Fawad Murguia MD FACR Brain MRI 02/17/17 0000 Signed Impressions: Service Date/Time: Friday, February 17, 2017 18:00 - CONCLUSION: Normal examination. Keegan Weaver MD Abdomen/Pelvis CT 02/14/17 Signed Impressions: Service Date/Time: Tuesday, February 14, 2017 15:13 - CONCLUSION: 1. There is a 4 mm round hyperdense structure in the distal common bile duct with associated enlargement of the common bile duct and left intrahepatic bile ducts. The small density could represent a stone or small mass. 2. 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 Etiology is uncertain. Neurogenic tumor is a consideration but there is no connection with the spinal canal. Complex duplication cyst/lesion of the esophagus is another consideration. Suggest correlating with any prior imaging studies to assess for chronicity of this finding. This lesion would be amenable to image guided percutaneous biopsy, if needed. 3. There are 2 hyperdense lesions in the left kidney measuring up to 1.8 cm. The sternotomy criteria for simple cysts. Again , suggest correlating with prior imaging studies that could offer additional characterization. If none are available suggest elective further evaluation with either ultrasound or renal protocol CT or MRI. 4. Nonacute findings include mild splenomegaly, moderate atherosclerotic disease, and sigmoid diverticulosis. Akira Hernandez MD Head CT 02/13/17 1537 Signed Impressions: Service Date/Time: February 16:27 - CONCLUSION: Normal examination. No significant change has occurred. Delfino Stapleton MD Cervical Spine CT 02/13/17 1537 Signed Impressions: Service Date/Time: February 16:27 - CONCLUSION: 1. No acute findings. Multilevel degenerative disc disease and facet arthropathy. Delfino Stapleton MD Maxillofacial CT 02/13/17 0000 Signed Impressions: Service Date/Time: February 16:27 - CONCLUSION: 1. No acute findings. Delfino Stapleton MD Objective Remarks GENERAL: Well-nourished, well-developed female sitting up in bed. SKIN: Warm and dry. Diffuse ecchymosis throughout left thigh, b/l knees, back/ chest. HEENT: Normocephalic. Mucous membranes pink and moist. Bruising noted around eyes. NECK: Supple. Trachea midline. CARDIOVASCULAR: Regular rate and rhythm. S1, S2 noted. No murmur appreciated. RESPIRATORY: No accessory muscle use. Clear to auscultation. Breath sounds equal bilaterally. GASTROINTESTINAL: Abdomen soft, non-tender, nondistended. Normoactive bowel sounds x4. MUSCULOSKELETAL: No obvious deformities. Extremities without clubbing, cyanosis , or edema. Diffuse lumbar paraspinous muscle TTP, no bony point tenderness. NEUROLOGICAL: Awake and alert. No obvious cranial nerve deficits. Motor grossly within normal limits. Normal speech. PSYCHIATRIC: Very anxious, has racing thoughts. Procedures CT guided mediastinal mass biopsy Medications and IVs Current Medications Medications (Trade) Dose Ordered Sig/Sheng Route Start Time Stop Time Status Last Admin (NS Flush) 2 ml UNSCH PRN IV FLUSH 02/13/17 22:15 02/16/17 12:33 (NS Flush) 2 ml BID IV FLUSH 02/14/17 09:00 02/22/17 20:07 (Zofran Inj) 4 mg Q6H PRN IVP 02/13/17 22:15 02/18/17 23:52 (Tylenol) 650 mg Q6H PRN PO 02/13/17 22:15 (Marilyn-Colace) 1 tab BID PO 02/14/17 09:00 02/22/17 20:07 (Milk Of Magnesia Liq) 30 ml Q12H PRN PO 02/13/17 22:15 (Senokot) 17.2 mg Q12H PRN PO 02/13/17 22:15 (Dulcolax Supp) 10 mg DAILY PRN RECTAL 02/13/17 22:15 (Lactulose Liq) 30 ml DAILY PRN PO 02/13/17 22:15 (Keppra) 500 mg Q12HR PO 02/14/17 09:00 02/22/17 20:06 (Singulair) 10 mg DAILY PO 02/14/17 09:00 02/22/17 11:32 (Lipitor) 20 mg DAILY PO 02/14/17 09:00 02/22/17 11:32 (Phenergan Supp) 25 mg Q6H PRN RECTAL 02/14/17 08:30 (Synthroid) 125 mcg DAILY@06 PO 02/15/17 06:00 02/22/17 06:27 (Lioresal) 10 mg Q8HR PO 02/16/17 22:00 02/22/17 22:43 (Antivert) 25 mg Q8HR PO 02/17/17 14:00 02/22/17 22:43 (Roxicodone) 5 mg Q4H PRN PO 02/17/17 15:30 (Roxicodone) 10 mg Q4H PRN PO 02/17/17 15:30 02/22/17 17:49 (Dilaudid Pf Inj) 0.5 mg Q4H PRN IV PUSH 02/18/17 16:15 02/19/17 01:15 (Inderal) 20 mg TID PO 02/18/17 18:00 02/21/17 17:33 (Folate) 1 mg DAILY PO 02/18/17 16:30 02/22/17 11:32 (Prinivil) 20 mg DAILY PO 02/19/17 09:00 02/21/17 08:10 (Hydrodiuril) 25 mg DAILY PO 02/19/17 09:00 02/21/17 08:10 (Dilantin) 200 mg DAILY@0600 PO 02/21/17 06:00 02/22/17 06:28 (Dilantin) 300 mg HS PO 02/20/17 21:00 02/22/17 20:06 (Xanax) 0.5 mg TID PO 02/21/17 13:00 02/22/17 17:48 A/P Problem List: (1) Dizziness ICD Code: R42 Status: Acute (2) Dilantin toxicity ICD Code: T42.0X1A Status: Acute (3) Renal insufficiency ICD Code: N28.9 Status: Resolved (4) Seizure disorder ICD Code: G40.909 Status: Chronic (5) Tobacco abuse ICD Code: Z72.0 Status: Chronic Assessment and Plan 61-year-old female with a PMH of Seizure Disorder, HTN, Hyperlipidemia and Tobacco Abuse who presented for dizziness and multiple falls. Found to have Dilantin toxicity on admission, since that time Dilantin has been discontinued. Patient remains on Keppra. Dizziness: Unclear etiology, initially thought to be secondary to Dilantin toxicity, dehydration, and hypotension, however, all of these have resolved and patient continues to complain of dizziness/room spinning. Possible BPPV, no nystagmus on exam. TSH wnl. Head CT with no acute findings. Orthostatics negative. Neurology consult appreciated. Brain MRI normal. -resume Dilantin and BP meds. -Trial of meclizine 25mg q8h sheng -Antiemetics prn -PT Falls: Secondary to dizziness. CT C-Spine/Maxillofacial w/ no acute findings. -Consult PT, recommends HHC and walker Dilantin Toxicity: Dilantin 39 on admission. -On Dilantin 400mg po bid at home, changed to 200 mg daily, 300 mg HS per neurology. - 02/22 Patient given an extra dose of 300 mg of Dilantin, levels now normal. Chest pain Acute, left sided 02/20. Resolved. EKG without acute ischemic changes. - CXR, EKG, trend trops x 3. Abdominal pain: Resolved. -CT of abdomen and pelvis showed mediastinal mass, see below. Also CBD mass and dilatation noted. GB US: Abnormal GB appearance but no acute abnormality. -antiemetics and pain control prn -ADAT Mediastinal mass: unclear etiology -IR consulted for biopsy of mass, biopsy under anesthesia performed 02/18. Pathology results suggest vascular component but otherwise unable to characterize the mass. 02/22 oncology consultation appreciated - recommended vascular surgery consult who states patient is not a candidate for biopsy at this point. Fu as outpatient. Seizure Disorder: No reported seizure activity. -Continue Keppra 500mg bid and Dilantin 200 mg BID. -Appreciate neurology recommendations. -seizure precautions Normocytic Anemia: Hgb 8.9, no reported active bleeding. B12 and folate levels low. -check stool Hemoccult -B12 injection x 1. -start PO folate daily. -Monitor CBC Anxiety: acute on chronic Patient complains of multiple panic attacks and uncontrolled anxiety on a regular basis. She cites family problems as triggers. Psych consult appreciated. -continue patient's Xanax 1mg tid (verified on [facility]). Wean to 0.5 TID . -Psychiatry following. Acute on Chronic Pain: patient sees Dr. Wong as outpatient, per [facility], patient fills Soma 350mg tid, Xanax 1mg tid, and [place] 10/325mg q6h. -holding patient's Soma, may be contributing to dizziness -continue patient's Xanax prn -oxycodone with Dilaudid for breakthrough -MRI: mild syrinx and conus medullaris with central canal measuring just over 1 mm in diameter; At L5-S1 there is a broad-based central to right paracentral disc protrusion with extruded disc material extending cephalad above the disc interspace. Follow up with neuro. DVT Prophylaxis: SCD/teds. Discharge Planning DC pending oncology and neuro clearance. Possible DC in 1 to 2 days. Dieudonne Callahan MD Feb 22, 2017 19:11
[2017-02-22] MEDS ORDERED: FUROSEMIDE 40 MG TAB PO ONE (19:15)
[2017-02-22] MEDS ORDERED: LISINOPRIL 20 MG TAB PO ONE (23:30)
[2017-02-22] MEDS ORDERED: HYDROCHLOROTHIAZIDE 25 MG TAB PO ONE (23:30)
[2017-02-23] VITALS: BP 152/100; PULSE 75; RESP 20; TEMP 97.5; O2SAT 96
[2017-02-23 04:00] VITALS: BP 168/88; PULSE 77; RESP 18; TEMP 97.5; O2SAT 94
[2017-02-23] MEDS: LEVOTHYROXINE SODIUM 125 MCG TAB PO SCH (06:34)
[2017-02-23] MEDS: MECLIZINE HCL 25 MG TAB PO SCH ×3 (06:34→20:59)
[2017-02-23] MEDS: PHENYTOIN SODIUM 100 MG CAP PO SCH ×2 (06:34→21:01)
[2017-02-23] MEDS: BACLOFEN 10 MG TAB PO SCH ×3 (06:34→21:00)
[2017-02-23 08:00] VITALS: BP 116/75; PULSE 69; PULSE 84; RESP 18; TEMP 97.2; O2SAT 95
[2017-02-23] MEDS: levETIRAcetam 500 MG TAB PO SCH ×2 (10:28→21:00)
[2017-02-23] MEDS: HYDROCHLOROTHIAZIDE 25 MG TAB PO SCH (10:28)
[2017-02-23] MEDS: MONTELUKAST SODIUM 10 MG TAB PO SCH (10:28)
[2017-02-23] MEDS: ALPRAZolam 0.5 MG TAB PO SCH ×3 (10:29→16:16)
[2017-02-23] MEDS: LISINOPRIL 20 MG TAB PO SCH (10:29)
[2017-02-23] MEDS: FOLIC ACID 1 MG TAB PO SCH (10:29)
[2017-02-23] MEDS: ATORVASTATIN 20 MG TAB PO SCH (10:29)
[2017-02-23] MEDS: PROPRANOLOL HCL 20 MG TAB PO SCH ×3 (10:29→16:16)
[2017-02-23] MEDS: SODIUM CHLORIDE 0.9% FLUSH 10 ML FLUSH IV FLUSH SCH ×2 (10:30→21:01)
[2017-02-23] MEDS: DOCUSATE SODIUM 50 MG/SENNA 8.6 MG TAB PO SCH ×2 (10:30→21:00)
--- NOTE | 2017-02-23 10:59 | HHI.PR ---
Subjective Remarks The patient is delirious covering her mouth and nose and trying to sofocate herself Patient is very agitated and does not let anyone get close to her as per RN hallucinating stuttering Objective Vitals Vital Signs Date Time Temp Pulse Resp B/P Pulse Ox O2 Delivery O2 Flow Rate FiO2 02/23/17 08:00 97.2 69 18 116/75 95 02/23/17 04:00 97.5 77 18 168/88 94 02/22/17 23:00 97.5 75 20 152/100 99 02/22/17 21:54 Room Air 02/22/17 20:19 73 02/22/17 20:00 97.5 75 22 133/94 95 02/22/17 19:37 18 02/22/17 16:00 98.7 95 18 159/119 97 I/O 02/22/17 02/22/17 02/22/17 02/23/17 02/23/17 02/23/17 07:00 15:00 23:00 07:00 15:00 23:00 Intake Total 240 ml 720 ml 240 ml 240 ml Output Total 2 ml Balance 240 ml 720 ml 238 ml 240 ml Intake Oral 240 ml 720 ml 240 ml 240 ml Output Urine Total 2 ml # Voids 3 3 # Bowel Movements 0 1 Objective Remarks Well-nourished, well-developed female sitting up in bed very agitated and delirious, covering her ears and nose. Does not let me examine her Procedures CT guided mediastinal mass biopsy Medications and IVs Current Medications Medications (Trade) Dose Ordered Sig/Sheng Route Start Time Stop Time Status Last Admin (NS Flush) 2 ml UNSCH PRN IV FLUSH 02/13/17 22:15 02/16/17 12:33 (NS Flush) 2 ml BID IV FLUSH 02/14/17 09:00 02/23/17 10:30 (Zofran Inj) 4 mg Q6H PRN IVP 02/13/17 22:15 02/18/17 23:52 (Tylenol) 650 mg Q6H PRN PO 02/13/17 22:15 (Marilyn-Colace) 1 tab BID PO 02/14/17 09:00 02/23/17 10:30 (Milk Of Magnesia Liq) 30 ml Q12H PRN PO 02/13/17 22:15 (Senokot) 17.2 mg Q12H PRN PO 02/13/17 22:15 (Dulcolax Supp) 10 mg DAILY PRN RECTAL 02/13/17 22:15 (Lactulose Liq) 30 ml DAILY PRN PO 02/13/17 22:15 (Keppra) 500 mg Q12HR PO 02/14/17 09:00 02/23/17 10:28 (Singulair) 10 mg DAILY PO 02/14/17 09:00 02/23/17 10:28 (Lipitor) 20 mg DAILY PO 02/14/17 09:00 02/23/17 10:29 (Phenergan Supp) 25 mg Q6H PRN RECTAL 02/14/17 08:30 (Synthroid) 125 mcg DAILY@06 PO 02/15/17 06:00 02/23/17 06:34 (Lioresal) 10 mg Q8HR PO 02/16/17 22:00 02/23/17 06:34 (Antivert) 25 mg Q8HR PO 02/17/17 14:00 02/23/17 06:34 (Roxicodone) 5 mg Q4H PRN PO 02/17/17 15:30 (Roxicodone) 10 mg Q4H PRN PO 02/17/17 15:30 02/23/17 10:34 (Dilaudid Pf Inj) 0.5 mg Q4H PRN IV PUSH 02/18/17 16:15 02/19/17 01:15 (Inderal) 20 mg TID PO 02/18/17 18:00 02/23/17 10:29 (Folate) 1 mg DAILY PO 02/18/17 16:30 02/23/17 10:29 (Prinivil) 20 mg DAILY PO 02/19/17 09:00 02/23/17 10:29 (Hydrodiuril) 25 mg DAILY PO 02/19/17 09:00 02/23/17 10:28 (Dilantin) 200 mg DAILY@0600 PO 02/21/17 06:00 02/23/17 06:34 (Dilantin) 300 mg HS PO 02/20/17 21:00 02/22/17 20:06 (Xanax) 0.5 mg TID PO 02/21/17 13:00 02/23/17 10:29 (Haldol Inj) 2 mg Q4H PRN IM 02/23/17 11:00 A/P Problem List: (1) Dizziness ICD Code: R42 Status: Acute (2) Dilantin toxicity ICD Code: T42.0X1A Status: Acute (3) Renal insufficiency ICD Code: N28.9 Status: Resolved (4) Seizure disorder ICD Code: G40.909 Status: Chronic (5) Tobacco abuse ICD Code: Z72.0 Status: Chronic Assessment and Plan 61-year-old female with a PMH of Seizure Disorder, HTN, Hyperlipidemia and Tobacco Abuse who presented for dizziness and multiple falls. Found to have Dilantin toxicity on admission, since that time Dilantin has been discontinued. Patient remains on Keppra. Dizziness: Unclear etiology, initially thought to be secondary to Dilantin toxicity, dehydration, and hypotension, however, all of these have resolved and patient continues to complain of dizziness/room spinning. Possible BPPV, no nystagmus on exam. TSH wnl. Head CT with no acute findings. Orthostatics negative. Neurology consult appreciated. Brain MRI normal. -Continue Dilantin and BP meds -Continue Meclizine -Antiemetics prn -PT Falls: Secondary to dizziness. CT C-Spine/Maxillofacial w/ no acute findings. -PT consulted, recommends HH and walker Dilantin Toxicity: Dilantin 39 on admission. -On Dilantin 400mg po bid at home, changed to 200 mg daily, 300 mg HS per neurology. - 02/22 Patient given an extra dose of 300 mg of Dilantin, levels now normal. Chest pain Acute, left sided 02/20. Resolved. EKG without acute ischemic changes. - CXR, EKG, trend trops x 3. Abdominal pain: Resolved. -CT of abdomen and pelvis showed mediastinal mass, see below. Also CBD mass and dilatation noted. GB US: Abnormal GB appearance but no acute abnormality. -antiemetics and pain control prn -ADAT Mediastinal mass: unclear etiology -IR consulted for biopsy of mass, biopsy under anesthesia performed 02/18. Pathology results suggest vascular component but otherwise unable to characterize the mass. 02/22 oncology consultation appreciated - recommended vascular surgery consult who states patient is not a candidate for biopsy at this point. Fu as outpatient. Seizure Disorder: No reported seizure activity. -Continue Keppra 500mg bid and Dilantin 200 mg BID. -Appreciate neurology recommendations. -seizure precautions Normocytic Anemia: Hgb 8.9, no reported active bleeding. B12 and folate levels low. -check stool Hemoccult -B12 injection x 1. -start PO folate daily. -Monitor CBC Anxiety: acute on chronic Patient complains of multiple panic attacks and uncontrolled anxiety on a regular basis. She cites family problems as triggers. Psych consult appreciated. -continue patient's Xanax 1mg tid (verified on [facility]). Wean to 0.5 TID . -Psychiatry following. Acute on Chronic Pain: patient sees Dr. Wong as outpatient, per [facility], patient fills Soma 350mg tid, Xanax 1mg tid, and Oral 10/325mg q6h. -holding patient's Soma, may be contributing to dizziness -continue patient's Xanax prn -oxycodone with Dilaudid for breakthrough -MRI: mild syrinx and conus medullaris with central canal measuring just over 1 mm in diameter; At L5-S1 there is a broad-based central to right paracentral disc protrusion with extruded disc material extending cephalad above the disc interspace. Follow up with neuro. 02/23 Acute Delirium/agitation - Patient is very agitated, hallucinating, stuttering and non coherent. Will give Haldol 5 mg IM once and start on Haldol when necessary 2 mg IM every 4 hours as needed. - Will order sitter at bedside. - Will restraint physically with soft restraints as needed. - Will start on Ativan IV as needed for withdrawal symptoms - possibly patient withdrawing from Xanax since dose has been decreased. - Reconsult psychiatry - to evaluate for involuntary inpatient admission. DVT Prophylaxis: SCD/teds. Discharge Planning DC pending psych consult, oncology and neurology clearance Dieudonne Callahan MD Feb 23, 2017 10:59
[2017-02-23] MEDS ORDERED: HALOPERIDOL LACTATE 5 MG/ML AMP IM ONE (11:00)
[2017-02-23] MEDS ORDERED: HALOPERIDOL LACTATE 5 MG/ML AMP IM PRN (11:00)
[2017-02-23] MEDS ORDERED: LORazepam 2 MG/ML VIAL IV PUSH PRN (12:45)
[2017-02-23 20:00] VITALS: BP 135/84; PULSE 53; RESP 20; O2SAT 100
[2017-02-24] VITALS (8 sets, daily range): BP systolic 88–139; BP diastolic 52–72; PULSE 46–64; RESP 16–20; TEMP 95.5–99.3; O2SAT 93–99
[2017-02-24] MEDS: MECLIZINE HCL 25 MG TAB PO SCH ×3 (05:53→22:29)
[2017-02-24] MEDS: PHENYTOIN SODIUM 100 MG CAP PO SCH ×2 (05:53→22:29)
[2017-02-24] MEDS: LEVOTHYROXINE SODIUM 125 MCG TAB PO SCH (05:53)
[2017-02-24] MEDS: BACLOFEN 10 MG TAB PO SCH ×3 (05:53→22:30)
[2017-02-24] MEDS: ATORVASTATIN 20 MG TAB PO SCH (07:49)
[2017-02-24] MEDS: MONTELUKAST SODIUM 10 MG TAB PO SCH (07:49)
[2017-02-24] MEDS: ALPRAZolam 0.5 MG TAB PO SCH ×3 (07:49→17:48)
[2017-02-24] MEDS: SODIUM CHLORIDE 0.9% FLUSH 10 ML FLUSH IV FLUSH SCH ×2 (07:50→22:30)
[2017-02-24] MEDS: levETIRAcetam 500 MG TAB PO SCH ×2 (07:50→22:29)
[2017-02-24] MEDS: HYDROCHLOROTHIAZIDE 25 MG TAB PO SCH (07:50)
[2017-02-24] MEDS: PROPRANOLOL HCL 20 MG TAB PO SCH ×3 (07:50→17:48)
[2017-02-24] MEDS: FOLIC ACID 1 MG TAB PO SCH (07:50)
[2017-02-24] MEDS: DOCUSATE SODIUM 50 MG/SENNA 8.6 MG TAB PO SCH ×2 (07:50→22:30)
[2017-02-24] MEDS: LISINOPRIL 20 MG TAB PO SCH (07:50)
[2017-02-24] MEDS ORDERED: MECL1TAB42 PO (11:29)
[2017-02-24] MEDS ORDERED: DILA100C PO ×2 (11:29)
--- NOTE | 2017-02-24 11:30 | HHI.DCPOC ---
Discharge Care Plan Diagnosis: (1) Dizziness (2) Dilantin toxicity (3) Renal insufficiency (4) Anxiety disorder, unspecified (5) Mediastinal mass Goals to Promote Your Health * To prevent worsening of your condition and complications * To maintain your health at the optimal level Directions to Meet Your Goals Take your medications as prescribed Follow your dietary instruction Follow activity as directed Keep your appointments as scheduled Take your immunizations and boosters as scheduled If your symptoms worsen call your PCP, if no PCP go to Urgent Care Center or Emergency Room Smoking is Dangerous to Your Health. Avoid second hand smoke Call the 24-hour hour crisis hotline for domestic abuse at Katheryn Ordoñez MD Feb 24, 2017 11:30
--- NOTE | 2017-02-24 11:32 | HHI.DS ---
Discharge Summary Admission Date Feb 14, 2017 at 08:55 Discharge Date: Feb 24, 2017 Admitting Diagnosis Dilantin toxicity, hyponatremia (1) Dizziness ICD Code: R42 Diagnosis: Principal (2) Dilantin toxicity ICD Code: T42.0X1A Diagnosis: Principal (3) Renal insufficiency ICD Code: N28.9 Diagnosis: Principal (4) Seizure disorder ICD Code: G40.909 Diagnosis: Secondary (5) Tobacco abuse ICD Code: Z72.0 Diagnosis: Secondary (6) Anxiety disorder, unspecified ICD Code: F41.9 Diagnosis: Secondary (7) Mediastinal mass ICD Code: J98.59 Diagnosis: Principal (8) Personality disorder ICD Code: F60.9 Diagnosis: Principal Procedures CT guided mediastinal mass biopsy Brief History - From Admission This is a 61-year-old female with a PMH of Seizure Disorder, HTN, Hyperlipidemia and Tobacco Abuse who presents to ER with complaints of dizziness in addition to multiple falls at home for the last 2-3 days. Denies LOC or seizure activity. No fever, chills, nausea, vomiting or diarrhea. Recent admit 01/07-01/15/17 w/ AMS and New Onset Seizure Disorder, d/c'd home on Keppra 500mg bid and Dilantin 400mg bid, reports compliance w/ medications. States dizziness started shortly after starting new medications. On arrival, BP 118/80, HR 77, O2 sat 96% on RA, Temp 99.1. CBC essentially unremarkable. K + 3.4. Creatinine 1.08, previously 0.71 on 01/10/17. Trop negative. Phenytoin 39. CT Head normal. CT C-spine with degenerative disc disease, no acute findings. CT Maxillofacial negative. CXR with no acute findings. S/p IVF and Meclizine in ER. Significant Findings Laboratory Tests Test 02/21/17 02/21/17 02/22/17 13:57 19:10 03:40 Troponin I LESS THAN 0.02 LESS THAN 0.02 LESS THAN 0.02 NG/ML NG/ML NG/ML (0.02-0.05) (0.02-0.05) (0.02-0.05) Imaging Last Impressions Chest X-Ray 02/21/17 0000 Signed Impressions: Service Date/Time: Tuesday, February 21, 2017 13:19 - CONCLUSION: No acute disease. Akira Morris MD Gall Bladder Ultrasound 02/19/17 0000 Signed Impressions: Service Date/Time: Sunday, February 19, 2017 10:11 - CONCLUSION: Abnormal gallbladder appearance. No common duct filling defect is identified. Akira Morris MD Lung Biopsy CT 02/18/17 1009 Signed Impressions: Service Date/Time: Saturday, February 18, 2017 14:14 - CONCLUSION: Uncomplicated CT guided biopsy. Titus Brunner MD Lumbar Spine MRI 02/17/17 0000 Signed Impressions: Service Date/Time: Friday, February 17, 2017 18:00 - CONCLUSION: 1. Mild syrinx and conus medullaris with central canal measuring just over 1 mm in diameter. 2. At L5-S1 there is a broad-based central to right paracentral disc protrusion with extruded disc material extending cephalad above the disc interspace, slightly more the right side with encroachment of the lateral recesses bilaterally as above. 3. Mild degenerative changes in the remainder of the lumbar spine without significant central canal stenosis Delfino Stapleton MD Chest CT 02/17/17 0000 Signed Impressions: Service Date/Time: Friday, February 17, 2017 13:32 - CONCLUSION: Unsuccessful attempt at biopsy. Rescheduled in the AM with anesthesia. Fawad Murguia MD FACR Brain MRI 02/17/17 0000 Signed Impressions: Service Date/Time: Friday, February 17, 2017 18:00 - CONCLUSION: Normal examination. Keegan Weaver MD Abdomen/Pelvis CT 02/14/17 0000 Signed Impressions: Service Date/Time: Tuesday, February 14, 2017 15:13 - CONCLUSION: 1. There is a 4 mm round hyperdense structure in the distal common bile duct with associated enlargement of the common bile duct and left intrahepatic bile ducts. The small density could represent a stone or small mass. 2. 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 Etiology is uncertain. Neurogenic tumor is a consideration but there is no connection with the spinal canal. Complex duplication cyst/lesion of the esophagus is another consideration. Suggest correlating with any prior imaging studies to assess for chronicity of this finding. This lesion would be amenable to image guided percutaneous biopsy, if needed. 3. There are 2 hyperdense lesions in the left kidney measuring up to 1.8 cm. The sternotomy criteria for simple cysts. Again , suggest correlating with prior imaging studies that could offer additional characterization. If none are available suggest elective further evaluation with either ultrasound or renal protocol CT or MRI. 4. Nonacute findings include mild splenomegaly, moderate atherosclerotic disease, and sigmoid diverticulosis. Akira Hernandez MD Head CT 02/13/17 1537 Signed Impressions: Service Date/Time: , February 13, 2017 16:27 - CONCLUSION: Normal examination. No significant change has occurred. Delfino Stapleton MD Cervical Spine CT 02/13/17 1537 Signed Impressions: Service Date/Time: , February 13, 2017 16:27 - CONCLUSION: 1. No acute findings. Multilevel degenerative disc disease and facet arthropathy. Delfino Stapleton MD Maxillofacial CT 02/13/17 0000 Signed Impressions: Service Date/Time: , February 13, 2017 16:27 - CONCLUSION: 1. No acute findings. Delfino Stapleton MD PE at Discharge GENERAL: in NAD. Patient was standing by the bedside but no difficulty in walking to her bed. This was observed by me. NECK: Supple, trachea midline. No JVD or lymphadenopathy. CARDIOVASCULAR: Regular rate and rhythm without murmurs, gallops, or rubs. RESPIRATORY: Breath sounds equal bilaterally. No accessory muscle use. GASTROINTESTINAL: Abdomen soft, non-tender, nondistended. MUSCULOSKELETAL: No cyanosis, or edema. BACK: Nontender without obvious deformity. No CVA tenderness. Pt update on day of discharge See progress note from today. Hospital Course 61-year-old female with a PMH of Seizure Disorder, HTN, Hyperlipidemia and Tobacco Abuse who presented for dizziness and multiple falls. Found to have Dilantin toxicity on admission, since that time Dilantin has been discontinued. Patient remains on Keppra. Dizziness: -Neurologist was consulted and symptoms were thought to be more likely to benign paroxysmal positional vertigo. TSH wnl. Head CT with no acute findings. Orthostatics negative. Brain MRI normal. Patient treated with meclizine with improvement of symptoms. Physical therapist consulted initially recommended home with home health and then stated that patient needed to go to rehabilitation. Falls: Secondary to dizziness. CT C-Spine/Maxillofacial w/ no acute findings. -PT recommended rehabilitation. Dilantin Toxicity: Dilantin 39 on admission. -On Dilantin 400mg po bid at home, changed to 200 mg daily, 300 mg HS per neurology. - Dilantin level repeated today within normal limits. Chest pain Acute, left sided 02/20. Resolved. EKG without acute ischemic changes. - CXR, EKG, trend trops x 3. Abdominal pain: Resolved. -CT of abdomen and pelvis showed mediastinal mass, see below. Also CBD mass and dilatation noted. GB US: Abnormal GB appearance but no acute abnormality. -antiemetics and pain control prn -ADAT Mediastinal mass: unclear etiology -IR consulted for biopsy of mass, biopsy under anesthesia performed 02/18. Pathology results suggest vascular component but otherwise unable to characterize the mass. 02/22 oncology consultation appreciated - recommended vascular surgery consult who states patient is not a candidate for biopsy at this point. Fu as outpatient. Seizure Disorder: No reported seizure activity. -Continue Keppra 500mg bid and Dilantin 200 mg BID. -Appreciate neurology recommendations. -seizure precautions Normocytic Anemia: Hgb 8.9, no reported active bleeding. B12 and folate levels low. -B12 injection x 1. -on PO folate daily. -Monitor CBC Anxiety: acute on chronic Patient complains of multiple panic attacks and uncontrolled anxiety on a regular basis. She cites family problems as triggers. Psych consult appreciated. -continue patient's Xanax 1mg tid (verified on [facility]). Wean to 0.5 TID . 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 Acute on Chronic Pain: patient sees Dr. Wong as outpatient, per [facility], patient fills Soma 350mg tid, Xanax 1mg tid, and [place] 10/325mg q6h. 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 Follow up with neuro. -Patient has dependency on control substance. Management as outpatient. 02/23 Acute Delirium/agitation -No signs of agitation. This seems to be more due to patient acting out. 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 Pt Condition on Discharge: Good Discharge Disposition: Discharge to SNF Discharge Time: > 30 minutes Discharge Instructions DIET: Follow Instructions for: Heart Healthy Diet Activities you can perform: Regular-No Restrictions Follow up Referrals: Neurology - 2 Weeks Oncology - 1 Week with Suzanne Nation MD PCP Follow-up - 1 Week Vascular Surgery - 1 Week with Jen Samaniego MD New Medications: Alprazolam (Xanax) 0.5 Mg Tab 0.5 MG PO TID anxiety #15 Ref 0 TAB Folic Acid (Folic Acid) 1 Mg Tablet 1 MG PO DAILY low levels #30 Ref 0 TAB Meclizine HCl (Meclizine 25) 25 Mg Tab 25 MG PO Q8HR PRN vertigo #30 Ref 0 TAB Phenytoin Extended (Dilantin) 100 Mg Cap 200 MG PO DAILY@0600 seizure #30 Ref 0 CAP Phenytoin Extended (Dilantin) 100 Mg Cap 300 MG PO HS seizure #30 Ref 0 CAP Continued Medications: Levetiracetam (Keppra) 500 Mg Tab 500 MG PO Q12HR Control Seizures #60 Ref 3 TAB Levothyroxine (Levothyroxine) 125 Mcg Tab 125 MCG PO DAILY Thyroid #30 Ref 0 TAB Montelukast (Montelukast) 10 Mg Tab 10 MG PO DAILY Allergies #30 Ref 0 TAB Propranolol (Propranolol) 20 Mg Tab 20 MG PO TID #90 Ref 0 TAB Rosuvastatin (Crestor) 10 Mg Tab 10 MG PO DAILY Cholesterol Management #30 Ref 0 TAB Discontinued Medications: Alprazolam (Xanax) 0.5 Mg Tab 0.5 MG PO BID Control Anxiety #10 TAB Lisinopril-Hctz (Lisinopril-Hctz) 20-25 Mg Tab 1 TAB PO DAILY Blood Pressure Management #30 Ref 0 TAB Phenytoin Extended (Dilantin) 100 Mg Cap 400 MG PO BID Control Seizures #60 Ref 3 CAP Katheryn Ordoñez MD Feb 24, 2017 11:32
[2017-02-24] MEDS ORDERED: ALPR.5 PO (13:08)
--- NOTE | 2017-02-24 13:55 | HHI.PYPN ---
Subjective Remarks She was seen today for psychiatric reevaluation, patient was not very happy about seeing psychiatry today, oppositional and resistant, "you have decreased my Xanax", patient says that she has been taking Xanax for 20 years, but she doesn't want to take SSRIs "I am very afraid of the side effects", however she is calm and cooperative with this evaluation, no aggressive behavior or agitation noted. Patient denies suicidal or homicidal ideation, she denies visual and auditory hallucinations. Patient was wildly educated about the convenience of be medicated with SSRIs or SNRIs for her anxiety along with benzodiazepines, and once stable to taper down her benzodiazepines. As per nurses, patient was agitated, hostile and even disorganized during the weekend. Patient is oriented 3, no gross cognitive impairment present. Review of Systems Other No somatic complaints Objective Alert: Yes [place]: Person, Place, Situation Mood: Angry Affect: Restricted Memory Intact: Immediate, Recent Hallucinations: Other (no hallucinations) Delusions: No Delusion Type: Other (not elicited) Suicidal: Ideation (no SI) Homicidal: Ideation (no HI) Insight/Judgment Fair Labs Test 02/24/17 08:30 Phenytoin (Dilantin) Level 11.5 MCG/ML Vitals/IOs Vital Signs Date Time Temp Pulse Resp B/P Pulse Ox O2 Delivery O2 Flow Rate FiO2 02/24/17 08:00 96.4 55 16 88/52 97 02/23/17 08:00 Room Air 02/21/17 10:27 21 Intake and Output 02/23/17 02/23/17 02/23/17 07:59 15:59 23:59 Intake Total 240 ml 480 ml Balance 240 ml 480 ml Assessment & Plan Problem List: (1) Anxiety disorder, unspecified Assessment & Plan: Continue Xanax 0.5 mg 3 times a day. Patient refused SSRIs. No evidence of acute anxiety or depression at this moment. There is strong evidence of underlying personality pathology. No psychiatric admission indicated at this moment. Psychoeducation provided. Continue psychiatric care as an outpatient. ICD Code: F41.9 Assessment & Plan Estimated LOS: days Justification for Cont. Inpt. No indication of psychiatric hospitalization for this moment. James Cardenas MD Feb 24, 2017 13:55
--- NOTE | 2017-02-24 15:10 | HHI.PR ---
Subjective Remarks Follow-up for dizziness and questionable hallucination Patient found standing at her bedside stating to me that I need to open her current insulin because she has light-sensitive cataracts. She stated she can tolerate the light but not the light coming out from the room. The light in the room was much brighter but patient stated that that helps her light- sensitive cataract despite it being a lot brighter in the room. She stated that her dizziness improved. Denied any pain. She had no other complaints. d/w patient's nurse and charge nurse. Objective Vitals Vital Signs Date Time Temp Pulse Resp B/P Pulse Ox O2 Delivery O2 Flow Rate FiO2 02/24/17 08:00 96.4 55 16 88/52 97 02/24/17 07:20 46 02/24/17 04:00 95.5 53 18 99/54 96 02/24/17 00:00 61 20 105/68 98 02/23/17 20:00 53 20 135/84 100 I/O 02/23/17 02/23/17 02/23/17 02/24/17 02/24/17 02/24/17 07:00 15:00 23:00 07:00 15:00 23:00 Intake Total 240 ml 480 ml Balance 240 ml 480 ml Intake Oral 240 ml 480 ml # Voids 2 4 2 # Bowel Movements 0 Objective Remarks GENERAL: in NAD CARDIOVASCULAR: Regular rate and rhythm without murmurs, gallops, or rubs. RESPIRATORY: Breath sounds equal bilaterally. No accessory muscle use. GASTROINTESTINAL: Abdomen soft, non-tender, nondistended. MUSCULOSKELETAL: No cyanosis, or edema. BACK: Nontender without obvious deformity. No CVA tenderness. Procedures CT guided mediastinal mass biopsy Medications and IVs Current Medications Sodium Chloride 2 ml 2 ml UNSCH PRN IVF FLUSH AFTER USING IV ACCESS; Start 02/13 at 15:45; Stop 02/13/17 at 22:36; Status DC Sodium Chloride 1,000 ml @ 1,000 mls/hr Q1H ONCE IV Last administered on 16:17; Start 02/13/17 at 15:37; Stop 02/13/17 at 16:36; Status DC Sodium Chloride (NS 1000 ml Inj) 1,000 ml @ 999 mls/hr BOLUS ONCE IV Last administered on 02/13/17 15:45; Start 02/13/17 at 15:45; Stop 02/13/17 at 16:45; Status DC Ondansetron HCl (Zofran Inj) 4 mg ONCE ONCE IV PUSH Last administered on 16:17; Start 02/13/17 at 16:00; Stop 02/13/17 at 16:01; Status DC Meclizine HCl 25 mg 25 mg ONCE ONCE PO Last administered on 02/13/17 19:39; Start 02/13/17 at 19:15; Stop 02/13/17 at 19:16; Status DC Sodium Chloride 1,000 ml @ 999 mls/hr BOLUS ONCE IV Last administered on 22:01; Start 02/13/17 at 22:00; Stop 02/13/17 at 23:00; Status DC Sodium Chloride (NS 1000 ml Inj) 1,000 ml @ 100 mls/hr Q10H IV Last administered on 02/15/17 06:38; Start 02/13/17 at 22:10; Stop 02/17/17 at 15:30; Status DC Sodium Chloride (NS Flush) 2 ml UNSCH PRN IV FLUSH FLUSH AFTER USING IV ACCESS Last administered on 02/16/17 12:33; Start 02/13/17 at 22:15 Sodium Chloride (NS Flush) 2 ml BID IV FLUSH Last administered on 02/24/17 07: 50; Start 02/14/17 at 09:00 Ondansetron HCl (Zofran Inj) 4 mg Q6H PRN IVP NAUSEA OR VOMITING Last administered on 02/18/17 23:52; Start 02/13/17 at 22:15 Acetaminophen (Tylenol) 650 mg Q6H PRN PO FEVER/PAIN 1-2; Start 02/13/17 at 22: 15 Acetaminophen/ Hydrocodone Bitart (Merced 5-325 Mg) 1 tab Q4H PRN PO PAIN SCALE 3 TO 5 Last administered on 02/15/17 09:38; Start 02/13/17 at 22:15; Stop 02/16/17 at 14:18; Status DC Acetaminophen/ Hydrocodone Bitart (Merced 10-325 Mg) 1 tab Q4H PRN PO PAIN SCALE 6 TO 10 Last administered on 02/16/17 11:03; Start 02/13/17 at 22:15; Stop 02/16/17 at 14:18; Status DC Senna/Docusate Sodium (Marilyn-Colace) 1 tab BID PO Last administered on 07:50; Start 02/14/17 at 09:00 Magnesium Hydroxide (Milk Of Magnesia Liq) 30 ml Q12H PRN PO MILD - MODERATE CONSTIPATION; Start 02/13/17 at 22:15 Sennosides (Senokot) 17.2 mg Q12H PRN PO MODERATE - SEVERE CONSTIPATION Last administered on 02/23/17 21:00; Start 02/13/17 at 22:15 Bisacodyl (Dulcolax Supp) 10 mg DAILY PRN RECTAL SEVERE CONSITIPATION; Start at 22:15 Lactulose (Lactulose Liq) 30 ml DAILY PRN PO SEVERE CONSITIPATION; Start at 22:15 Alprazolam (Xanax) 0.5 mg BID PO Last administered on 02/16/17 09:29; Start 02/14/17 at 09:00; Stop 02/16/17 at 14:18; Status DC Levetriacetam (Keppra) 500 mg Q12HR PO Last administered on 02/24/17 07:50; Start 02/14/17 at 09:00 Montelukast Sodium (Singulair) 10 mg DAILY PO Last administered on 02/24/17 07 :49; Start 02/14/17 at 09:00 Atorvastatin Calcium (Lipitor) 20 mg DAILY PO CM Last administered on 02/24/17 07:49; Start 02/14/17 at 09:00 Promethazine HCl (Phenergan Supp) 25 mg Q6H PRN RECTAL NAUSEA OR VOMITING; Start 02/14/17 at 08:30 Diatrizoate Meglum/ Diatrizoate Sod ( Gastroview Liq) 18 ml ONCE ONCE PO Last administered on 02/14/17 10:35; Start 02/14/17 at 10:00; Stop 02/14/17 at 10: 01; Status DC Levothyroxine Sodium (Synthroid) 125 mcg DAILY@06 PO Last administered on 05:53; Start 02/15/17 at 06:00 Potassium Chloride (KCl Powder) 40 meq ONCE ONCE PO Last administered on 11:38; Start 02/14/17 at 10:30; Stop 02/14/17 at 10:43; Status DC Lorazepam (Ativan Inj) 0.5 mg ONCE ONCE IV PUSH Last administered on 02/16/17 00:00; Start 02/15/17 at 21:15; Stop 02/15/17 at 21:16; Status DC Hydromorphone HCl (Dilaudid Pf Inj) 0.5 mg ONCE ONCE IV PUSH Last administered on 02/15/17 23:29; Start 02/15/17 at 23:00; Stop 02/15/17 at 23:01; Status DC Alprazolam (Xanax) 0.5 mg TID PO Last administered on 02/17/17 15:06; Start 02/16/17 at 18:00; Stop 02/17/17 at 15:27; Status DC Oxycodone/ Acetaminophen (Percocet 5-325 Mg) 1 tab Q6H PRN PO PAIN 3-5; Start 02/16/17 at 14:15; Stop 02/17/17 at 15:30; Status DC Oxycodone/ Acetaminophen (Percocet 7.5-325 Mg) 1 tab Q6H PRN PO Pain 6-7 Last administered on 02/17/17 14:44; Start 02/16/17 at 14:15; Stop 02/17/17 at 15:30; Status DC Oxycodone/ Acetaminophen (Percocet 10-325 Mg) 1 tab Q6H PRN PO pain 8-10 Last administered on 02/17/17 06:23; Start 02/16/17 at 14:15; Stop 02/17/17 at 15:30; Status DC Potassium Chloride (KCl) 40 meq ONCE ONCE PO Last administered on 02/16/17 15: 39; Start 02/16/17 at 14:15; Stop 02/16/17 at 14:22; Status DC Baclofen (Lioresal) 10 mg Q8HR PO Last administered on 02/24/17 13:14; Start 02/16/17 at 22:00 Iohexol (Omnipaque 350 Inj) 100 ml STK-MED ONCE IV Last administered on 15:13; Start 02/14/17 at 15:13; Stop 02/17/17 at 04:05; Status DC Meclizine HCl (Antivert) 25 mg Q8HR PO Last administered on 02/24/17 13:14; Start 02/17/17 at 14:00 Lidocaine/ Epinephrine (Xylocaine-Epi 1%-1:100,000 Inj) 20 ml STK-MED ONCE .ROUTE Last administered on 02/17/17 12:56; Start 02/17/17 at 12:56; Stop at 12:57; Status DC Fentanyl Citrate (fentaNYL INJ) 250 mcg STK-MED ONCE .ROUTE Last administered on 02/17/17 13:27; Start 02/17/17 at 13:27; Stop 02/17/17 at 13:28; Status DC Midazolam HCl (Versed Inj) 4 mg STK-MED ONCE .ROUTE Last administered on 13:27; Start 02/17/17 at 13:27; Stop 02/17/17 at 13:28; Status DC Alprazolam (Xanax) 1 mg TID PO Last administered on 02/21/17 08:09; Start 02/17 at 18:00; Stop 02/21/17 at 12:23; Status DC Lorazepam (Ativan Inj) 1 mg ONCE ONCE IV PUSH Last administered on 02/17/17 17 :44; Start 02/17/17 at 15:30; Stop 02/17/17 at 15:31; Status DC Hydromorphone HCl (Dilaudid Pf Inj) 0.5 mg ONCE ONCE IV PUSH Last administered on 02/17/17 16:15; Start 02/17/17 at 15:30; Stop 02/17/17 at 15:31; Status DC Oxycodone HCl (Roxicodone) 5 mg Q4H PRN PO pain scale 3-7 Last administered on 02/23/17 21:00; Start 02/17/17 at 15:30 Oxycodone HCl (Roxicodone) 10 mg Q4H PRN PO pain scale 8-10 Last administered on 02/24/17 13:23; Start 02/17/17 at 15:30 Phenytoin (Dilantin) 200 mg BID PO Last administered on 02/20/17 07:48; Start 02/17/17 at 21:00; Stop 02/20/17 at 08:54; Status DC Gadodiamide (Omniscan Pf Inj) 18 ml STK-MED ONCE IV Last administered on 18:40; Start 02/17/17 at 18:40; Stop 02/17/17 at 18:41; Status DC Alprazolam 1 mg 1 mg ONCE ONCE PO Last administered on 02/17/17 22:09; Start 02/17/17 at 21:45; Stop 02/17/17 at 21:46; Status DC Lactated Ringer's 1,000 ml @ 30 mls/hr Q24H PRN IV SEE LABEL COMMENTS; Start at 22:30; Stop 02/20/17 at 22:29; Status DC Sodium Chloride (NS 500 ml Inj) 500 ml @ 30 mls/hr [id number] PRN IV SEE LABEL COMMENTS; Start 02/17/17 at 22:30; Stop 02/20/17 at 22:29; Status DC Metoprolol Tartrate (Lopressor) 25 mg BRUSHER WARP PRN PO SEE LABEL COMMENTS; Start 02/17/17 at 22:30; Stop 02/20/17 at 22:29; Status DC Povidone Iodine (Betadine 5% Antisepsis Kit) 1 applic BRUSHER WARP PRN EACH NARE SEE LABEL COMMENTS; Start 02/17/17 at 22:30; Stop 02/20/17 at 22:29; Status DC Chlorhexidine Gluconate (Chlorhexidine 2% Cloth) 3 pack BRUSHER WARP PRN TOPICAL SEE LABEL COMMENTS; Start 02/17/17 at 22:30; Stop 02/20/17 at 22:29; Status DC Insulin Human Regular (NovoLIN R INJ) See Protocol Table ... BRUSHER WARP PRN SQ SEE PROTOCOL TABLE; Start 02/17/17 at 22:30; Stop 02/20/17 at 22:29; Status DC Lidocaine/ Epinephrine (Xylocaine-Epi 1%-1:100,000 Inj) 20 ml STK-MED ONCE .ROUTE ; Start 02/18/17 at 13:40; Stop 02/18/17 at 13:41; Status DC Fentanyl Citrate (fentaNYL INJ) 250 mcg STK-MED ONCE .ROUTE ; Start 02/18/17 at 13:44; Stop 02/18/17 at 13:45; Status DC Lorazepam (Ativan Inj) 2 mg STK-MED ONCE .ROUTE ; Start 02/18/17 at 15:31; Stop 02/18/17 at 15:32; Status DC Miscellaneous Information ALL NURSING DEPARTME... UNSCH PRN .XX SEE LABEL COMMENTS; Start 02/18/17 at 15:15; Stop 02/19/17 at 15:14; Status DC Morphine Sulfate (*morphine INJ PERIprocedure ONLY) 8 mg STK-MED ONCE .ROUTE Last administered on 02/18/17 15:40; Start 02/18/17 at 15:40; Stop 02/18/17 at 15: 41; Status DC Lorazepam (Ativan Inj) 1 mg ONCE ONCE IV PUSH Last administered on 02/18/17 15 :31; Start 02/18/17 at 16:00; Stop 02/18/17 at 16:01; Status DC Hydromorphone HCl (Dilaudid Pf Inj) 0.5 mg Q4H PRN IV PUSH breakthrough pain Last administered on 02/19/17 01:15; Start 02/18/17 at 16:15 Propranolol HCl (Inderal) 20 mg TID PO Last administered on 02/24/17 13:14; Start 02/18/17 at 18:00 Non-Formulary Medication 1 tab DAILY PO BPM; Start 02/19/17 at 09:00; Status UNV Cyanocobalamin (Vitamin B12 Inj) 1,000 mcg ONCE ONCE IM Last administered on 17:54; Start 02/18/17 at 17:00; Stop 02/18/17 at 17:01; Status DC Folic Acid (Folate) 1 mg DAILY PO Last administered on 02/24/17 07:50; Start 02/18/17 at 16:30 Lisinopril (Prinivil) 20 mg DAILY PO Last administered on 02/24/17 07:50; Start 02/19/17 at 09:00 Hydrochlorothiazide (Hydrodiuril) 25 mg DAILY PO Last administered on 07:50; Start 02/19/17 at 09:00 Lorazepam (Ativan Inj) 1 mg Q6H PRN IV PUSH Panic attack Last administered on 15:00; Start 02/19/17 at 12:00; Stop 02/21/17 at 09:05; Status DC Polyethylene Glycol (Miralax) 17 gm ONCE ONCE PO ; Start 02/20/17 at 08:30; Stop 02/20/17 at 08:31; Status DC Phenytoin (Dilantin) 200 mg DAILY@0600 PO Last administered on 02/24/17 05:53 ; Start 02/21/17 at 06:00 Phenytoin (Dilantin) 300 mg ONCE ONCE PO Last administered on 02/20/17 15:22 ; Start 02/20/17 at 09:00; Stop 02/20/17 at 09:05; Status DC Phenytoin (Dilantin) 300 mg HS PO Last administered on 02/23/17 21:01; Start 02/20/17 at 21:00 Alprazolam (Xanax) 0.5 mg TID PO Last administered on 02/24/17 13:14; Start at 13:00 Phenytoin (Dilantin) 300 mg ONCE ONCE PO Last administered on 02/21/17 21:36 ; Start 02/21/17 at 18:15; Stop 02/21/17 at 18:22; Status DC Furosemide (Lasix) 40 mg ONCE ONCE PO ; Start 02/22/17 at 19:15; Stop 02/22/17 at 19:15; Status DC Lisinopril (Prinivil) 20 mg ONCE ONCE PO Last administered on 02/22/17 23:41 ; Start 02/22/17 at 23:30; Stop 02/22/17 at 23:34; Status DC Hydrochlorothiazide (Hydrodiuril) 25 mg ONCE ONCE PO Last administered on 02/22 23:42; Start 02/22/17 at 23:30; Stop 02/22/17 at 23:34; Status DC Haloperidol Lactate (Haldol Inj) 5 mg ONCE ONCE IM Last administered on 11:20; Start 02/23/17 at 11:00; Stop 02/23/17 at 11:13; Status DC Haloperidol Lactate (Haldol Inj) 2 mg Q4H PRN IM AGITATION AND/OR HALLUCINATION ; Start 02/23/17 at 11:00 Lorazepam (Ativan Inj) 1 mg Q15M PRN IV PUSH SEVERE ANXIETY OR AGITATION; Start 02/23/17 at 12:45 A/P Problem List: (1) Dizziness ICD Code: R42 Status: Acute (2) Dilantin toxicity ICD Code: T42.0X1A Status: Acute (3) Renal insufficiency ICD Code: N28.9 Status: Resolved (4) Seizure disorder ICD Code: G40.909 Status: Chronic (5) Tobacco abuse ICD Code: Z72.0 Status: Chronic Assessment and Plan 61-year-old female with a PMH of Seizure Disorder, HTN, Hyperlipidemia and Tobacco Abuse who presented for dizziness and multiple falls. Found to have Dilantin toxicity on admission, since that time Dilantin has been discontinued. Patient remains on Keppra. Dizziness: Unclear etiology, initially thought to be secondary to Dilantin toxicity, dehydration, and hypotension, however, all of these have resolved and patient continues to complain of dizziness/room spinning. Possible BPPV, no nystagmus on exam. TSH wnl. Head CT with no acute findings. Orthostatics negative. Neurology consult appreciated. Brain MRI normal. -Continue Dilantin and BP meds. Dilantin levels rechecked within normal limits. -Continue Meclizine -Antiemetics prn -PT. PT recommended rehabilitation. Falls: Secondary to dizziness. CT C-Spine/Maxillofacial w/ no acute findings. -PT recommended rehabilitation. Dilantin Toxicity: Dilantin 39 on admission. -On Dilantin 400mg po bid at home, changed to 200 mg daily, 300 mg HS per neurology. - Dilantin level repeated today within normal limits. Chest pain Acute, left sided 02/20. Resolved. EKG without acute ischemic changes. - CXR, EKG, trend trops x 3. Abdominal pain: Resolved. -CT of abdomen and pelvis showed mediastinal mass, see below. Also CBD mass and dilatation noted. GB US: Abnormal GB appearance but no acute abnormality. -antiemetics and pain control prn -ADAT Mediastinal mass: unclear etiology -IR consulted for biopsy of mass, biopsy under anesthesia performed 02/18. Pathology results suggest vascular component but otherwise unable to characterize the mass. 02/22 oncology consultation appreciated - recommended vascular surgery consult who states patient is not a candidate for biopsy at this point. Fu as outpatient. Seizure Disorder: No reported seizure activity. -Continue Keppra 500mg bid and Dilantin 200 mg BID. -Appreciate neurology recommendations. -seizure precautions Normocytic Anemia: Hgb 8.9, no reported active bleeding. B12 and folate levels low. -B12 injection x 1. -on PO folate daily. -Monitor CBC Anxiety: acute on chronic Patient complains of multiple panic attacks and uncontrolled anxiety on a regular basis. She cites family problems as triggers. Psych consult appreciated. -continue patient's Xanax 1mg tid (verified on [facility]). Wean to 0.5 TID . 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 Acute on Chronic Pain: patient sees Dr. Wong as outpatient, per [facility], patient fills Soma 350mg tid, Xanax 1mg tid, and Merced 10/325mg q6h. 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 Follow up with neuro. -Patient has dependency on control substance. Management as outpatient. 02/23 Acute Delirium/agitation -No signs of agitation. This seems to be more due to patient acting out. 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 DVT Prophylaxis: SCD/teds. Discharge Planning Patient is medically clear for discharge but per physical therapist they recommended rehabilitation. Dealt with patient's nurse in charge nurse. Katheryn Ordoñez MD Feb 24, 2017 15:10
[2017-02-24] MEDS ORDERED: FOLI1TAB6 PO (15:11)
--- NOTE | 2017-02-24 15:52 | PD.ONC.PN ---
Subjective Subjective Remarks Ms. Null reports that she is very sensitive to the light today. She still has musculoskeletal pain. Objective Data Date Time Temp Pulse Resp B/P Pulse Ox O2 Delivery O2 Flow Rate FiO2 02/24/17 08:00 96.4 55 16 88/52 97 02/24/17 07:20 46 02/24/17 04:00 95.5 53 18 99/54 96 02/24/17 00:00 61 20 105/68 98 02/23/17 20:00 53 20 135/84 100 Laboratory Results Laboratory Tests Test 02/24/17 08:30 Phenytoin (Dilantin) Level 11.5 MCG/ML Administered Medications Medications (Trade) Dose Ordered Sig/Sheng Route PRN Reason Start Time Stop Time Status Last Admin Dose Admin Sodium Chloride (NS Flush) 2 ml UNSCH PRN IV FLUSH FLUSH AFTER USING IV ACCESS 02/13/17 22:15 02/16/17 12:33 Sodium Chloride (NS Flush) 2 ml BID IV FLUSH 02/14/17 09:00 02/24/17 07:50 Ondansetron HCl (Zofran Inj) 4 mg Q6H PRN IVP NAUSEA OR VOMITING 02/13/17 22:15 02/18/17 23:52 Senna/Docusate Sodium (Marilyn-Colace) 1 tab BID PO 02/14/17 09:00 02/24/17 07:50 Sennosides (Senokot) 17.2 mg Q12H PRN PO MODERATE - SEVERE CONSTIPATION 02/13/17 22:15 02/23/17 21:00 Levetriacetam (Keppra) 500 mg Q12HR PO 02/14/17 09:00 02/24/17 07:50 Montelukast Sodium (Singulair) 10 mg DAILY PO 02/14/17 09:00 02/24/17 07:49 Atorvastatin Calcium (Lipitor) 20 mg DAILY PO CM 02/14/17 09:00 02/24/17 07:49 Levothyroxine Sodium (Synthroid) 125 mcg DAILY@06 PO 02/15/17 06:00 02/24/17 05:53 Baclofen (Lioresal) 10 mg Q8HR PO 02/16/17 22:00 02/24/17 13:14 Meclizine HCl (Antivert) 25 mg Q8HR PO 02/17/17 14:00 02/24/17 13:14 Oxycodone HCl (Roxicodone) 5 mg Q4H PRN PO pain scale 3-7 02/17/17 15:30 02/23/17 21:00 Oxycodone HCl (Roxicodone) 10 mg Q4H PRN PO pain scale 8-10 02/17/17 15:30 02/24/17 13:23 Hydromorphone HCl (Dilaudid Pf Inj) 0.5 mg Q4H PRN IV PUSH breakthrough pain 02/18/17 16:15 02/19/17 01:15 Propranolol HCl (Inderal) 20 mg TID PO 02/18/17 18:00 02/24/17 13:14 Folic Acid (Folate) 1 mg DAILY PO 02/18/17 16:30 02/24/17 07:50 Lisinopril (Prinivil) 20 mg DAILY PO 02/19/17 09:00 02/24/17 07:50 Hydrochlorothiazide (Hydrodiuril) 25 mg DAILY PO 02/19/17 09:00 02/24/17 07:50 Phenytoin (Dilantin) 200 mg DAILY@0600 PO 02/21/17 06:00 02/24/17 05:53 Phenytoin (Dilantin) 300 mg HS PO 02/20/17 21:00 02/23/17 21:01 Alprazolam (Xanax) 0.5 mg TID PO 02/21/17 13:00 02/24/17 13:14 Objective Remarks GENERAL: Well-nourished, well-developed patient, resting in bed SKIN: Warm and dry. HEAD: Normocephalic. CARDIOVASCULAR: Regular rate and rhythm without murmurs. RESPIRATORY: Breath sounds equal bilaterally. No accessory muscle use. GASTROINTESTINAL: Abdomen soft, non-tender, nondistended. EXTREMITIES: No edema. NEUROLOGICAL: No obvious focal deficit. Assessment/Plan Assessment 1. Mediastinal lung mass: Uncertain of etiology. S/p biopsy which was unrevealing. She was evaluated by CT surgery with plan to follow up as outpatient. 2. Anemia with vitamin B12 and folate deficiency: s/p vitmain B12 [address] on oral vitamin B12 1000 mcg/day. On folate 1 mg Qdaily. Will follow up stool for occult blood, MMA, homocysteine. 3. Left kidney lesion: do not meet criteria for simple cyst. Ordered renal ultrasound for further evaluation. 4. Gallbladder lesion: sludge vs polyp. Will need GI input. Suzanne Nation MD Feb 24, 2017 15:52
--- NOTE | 2017-02-24 17:30 | RADRPT ---
EXAM DATE/TIME: 02/24/2017 15:59 [facility] COMPARISON: US ABDOMEN - GALLBLADDER, February 19, 2017, 10:11. CT ABDOMEN & PELVIS W CONTRAST, February 14, 2017, 1 5:13. INDICATIONS : Flank pain. Abnormal CT. MEDICAL HISTORY : Hypercholesterolemia. Hypertension. Hypothyroidism. Seizures. Anxiety. Graves disease. SURGICAL HISTORY : None. ENCOUNTER: Subsequent ACUITY: 1 day PAIN SCORE: 7/10 LOCATION: Bilateral flank MEASUREMENTS: RIGHT KIDNEY: 9.8 x 5.0 x 4.2 cm LEFT KIDNEY: 10.4 x 4.4 x 5.1 cm FINDINGS: RIGHT KIDNEY: Renal cortex is normal in thickness and echotexture. No hydronephrosis, stone, or mass. LEFT KIDNEY: Renal cortex is normal in thickness and echotexture. No hydronephrosis or stone. At the upper pole t here is a hypoechoic anechoic lesion measuring up to 18 mm. The other lesion at the left upper pole i dentified on recent CT is not visualized.. BLADDER: Decompressed and not adequately evaluated. CONCLUSION: 1. Nonspecific 18 mm lesion at the upper pole the left kidney. Based on the appearance, I cannot dete rmine with confidence that this represents a cyst or solid mass given the location of the lesion and depth. 2. The second lesion at the left upper pole kidney identified on prior CT is not appreciated with ult rasound. On an elective basis these could be further evaluated with renal protocol MRI with and witho ut intravenous contrast. Akira Hernandez MD on February 24, 2017 at 17:24 Board Certified Radiologist. This report was verified electronically.
[2017-02-24 20:37] LABS: AUTOMATED NEUTROPHIL # 6.5 TH/MM3 (1.8-7.7); BASOPHIL # 0.1 TH/MM3 (0-0.2); BASOPHIL % 0.6 % (0.0-2.0); EOSINOPHIL # 0.2 TH/MM3 (0-0.4); EOSINOPHIL % 2.3 % (0.0-4.0); HEMATOCRIT 32.7 % (35.0-46.0); HEMO FLAGS DIFF FINAL; LYMPH % 14.9 % (9.0-44.0); LYMPHOCYTE # 1.2 TH/MM3 (1.0-4.8); MEAN CELL VOLUME 92.1 FL (80.0-100.0); MEAN CORPUSCULAR HGB CONC 35.8 % (32.0-36.0); MONO % 4.1 % (0.0-8.0); NEUT % 78.1 % (16.0-70.0); PLATELET COUNT 301 TH/MM3 (150-450); RED BLOOD COUNT 3.55 MIL/MM3 (4.00-5.30); RED CELL DISTRIBUTION WIDTH 15.2 % (11.6-17.2); WHITE BLOOD COUNT 8.3 TH/MM3 (4.0-11.0)
[2017-02-24 20:50] LABS: ANION GAP 8 MEQ/L (5-15); AST (GOT) 32 U/L (15-37); BICARBONATE 26.3 MEQ/L (21.0-32.0); BLOOD UREA NITROGEN 19 MG/DL (7-18); CHLORIDE 100 MEQ/L (98-107); GLOMERULAR FILTRATION RATE 60 ML/MIN (>89); MAGNESIUM 1.7 MG/DL (1.5-2.5); POTASSIUM 3.4 MEQ/L (3.5-5.1); SODIUM (NA) 134 MEQ/L (136-145)
[2017-02-24 20:51] LABS: ALT (GPT) 32 U/L (10-53)
[2017-02-24 20:53] LABS: ALKALINE PHOSPHATASE 180 U/L (45-117); TOTAL BILIRUBIN ADULT 0.5 MG/DL (0.2-1.0)
[2017-02-25] MEDS: BACLOFEN 10 MG TAB PO SCH ×3 (06:25→21:15)
[2017-02-25] MEDS: LEVOTHYROXINE SODIUM 125 MCG TAB PO SCH (06:25)
[2017-02-25] MEDS: MECLIZINE HCL 25 MG TAB PO SCH ×3 (06:25→21:15)
[2017-02-25] MEDS: PHENYTOIN SODIUM 100 MG CAP PO SCH ×2 (06:25→20:47)
[2017-02-25 08:00] VITALS: BP 94/64; PULSE 51; RESP 18; TEMP 96.6; O2SAT 98
[2017-02-25] MEDS: HYDROCHLOROTHIAZIDE 25 MG TAB PO SCH (08:45)
[2017-02-25] MEDS: LISINOPRIL 20 MG TAB PO SCH (08:45)
[2017-02-25] MEDS: DOCUSATE SODIUM 50 MG/SENNA 8.6 MG TAB PO SCH ×2 (08:45→20:47)
[2017-02-25] MEDS: CYANOCOBALAMIN 1,000 MCG TAB PO SCH (08:46)
[2017-02-25] MEDS: MONTELUKAST SODIUM 10 MG TAB PO SCH (08:46)
[2017-02-25] MEDS: ATORVASTATIN 20 MG TAB PO SCH (08:46)
[2017-02-25] MEDS: PROPRANOLOL HCL 20 MG TAB PO SCH ×3 (08:46→18:54)
[2017-02-25] MEDS: FOLIC ACID 1 MG TAB PO SCH (08:46)
[2017-02-25] MEDS: levETIRAcetam 500 MG TAB PO SCH ×2 (08:46→20:47)
[2017-02-25] MEDS: ALPRAZolam 0.5 MG TAB PO SCH ×3 (08:46→18:54)
[2017-02-25] MEDS: SODIUM CHLORIDE 0.9% FLUSH 10 ML FLUSH IV FLUSH SCH ×2 (09:00→20:47)
[2017-02-25 12:00] VITALS: BP 89/60; PULSE 53; RESP 18; TEMP 96.7; O2SAT 97
--- NOTE | 2017-02-25 12:34 | HHI.PR ---
Subjective Remarks Follow-up for placement Patient stated that she is making an appeal Medicare. She stated that her dizziness has improved. She feels better. Patient stated that she does not have anywhere from quadrant pain anymore. She stated that it was more for chest pain when that happened. She denies any nausea or vomiting. Dealt with patient's nurse. Objective Vitals Vital Signs Date Time Temp Pulse Resp B/P Pulse Ox O2 Delivery O2 Flow Rate FiO2 02/25/17 08:00 96.6 51 18 94/64 98 02/24/17 23:08 99.3 64 18 139/72 95 02/24/17 19:24 99.1 57 18 116/60 93 02/24/17 16:00 97.5 57 16 108/60 95 I/O 02/24/17 02/24/17 02/24/17 02/25/17 02/25/17 02/25/17 07:00 15:00 23:00 07:00 15:00 23:00 Intake Total 240 ml 480 ml 480 ml Balance 240 ml 480 ml 480 ml Intake Oral 240 ml 480 ml 480 ml # Voids 2 2 3 2 # Bowel Movements 1 2 0 Result Diagram: 02/24/17194302/24/171948 Objective Remarks GENERAL: in NAD. Patient was standing by the bedside but no difficulty in walking to her bed. This was observed by me. NECK: Supple, trachea midline. No JVD or lymphadenopathy. CARDIOVASCULAR: Regular rate and rhythm without murmurs, gallops, or rubs. RESPIRATORY: Breath sounds equal bilaterally. No accessory muscle use. GASTROINTESTINAL: Abdomen soft, non-tender, nondistended. MUSCULOSKELETAL: No cyanosis, or edema. BACK: Nontender without obvious deformity. No CVA tenderness. Procedures CT guided mediastinal mass biopsy Medications and IVs Current Medications Sodium Chloride 2 ml 2 ml UNSCH PRN IVF FLUSH AFTER USING IV ACCESS; Start 02/13 at 15:45; Stop 02/13/17 at 22:36; Status DC Sodium Chloride 1,000 ml @ 1,000 mls/hr Q1H ONCE IV Last administered on t 16:17; Start 02/13/17 at 15:37; Stop 02/13/17 at 16:36; Status DC Sodium Chloride (NS 1000 ml Inj) 1,000 ml @ 999 mls/hr BOLUS ONCE IV Last administered on 02/13/17 15:45; Start 02/13/17 at 15:45; Stop 02/13/17 at 16:45; Status DC Ondansetron HCl (Zofran Inj) 4 mg ONCE ONCE IV PUSH Last administered on 16:17; Start 02/13/17 at 16:00; Stop 02/13/17 at 16:01; Status DC Meclizine HCl 25 mg 25 mg ONCE ONCE PO Last administered on 02/13/17 19:39; Start 02/13/17 at 19:15; Stop 02/13/17 at 19:16; Status DC Sodium Chloride 1,000 ml @ 999 mls/hr BOLUS ONCE IV Last administered on 22:01; Start 02/13/17 at 22:00; Stop 02/13/17 at 23:00; Status DC Sodium Chloride (NS 1000 ml Inj) 1,000 ml @ 100 mls/hr Q10H IV Last administered on 02/15/17 06:38; Start 02/13/17 at 22:10; Stop 02/17/17 at 15:30; Status DC Sodium Chloride (NS Flush) 2 ml UNSCH PRN IV FLUSH FLUSH AFTER USING IV ACCESS Last administered on 02/16/17 12:33; Start 02/13/17 at 22:15 Sodium Chloride (NS Flush) 2 ml BID IV FLUSH Last administered on 02/25/17 09: 00; Start 02/14/17 at 09:00 Ondansetron HCl (Zofran Inj) 4 mg Q6H PRN IVP NAUSEA OR VOMITING Last administered on 02/18/17 23:52; Start 02/13/17 at 22:15 Acetaminophen (Tylenol) 650 mg Q6H PRN PO FEVER/PAIN 1-2; Start 02/13/17 at 22: 15 Acetaminophen/ Hydrocodone Bitart ([place] 5-325 Mg) 1 tab Q4H PRN PO PAIN SCALE 3 TO 5 Last administered on 02/15/17 09:38; Start 02/13/17 at 22:15; Stop 02/16/17 at 14:18; Status DC Acetaminophen/ Hydrocodone Bitart ([place] 10-325 Mg) 1 tab Q4H PRN PO PAIN SCALE 6 TO 10 Last administered on 02/16/17 11:03; Start 02/13/17 at 22:15; Stop 02/16/17 at 14:18; Status DC Senna/Docusate Sodium (Marilyn-Colace) 1 tab BID PO Last administered on 08:45; Start 02/14/17 at 09:00 Magnesium Hydroxide (Milk Of Magnesia Liq) 30 ml Q12H PRN PO MILD - MODERATE CONSTIPATION; Start 02/13/17 at 22:15 Sennosides (Senokot) 17.2 mg Q12H PRN PO MODERATE - SEVERE CONSTIPATION Last administered on 02/23/17 21:00; Start 02/13/17 at 22:15 Bisacodyl (Dulcolax Supp) 10 mg DAILY PRN RECTAL SEVERE CONSITIPATION; Start at 22:15 Lactulose (Lactulose Liq) 30 ml DAILY PRN PO SEVERE CONSITIPATION; Start at 22:15 Alprazolam (Xanax) 0.5 mg BID PO Last administered on 02/16/17 09:29; Start 02/14/17 at 09:00; Stop 02/16/17 at 14:18; Status DC Levetriacetam (Keppra) 500 mg Q12HR PO Last administered on 02/25/17 08:46; Start 02/14/17 at 09:00 Montelukast Sodium (Singulair) 10 mg DAILY PO Last administered on 02/25/17 08 :46; Start 02/14/17 at 09:00 Atorvastatin Calcium (Lipitor) 20 mg DAILY PO CM Last administered on 02/25/17 08:46; Start 02/14/17 at 09:00 Promethazine HCl (Phenergan Supp) 25 mg Q6H PRN RECTAL NAUSEA OR VOMITING; Start 02/14/17 at 08:30 Diatrizoate Meglum/ Diatrizoate Sod (Md Gastroview Liq) 18 ml ONCE ONCE PO Last administered on 02/14/17 10:35; Start 02/14/17 at 10:00; Stop 02/14/17 at 10: 01; Status DC Levothyroxine Sodium (Synthroid) 125 mcg DAILY@06 PO Last administered on 06:25; Start 02/15/17 at 06:00 Potassium Chloride (KCl Powder) 40 meq ONCE ONCE PO Last administered on 11:38; Start 02/14/17 at 10:30; Stop 02/14/17 at 10:43; Status DC Lorazepam (Ativan Inj) 0.5 mg ONCE ONCE IV PUSH Last administered on 02/16/17 00:00; Start 02/15/17 at 21:15; Stop 02/15/17 at 21:16; Status DC Hydromorphone HCl (Dilaudid Pf Inj) 0.5 mg ONCE ONCE IV PUSH Last administered on 02/15/17 23:29; Start 02/15/17 at 23:00; Stop 02/15/17 at 23:01; Status DC Alprazolam (Xanax) 0.5 mg TID PO Last administered on 02/17/17 15:06; Start 02/16/17 at 18:00; Stop 02/17/17 at 15:27; Status DC Oxycodone/ Acetaminophen (Percocet 5-325 Mg) 1 tab Q6H PRN PO PAIN 3-5; Start 02/16/17 at 14:15; Stop 02/17/17 at 15:30; Status DC Oxycodone/ Acetaminophen (Percocet 7.5-325 Mg) 1 tab Q6H PRN PO Pain 6-7 Last administered on 02/17/17 14:44; Start 02/16/17 at 14:15; Stop 02/17/17 at 15:30; Status DC Oxycodone/ Acetaminophen (Percocet 10-325 Mg) 1 tab Q6H PRN PO pain 8-10 Last administered on 02/17/17 06:23; Start 02/16/17 at 14:15; Stop 02/17/17 at 15:30; Status DC Potassium Chloride (KCl) 40 meq ONCE ONCE PO Last administered on 02/16/17 15: 39; Start 02/16/17 at 14:15; Stop 02/16/17 at 14:22; Status DC Baclofen (Lioresal) 10 mg Q8HR PO Last administered on 02/25/17 06:25; Start 02/16/17 at 22:00 Iohexol (Omnipaque 350 Inj) 100 ml STK-MED ONCE IV Last administered on 15:13; Start 02/14/17 at 15:13; Stop 02/17/17 at 04:05; Status DC Meclizine HCl (Antivert) 25 mg Q8HR PO Last administered on 02/25/17 06:25; Start 02/17/17 at 14:00 Lidocaine/ Epinephrine (Xylocaine-Epi 1%-1:100,000 Inj) 20 ml STK-MED ONCE .ROUTE Last administered on 02/17/17 12:56; Start 02/17/17 at 12:56; Stop at 12:57; Status DC Fentanyl Citrate (fentaNYL INJ) 250 mcg STK-MED ONCE .ROUTE Last administered on 02/17/17 13:27; Start 02/17/17 at 13:27; Stop 02/17/17 at 13:28; Status DC Midazolam HCl (Versed Inj) 4 mg STK-MED ONCE .ROUTE Last administered on 13:27; Start 02/17/17 at 13:27; Stop 02/17/17 at 13:28; Status DC Alprazolam (Xanax) 1 mg TID PO Last administered on 02/21/17 08:09; Start 02/17 at 18:00; Stop 02/21/17 at 12:23; Status DC Lorazepam (Ativan Inj) 1 mg ONCE ONCE IV PUSH Last administered on 02/17/17 17 :44; Start 02/17/17 at 15:30; Stop 02/17/17 at 15:31; Status DC Hydromorphone HCl (Dilaudid Pf Inj) 0.5 mg ONCE ONCE IV PUSH Last administered on 02/17/17 16:15; Start 02/17/17 at 15:30; Stop 02/17/17 at 15:31; Status DC Oxycodone HCl (Roxicodone) 5 mg Q4H PRN PO pain scale 3-7 Last administered on 02/23/17 21:00; Start 02/17/17 at 15:30 Oxycodone HCl (Roxicodone) 10 mg Q4H PRN PO pain scale 8-10 Last administered on 02/25/17 10:27; Start 02/17/17 at 15:30 Phenytoin (Dilantin) 200 mg BID PO Last administered on 02/20/17 07:48; Start 02/17/17 at 21:00; Stop 02/20/17 at 08:54; Status DC Gadodiamide (Omniscan Pf Inj) 18 ml STK-MED ONCE IV Last administered on 18:40; Start 02/17/17 at 18:40; Stop 02/17/17 at 18:41; Status DC Alprazolam 1 mg 1 mg ONCE ONCE PO Last administered on 02/17/17 22:09; Start 02/17/17 at 21:45; Stop 02/17/17 at 21:46; Status DC Lactated Ringer's 1,000 ml @ 30 mls/hr Q24H PRN IV SEE LABEL COMMENTS; Start at 22:30; Stop 02/20/17 at 22:29; Status DC Sodium Chloride (NS 500 ml Inj) 500 ml @ 30 mls/hr [id number] PRN IV SEE LABEL COMMENTS; Start 02/17/17 at 22:30; Stop 02/20/17 at 22:29; Status DC Metoprolol Tartrate (Lopressor) 25 mg BROKERAGE MANAGER PRN PO SEE LABEL COMMENTS; Start 02/17/17 at 22:30; Stop 02/20/17 at 22:29; Status DC Povidone Iodine (Betadine 5% Antisepsis Kit) 1 applic BROKERAGE MANAGER PRN EACH NARE SEE LABEL COMMENTS; Start 02/17/17 at 22:30; Stop 02/20/17 at 22:29; Status DC Chlorhexidine Gluconate (Chlorhexidine 2% Cloth) 3 pack BROKERAGE MANAGER PRN TOPICAL SEE LABEL COMMENTS; Start 02/17/17 at 22:30; Stop 02/20/17 at 22:29; Status DC Insulin Human Regular (NovoLIN R INJ) See Protocol Table ... BROKERAGE MANAGER PRN SQ SEE PROTOCOL TABLE; Start 02/17/17 at 22:30; Stop 02/20/17 at 22:29; Status DC Lidocaine/ Epinephrine (Xylocaine-Epi 1%-1:100,000 Inj) 20 ml STK-MED ONCE .ROUTE ; Start 02/18/17 at 13:40; Stop 02/18/17 at 13:41; Status DC Fentanyl Citrate (fentaNYL INJ) 250 mcg STK-MED ONCE .ROUTE ; Start 02/18/17 at 13:44; Stop 02/18/17 at 13:45; Status DC Lorazepam (Ativan Inj) 2 mg STK-MED ONCE .ROUTE ; Start 02/18/17 at 15:31; Stop 02/18/17 at 15:32; Status DC Miscellaneous Information ALL NURSING DEPARTME... UNSCH PRN .XX SEE LABEL COMMENTS; Start 02/18/17 at 15:15; Stop 02/19/17 at 15:14; Status DC Morphine Sulfate (*morphine INJ PERIprocedure ONLY) 8 mg STK-MED ONCE .ROUTE Last administered on 02/18/17 15:40; Start 02/18/17 at 15:40; Stop 02/18/17 at 15: 41; Status DC Lorazepam (Ativan Inj) 1 mg ONCE ONCE IV PUSH Last administered on 02/18/17 15 :31; Start 02/18/17 at 16:00; Stop 02/18/17 at 16:01; Status DC Hydromorphone HCl (Dilaudid Pf Inj) 0.5 mg Q4H PRN IV PUSH breakthrough pain Last administered on 02/19/17 01:15; Start 02/18/17 at 16:15 Propranolol HCl (Inderal) 20 mg TID PO Last administered on 02/25/17 08:46; Start 02/18/17 at 18:00 Non-Formulary Medication 1 tab DAILY PO BPM; Start 02/19/17 at 09:00; Status UNV Cyanocobalamin (Vitamin B12 Inj) 1,000 mcg ONCE ONCE IM Last administered on 17:54; Start 02/18/17 at 17:00; Stop 02/18/17 at 17:01; Status DC Folic Acid (Folate) 1 mg DAILY PO Last administered on 02/25/17 08:46; Start 02/18/17 at 16:30 Lisinopril (Prinivil) 20 mg DAILY PO Last administered on 02/25/17 08:45; Start 02/19/17 at 09:00 Hydrochlorothiazide (Hydrodiuril) 25 mg DAILY PO Last administered on 08:45; Start 02/19/17 at 09:00 Lorazepam (Ativan Inj) 1 mg Q6H PRN IV PUSH Panic attack Last administered on 15:00; Start 02/19/17 at 12:00; Stop 02/21/17 at 09:05; Status DC Polyethylene Glycol (Miralax) 17 gm ONCE ONCE PO ; Start 02/20/17 at 08:30; Stop 02/20/17 at 08:31; Status DC Phenytoin (Dilantin) 200 mg DAILY@0600 PO Last administered on 02/25/17 06:25 ; Start 02/21/17 at 06:00 Phenytoin (Dilantin) 300 mg ONCE ONCE PO Last administered on 02/20/17 15:22 ; Start 02/20/17 at 09:00; Stop 02/20/17 at 09:05; Status DC Phenytoin (Dilantin) 300 mg HS PO Last administered on 02/24/17 22:29; Start 02/20/17 at 21:00 Alprazolam (Xanax) 0.5 mg TID PO Last administered on 02/25/17 08:46; Start at 13:00 Phenytoin (Dilantin) 300 mg ONCE ONCE PO Last administered on 02/21/17 21:36 ; Start 02/21/17 at 18:15; Stop 02/21/17 at 18:22; Status DC Furosemide (Lasix) 40 mg ONCE ONCE PO ; Start 02/22/17 at 19:15; Stop 02/22/17 at 19:15; Status DC Lisinopril (Prinivil) 20 mg ONCE ONCE PO Last administered on 02/22/17 23:41 ; Start 02/22/17 at 23:30; Stop 02/22/17 at 23:34; Status DC Hydrochlorothiazide (Hydrodiuril) 25 mg ONCE ONCE PO Last administered on 02/22 23:42; Start 02/22/17 at 23:30; Stop 02/22/17 at 23:34; Status DC Haloperidol Lactate (Haldol Inj) 5 mg ONCE ONCE IM Last administered on 11:20; Start 02/23/17 at 11:00; Stop 02/23/17 at 11:13; Status DC Haloperidol Lactate (Haldol Inj) 2 mg Q4H PRN IM AGITATION AND/OR HALLUCINATION ; Start 02/23/17 at 11:00 Lorazepam (Ativan Inj) 1 mg Q15M PRN IV PUSH SEVERE ANXIETY OR AGITATION; Start 02/23/17 at 12:45 Cyanocobalamin (Vitamin B12) 1,000 mcg DAILY PO Last administered on 02/25/17t 08:46; Start 02/25/17 at 09:00 A/P Problem List: (1) Dizziness ICD Code: R42 Status: Acute (2) Dilantin toxicity ICD Code: T42.0X1A Status: Acute (3) Renal insufficiency ICD Code: N28.9 Status: Resolved (4) Seizure disorder ICD Code: G40.909 Status: Chronic (5) Tobacco abuse ICD Code: Z72.0 Status: Chronic (6) Anxiety disorder, unspecified ICD Code: F41.9 Status: Acute (7) Mediastinal mass ICD Code: J98.59 Status: Acute (8) Personality disorder ICD Code: F60.9 Status: Acute Assessment and Plan 61-year-old female with a PMH of Seizure Disorder, HTN, Hyperlipidemia and Tobacco Abuse who presented for dizziness and multiple falls. Found to have Dilantin toxicity on admission, since that time Dilantin has been discontinued. Patient remains on Keppra. Dizziness: Unclear etiology, initially thought to be secondary to Dilantin toxicity, dehydration, and hypotension, however, all of these have resolved and patient continues to complain of dizziness/room spinning. Possible BPPV, no nystagmus on exam. TSH wnl. Head CT with no acute findings. Orthostatics negative. Neurology consult appreciated. Brain MRI normal. -Continue Dilantin and BP meds. Dilantin levels rechecked within normal limits. -Continue Meclizine -Antiemetics prn -PT. PT recommended rehabilitation. Falls: Secondary to dizziness. CT C-Spine/Maxillofacial w/ no acute findings. -PT recommended rehabilitation. Dilantin Toxicity: Dilantin 39 on admission. -On Dilantin 400mg po bid at home, changed to 200 mg daily, 300 mg HS per neurology. - Dilantin level repeated today within normal limits. Chest pain Acute, left sided 02/20. Resolved. EKG without acute ischemic changes. - CXR, EKG, trend trops x 3. Abdominal pain: Resolved. -CT of abdomen and pelvis showed mediastinal mass, see below. Also CBD mass and dilatation noted. GB US: Abnormal GB appearance but no acute abnormality. -antiemetics and pain control prn -Will consult GI due to common bile duct mass and dilatation. -ADAT Mediastinal mass: unclear etiology -IR consulted for biopsy of mass, biopsy under anesthesia performed 02/18. Pathology results suggest vascular component but otherwise unable to characterize the mass. 02/22 oncology consultation appreciated - recommended vascular surgery consult who states patient is not a candidate for biopsy at this point. Fu as outpatient. Seizure Disorder: No reported seizure activity. -Continue Keppra 500mg bid and Dilantin 200 mg BID. -Appreciate neurology recommendations. -seizure precautions Normocytic Anemia: Hgb 8.9, no reported active bleeding. B12 and folate levels low. -B12 injection x 1. -on PO folate daily. -Monitor CBC Anxiety: acute on chronic Patient complains of multiple panic attacks and uncontrolled anxiety on a regular basis. She cites family problems as triggers. Psych consult appreciated. -continue patient's Xanax 1mg tid (verified on [facility]). Wean to 0.5 TID . 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 Acute on Chronic Pain: patient sees Dr. Wong as outpatient, per [facility], patient fills Soma 350mg tid, Xanax 1mg tid, and Montez[place] 10/325mg q6h. 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 Follow up with neuro. -Patient has dependency on control substance. Management as outpatient. 02/23 Acute Delirium/agitation -No signs of agitation. This seems to be more due to patient acting out. 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 DVT Prophylaxis: SCD/teds. Discharge Planning Will need to cancel discharged so that patient can be evaluated by GI due to possible common bile duct mass. She may need an ERCP. Katheryn Ordoñez MD Feb 25, 2017 12:34
[2017-02-25 16:00] VITALS: BP 106/69; PULSE 50; RESP 18; TEMP 98.3; O2SAT 99
--- NOTE | 2017-02-25 16:22 | PD.CONS ---
HPI History of Present Illness This is a 61 year old with hx HTN, hyperlipidemia, new onset seizure disorder who presented wit c/o dizziness, falls. She had a seizure at home and "became combative." GI has been consulted for abd pain which pt denies, and common bile duct mass found on imaging. She does c/o of right side chest pain, under her breast, she cannot tell me when exactly this was but says it only lasted briefly and has since resolved. She admits an episode of n/v 4 d ago but none since. Denies blood in emesis, blood in stool, blood in urine. She denies hx gallbladder problem, liver problems. never had colonoscopy or EGD. Admits chronic diarrhea since having problems with her thyroid. A CT scan showed a 4mm structure in her CBD with enlargement of her CBD and left intrahepatic bile duct, stone vs mass, and right mediastinal mass. US showed abnormal gall bladder appearance. (Geeta Ruth) PFSH Past Medical History PMH: Seizure Disorder, HTN, Hyperlipidemia and Tobacco Abuse Past Surgical History PAST SURGICAL HISTORY: None (Geeta Ruth) Coded Allergies: penicillin G (Unverified Allergy, Severe, 02/25/17) Uncoded Allergies: NSAIDS (Allergy, Severe, 04/22/09) Family History PAST FAMILY HISTORY: Reviewed. No h/o DM or CAD Social History PAST SOCIAL HISTORY: Negative for alcohol or drugs. she tells me she quit cigarettes 6m ago but per EMR smokes 1ppd. (Geeta Rtuh) Review of Systems Gastrointestinal: COMPLAINS OF: Diarrhea, DENIES: Abdominal pain, Black stools , Bloody stools, Constipation Genitourinary: DENIES: Hematuria Psychiatric: COMPLAINS OF: Anxiety (Geeta Ruth) GI Exam Vitals I&O Vital Signs Date Time Temp Pulse Resp B/P Pulse Ox O2 Delivery O2 Flow Rate FiO2 02/25/17 12:00 96.7 53 18 89/60 97 02/25/17 08:00 96.6 51 18 94/64 98 02/24/17 23:08 99.3 64 18 139/72 95 02/24/17 19:24 99.1 57 18 116/60 93 I/O 02/24/17 02/24/17 02/24/17 02/25/17 02/25/17 8/15/17 07:00 15:00 23:00 07:00 15:00 23:00 Intake Total 240 ml 480 ml 480 ml Balance 240 ml 480 ml 480 ml Intake Oral 240 ml 480 ml 480 ml # Voids 2 2 3 2 # Bowel Movements 1 2 0 Imaging Last Impressions Renal Ultrasound 02/24/17 0000 Signed Impressions: Service Date/Time: Friday, February 24, 2017 15:59 - CONCLUSION: 1. Nonspecific 18 mm lesion at the upper pole the left kidney. Based on the appearance, I cannot determine with confidence that this represents a cyst or solid mass given the location of the lesion and depth. 2. The second lesion at the left upper pole kidney identified on prior CT is not appreciated with ultrasound. On an elective basis these could be further evaluated with renal protocol MRI with and without intravenous contrast. Akira Hernandez MD Chest X-Ray 02/21/17 0000 Signed Impressions: Service Date/Time: Tuesday, February 21, 2017 13:19 - CONCLUSION: No acute disease. Akira Morris MD Gall Bladder Ultrasound 02/19/17 0000 Signed Impressions: Service Date/Time: Sunday, February 19, 2017 10:11 - CONCLUSION: Abnormal gallbladder appearance. No common duct filling defect is identified. Akira Morris MD Lung Biopsy CT 02/18/17 1009 Signed Impressions: Service Date/Time: Saturday, February 18, 2017 14:14 - CONCLUSION: Uncomplicated CT guided biopsy. Titus Brunner MD Lumbar Spine MRI 02/17/17 0000 Signed Impressions: Service Date/Time: Friday, February 17, 2017 18:00 - CONCLUSION: 1. Mild syrinx and conus medullaris with central canal measuring just over 1 mm in diameter. 2. At L5-S1 there is a broad-based central to right paracentral disc protrusion with extruded disc material extending cephalad above the disc interspace, slightly more the right side with encroachment of the lateral recesses bilaterally as above. 3. Mild degenerative changes in the remainder of the lumbar spine without significant central canal stenosis Delfino Stapleton MD Chest CT 02/17/17 0000 Signed Impressions: Service Date/Time: Friday, February 17, 2017 13:32 - CONCLUSION: Unsuccessful attempt at biopsy. Rescheduled in the AM with anesthesia. Fawad Murguia MD FACR Brain MRI 02/17/17 0000 Signed Impressions: Service Date/Time: Friday, February 17, 2017 18:00 - CONCLUSION: Normal examination. Keegan Weaver MD Abdomen/Pelvis CT 02/14/17 0000 Signed Impressions: Service Date/Time: Tuesday, February 14, 2017 15:13 - CONCLUSION: 1. There is a 4 mm round hyperdense structure in the distal common bile duct with associated enlargement of the common bile duct and left intrahepatic bile ducts. The small density could represent a stone or small mass. 2. 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 Etiology is uncertain. Neurogenic tumor is a consideration but there is no connection with the spinal canal. Complex duplication cyst/lesion of the esophagus is another consideration. Suggest correlating with any prior imaging studies to assess for chronicity of this finding. This lesion would be amenable to image guided percutaneous biopsy, if needed. 3. There are 2 hyperdense lesions in the left kidney measuring up to 1.8 cm. The sternotomy criteria for simple cysts. Again , suggest correlating with prior imaging studies that could offer additional characterization. If none are available suggest elective further evaluation with either ultrasound or renal protocol CT or MRI. 4. Nonacute findings include mild splenomegaly, moderate atherosclerotic disease, and sigmoid diverticulosis. Akira Hernandez MD Head CT 02/13/17 1537 Signed Impressions: Service Date/Time: February 16:27 - CONCLUSION: Normal examination. No significant change has occurred. Delfino Stapleton MD Cervical Spine CT 02/13/17 1537 Signed Impressions: Service Date/Time: February 16:27 - CONCLUSION: 1. No acute findings. Multilevel degenerative disc disease and facet arthropathy. Delfino Stapleton MD Maxillofacial CT 02/13/17 0000 Signed Impressions: Service Date/Time: February 16:27 - CONCLUSION: 1. No acute findings. Delfino Stapleton MD Laboratory Test 02/24/17 02/24/17 19:44 19:49 White Blood Count 8.3 TH/MM3 Red Blood Count 3.55 MIL/MM3 Hemoglobin 11.7 GM/DL Hematocrit 32.7 % Mean Corpuscular Volume 92.1 FL Mean Corpuscular Hemoglobin 33.0 PG Mean Corpuscular Hemoglobin 35.8 % Concent Red Cell Distribution Width 15.2 % Platelet Count 301 TH/MM3 Mean Platelet Volume 7.5 FL Neutrophils (%) (Auto) 78.1 % Lymphocytes (%) (Auto) 14.9 % Monocytes (%) (Auto) 4.1 % Eosinophils (%) (Auto) 2.3 % Basophils (%) (Auto) 0.6 % Neutrophils # (Auto) 6.5 TH/MM3 Lymphocytes # (Auto) 1.2 TH/MM3 Monocytes # (Auto) 0.3 TH/MM3 Eosinophils # (Auto) 0.2 TH/MM3 Basophils # (Auto) 0.1 TH/MM3 CBC Comment DIFF FINAL Differential Comment Sodium Level 134 MEQ/L Potassium Level 3.4 MEQ/L Chloride Level 100 MEQ/L Carbon Dioxide Level 26.3 MEQ/L Anion Gap 8 MEQ/L Blood Urea Nitrogen 19 MG/DL Creatinine 0.95 MG/DL Estimat Glomerular Filtration 60 ML/MIN Rate Random Glucose 121 MG/DL Calcium Level 10.0 MG/DL Phosphorus Level 2.8 MG/DL Magnesium Level 1.7 MG/DL Total Bilirubin 0.5 MG/DL Aspartate Amino Transf 32 U/L (AST/SGOT) Alanine Aminotransferase 32 U/L (ALT/SGPT) Alkaline Phosphatase 180 U/L Total Protein 7.3 GM/DL Albumin 3.6 GM/DL Physical Examination HEENT: PERRL; normocephalic; bruising under both eyes; no jaundice. CHEST: CTA CARDIAC: RRR ABDOMEN: Soft, nondistended, nontender; no hepatosplenomegaly; bowel sounds are present in all four quadrants. EXTREMITIES: No clubbing, cyanosis, or edema. SKIN: Normal; no rash; no jaundice. HAND SIGN WRITER: alert (Geeta Ruth) Assessment and Plan Plan ASSESSMENT - abnormal findings on imaging, isolated ALP elevation- ALP [address] abd - 4mm hyperdense structure CBD with enalrgement CBD, left intrahepatic bile duct, stone vs mass, right mediastinal mass US - abnormal appearance gall bladder. pet denies pain. some nausea. tolerating diet. - mediastinal mass, s/p bx vascular, per primary - dilantin toxicity - per primary PLAN - MRCP - NPO after midnight in case ERCP warranted - monitor labs - supportive care - further recs to follow This pt seen by myself and Dr Ingram and this note is written on his behalf ( Geeta Ruth) Physician Comments Patient seen and examined Agree with above Continue current supportive care Monitor labs Await MRCP if any filling defects then we will proceed with an ERCP (Andrade Ingram MD) Geeta Ruth Feb 25, 2017 16:22 Andrade Ingram MD Feb 25, 2017 18:43
[2017-02-25 20:38] VITALS: BP 122/60; PULSE 70; RESP 18; TEMP 97.1; O2SAT 97
[2017-02-26 00:42] VITALS: BP 110/54; PULSE 79; RESP 17; TEMP 98.9; O2SAT 98
[2017-02-26] MEDS: BACLOFEN 10 MG TAB PO SCH ×3 (05:15→21:51)
[2017-02-26] MEDS: MECLIZINE HCL 25 MG TAB PO SCH ×3 (05:16→21:51)
[2017-02-26] MEDS: LEVOTHYROXINE SODIUM 125 MCG TAB PO SCH (05:16)
[2017-02-26] MEDS: PHENYTOIN SODIUM 100 MG CAP PO SCH ×2 (05:16→21:51)
[2017-02-26 08:00] VITALS: BP 131/90; PULSE 77; RESP 18; TEMP 97.7; O2SAT 96
[2017-02-26] MEDS: ALPRAZolam 0.5 MG TAB PO SCH ×3 (08:37→18:30)
[2017-02-26] MEDS: LISINOPRIL 20 MG TAB PO SCH (08:37)
[2017-02-26] MEDS: MONTELUKAST SODIUM 10 MG TAB PO SCH (08:38)
[2017-02-26] MEDS: CYANOCOBALAMIN 1,000 MCG TAB PO SCH (08:38)
[2017-02-26] MEDS: ATORVASTATIN 20 MG TAB PO SCH (08:38)
[2017-02-26] MEDS: FOLIC ACID 1 MG TAB PO SCH (08:38)
[2017-02-26] MEDS: PROPRANOLOL HCL 20 MG TAB PO SCH ×3 (08:38→18:30)
[2017-02-26] MEDS: SODIUM CHLORIDE 0.9% FLUSH 10 ML FLUSH IV FLUSH SCH ×2 (08:39→21:52)
[2017-02-26] MEDS: levETIRAcetam 500 MG TAB PO SCH ×2 (08:39→21:51)
[2017-02-26] MEDS: DOCUSATE SODIUM 50 MG/SENNA 8.6 MG TAB PO SCH ×2 (08:39→21:51)
[2017-02-26] MEDS: HYDROCHLOROTHIAZIDE 25 MG TAB PO SCH (08:43)
[2017-02-26] MEDS ORDERED: LORazepam 2 MG/ML VIAL IV PUSH ONE (10:30)
[2017-02-26 12:00] VITALS: BP 104/80; PULSE 54; RESP 18; TEMP 96.9; O2SAT 97
--- NOTE | 2017-02-26 12:06 | RADRPT ---
EXAM DATE/TIME: 02/26/2017 11:44 [place] COMPARISON: CT BRAIN W/O CONTRAST, February 13, 2017, 16:27. INDICATIONS : Altered mental status RADIATION DOSE: 56.81 CTDIvol (mGy) MEDICAL HISTORY : Hypertension. SURGICAL HISTORY : None. ENCOUNTER: Initial ACUITY: 1 day PAIN SCALE: 0/10 LOCATION: cranial TECHNIQUE: Multiple contiguous axial images were obtained of the head. Using automated exposure control and adj ustment of the mA and/or kV according to patient size, radiation dose was kept as low as reasonably a chievable to obtain optimal diagnostic quality images. DICOM format image data is available electro nically for review and comparison. FINDINGS: CEREBRUM: The ventricles are normal for age. No evidence of midline shift, mass lesion, hemorrhage or acute in farction. No extra-axial fluid collections are seen. POSTERIOR FOSSA: The cerebellum and brainstem are intact. The 4th ventricle is midline. The cerebellopontine angle i s unremarkable. EXTRACRANIAL: The visualized portion of the orbits is intact. SKULL: The calvaria is intact. No evidence of skull fracture. CONCLUSION: Negative noncontrast CT. Carlton Vigil MD on February 26, 2017 at 12:04 Board Certified Radiologist. This report was verified electronically.
--- NOTE | 2017-02-26 12:31 | HHI.PR ---
Subjective Remarks Follow-up for dizziness Multiple calls were nurse for questionable change in behavior. When I saw the patient she was walking around. At times patient seems to have pressured speech but it changes throughout the interview. Initially she stated that she did not remember where was but the moment that we met yesterday she said over remember you. The charge nurse, sales representative advertising and her nurse at the bedside. Patient follows directions but gives commands to everyone in order for her to follow our directions. She seems to know what she is doing and have a manipulative type behavior. Low suspicion for CVA but a stat CT scan of the head was done. When I told patient that if she did not want the CT scan since she was making it very difficult for the staff to get her on the stretcher, I can cancel it since I do not have any high suspicion this is a CVA, patient was then compliant and went on the stretcher as told. There were no new focal neurological deficits noted. denied headache or visual changes. No nausea or vomiting. Patient refused the MRCP this morning despite recommendations of procedure done so that we can evaluate common bile duct mass further. Dealt with patient's charge nurse and her regular nurse at the bedside. Objective Vitals Vital Signs Date Time Temp Pulse Resp B/P Pulse Ox O2 Delivery O2 Flow Rate FiO2 02/26/17 08:00 97.7 77 18 131/90 96 02/26/17 00:42 98.9 79 17 110/54 98 02/25/17 20:38 97.1 70 18 122/60 97 02/25/17 16:00 98.3 50 18 106/69 99 I/O 02/25/17 02/25/17 02/25/17 02/26/17 02/26/17 02/26/17 07:00 15:00 23:00 07:00 15:00 23:00 Intake Total 480 ml 600 ml 480 ml 0 ml Balance 480 ml 600 ml 480 ml 0 ml Intake Oral 480 ml 600 ml 480 ml 0 ml # Voids 2 3 4 2 # Bowel Movements 0 1 1 0 Result Diagram: 02/24/17194302/24/171948 Objective Remarks GENERAL: in NAD. Patient was standing by the bedside but no difficulty in walking to her bed. This was observed by me. NECK: Supple, trachea midline. No JVD or lymphadenopathy. CARDIOVASCULAR: Regular rate and rhythm without murmurs, gallops, or rubs. RESPIRATORY: Breath sounds equal bilaterally. No accessory muscle use. GASTROINTESTINAL: Abdomen soft, non-tender, nondistended. MUSCULOSKELETAL: No cyanosis, or edema. BACK: Nontender without obvious deformity. No CVA tenderness. NEURO Patient picks and chooses questions she wants to answer. She is able to have a conversation.. Cranial 2-12 intact. Sensations intact. Motor is grossly intact. Patient is moving all extremity easily. Procedures CT guided mediastinal mass biopsy Medications and IVs Current Medications Sodium Chloride 2 ml 2 ml UNSCH PRN IVF FLUSH AFTER USING IV ACCESS; Start 02/13 at 15:45; Stop 02/13/17 at 22:36; Status DC Sodium Chloride 1,000 ml @ 1,000 mls/hr Q1H ONCE IV Last administered on 16:17; Start 02/13/17 at 15:37; Stop 02/13/17 at 16:36; Status DC Sodium Chloride (NS 1000 ml Inj) 1,000 ml @ 999 mls/hr BOLUS ONCE IV Last administered on 02/13/17 15:45; Start 02/13/17 at 15:45; Stop 02/13/17 at 16:45; Status DC Ondansetron HCl (Zofran Inj) 4 mg ONCE ONCE IV PUSH Last administered on 16:17; Start 02/13/17 at 16:00; Stop 02/13/17 at 16:01; Status DC Meclizine HCl 25 mg 25 mg ONCE ONCE PO Last administered on 02/13/17 19:39; Start 02/13/17 at 19:15; Stop 02/13/17 at 19:16; Status DC Sodium Chloride 1,000 ml @ 999 mls/hr BOLUS ONCE IV Last administered on 22:01; Start 02/13/17 at 22:00; Stop 02/13/17 at 23:00; Status DC Sodium Chloride (NS 1000 ml Inj) 1,000 ml @ 100 mls/hr Q10H IV Last administered on 02/15/17 06:38; Start 02/13/17 at 22:10; Stop 02/17/17 at 15:30; Status DC Sodium Chloride (NS Flush) 2 ml UNSCH PRN IV FLUSH FLUSH AFTER USING IV ACCESS Last administered on 02/16/17 12:33; Start 02/13/17 at 22:15 Sodium Chloride (NS Flush) 2 ml BID IV FLUSH Last administered on 02/25/17 09: 00; Start 02/14/17 at 09:00 Ondansetron HCl (Zofran Inj) 4 mg Q6H PRN IVP NAUSEA OR VOMITING Last administered on 02/18/17 23:52; Start 02/13/17 at 22:15 Acetaminophen (Tylenol) 650 mg Q6H PRN PO FEVER/PAIN 1-2; Start 02/13/17 at 22: 15 Acetaminophen/ Hydrocodone Bitart ([place] 5-325 Mg) 1 tab Q4H PRN PO PAIN SCALE 3 TO 5 Last administered on 02/15/17 09:38; Start 02/13/17 at 22:15; Stop 02/16/17 at 14:18; Status DC Acetaminophen/ Hydrocodone Bitart ([place] 10-325 Mg) 1 tab Q4H PRN PO PAIN SCALE 6 TO 10 Last administered on 02/16/17 11:03; Start 02/13/17 at 22:15; Stop 02/16/17 at 14:18; Status DC Senna/Docusate Sodium (Marilyn-Colace) 1 tab BID PO Last administered on 08:39; Start 02/14/17 at 09:00 Magnesium Hydroxide (Milk Of Magnesia Liq) 30 ml Q12H PRN PO MILD - MODERATE CONSTIPATION; Start 02/13/17 at 22:15 Sennosides (Senokot) 17.2 mg Q12H PRN PO MODERATE - SEVERE CONSTIPATION Last administered on 02/23/17 21:00; Start 02/13/17 at 22:15 Bisacodyl (Dulcolax Supp) 10 mg DAILY PRN RECTAL SEVERE CONSITIPATION; Start at 22:15 Lactulose (Lactulose Liq) 30 ml DAILY PRN PO SEVERE CONSITIPATION; Start at 22:15 Alprazolam (Xanax) 0.5 mg BID PO Last administered on 02/16/17 09:29; Start 02/14/17 at 09:00; Stop 02/16/17 at 14:18; Status DC Levetriacetam (Keppra) 500 mg Q12HR PO Last administered on 02/26/17 08:39; Start 02/14/17 at 09:00 Montelukast Sodium (Singulair) 10 mg DAILY PO Last administered on 02/26/17 08 :38; Start 02/14/17 at 09:00 Atorvastatin Calcium (Lipitor) 20 mg DAILY PO CM Last administered on 02/26/17 08:38; Start 02/14/17 at 09:00 Promethazine HCl (Phenergan Supp) 25 mg Q6H PRN RECTAL NAUSEA OR VOMITING; Start 02/14/17 at 08:30 Diatrizoate Meglum/ Diatrizoate Sod ( Gastroview Liq) 18 ml ONCE ONCE PO Last administered on 02/14/17 10:35; Start 02/14/17 at 10:00; Stop 02/14/17 at 10: 01; Status DC Levothyroxine Sodium (Synthroid) 125 mcg DAILY@06 PO Last administered on 05:16; Start 02/15/17 at 06:00 Potassium Chloride (KCl Powder) 40 meq ONCE ONCE PO Last administered on 11:38; Start 02/14/17 at 10:30; Stop 02/14/17 at 10:43; Status DC Lorazepam (Ativan Inj) 0.5 mg ONCE ONCE IV PUSH Last administered on 02/16/17 00:00; Start 02/15/17 at 21:15; Stop 02/15/17 at 21:16; Status DC Hydromorphone HCl (Dilaudid Pf Inj) 0.5 mg ONCE ONCE IV PUSH Last administered on 02/15/17 23:29; Start 02/15/17 at 23:00; Stop 02/15/17 at 23:01; Status DC Alprazolam (Xanax) 0.5 mg TID PO Last administered on 02/17/17 15:06; Start 02/16/17 at 18:00; Stop 02/17/17 at 15:27; Status DC Oxycodone/ Acetaminophen (Percocet 5-325 Mg) 1 tab Q6H PRN PO PAIN 3-5; Start 02/16/17 at 14:15; Stop 02/17/17 at 15:30; Status DC Oxycodone/ Acetaminophen (Percocet 7.5-325 Mg) 1 tab Q6H PRN PO Pain 6-7 Last administered on 02/17/17 14:44; Start 02/16/17 at 14:15; Stop 02/17/17 at 15:30; Status DC Oxycodone/ Acetaminophen (Percocet 10-325 Mg) 1 tab Q6H PRN PO pain 8-10 Last administered on 02/17/17 06:23; Start 02/16/17 at 14:15; Stop 02/17/17 at 15:30; Status DC Potassium Chloride (KCl) 40 meq ONCE ONCE PO Last administered on 02/16/17 15: 39; Start 02/16/17 at 14:15; Stop 02/16/17 at 14:22; Status DC Baclofen (Lioresal) 10 mg Q8HR PO Last administered on 02/26/17 05:15; Start 02/16/17 at 22:00 Iohexol (Omnipaque 350 Inj) 100 ml STK-MED ONCE IV Last administered on 15:13; Start 02/14/17 at 15:13; Stop 02/17/17 at 04:05; Status DC Meclizine HCl (Antivert) 25 mg Q8HR PO Last administered on 02/26/17 05:16; Start 02/17/17 at 14:00 Lidocaine/ Epinephrine (Xylocaine-Epi 1%-1:100,000 Inj) 20 ml STK-MED ONCE .ROUTE Last administered on 02/17/17 12:56; Start 02/17/17 at 12:56; Stop at 12:57; Status DC Fentanyl Citrate (fentaNYL INJ) 250 mcg STK-MED ONCE .ROUTE Last administered on 02/17/17 13:27; Start 02/17/17 at 13:27; Stop 02/17/17 at 13:28; Status DC Midazolam HCl (Versed Inj) 4 mg STK-MED ONCE .ROUTE Last administered on 13:27; Start 02/17/17 at 13:27; Stop 02/17/17 at 13:28; Status DC Alprazolam (Xanax) 1 mg TID PO Last administered on 02/21/17 08:09; Start 02/17 at 18:00; Stop 02/21/17 at 12:23; Status DC Lorazepam (Ativan Inj) 1 mg ONCE ONCE IV PUSH Last administered on 02/17/17 17 :44; Start 02/17/17 at 15:30; Stop 02/17/17 at 15:31; Status DC Hydromorphone HCl (Dilaudid Pf Inj) 0.5 mg ONCE ONCE IV PUSH Last administered on 02/17/17 16:15; Start 02/17/17 at 15:30; Stop 02/17/17 at 15:31; Status DC Oxycodone HCl (Roxicodone) 5 mg Q4H PRN PO pain scale 3-7 Last administered on 02/23/17 21:00; Start 02/17/17 at 15:30 Oxycodone HCl (Roxicodone) 10 mg Q4H PRN PO pain scale 8-10 Last administered on 02/25/17 18:54; Start 02/17/17 at 15:30 Phenytoin (Dilantin) 200 mg BID PO Last administered on 02/20/17 07:48; Start 02/17/17 at 21:00; Stop 02/20/17 at 08:54; Status DC Gadodiamide (Omniscan Pf Inj) 18 ml STK-MED ONCE IV Last administered on 18:40; Start 02/17/17 at 18:40; Stop 02/17/17 at 18:41; Status DC Alprazolam 1 mg 1 mg ONCE ONCE PO Last administered on 02/17/17 22:09; Start 02/17/17 at 21:45; Stop 02/17/17 at 21:46; Status DC Lactated Ringer's 1,000 ml @ 30 mls/hr Q24H PRN IV SEE LABEL COMMENTS; Start at 22:30; Stop 02/20/17 at 22:29; Status DC Sodium Chloride (NS 500 ml Inj) 500 ml @ 30 mls/hr [id number] PRN IV SEE LABEL COMMENTS; Start 02/17/17 at 22:30; Stop 02/20/17 at 22:29; Status DC Metoprolol Tartrate (Lopressor) 25 mg FRONT COUNTER ATTENDANT PRN PO SEE LABEL COMMENTS; Start 02/17/17 at 22:30; Stop 02/20/17 at 22:29; Status DC Povidone Iodine (Betadine 5% Antisepsis Kit) 1 applic FRONT COUNTER ATTENDANT PRN EACH NARE SEE LABEL COMMENTS; Start 02/17/17 at 22:30; Stop 02/20/17 at 22:29; Status DC Chlorhexidine Gluconate (Chlorhexidine 2% Cloth) 3 pack FRONT COUNTER ATTENDANT PRN TOPICAL SEE LABEL COMMENTS; Start 02/17/17 at 22:30; Stop 02/20/17 at 22:29; Status DC Insulin Human Regular (NovoLIN R INJ) See Protocol Table ... FRONT COUNTER ATTENDANT PRN SQ SEE PROTOCOL TABLE; Start 02/17/17 at 22:30; Stop 02/20/17 at 22:29; Status DC Lidocaine/ Epinephrine (Xylocaine-Epi 1%-1:100,000 Inj) 20 ml STK-MED ONCE .ROUTE ; Start 02/18/17 at 13:40; Stop 02/18/17 at 13:41; Status DC Fentanyl Citrate (fentaNYL INJ) 250 mcg STK-MED ONCE .ROUTE ; Start 02/18/17 at 13:44; Stop 02/18/17 at 13:45; Status DC Lorazepam (Ativan Inj) 2 mg STK-MED ONCE .ROUTE ; Start 02/18/17 at 15:31; Stop 02/18/17 at 15:32; Status DC Miscellaneous Information ALL NURSING DEPARTME... UNSCH PRN .XX SEE LABEL COMMENTS; Start 02/18/17 at 15:15; Stop 02/19/17 at 15:14; Status DC Morphine Sulfate (*morphine INJ PERIprocedure ONLY) 8 mg STK-MED ONCE .ROUTE Last administered on 02/18/17 15:40; Start 02/18/17 at 15:40; Stop 02/18/17 at 15: 41; Status DC Lorazepam (Ativan Inj) 1 mg ONCE ONCE IV PUSH Last administered on 02/18/17 15 :31; Start 02/18/17 at 16:00; Stop 02/18/17 at 16:01; Status DC Hydromorphone HCl (Dilaudid Pf Inj) 0.5 mg Q4H PRN IV PUSH breakthrough pain Last administered on 02/19/17 01:15; Start 02/18/17 at 16:15 Propranolol HCl (Inderal) 20 mg TID PO Last administered on 02/26/17 08:38; Start 02/18/17 at 18:00 Non-Formulary Medication 1 tab DAILY PO BPM; Start 02/19/17 at 09:00; Status UNV Cyanocobalamin (Vitamin B12 Inj) 1,000 mcg ONCE ONCE IM Last administered on 17:54; Start 02/18/17 at 17:00; Stop 02/18/17 at 17:01; Status DC Folic Acid (Folate) 1 mg DAILY PO Last administered on 02/26/17 08:38; Start 02/18/17 at 16:30 Lisinopril (Prinivil) 20 mg DAILY PO Last administered on 02/26/17 08:37; Start 02/19/17 at 09:00 Hydrochlorothiazide (Hydrodiuril) 25 mg DAILY PO Last administered on 08:43; Start 02/19/17 at 09:00 Lorazepam (Ativan Inj) 1 mg Q6H PRN IV PUSH Panic attack Last administered on 15:00; Start 02/19/17 at 12:00; Stop 02/21/17 at 09:05; Status DC Polyethylene Glycol (Miralax) 17 gm ONCE ONCE PO ; Start 02/20/17 at 08:30; Stop 02/20/17 at 08:31; Status DC Phenytoin (Dilantin) 200 mg DAILY@0600 PO Last administered on 02/26/17 05:16 ; Start 02/21/17 at 06:00 Phenytoin (Dilantin) 300 mg ONCE ONCE PO Last administered on 02/20/17 15:22 ; Start 02/20/17 at 09:00; Stop 02/20/17 at 09:05; Status DC Phenytoin (Dilantin) 300 mg HS PO Last administered on 02/25/17 20:47; Start 02/20/17 at 21:00 Alprazolam (Xanax) 0.5 mg TID PO Last administered on 02/26/17 08:37; Start at 13:00 Phenytoin (Dilantin) 300 mg ONCE ONCE PO Last administered on 02/21/17 21:36 ; Start 02/21/17 at 18:15; Stop 02/21/17 at 18:22; Status DC Furosemide (Lasix) 40 mg ONCE ONCE PO ; Start 02/22/17 at 19:15; Stop 02/22/17 at 19:15; Status DC Lisinopril (Prinivil) 20 mg ONCE ONCE PO Last administered on 02/22/17 23:41 ; Start 02/22/17 at 23:30; Stop 02/22/17 at 23:34; Status DC Hydrochlorothiazide (Hydrodiuril) 25 mg ONCE ONCE PO Last administered on 02/22 23:42; Start 02/22/17 at 23:30; Stop 02/22/17 at 23:34; Status DC Haloperidol Lactate (Haldol Inj) 5 mg ONCE ONCE IM Last administered on 11:20; Start 02/23/17 at 11:00; Stop 02/23/17 at 11:13; Status DC Haloperidol Lactate (Haldol Inj) 2 mg Q4H PRN IM AGITATION AND/OR HALLUCINATION Last administered on 02/26/17 09:51; Start 02/23/17 at 11:00 Lorazepam (Ativan Inj) 1 mg Q15M PRN IV PUSH SEVERE ANXIETY OR AGITATION; Start 02/23/17 at 12:45 Cyanocobalamin (Vitamin B12) 1,000 mcg DAILY PO Last administered on 02/26/17 08:38; Start 02/25/17 at 09:00 Lorazepam (Ativan Inj) 1 mg ONCE ONCE IV PUSH Last administered on 02/26/17 10:41; Start 02/26/17 at 10:30; Stop 02/26/17 at 10:39; Status DC A/P Problem List: (1) Dizziness ICD Code: R42 Status: Acute (2) Dilantin toxicity ICD Code: T42.0X1A Status: Acute (3) Renal insufficiency ICD Code: N28.9 Status: Resolved (4) Seizure disorder ICD Code: G40.909 Status: Chronic (5) Tobacco abuse ICD Code: Z72.0 Status: Chronic (6) Anxiety disorder, unspecified ICD Code: F41.9 Status: Acute (7) Mediastinal mass ICD Code: J98.59 Status: Acute (8) Personality disorder ICD Code: F60.9 Status: Acute Assessment and Plan 61-year-old female with a PMH of Seizure Disorder, HTN, Hyperlipidemia and Tobacco Abuse who presented for dizziness and multiple falls. Found to have Dilantin toxicity on admission, since that time Dilantin has been discontinued. Patient remains on Keppra. Dizziness: Unclear etiology, initially thought to be secondary to Dilantin toxicity, dehydration, and hypotension, however, all of these have resolved and patient continues to complain of dizziness/room spinning. Possible BPPV, no nystagmus on exam. TSH wnl. Head CT with no acute findings. Orthostatics negative. Neurology consult appreciated. Brain MRI normal. -Continue Dilantin and BP meds. Dilantin levels rechecked within normal limits. -Continue Meclizine -Antiemetics prn -PT. PT recommended rehabilitation. Falls: Secondary to dizziness. CT C-Spine/Maxillofacial w/ no acute findings. -PT recommended rehabilitation. Dilantin Toxicity: Dilantin 39 on admission. -On Dilantin 400mg po bid at home, changed to 200 mg daily, 300 mg HS per neurology. - Dilantin level repeated today within normal limits. Chest pain Acute, left sided 02/20. Resolved. EKG without acute ischemic changes. - CXR, EKG, trend trops x 3. Abdominal pain: Resolved. -CT of abdomen and pelvis showed mediastinal mass, see below. Also CBD mass and dilatation noted. GB US: Abnormal GB appearance but no acute abnormality. -antiemetics and pain control prn -GI recommends MRCP. Patient declined despite knowing the benefits and the need for this procedure. -ADAT Mediastinal mass: unclear etiology -IR consulted for biopsy of mass, biopsy under anesthesia performed 02/18. Pathology results suggest vascular component but otherwise unable to characterize the mass. 02/22 oncology consultation appreciated - recommended vascular surgery consult who states patient is not a candidate for biopsy at this point. Fu as outpatient. Renal lesion -Renal ultrasound shows lesions that is not able to biopsy. -MRI ordered by oncologist. Seizure Disorder: No reported seizure activity. -Continue Keppra 500mg bid and Dilantin 200 mg BID. -Appreciate neurology recommendations. -seizure precautions Normocytic Anemia: Hgb 8.9, no reported active bleeding. B12 and folate levels low. -B12 injection x 1. -on PO folate daily. -Monitor CBC Anxiety: acute on chronic Patient complains of multiple panic attacks and uncontrolled anxiety on a regular basis. She cites family problems as triggers. Psych consult appreciated. -continue patient's Xanax 1mg tid (verified on [facility]). Wean to 0.5 TID . 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 Acute on Chronic Pain: patient sees Dr. Wong as outpatient, per [facility], patient fills Soma 350mg tid, Xanax 1mg tid, and [place] 10/325mg q6h. 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 Follow up with neuro. -Patient has dependency on control substance. Management as outpatient. 02/23 Acute Delirium/agitation -Patient is acting out today. No signs of CVA. stat CT scan of the head was negative. I think this is more psych and patient is manipulative situation. Per psych patient may have a personality pathology. Will need psych to reevaluate patient to determine if patient has the capacity to make medical decisions. DVT Prophylaxis: SCD/teds. Discharge Planning patient refusing MRCP. She was evaluated multiple times by psych and has a possible personality pathology. Will need to reconsult psych to make sure that patient has the capacity to make medical decisions since MRCP is necessary for workup for cancer. Katheryn Ordoñez MD Feb 26, 2017 12:30
--- NOTE | 2017-02-26 13:45 | PD.ONC.PN ---
Subjective Subjective Remarks Ms. Navarro will have an GI procedure today to evaluate gallbladder lesion. She reports that she is still having musculoskeletal pain. Objective Data Date Time Temp Pulse Resp B/P Pulse Ox O2 Delivery O2 Flow Rate FiO2 02/26/17 12:00 96.9 54 18 104/80 97 02/26/17 08:00 97.7 77 18 131/90 96 02/26/17 00:42 98.9 79 17 110/54 98 02/25/17 20:38 97.1 70 18 122/60 97 02/25/17 16:00 98.3 50 18 106/69 99 02/26/17 02/26/17 02/26/17 06:59 14:59 22:59 Intake Total 0 ml Balance 0 ml Result Diagram: 02/24/17194302/24/171948 Imaging Studies Last [address] 02/26/17 0000 Signed Impressions: Service Date/Time: Sunday, February 26, 2017 11:44 - CONCLUSION: Negative noncontrast CT. Carlton Vigil MD Administered Medications Medications (Trade) Dose Ordered Sig/Sheng Route PRN Reason Start Time Stop Time Status Last Admin Dose Admin Sodium Chloride (NS Flush) 2 ml UNSCH PRN IV FLUSH FLUSH AFTER USING IV ACCESS 02/13/17 22:15 02/16/17 12:33 Sodium Chloride (NS Flush) 2 ml BID IV FLUSH 02/14/17 09:00 02/25/17 09:00 Ondansetron HCl (Zofran Inj) 4 mg Q6H PRN IVP NAUSEA OR VOMITING 02/13/17 22:15 02/18/17 23:52 Senna/Docusate Sodium (Marilyn-Colace) 1 tab BID PO 02/14/17 09:00 02/26/17 08:39 Sennosides (Senokot) 17.2 mg Q12H PRN PO MODERATE - SEVERE CONSTIPATION 02/13/17 22:15 02/23/17 21:00 Levetriacetam (Keppra) 500 mg Q12HR PO 02/14/17 09:00 02/26/17 08:39 Montelukast Sodium (Singulair) 10 mg DAILY PO 02/14/17 09:00 02/26/17 08:38 Atorvastatin Calcium (Lipitor) 20 mg DAILY PO CM 02/14/17 09:00 02/26/17 08:38 Levothyroxine Sodium (Synthroid) 125 mcg DAILY@06 PO 02/15/17 06:00 02/26/17 05:16 Baclofen (Lioresal) 10 mg Q8HR PO 02/16/17 22:00 02/26/17 05:15 Meclizine HCl (Antivert) 25 mg Q8HR PO 02/17/17 14:00 02/26/17 05:16 Oxycodone HCl (Roxicodone) 5 mg Q4H PRN PO pain scale 3-7 02/17/17 15:30 02/23/17 21:00 Oxycodone HCl (Roxicodone) 10 mg Q4H PRN PO pain scale 8-10 02/17/17 15:30 02/25/17 18:54 Hydromorphone HCl (Dilaudid Pf Inj) 0.5 mg Q4H PRN IV PUSH breakthrough pain 02/18/17 16:15 02/19/17 01:15 Propranolol HCl (Inderal) 20 mg TID PO 02/18/17 18:00 02/26/17 08:38 Folic Acid (Folate) 1 mg DAILY PO 02/18/17 16:30 02/26/17 08:38 Lisinopril (Prinivil) 20 mg DAILY PO 02/19/17 09:00 02/26/17 08:37 Hydrochlorothiazide (Hydrodiuril) 25 mg DAILY PO 02/19/17 09:00 02/26/17 08:43 Phenytoin (Dilantin) 200 mg DAILY@0600 PO 02/21/17 06:00 02/26/17 05:16 Phenytoin (Dilantin) 300 mg HS PO 02/20/17 21:00 02/25/17 20:47 Alprazolam (Xanax) 0.5 mg TID PO 02/21/17 13:00 02/26/17 08:37 Haloperidol Lactate (Haldol Inj) 2 mg Q4H PRN IM AGITATION AND/OR HALLUCINATION 02/23/17 11:00 02/26/17 09:51 Cyanocobalamin (Vitamin B12) 1,000 mcg DAILY PO 02/25/17 09:00 02/26/17 08:38 Objective Remarks GENERAL: Well-nourished, well-developed patient.. HEAD: Normocephalic. EYES: No scleral icterus. NEUROLOGICAL: No obvious focal deficit. Awake, alert, and oriented x3. PSYCHIATRIC: anxious Assessment/Plan Assessment 1. Mediastinal lung mass: Uncertain of etiology. S/p biopsy which was unrevealing. She was evaluated by CT surgery with plan to follow up as outpatient. 2. Anemia with vitamin B12 and folate deficiency: s/p vitmain B12 [address] on oral vitamin B12 1000 mcg/day. On folate 1 mg Qdaily. Will follow up stool for occult blood, MMA, homocysteine. 3. Left kidney lesion: do not meet criteria for simple cyst. Renal ultrasound unrevealing. Given continued hospital stay would perform MRI to evaluate while inpatient. 4. Gallbladder lesion: sludge vs polyp. GI will plan for procedure. Suzanne Nation MD Feb 26, 2017 13:45
--- NOTE | 2017-02-26 15:23 | HHI.GIFU ---
Subjective Remarks Pt sitting up in bed. Denies abd pain, nausea. She denies ever having refused an MRCP and when asked why it wasnt done she tells me that "I went down there and there were 2 ppl down there, 2 doctors and they said it might be cancer so they had to do something else." per nursing staff 2nd atttempt was made to do MRCP but pt pulled out IV. Now she has IV again and radiology agreeable to trying. Pt is agreeable. (Geeta Ruth) Objective Vitals I&O Vital Signs Date Time Temp Pulse Resp B/P Pulse Ox O2 Delivery O2 Flow Rate FiO2 02/26/17 12:00 96.9 54 18 104/80 97 02/26/17 08:00 97.7 77 18 131/90 96 02/26/17 00:42 98.9 79 17 110/54 98 02/25/17 20:38 97.1 70 18 122/60 97 02/25/17 16:00 98.3 50 18 106/69 99 I/O 02/25/17 02/25/17 02/25/17 02/26/17 02/26/17 02/26/17 07:00 15:00 23:00 07:00 15:00 23:00 Intake Total 480 ml 600 ml 480 ml 0 ml Balance 480 ml 600 ml 480 ml 0 ml Intake Oral 480 ml 600 ml 480 ml 0 ml # Voids 2 3 4 2 # Bowel Movements 0 1 1 0 Physical Exam HEENT: PERRL; normocephalic; bruising under both eyes; no jaundice. CHEST: CTA CARDIAC: RRR ABDOMEN: Soft, nondistended, nontender; no hepatosplenomegaly; bowel sounds are present in all four quadrants. EXTREMITIES: No clubbing, cyanosis, or edema. SKIN: Normal; no rash; no jaundice. CHIP PERSON: alert (Geeta Ruth) Assessment and Plan Plan ASSESSMENT - abnormal findings on imaging, isolated ALP elevation- ALP [address] abd - 4mm hyperdense structure CBD with enalrgement CBD, left intrahepatic bile duct, stone vs mass, right mediastinal mass US - abnormal appearance gall bladder. pet denies pain. some nausea. - mediastinal mass, s/p bx vascular, per primary - dilantin toxicity - per primary PLAN - retry MRCP - pt is NPO in case ERCP warranted - monitor labs - supportive care - further recs to follow This pt seen by myself and Dr Ingram and this note is written on his behalf ( Geeta Ruth) Physician Comments Patient seen and examined Agree with above Continue with current supportive care Monitor labs MRCP showing a filling defect therefore we will proceed with an ERCP tomorrow ( Andrade Ingram MD) Geeta Ruth Feb 26, 2017 15:23 Andrade Ingram MD Feb 26, 2017 18:29
[2017-02-26] MEDS ORDERED: GADODIAMIDE PF 287 MG/ML 20 ML VIAL (for RAD MRI) IV ONE (17:03)
[2017-02-26 18:19] VITALS: BP 137/83; PULSE 63; RESP 18; TEMP 97.9; O2SAT 93
--- NOTE | 2017-02-26 18:21 | RADRPT ---
EXAM DATE/TIME: 02/26/2017 16:11 [facility] COMPARISON: CT ABDOMEN & PELVIS W CONTRAST, February 14, 2017, 15:13. INDICATIONS : Abnormal CT scan demonstrating 4 mm structure in the distal common bile duct and enlargement of the c ommon bile duct and left intrahepatic biliary ductal system.. Obstruction. CONTRAST: 18 cc Omniscan (gadodiamide) IV MEDICAL HISTORY : Hypertension. Hypercholesterolemia. Graves disease. SURGICAL HISTORY : None. ENCOUNTER: Subsequent ACUITY: 1 week PAIN SCORE: 0/10 LOCATION: abdomen. TECHNIQUE: Multiplanar, multisequence magnetic resonance imaging of the abdomen was performed. High-resolution 3D dataset was utilized to reconstruct maximum-intensity projection (MIP) images. FINDINGS: INTRAHEPATIC BILE DUCTS: Mild prominence of the left intrahepatic biliary ducts is again noted. Right-sided ducts are unremark able. EXTRAHEPATIC BILE DUCTS: The common bile duct measures 7-8 mm in greatest diameter. There is a 4 mm low signal filling defect in the distal duct. GALLBLADDER: No stones, wall thickening, or pericholecystic fluid. LIVER: Normal size and signal intensity. No liver lesion is identified. Portal vein is within normal limits . PANCREAS: The main pancreatic duct is normal in size. There is no significant anatomical variant. Signal inte nsity is within normal limits. No mass is visualized. OTHER: The right paraspinous mass in the lower chest is again visualized. This demonstrates low signal on th e T2-weighted sequences. The 2 mildly complex lesions in left kidney seen on the CT correspond to mil dly complex cysts with high signal on the T2-weighted sequences CONCLUSION: 1. 4 mm low signal defect again noted in the distal common bile duct with mild extrahepatic biliary d uctal dilatation and mild elevation of the left intrahepatic ducts. 2. The gallbladder is unremarkable in appearance with no evidence of cholelithiasis. 3. The known right paraspinous mass in the lower chest is again visualized. 4. The 2 lesions in the left kidney seen on CT are most characteristic of mildly complex cysts. Carlton Vigil MD on February 26, 2017 at 18:13 Board Certified Radiologist. This report was verified electronically.
[2017-02-26 19:00] VITALS: BP 103/69; PULSE 57; RESP 17; TEMP 97.6; O2SAT 94
[2017-02-27] VITALS: BP 101/54; PULSE 53; RESP 16; TEMP 97.2; O2SAT 98
[2017-02-27] MEDS: BACLOFEN 10 MG TAB PO SCH ×3 (05:30→20:55)
[2017-02-27] MEDS: LEVOTHYROXINE SODIUM 125 MCG TAB PO SCH (05:30)
[2017-02-27] MEDS: MECLIZINE HCL 25 MG TAB PO SCH ×3 (05:31→20:54)
[2017-02-27] MEDS: PHENYTOIN SODIUM 100 MG CAP PO SCH ×2 (05:31→20:55)
[2017-02-27] MEDS: DOCUSATE SODIUM 50 MG/SENNA 8.6 MG TAB PO SCH ×2 (07:06→20:55)
[2017-02-27] MEDS: FOLIC ACID 1 MG TAB PO SCH (07:06)
[2017-02-27] MEDS: CYANOCOBALAMIN 1,000 MCG TAB PO SCH (07:06)
[2017-02-27 08:00] VITALS: BP 102/69; PULSE 59; RESP 18; TEMP 97.3; O2SAT 98
[2017-02-27 08:06] LABS: HEMATOCRIT 29.7 % (35.0-46.0); MEAN CELL VOLUME 91.8 FL (80.0-100.0); MEAN CORPUSCULAR HGB CONC 35.9 % (32.0-36.0); PLATELET COUNT 214 TH/MM3 (150-450); RED BLOOD COUNT 3.24 MIL/MM3 (4.00-5.30); RED CELL DISTRIBUTION WIDTH 15.1 % (11.6-17.2); WHITE BLOOD COUNT 4.7 TH/MM3 (4.0-11.0)
[2017-02-27 08:10] LABS: BICARBONATE 27.8 MEQ/L (21.0-32.0)
[2017-02-27 08:11] LABS: POTASSIUM 3.6 MEQ/L (3.5-5.1)
[2017-02-27] MEDS: LISINOPRIL 20 MG TAB PO SCH (08:30)
[2017-02-27] MEDS: HYDROCHLOROTHIAZIDE 25 MG TAB PO SCH (08:30)
[2017-02-27] MEDS: ATORVASTATIN 20 MG TAB PO SCH (08:31)
[2017-02-27] MEDS: levETIRAcetam 500 MG TAB PO SCH ×2 (08:31→20:54)
[2017-02-27] MEDS: ALPRAZolam 0.5 MG TAB PO SCH ×3 (08:31→16:33)
[2017-02-27] MEDS: PROPRANOLOL HCL 20 MG TAB PO SCH ×3 (08:31→17:34)
[2017-02-27] MEDS: SODIUM CHLORIDE 0.9% FLUSH 10 ML FLUSH IV FLUSH SCH ×2 (08:31→20:55)
[2017-02-27] MEDS: MONTELUKAST SODIUM 10 MG TAB PO SCH (08:33)
[2017-02-27 08:34] VITALS: PULSE 64
--- NOTE | 2017-02-27 09:46 | HHI.PYPN ---
Subjective Remarks Patient was seen today for psychiatric reevaluation with nurse in charge Selam, she was found sleeping, but easily arousable. Patient expressed up sadness of seeing me at bedside. She immediately stated that she doesn't need a psychiatrist in her present health care. She reports stable mood and anxiety, she says that she has been expresses sadness and increased level of anxiety in the last days due to her new and concerning diagnosis "I'm knowing that there is a possibility that I could have cancer". But, she expresses that since yesterday she has been calm, denies depressive symptoms, denies current anxiety. Patient is fully oriented 3, with good recent and intermediate memory , good fund of knowledge, language, abstract thinking. No paranoia, no disorganized behaviors or thoughts, no tangentiality, no delusions, no ideas of reference, no loosening of associations are present during this evaluation. Patient is irritable, but calm and cooperative, completely logical, relevant and coherent. She says that yesterday she was acting "weird, because the nurse that I had disliked me was giving him a hard time, so I was giving hard time to her". Review of Systems Other No somatic complaints at this moment Objective Alert: Yes Zearing: Person, Place, Situation Mood: Angry Affect: Restricted Memory Intact: Immediate, Recent Hallucinations: Other (no hallucinations) Delusions: No Delusion Type: Other (not elicited) Suicidal: Ideation (no SI) Homicidal: Ideation (no HI) Insight/Judgment Fair Labs Test 02/27/17 06:25 White Blood Count 4.7 TH/MM3 Red Blood Count 3.24 MIL/MM3 Hemoglobin 10.7 GM/DL Hematocrit 29.7 % Mean Corpuscular Volume 91.8 FL Mean Corpuscular Hemoglobin 33.0 PG Mean Corpuscular Hemoglobin 35.9 % Concent Red Cell Distribution Width 15.1 % Platelet Count 214 TH/MM3 Mean Platelet Volume 8.1 FL Hematology Comments Sodium Level 134 MEQ/L Potassium Level 3.6 MEQ/L Chloride Level 99 MEQ/L Carbon Dioxide Level 27.8 MEQ/L Anion Gap 7 MEQ/L Blood Urea Nitrogen 19 MG/DL Creatinine 0.73 MG/DL Estimat Glomerular Filtration 81 ML/MIN Rate Random Glucose 87 MG/DL Calcium Level 9.9 MG/DL Vitals/IOs Vital Signs Date Time Temp Pulse Resp B/P Pulse Ox O2 Delivery O2 Flow Rate FiO2 8/17/17 08:34 64 02/27/17 00:00 97.2 16 101/54 98 02/23/17 08:00 Room Air Intake and Output 02/26/17 02/26/17 02/26/17 07:59 15:59 23:59 Intake Total 0 ml 480 ml Balance 0 ml 480 ml Assessment & Plan Problem List: (1) Anxiety disorder, unspecified ICD Code: F41.9 (2) Borderline personality disorder Assessment & Plan: At the moment of this evaluation the patient does not present any acute, concerning or significant active symptomatology of depression , anxiety, rudolph or psychosis. Patient denies suicidal and homicidal ideation, she denies visual and auditory hallucinations. Patient is logical, coherent and relevant, but seems to be irritable and upset every time that she is interviewed by psychiatry. This is my third intervention with this patient and I have noted that the patient have significant visible traits of borderline personality disorder. Patient with borderline personality disorder can become extremely difficult in the medical floor, they can be very manipulative, they can split very often a more nurses and medical staff, the my use very often projective identification and show a very increased sensitivity rejection and abandonment. Is very important to clarify that these patient I have what is well known as "micropsychotic episodes"under stress in which patient can become disorganized, paranoid and might look like acutely psychotic, but this micropsychotic episodes don't usually last very long. Patient also has son evidence of benzodiazepines and opiate dependence, I don't recommend to increase benzodiazepines or when necessary doses. She does not meet criteria for psychiatric admission at this moment, but if patient become very difficult to the floor she might benefit of being transferred under [facility] act to med psych. Extensive psychoeducation and insight oriented psychotherapy provided. ICD Code: F60.3 Assessment & Plan Estimated LOS: days Justification for Cont. Inpt. He does not meet criteria for involuntary psychiatric admission at this moment James Cardenas MD Feb 27, 2017 09:46
[2017-02-27 11:18] VITALS: BP 97/61; PULSE 59; RESP 16; TEMP 98.1; O2SAT 98
[2017-02-27] MEDS ORDERED: IOHEXOL 350 MG/ML 50 ML BTL (for RAD DIAG) OTHER ONE (13:38)
[2017-02-27] MEDS ORDERED: PROPOFOL 200 MG/20 ML AMP IV ONE (13:38)
--- NOTE | 2017-02-27 14:46 | RADRPT ---
EXAM DATE/TIME: 02/27/2017 13:57 [facility] COMPARISON: MRCP W & W/O CONTRAST, February 26, 2017, 16:11. INDICATIONS : Obstruction, stent placement and sphincterotomy FLUORO TIME: 3.6 minutes IMAGE COUNT: 2 CONTRAST: Instilled by Ordering Physician MEDICAL HISTORY : Hypertension. Hypercholesterolemia. Graves disease. SURGICAL HISTORY : None. ENCOUNTER: Initial ACUITY: 1 week PAIN SCORE: Non-responsive. LOCATION: Abdomen FINDINGS: An ERCP was performed by the ordering physician. The images demonstrate an endoscope in Place with cannulization of the common bile duct. There is ness cement of a biliary stent catheter. No definite filling defects are identified. CONCLUSION: ERCP as above. Carlton Vigil MD on February 27, 2017 at 14:43 Board Certified Radiologist. This report was verified electronically.
--- NOTE | 2017-02-27 15:07 | PD.PROCEDR ---
GI Procedure REFERRING PHYSICIAN jailene PROCEDURE PERFORMED ERCP with sphincterotomy, balloon extraction, basket extraction, stent placement INDICATION FOR PROCEDURE Choledocholithiasis PROCEDURE: The procedure, risks and benefits were discussed with Ms. Navarro and informed consent was obtained. Anesthesia sedated her with Diprivan. She was placed in the left lateral decubitus position. ERCP: Patient was placed in a prone position. The Pentax videoscope was introduced through the oropharynx and advanced to the second portion of the duodenum where the ampula was identified. FINDINGS: The ampulla appeared to be unremarkable we were able to obtain easy cannulation of the common bile duct where it was noted to be mildly dilated with filling defects at the distal portion a any sphincterotomy was performed but this was a small 1 due to the nature of the ampulla initially we used a size 8 mm balloon to extract stones I was unable to extract any then we used a 12 mm lumen and still I was unable to extract any then a basket was used and multiple small stones were removed then I went back to the balloon and at that point in time and obstructive cholangiogram was performed and no extra filling defects were seen due to the nature of the small stones and the difficulty of this case I went ahead and put a 10 Haitian 9 cm stent and the procedure was then terminated ESTIMATED BLOOD LOSS: None SPECIMENS REMOVED: None COMPLICATIONS: None choledocholithiasis IMPRESSION: Supportive care Monitor labs ERCP in 3 months PLAN: [] Andrade Ingram MD Feb 27, 2017 15:07
--- NOTE | 2017-02-27 15:59 | HHI.PR ---
Subjective Remarks f/u after ERCP. patient asking to eat. She had no complaints. AAO X3 and is having normal conversation. asking to be evaluated by PT again because she feels like she is better. Objective Vitals Vital Signs Date Time Temp Pulse Resp B/P Pulse Ox O2 Delivery O2 Flow Rate FiO2 02/27/17 14:28 97.3 52 16 106/69 97 02/27/17 11:18 98.1 59 16 97/61 98 02/27/17 08:34 64 02/27/17 08:00 97.3 59 18 102/69 98 02/27/17 00:00 97.2 53 16 101/54 98 02/26/17 19:00 97.6 57 17 103/69 94 02/26/17 18:19 97.9 63 18 137/83 93 I/O 02/26/17 02/26/17 02/26/17 02/27/17 02/27/17 02/27/17 07:00 15:00 23:00 07:00 15:00 23:00 Intake Total 0 ml 480 ml 480 ml Output Total 2 ml Balance 0 ml 480 ml 480 ml -2 ml Intake Oral 0 ml 480 ml 480 ml Output Urine Total 2 ml # Voids 2 3 3 # Bowel Movements 0 0 0 1 Result Diagram: 02/27/17 0625 02/27/17 0625 Imaging Last Impressions GI Procedure 02/27/17 0000 Signed Impressions: Service Date/Time: February 13:57 - CONCLUSION: ERCP as above. Carlton Vigil MD Head CT 02/26/17 0000 Signed Impressions: Service Date/Time: Sunday, February 26, 2017 11:44 - CONCLUSION: Negative noncontrast CT. Carlton Vigil MD Cholangiopancreatography MRI 02/26/17 0000 Signed Impressions: Service Date/Time: Sunday, February 26, 2017 16:11 - CONCLUSION: 1. 4 mm low signal defect again noted in the distal common bile duct with mild extrahepatic biliary ductal dilatation and mild elevation of the left intrahepatic ducts. 2. The gallbladder is unremarkable in appearance with no evidence of cholelithiasis. 3. The known right paraspinous mass in the lower chest is again visualized. 4. The 2 lesions in the left kidney seen on CT are most characteristic of mildly complex cysts. Carlton Vigil MD Renal Ultrasound 02/24/17 0000 Signed Impressions: Service Date/Time: Friday, February 24, 2017 15:59 - CONCLUSION: 1. Nonspecific 18 mm lesion at the upper pole the left kidney. Based on the appearance, I cannot determine with confidence that this represents a cyst or solid mass given the location of the lesion and depth. 2. The second lesion at the left upper pole kidney identified on prior CT is not appreciated with ultrasound. On an elective basis these could be further evaluated with renal protocol MRI with and without intravenous contrast. Akira Hernandez MD Chest X-Ray 02/21/17 0000 Signed Impressions: Service Date/Time: Tuesday, February 21, 2017 13:19 - CONCLUSION: No acute disease. Akira Morris MD Gall Bladder Ultrasound 02/19/17 0000 Signed Impressions: Service Date/Time: Sunday, February 19, 2017 10:11 - CONCLUSION: Abnormal gallbladder appearance. No common duct filling defect is identified. Akira Morris MD Lung Biopsy CT 02/18/17 1009 Signed Impressions: Service Date/Time: Saturday, February 18, 2017 14:14 - CONCLUSION: Uncomplicated CT guided biopsy. Titus Brunner MD Lumbar Spine MRI 02/17/17 0000 Signed Impressions: Service Date/Time: Friday, February 17, 2017 18:00 - CONCLUSION: 1. Mild syrinx and conus medullaris with central canal measuring just over 1 mm in diameter. 2. At L5-S1 there is a broad-based central to right paracentral disc protrusion with extruded disc material extending cephalad above the disc interspace, slightly more the right side with encroachment of the lateral recesses bilaterally as above. 3. Mild degenerative changes in the remainder of the lumbar spine without significant central canal stenosis Delfino Stalpeton MD Chest CT 02/17/17 0000 Signed Impressions: Service Date/Time: Friday, February 17, 2017 13:32 - CONCLUSION: Unsuccessful attempt at biopsy. Rescheduled in the AM with anesthesia. Fawad Murguia MD FACR Brain MRI 02/17/17 0000 Signed Impressions: Service Date/Time: Friday, February 17, 2017 18:00 - CONCLUSION: Normal examination. Keegan Weaver MD Abdomen/Pelvis CT 02/14/17 0000 Signed Impressions: Service Date/Time: Tuesday, February 14, 2017 15:13 - CONCLUSION: 1. There is a 4 mm round hyperdense structure in the distal common bile duct with associated enlargement of the common bile duct and left intrahepatic bile ducts. The small density could represent a stone or small mass. 2. 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 Etiology is uncertain. Neurogenic tumor is a consideration but there is no connection with the spinal canal. Complex duplication cyst/lesion of the esophagus is another consideration. Suggest correlating with any prior imaging studies to assess for chronicity of this finding. This lesion would be amenable to image guided percutaneous biopsy, if needed. 3. There are 2 hyperdense lesions in the left kidney measuring up to 1.8 cm. The sternotomy criteria for simple cysts. Again , suggest correlating with prior imaging studies that could offer additional characterization. If none are available suggest elective further evaluation with either ultrasound or renal protocol CT or MRI. 4. Nonacute findings include mild splenomegaly, moderate atherosclerotic disease, and sigmoid diverticulosis. Akira Hernandez MD Cervical Spine CT 02/13/17 1537 Signed Impressions: Service Date/Time: February 16:27 - CONCLUSION: 1. No acute findings. Multilevel degenerative disc disease and facet arthropathy. Delfino Stapleton MD Maxillofacial CT 02/13/17 0000 Signed Impressions: Service Date/Time: February 16:27 - CONCLUSION: 1. No acute findings. Delfino Stapleton MD Objective Remarks GENERAL: in NAD. sitting in bed was on the phone before I asked to speak to her. NECK: Supple, trachea midline. No JVD or lymphadenopathy. CARDIOVASCULAR: Regular rate and rhythm without murmurs, gallops, or rubs. RESPIRATORY: Breath sounds equal bilaterally. No accessory muscle use. GASTROINTESTINAL: Abdomen soft, non-tender, nondistended. MUSCULOSKELETAL: No cyanosis, or edema. BACK: Nontender without obvious deformity. No CVA tenderness. Procedures CT guided mediastinal mass biopsy Medications and IVs Current Medications Sodium Chloride 2 ml 2 ml UNSCH PRN IVF FLUSH AFTER USING IV ACCESS; Start 02/13 at 15:45; Stop 02/13/17 at 22:36; Status DC Sodium Chloride 1,000 ml @ 1,000 mls/hr Q1H ONCE IV Last administered on 16:17; Start 02/13/17 at 15:37; Stop 02/13/17 at 16:36; Status DC Sodium Chloride (NS 1000 ml Inj) 1,000 ml @ 999 mls/hr BOLUS ONCE IV Last administered on 02/13/17 15:45; Start 02/13/17 at 15:45; Stop 02/13/17 at 16:45; Status DC Ondansetron HCl (Zofran Inj) 4 mg ONCE ONCE IV PUSH Last administered on 16:17; Start 02/13/17 at 16:00; Stop 02/13/17 at 16:01; Status DC Meclizine HCl 25 mg 25 mg ONCE ONCE PO Last administered on 02/13/17 19:39; Start 02/13/17 at 19:15; Stop 02/13/17 at 19:16; Status DC Sodium Chloride 1,000 ml @ 999 mls/hr BOLUS ONCE IV Last administered on 22:01; Start 02/13/17 at 22:00; Stop 02/13/17 at 23:00; Status DC Sodium Chloride (NS 1000 ml Inj) 1,000 ml @ 100 mls/hr Q10H IV Last administered on 02/15/17 06:38; Start 02/13/17 at 22:10; Stop 02/17/17 at 15:30; Status DC Sodium Chloride (NS Flush) 2 ml UNSCH PRN IV FLUSH FLUSH AFTER USING IV ACCESS Last administered on 02/16/17 12:33; Start 02/13/17 at 22:15 Sodium Chloride (NS Flush) 2 ml BID IV FLUSH Last administered on 02/27/17 20: 55; Start 02/14/17 at 09:00 Ondansetron HCl (Zofran Inj) 4 mg Q6H PRN IVP NAUSEA OR VOMITING Last administered on 02/18/17 23:52; Start 02/13/17 at 22:15 Acetaminophen (Tylenol) 650 mg Q6H PRN PO FEVER/PAIN 1-2; Start 02/13/17 at 22: 15 Acetaminophen/ Hydrocodone Bitart ([place] 5-325 Mg) 1 tab Q4H PRN PO PAIN SCALE 3 TO 5 Last administered on 02/15/17 09:38; Start 02/13/17 at 22:15; Stop 02/16/17 at 14:18; Status DC Acetaminophen/ Hydrocodone Bitart ([place] 10-325 Mg) 1 tab Q4H PRN PO PAIN SCALE 6 TO 10 Last administered on 02/16/17 11:03; Start 02/13/17 at 22:15; Stop 02/16/17 at 14:18; Status DC Senna/Docusate Sodium (Marilyn-Colace) 1 tab BID PO Last administered on 20:55; Start 02/14/17 at 09:00 Magnesium Hydroxide (Milk Of Magnesia Liq) 30 ml Q12H PRN PO MILD - MODERATE CONSTIPATION; Start 02/13/17 at 22:15 Sennosides (Senokot) 17.2 mg Q12H PRN PO MODERATE - SEVERE CONSTIPATION Last administered on 02/23/17 21:00; Start 02/13/17 at 22:15 Bisacodyl (Dulcolax Supp) 10 mg DAILY PRN RECTAL SEVERE CONSITIPATION; Start at 22:15 Lactulose (Lactulose Liq) 30 ml DAILY PRN PO SEVERE CONSITIPATION; Start at 22:15 Alprazolam (Xanax) 0.5 mg BID PO Last administered on 02/16/17 09:29; Start 02/14/17 at 09:00; Stop 02/16/17 at 14:18; Status DC Levetriacetam (Keppra) 500 mg Q12HR PO Last administered on 02/27/17 20:54; Start 02/14/17 at 09:00 Montelukast Sodium (Singulair) 10 mg DAILY PO Last administered on 02/26/17 08 :38; Start 02/14/17 at 09:00 Atorvastatin Calcium (Lipitor) 20 mg DAILY PO CM Last administered on 02/27/17 08:31; Start 02/14/17 at 09:00 Promethazine HCl (Phenergan Supp) 25 mg Q6H PRN RECTAL NAUSEA OR VOMITING; Start 02/14/17 at 08:30 Diatrizoate Meglum/ Diatrizoate Sod ( Gastroview Liq) 18 ml ONCE ONCE PO Last administered on 02/14/17 10:35; Start 02/14/17 at 10:00; Stop 02/14/17 at 10: 01; Status DC Levothyroxine Sodium (Synthroid) 125 mcg DAILY@06 PO Last administered on 05:16; Start 02/15/17 at 06:00 Potassium Chloride (KCl Powder) 40 meq ONCE ONCE PO Last administered on 11:38; Start 02/14/17 at 10:30; Stop 02/14/17 at 10:43; Status DC Lorazepam (Ativan Inj) 0.5 mg ONCE ONCE IV PUSH Last administered on 02/16/17 00:00; Start 02/15/17 at 21:15; Stop 02/15/17 at 21:16; Status DC Hydromorphone HCl (Dilaudid Pf Inj) 0.5 mg ONCE ONCE IV PUSH Last administered on 02/15/17 23:29; Start 02/15/17 at 23:00; Stop 02/15/17 at 23:01; Status DC Alprazolam (Xanax) 0.5 mg TID PO Last administered on 02/17/17 15:06; Start 02/16/17 at 18:00; Stop 02/17/17 at 15:27; Status DC Oxycodone/ Acetaminophen (Percocet 5-325 Mg) 1 tab Q6H PRN PO PAIN 3-5; Start 02/16/17 at 14:15; Stop 02/17/17 at 15:30; Status DC Oxycodone/ Acetaminophen (Percocet 7.5-325 Mg) 1 tab Q6H PRN PO Pain 6-7 Last administered on 02/17/17 14:44; Start 02/16/17 at 14:15; Stop 02/17/17 at 15:30; Status DC Oxycodone/ Acetaminophen (Percocet 10-325 Mg) 1 tab Q6H PRN PO pain 8-10 Last administered on 02/17/17 06:23; Start 02/16/17 at 14:15; Stop 02/17/17 at 15:30; Status DC Potassium Chloride (KCl) 40 meq ONCE ONCE PO Last administered on 02/16/17 15: 39; Start 02/16/17 at 14:15; Stop 02/16/17 at 14:22; Status DC Baclofen (Lioresal) 10 mg Q8HR PO Last administered on 02/27/17 20:55; Start 02/16/17 at 22:00 Iohexol (Omnipaque 350 Inj) 100 ml STK-MED ONCE IV Last administered on 15:13; Start 02/14/17 at 15:13; Stop 02/17/17 at 04:05; Status DC Meclizine HCl (Antivert) 25 mg Q8HR PO Last administered on 02/27/17 20:54; Start 02/17/17 at 14:00 Lidocaine/ Epinephrine (Xylocaine-Epi 1%-1:100,000 Inj) 20 ml STK-MED ONCE .ROUTE Last administered on 02/17/17 12:56; Start 02/17/17 at 12:56; Stop at 12:57; Status DC Fentanyl Citrate (fentaNYL INJ) 250 mcg STK-MED ONCE .ROUTE Last administered on 02/17/17 13:27; Start 02/17/17 at 13:27; Stop 02/17/17 at 13:28; Status DC Midazolam HCl (Versed Inj) 4 mg STK-MED ONCE .ROUTE Last administered on 13:27; Start 02/17/17 at 13:27; Stop 02/17/17 at 13:28; Status DC Alprazolam (Xanax) 1 mg TID PO Last administered on 02/21/17 08:09; Start 02/17 at 18:00; Stop 02/21/17 at 12:23; Status DC Lorazepam (Ativan Inj) 1 mg ONCE ONCE IV PUSH Last administered on 02/17/17 17 :44; Start 02/17/17 at 15:30; Stop 02/17/17 at 15:31; Status DC Hydromorphone HCl (Dilaudid Pf Inj) 0.5 mg ONCE ONCE IV PUSH Last administered on 02/17/17 16:15; Start 02/17/17 at 15:30; Stop 02/17/17 at 15:31; Status DC Oxycodone HCl (Roxicodone) 5 mg Q4H PRN PO pain scale 3-7 Last administered on 02/23/17 21:00; Start 02/17/17 at 15:30 Oxycodone HCl (Roxicodone) 10 mg Q4H PRN PO pain scale 8-10 Last administered on 02/27/17 21:05; Start 02/17/17 at 15:30 Phenytoin (Dilantin) 200 mg BID PO Last administered on 02/20/17 07:48; Start 02/17/17 at 21:00; Stop 02/20/17 at 08:54; Status DC Gadodiamide (Omniscan Pf Inj) 18 ml STK-MED ONCE IV Last administered on 18:40; Start 02/17/17 at 18:40; Stop 02/17/17 at 18:41; Status DC Alprazolam 1 mg 1 mg ONCE ONCE PO Last administered on 02/17/17 22:09; Start 02/17/17 at 21:45; Stop 02/17/17 at 21:46; Status DC Lactated Ringer's 1,000 ml @ 30 mls/hr Q24H PRN IV SEE LABEL COMMENTS; Start at 22:30; Stop 02/20/17 at 22:29; Status DC Sodium Chloride (NS 500 ml Inj) 500 ml @ 30 mls/hr [id number] PRN IV SEE LABEL COMMENTS; Start 02/17/17 at 22:30; Stop 02/20/17 at 22:29; Status DC Metoprolol Tartrate (Lopressor) 25 mg [employer]ENCE [employer]OR PRN PO SEE LABEL COMMENTS; Start 02/17/17 at 22:30; Stop 02/20/17 at 22:29; Status DC Povidone Iodine (Betadine 5% Antisepsis Kit) 1 applic [employer]OR PRN EACH NARE SEE LABEL COMMENTS; Start 02/17/17 at 22:30; Stop 02/20/17 at 22:29; Status DC Chlorhexidine Gluconate (Chlorhexidine 2% Cloth) 3 pack [employer]OR PRN TOPICAL SEE LABEL COMMENTS; Start 02/17/17 at 22:30; Stop 02/20/17 at 22:29; Status DC Insulin Human Regular (NovoLIN R INJ) See Protocol Table ... SCI[employer]OR PRN SQ SEE PROTOCOL TABLE; Start 02/17/17 at 22:30; Stop 02/20/17 at 22:29; Status DC Lidocaine/ Epinephrine (Xylocaine-Epi 1%-1:100,000 Inj) 20 ml STK-MED ONCE .ROUTE ; Start 02/18/17 at 13:40; Stop 02/18/17 at 13:41; Status DC Fentanyl Citrate (fentaNYL INJ) 250 mcg STK-MED ONCE .ROUTE ; Start 02/18/17 at 13:44; Stop 02/18/17 at 13:45; Status DC Lorazepam (Ativan Inj) 2 mg STK-MED ONCE .ROUTE ; Start 02/18/17 at 15:31; Stop 02/18/17 at 15:32; Status DC Miscellaneous Information ALL NURSING DEPARTME... UNSCH PRN .XX SEE LABEL COMMENTS; Start 02/18/17 at 15:15; Stop 02/19/17 at 15:14; Status DC Morphine Sulfate (*morphine INJ PERIprocedure ONLY) 8 mg STK-MED ONCE .ROUTE Last administered on 02/18/17 15:40; Start 02/18/17 at 15:40; Stop 02/18/17 at 15: 41; Status DC Lorazepam (Ativan Inj) 1 mg ONCE ONCE IV PUSH Last administered on 02/18/17 15 :31; Start 02/18/17 at 16:00; Stop 02/18/17 at 16:01; Status DC Hydromorphone HCl (Dilaudid Pf Inj) 0.5 mg Q4H PRN IV PUSH breakthrough pain Last administered on 02/19/17 01:15; Start 02/18/17 at 16:15 Propranolol HCl (Inderal) 20 mg TID PO Last administered on 02/27/17 08:31; Start 02/18/17 at 18:00 Non-Formulary Medication 1 tab DAILY PO BPM; Start 02/19/17 at 09:00; Status UNV Cyanocobalamin (Vitamin B12 Inj) 1,000 mcg ONCE ONCE IM Last administered on 17:54; Start 02/18/17 at 17:00; Stop 02/18/17 at 17:01; Status DC Folic Acid (Folate) 1 mg DAILY PO Last administered on 02/26/17 08:38; Start 02/18/17 at 16:30 Lisinopril (Prinivil) 20 mg DAILY PO Last administered on 02/27/17 08:30; Start 02/19/17 at 09:00 Hydrochlorothiazide (Hydrodiuril) 25 mg DAILY PO Last administered on 08:30; Start 02/19/17 at 09:00 Lorazepam (Ativan Inj) 1 mg Q6H PRN IV PUSH Panic attack Last administered on 15:00; Start 02/19/17 at 12:00; Stop 02/21/17 at 09:05; Status DC Polyethylene Glycol (Miralax) 17 gm ONCE ONCE PO ; Start 02/20/17 at 08:30; Stop 02/20/17 at 08:31; Status DC Phenytoin (Dilantin) 200 mg DAILY@0600 PO Last administered on 02/26/17 05:16 ; Start 02/21/17 at 06:00 Phenytoin (Dilantin) 300 mg ONCE ONCE PO Last administered on 02/20/17 15:22 ; Start 02/20/17 at 09:00; Stop 02/20/17 at 09:05; Status DC Phenytoin (Dilantin) 300 mg HS PO Last administered on 02/27/17 20:55; Start 02/20/17 at 21:00 Alprazolam (Xanax) 0.5 mg TID PO Last administered on 02/27/17 16:33; Start at 13:00 Phenytoin (Dilantin) 300 mg ONCE ONCE PO Last administered on 02/21/17 21:36 ; Start 02/21/17 at 18:15; Stop 02/21/17 at 18:22; Status DC Furosemide (Lasix) 40 mg ONCE ONCE PO ; Start 02/22/17 at 19:15; Stop 02/22/17 at 19:15; Status DC Lisinopril (Prinivil) 20 mg ONCE ONCE PO Last administered on 02/22/17 23:41 ; Start 02/22/17 at 23:30; Stop 02/22/17 at 23:34; Status DC Hydrochlorothiazide (Hydrodiuril) 25 mg ONCE ONCE PO Last administered on 02/22 23:42; Start 02/22/17 at 23:30; Stop 02/22/17 at 23:34; Status DC Haloperidol Lactate (Haldol Inj) 5 mg ONCE ONCE IM Last administered on 11:20; Start 02/23/17 at 11:00; Stop 02/23/17 at 11:13; Status DC Haloperidol Lactate (Haldol Inj) 2 mg Q4H PRN IM AGITATION AND/OR HALLUCINATION Last administered on 02/26/17 09:51; Start 02/23/17 at 11:00 Lorazepam (Ativan Inj) 1 mg Q15M PRN IV PUSH SEVERE ANXIETY OR AGITATION Last administered on 02/27/17 12:30; Start 02/23/17 at 12:45 Cyanocobalamin (Vitamin B12) 1,000 mcg DAILY PO Last administered on 02/26/17 08:38; Start 02/25/17 at 09:00 Lorazepam (Ativan Inj) 1 mg ONCE ONCE IV PUSH Last administered on 02/26/17 10:41; Start 02/26/17 at 10:30; Stop 02/26/17 at 10:39; Status DC Gadodiamide (Omniscan Pf Inj) 18 ml STK-MED ONCE IV Last administered on 17:03; Start 02/26/17 at 17:03; Stop 02/26/17 at 17:04; Status DC Iohexol (Omnipaque 350 Inj) 50 ml STK-MED ONCE OTHER Last administered on 13:38; Start 02/27/17 at 13:38; Stop 02/27/17 at 17:02; Status DC Propofol (Diprivan 200 Mg/20 ml Inj) 300 mg STK-MED ONCE IV ; Start 02/27/17 at 13:38; Stop 02/27/17 at 17:09; Status DC A/P Problem List: (1) Dizziness ICD Code: R42 Status: Acute (2) Dilantin toxicity ICD Code: T42.0X1A Status: Acute (3) Renal insufficiency ICD Code: N28.9 Status: Resolved (4) Seizure disorder ICD Code: G40.909 Status: Chronic (5) Tobacco abuse ICD Code: Z72.0 Status: Chronic (6) Anxiety disorder, unspecified ICD Code: F41.9 Status: Acute (7) Mediastinal mass ICD Code: J98.59 Status: Acute (8) Personality disorder ICD Code: F60.9 Status: Acute Assessment and Plan 61-year-old female with a PMH of Seizure Disorder, HTN, Hyperlipidemia and Tobacco Abuse who presented for dizziness and multiple falls. Found to have Dilantin toxicity on admission, since that time Dilantin has been discontinued. Patient remains on Keppra. Dizziness: Unclear etiology, initially thought to be secondary to Dilantin toxicity, dehydration, and hypotension, however, all of these have resolved and patient continues to complain of dizziness/room spinning. Possible BPPV, no nystagmus on exam. TSH wnl. Head CT with no acute findings. Orthostatics negative. Neurology consult appreciated. Brain MRI normal. -Continue Dilantin and BP meds. Dilantin levels rechecked within normal limits. -Continue Meclizine -Antiemetics prn -PT. PT recommended rehabilitation. Falls: Secondary to dizziness. CT C-Spine/Maxillofacial w/ no acute findings. -PT recommended rehabilitation. Dilantin Toxicity: Dilantin 39 on admission. -On Dilantin 400mg po bid at home, changed to 200 mg daily, 300 mg HS per neurology. - Dilantin level repeated today within normal limits. Chest pain Acute, left sided 02/20. Resolved. EKG without acute ischemic changes. - CXR, EKG, trend trops x 3. Abdominal pain: Resolved. -CT of abdomen and pelvis showed mediastinal mass, see below. Also CBD mass and dilatation noted. GB US: Abnormal GB appearance but no acute abnormality. -antiemetics and pain control prn -s/p ERCP showing small gallstones s/p stent placement. difficult to remove small stones but no filling defect. Mediastinal mass: unclear etiology -IR consulted for biopsy of mass, biopsy under anesthesia performed 02/18. Pathology results suggest vascular component but otherwise unable to characterize the mass. 02/22 oncology consultation appreciated - recommended vascular surgery consult who states patient is not a candidate for biopsy at this point. Fu as outpatient. Renal lesion -Renal ultrasound shows lesions that is not able to biopsy. -MRCP showed 2 lesion mildly complex cyst. Seizure Disorder: No reported seizure activity. -Continue Keppra 500mg bid and Dilantin 200 mg BID. -Appreciate neurology recommendations. -seizure precautions Normocytic Anemia: Hgb 8.9, no reported active bleeding. B12 and folate levels low. -B12 injection x 1. -on PO folate daily. -Monitor CBC Anxiety: acute on chronic Patient complains of multiple panic attacks and uncontrolled anxiety on a regular basis. She cites family problems as triggers. Psych consult appreciated. -continue patient's Xanax 1mg tid (verified on [facility]). Wean to 0.5 TID . -Psychiatry following and stated that patient has a personality pathology most likely borderline personality. Acute on Chronic Pain: patient sees Dr. Wong as outpatient, per [facility], patient fills Soma 350mg tid, Xanax 1mg tid, and [place] 10/325mg q6h. 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 Follow up with neuro. -Patient has dependency on control substance. Management as outpatient. 02/23 Acute Delirium/agitation more like manipulation -Patient is acting out today. No signs of CVA. stat CT scan of the head was negative. Per patient she didnt like her nurse so was acting out. Per psych patient has borderline personality. she is manipulative. DVT Prophylaxis: SCD/teds. Discharge Planning most likely can d/c to SNF tomorrow if tolerated PO intake. Katheryn Ordoñez MD Feb 27, 2017 15:59
[2017-02-27 17:30] VITALS: BP 111/76; PULSE 63; RESP 16; TEMP 97.9; O2SAT 97
[2017-02-27 20:00] VITALS: BP 101/59; PULSE 79; RESP 17; TEMP 98.8; O2SAT 97
[2017-02-27 21:16] LABS: MEAN CORPUSCULAR HGB CONC 36.1 % (32.0-36.0)
[2017-02-28 00:15] VITALS: BP 89/69; PULSE 73; RESP 16; TEMP 98.6; O2SAT 98
[2017-02-28 04:00] VITALS: BP 101/69; PULSE 62; RESP 17; TEMP 97.8; O2SAT 98
[2017-02-28] MEDS: PHENYTOIN SODIUM 100 MG CAP PO SCH (04:12)
[2017-02-28] MEDS: BACLOFEN 10 MG TAB PO SCH (04:12)
[2017-02-28] MEDS: MECLIZINE HCL 25 MG TAB PO SCH (04:12)
[2017-02-28] MEDS: LEVOTHYROXINE SODIUM 125 MCG TAB PO SCH (04:12)
[2017-02-28] MEDS: LISINOPRIL 20 MG TAB PO SCH (08:14)
[2017-02-28] MEDS: FOLIC ACID 1 MG TAB PO SCH (08:14)
[2017-02-28] MEDS: levETIRAcetam 500 MG TAB PO SCH (08:14)
[2017-02-28] MEDS: CYANOCOBALAMIN 1,000 MCG TAB PO SCH (08:14)
[2017-02-28] MEDS: DOCUSATE SODIUM 50 MG/SENNA 8.6 MG TAB PO SCH (08:15)
[2017-02-28] MEDS: HYDROCHLOROTHIAZIDE 25 MG TAB PO SCH (08:15)
[2017-02-28] MEDS: MONTELUKAST SODIUM 10 MG TAB PO SCH (08:15)
[2017-02-28] MEDS: ALPRAZolam 0.5 MG TAB PO SCH ×2 (08:15→11:57)
[2017-02-28] MEDS: ATORVASTATIN 20 MG TAB PO SCH (08:15)
[2017-02-28] MEDS: PROPRANOLOL HCL 20 MG TAB PO SCH ×2 (08:17→11:57)
[2017-02-28] MEDS: SODIUM CHLORIDE 0.9% FLUSH 10 ML FLUSH IV FLUSH SCH (08:18)
[2017-02-28 08:31] LABS: HEMATOCRIT 28.4 % (35.0-46.0); MEAN CELL VOLUME 90.5 FL (80.0-100.0); MEAN CORPUSCULAR HEMOGLOBIN 32.7 PG (27.0-34.0); PLATELET COUNT 206 TH/MM3 (150-450); RED BLOOD COUNT 3.14 MIL/MM3 (4.00-5.30); RED CELL DISTRIBUTION WIDTH 14.9 % (11.6-17.2); WHITE BLOOD COUNT 5.3 TH/MM3 (4.0-11.0)
[2017-02-28 08:32] LABS: REVIEW FLAG FINAL
[2017-02-28 08:49] LABS: ANION GAP 8 MEQ/L (5-15); AST (GOT) 26 U/L (15-37); BICARBONATE 28.9 MEQ/L (21.0-32.0); BLOOD UREA NITROGEN 20 MG/DL (7-18); CHLORIDE 98 MEQ/L (98-107); GLOMERULAR FILTRATION RATE 67 ML/MIN (>89); POTASSIUM 3.3 MEQ/L (3.5-5.1); SODIUM (NA) 135 MEQ/L (136-145)
[2017-02-28 08:52] LABS: ALKALINE PHOSPHATASE 140 U/L (45-117); ALT (GPT) 28 U/L (10-53); TOTAL BILIRUBIN ADULT 0.4 MG/DL (0.2-1.0)
[2017-02-28] MEDS ORDERED: POTASSIUM CHLORIDE 10 MEQ CONTROLLED RELEASE TAB PO ONE (10:30)
--- NOTE | 2017-02-28 11:14 | HHI.GIFU ---
Subjective Remarks Resting in bed. No n/v/abdominal pain. Tolerating diet, although she states she does not want to be on a Heart Healthy diet. (Sharron Marmolejo) Objective Vitals I&O Vital Signs Date Time Temp Pulse Resp B/P Pulse Ox O2 Delivery O2 Flow Rate FiO2 02/28/17 08:18 Room Air 02/28/17 04:00 97.8 62 17 101/69 98 02/28/17 00:15 98.6 73 16 89/69 98 02/27/17 20:00 98.8 79 17 101/59 97 02/27/17 18:50 Room Air 02/27/17 17:30 97.9 63 16 111/76 97 02/27/17 14:28 97.3 52 16 106/69 97 02/27/17 11:18 98.1 59 16 97/61 98 I/O 02/27/17 02/27/17 02/27/17 02/28/17 02/28/17 02/28/17 07:00 15:00 23:00 07:00 15:00 23:00 Intake Total 480 ml 240 ml 720 ml 720 ml Output Total 2 ml Balance 480 ml 238 ml 720 ml 720 ml Intake Oral 480 ml 240 ml 720 ml 720 ml Output Urine Total 2 ml # Voids 3 4 2 2 # Bowel Movements 0 1 Laboratory Laboratory Tests Test 02/28/17 07:59 White Blood Count 5.3 Red Blood Count 3.14 Hemoglobin 10.3 Hematocrit 28.4 Mean Corpuscular Volume 90.5 Mean Corpuscular Hemoglobin 32.7 Mean Corpuscular Hemoglobin 36.1 Concent Red Cell Distribution Width 14.9 Platelet Count 206 Mean Platelet Volume 7.6 Sodium Level 135 Potassium Level 3.3 Chloride Level 98 Carbon Dioxide Level 28.9 Anion Gap 8 Blood Urea Nitrogen 20 Creatinine 0.86 Estimat Glomerular Filtration 67 Rate Random Glucose 88 Calcium Level 9.8 Total Bilirubin 0.4 Aspartate Amino Transf 26 (AST/SGOT) Alanine Aminotransferase 28 (ALT/SGPT) Alkaline Phosphatase 140 Total Protein 6.5 Albumin 3.3 Imaging Last Impressions GI Procedure 02/27/17 0000 Signed Impressions: Service Date/Time: February 13:57 - CONCLUSION: ERCP as above. Carlton Vigil MD Head CT 02/26/17 0000 Signed Impressions: Service Date/Time: Sunday, February 26, 2017 11:44 - CONCLUSION: Negative noncontrast CT. Carlton Vigil MD Cholangiopancreatography MRI 02/26/17 0000 Signed Impressions: Service Date/Time: Sunday, February 26, 2017 16:11 - CONCLUSION: 1. 4 mm low signal defect again noted in the distal common bile duct with mild extrahepatic biliary ductal dilatation and mild elevation of the left intrahepatic ducts. 2. The gallbladder is unremarkable in appearance with no evidence of cholelithiasis. 3. The known right paraspinous mass in the lower chest is again visualized. 4. The 2 lesions in the left kidney seen on CT are most characteristic of mildly complex cysts. Carlton Vigil MD Renal Ultrasound 02/24/17 0000 Signed Impressions: Service Date/Time: Friday, February 24, 2017 15:59 - CONCLUSION: 1. Nonspecific 18 mm lesion at the upper pole the left kidney. Based on the appearance, I cannot determine with confidence that this represents a cyst or solid mass given the location of the lesion and depth. 2. The second lesion at the left upper pole kidney identified on prior CT is not appreciated with ultrasound. On an elective basis these could be further evaluated with renal protocol MRI with and without intravenous contrast. Akira Hernandez MD Chest X-Ray 02/21/17 0000 Signed Impressions: Service Date/Time: Tuesday, February 21, 2017 13:19 - CONCLUSION: No acute disease. Akira Morris MD Gall Bladder Ultrasound 02/19/17 0000 Signed Impressions: Service Date/Time: Sunday, February 19, 2017 10:11 - CONCLUSION: Abnormal gallbladder appearance. No common duct filling defect is identified. Akira Morris MD Lung Biopsy CT 02/18/17 1009 Signed Impressions: Service Date/Time: Saturday, February 18, 2017 14:14 - CONCLUSION: Uncomplicated CT guided biopsy. Titus Brunner MD Lumbar Spine MRI 02/17/17 0000 Signed Impressions: Service Date/Time: Friday, February 17, 2017 18:00 - CONCLUSION: 1. Mild syrinx and conus medullaris with central canal measuring just over 1 mm in diameter. 2. At L5-S1 there is a broad-based central to right paracentral disc protrusion with extruded disc material extending cephalad above the disc interspace, slightly more the right side with encroachment of the lateral recesses bilaterally as above. 3. Mild degenerative changes in the remainder of the lumbar spine without significant central canal stenosis Delfino Stapleton MD Chest CT 02/17/17 0000 Signed Impressions: Service Date/Time: Friday, February 17, 2017 13:32 - CONCLUSION: Unsuccessful attempt at biopsy. Rescheduled in the AM with anesthesia. Fawad Murguia MD FACR Brain MRI 02/17/17 Signed Impressions: Service Date/Time: Friday, February 17, 2017 18:00 - CONCLUSION: Normal examination. Keegan Weaver MD Abdomen/Pelvis CT 02/14/17 Signed Impressions: Service Date/Time: Tuesday, February 14, 2017 15:13 - CONCLUSION: 1. There is a 4 mm round hyperdense structure in the distal common bile duct with associated enlargement of the common bile duct and left intrahepatic bile ducts. The small density could represent a stone or small mass. 2. 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 Etiology is uncertain. Neurogenic tumor is a consideration but there is no connection with the spinal canal. Complex duplication cyst/lesion of the esophagus is another consideration. Suggest correlating with any prior imaging studies to assess for chronicity of this finding. This lesion would be amenable to image guided percutaneous biopsy, if needed. 3. There are 2 hyperdense lesions in the left kidney measuring up to 1.8 cm. The sternotomy criteria for simple cysts. Again , suggest correlating with prior imaging studies that could offer additional characterization. If none are available suggest elective further evaluation with either ultrasound or renal protocol CT or MRI. 4. Nonacute findings include mild splenomegaly, moderate atherosclerotic disease, and sigmoid diverticulosis. Akira Hernandez MD Cervical Spine CT 02/13/17 1537 Signed Impressions: Service Date/Time: February 16:27 - CONCLUSION: 1. No acute findings. Multilevel degenerative disc disease and facet arthropathy. Delfino Stapleton MD Maxillofacial CT 02/13/17 Signed Impressions: Service Date/Time: , February 13, 2017 16:27 - CONCLUSION: 1. No acute findings. Delfino Stapleton MD Physical Exam HEENT: Normocephalic; bruising under both eyes; no jaundice. CHEST: CTA CARDIAC: RRR ABDOMEN: Soft, nondistended, nontender; no hepatosplenomegaly; bowel sounds are present in all four quadrants. EXTREMITIES: No clubbing, cyanosis, or edema. SKIN: Normal; no rash; no jaundice. TELEPHONE ANSWERING SERVICE OPERATOR: alert (Sharron Marmolejo PRINTING MANAGER) Assessment and Plan Plan ASSESSMENT - Dilated CBD with hyperdense structure in CBD. Abdomen/Pelvis CT (02/14/17)----- > 1. There is a 4 mm round hyperdense structure in the distal common bile duct with associated enlargement of the common bile duct and left intrahepatic bile ducts. The small density could represent a stone or small mass. 2. 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 Etiology is uncertain. Neurogenic tumor is a consideration but there is no connection with the spinal canal. Complex duplication cyst/lesion of the esophagus is another consideration. Suggest correlating with any prior imaging studies to assess for chronicity of this finding. This lesion would be amenable to image guided percutaneous biopsy, if needed. 3. There are 2 hyperdense lesions in the left kidney measuring up to 1.8 cm. The sternotomy criteria for simple cysts. Again, suggest correlating with prior imaging studies that could offer additional characterization. If none are available suggest elective further evaluation with either ultrasound or renal protocol CT or MRI. 4. Nonacute findings include mild splenomegaly, moderate atherosclerotic disease, and sigmoid diverticulosis. MRCP (02/26/17)-----> 1. 4 mm low signal defect again noted in the distal common bile duct with mild extrahepatic biliary ductal dilatation and mild elevation of the left intrahepatic ducts. 2. The gallbladder is unremarkable in appearance with no evidence of cholelithiasis. 3. The known right paraspinous mass in the lower chest is again visualized. 4. The 2 lesions in the left kidney seen on CT are most characteristic of mildly complex cysts. S/P ERCP sphincterotomy, balloon extraction, basket extraction, stent placement (02/27/17)----> Choledocholithiasis. No n/v/abdominal pain. LFT stable. - Mediastinal mass. S/P Lung bx (02/18/17)---> densely collagenized tissue with vascular spaces. S/P Oncology Evaluation. S/P Vascular evaluation-not a candidate for biopsy at this point. - Renal lesion, Sz D/O, Dilantin toxicity, per attending. PLAN - Heart healthy diet - FU EZRA 2 weeks - Rpt ERCP with stent removal vs. stent exchange - Pt seen and examined by Dr. Ingram and myself and this note is written on his behalf (Sharron Marmolejo) Physician Comments patient seen and examined agree with above f/u with GI post discharge patient will need ERCP for stent and stone removal (Andrade Ingram MD) Sharron Marmolejo Feb 28, 2017 11:14 Andrade Ingram MD Feb 28, 2017 22:55
[2017-02-28 12:00] VITALS: BP 100/55; PULSE 66; RESP 17; TEMP 98.1; O2SAT 98
[2017-02-28 12:29] VITALS: O2SAT 98
[2017-02-28] MEDS ORDERED: VITA10002 PO (12:51)
--- NOTE | 2017-02-28 15:47 | HHI.DS ---
Discharge Summary Admission Date Feb 14, 2017 at 08:55 Discharge Date: Feb 28, 2017 Admitting Diagnosis Dilantin toxicity, hyponatremia (1) Dizziness ICD Code: R42 - Dizziness and giddiness Diagnosis: Principal (2) Dilantin toxicity ICD Code: T42.0X1A - Poisoning by hydantoin derivatives, accidental ( unintentional), initial encounter Diagnosis: Principal (3) Renal insufficiency ICD Code: N28.9 - Disorder of kidney and ureter, unspecified Diagnosis: Principal (4) Seizure disorder ICD Code: G40.909 - Epilepsy, unspecified, not intractable, without status epilepticus Diagnosis: Secondary (5) Tobacco abuse ICD Code: Z72.0 - Tobacco use Diagnosis: Secondary (6) Anxiety disorder, unspecified ICD Code: F41.9 - Anxiety disorder, unspecified Diagnosis: Secondary (7) Mediastinal mass ICD Code: J98.59 - Other diseases of mediastinum, not elsewhere classified Diagnosis: Principal (8) Personality disorder ICD Code: F60.9 - Personality disorder, unspecified Diagnosis: Principal (9) Gallstone ICD Code: K80.20 - Calculus of gallbladder without cholecystitis without obstruction Diagnosis: Principal (10) Borderline personality disorder ICD Code: F60.3 - Borderline personality disorder Diagnosis: Principal Procedures CT guided mediastinal mass biopsy ERCP on 02/27 with stent placement. Brief History - From Admission This is a 61-year-old female with a PMH of Seizure Disorder, HTN, Hyperlipidemia and Tobacco Abuse who presents to ER with complaints of dizziness in addition to multiple falls at home for the last 2-3 days. Denies LOC or seizure activity. No fever, chills, nausea, vomiting or diarrhea. Recent admit 01/07-01/15/17 w/ AMS and New Onset Seizure Disorder, d/c'd home on Keppra 500mg bid and Dilantin 400mg bid, reports compliance w/ medications. States dizziness started shortly after starting new medications. On arrival, BP 118/80, HR 77, O2 sat 96% on RA, Temp 99.1. CBC essentially unremarkable. K + 3.4. Creatinine 1.08, previously 0.71 on 01/10/17. Trop negative. Phenytoin 39. CT Head normal. CT C-spine with degenerative disc disease, no acute findings. CT Maxillofacial negative. CXR with no acute findings. S/p IVF and Meclizine in ER. CBC/BMP: 02/28/17 0759 02/28/17 0759 Significant Findings Laboratory Tests Test 02/27/17 02/28/17 06:25 07:59 Red Blood Count 3.24 MIL/MM3 3.14 MIL/MM3 (4.00-5.30) (4.00-5.30) Hemoglobin 10.7 GM/DL 10.3 GM/DL (11.6-15.3) (11.6-15.3) Hematocrit 29.7 % 28.4 % (35.0-46.0) (35.0-46.0) Sodium Level 134 MEQ/L 135 MEQ/L (136-145) (136-145) Blood Urea Nitrogen 19 MG/DL (7-18) 20 MG/DL (7-18) Estimat Glomerular Filtration 81 ML/MIN (>89) 67 ML/MIN (>89) Rate Mean Corpuscular Hemoglobin 36.1 % Concent (32.0-36.0) Potassium Level 3.3 MEQ/L (3.5-5.1) Alkaline Phosphatase 140 U/L (45-117) Albumin 3.3 GM/DL (3.4-5.0) Imaging Last Impressions GI Procedure 02/27/17 0000 Signed Impressions: Service Date/Time: February 13:57 - CONCLUSION: ERCP as above. Carlton Vigil MD Head CT 02/26/17 0000 Signed Impressions: Service Date/Time: Sunday, February 26, 2017 11:44 - CONCLUSION: Negative noncontrast CT. Carlton Vigil MD Cholangiopancreatography MRI 02/26/17 0000 Signed Impressions: Service Date/Time: Sunday, February 26, 2017 16:11 - CONCLUSION: 1. 4 mm low signal defect again noted in the distal common bile duct with mild extrahepatic biliary ductal dilatation and mild elevation of the left intrahepatic ducts. 2. The gallbladder is unremarkable in appearance with no evidence of cholelithiasis. 3. The known right paraspinous mass in the lower chest is again visualized. 4. The 2 lesions in the left kidney seen on CT are most characteristic of mildly complex cysts. Carlton Vigil MD Renal Ultrasound 02/24/17 0000 Signed Impressions: Service Date/Time: Friday, February 24, 2017 15:59 - CONCLUSION: 1. Nonspecific 18 mm lesion at the upper pole the left kidney. Based on the appearance, I cannot determine with confidence that this represents a cyst or solid mass given the location of the lesion and depth. 2. The second lesion at the left upper pole kidney identified on prior CT is not appreciated with ultrasound. On an elective basis these could be further evaluated with renal protocol MRI with and without intravenous contrast. Akira Hernandez MD Chest X-Ray 02/21/17 0000 Signed Impressions: Service Date/Time: Tuesday, February 21, 2017 13:19 - CONCLUSION: No acute disease. Akira Morris MD Gall Bladder Ultrasound 02/19/17 0000 Signed Impressions: Service Date/Time: Sunday, February 19, 2017 10:11 - CONCLUSION: Abnormal gallbladder appearance. No common duct filling defect is identified. Akira Morris MD Lung Biopsy CT 02/18/17 1009 Signed Impressions: Service Date/Time: Saturday, February 18, 2017 14:14 - CONCLUSION: Uncomplicated CT guided biopsy. Titus Brnuner MD Lumbar Spine MRI 02/17/17 0000 Signed Impressions: Service Date/Time: Friday, February 17, 2017 18:00 - CONCLUSION: 1. Mild syrinx and conus medullaris with central canal measuring just over 1 mm in diameter. 2. At L5-S1 there is a broad-based central to right paracentral disc protrusion with extruded disc material extending cephalad above the disc interspace, slightly more the right side with encroachment of the lateral recesses bilaterally as above. 3. Mild degenerative changes in the remainder of the lumbar spine without significant central canal stenosis Delfino Stapleton MD Chest CT 02/17/17 0000 Signed Impressions: Service Date/Time: Friday, February 17, 2017 13:32 - CONCLUSION: Unsuccessful attempt at biopsy. Rescheduled in the AM with anesthesia. Fawad Murguia MD FACR Brain MRI 02/17/17 0000 Signed Impressions: Service Date/Time: Friday, February 17, 2017 18:00 - CONCLUSION: Normal examination. Keegan Weaver MD Abdomen/Pelvis CT 02/14/17 0000 Signed Impressions: Service Date/Time: Tuesday, February 14, 2017 15:13 - CONCLUSION: 1. There is a 4 mm round hyperdense structure in the distal common bile duct with associated enlargement of the common bile duct and left intrahepatic bile ducts. The small density could represent a stone or small mass. 2. 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 Etiology is uncertain. Neurogenic tumor is a consideration but there is no connection with the spinal canal. Complex duplication cyst/lesion of the esophagus is another consideration. Suggest correlating with any prior imaging studies to assess for chronicity of this finding. This lesion would be amenable to image guided percutaneous biopsy, if needed. 3. There are 2 hyperdense lesions in the left kidney measuring up to 1.8 cm. The sternotomy criteria for simple cysts. Again , suggest correlating with prior imaging studies that could offer additional characterization. If none are available suggest elective further evaluation with either ultrasound or renal protocol CT or MRI. 4. Nonacute findings include mild splenomegaly, moderate atherosclerotic disease, and sigmoid diverticulosis. Akira Hernandez MD Cervical Spine CT 02/13/17 1537 Signed Impressions: Service Date/Time: February 16:27 - CONCLUSION: 1. No acute findings. Multilevel degenerative disc disease and facet arthropathy. Delfino Stapleton MD Maxillofacial CT 02/13/17 0000 Signed Impressions: Service Date/Time: February 16:27 - CONCLUSION: 1. No acute findings. Delfino Stapleton MD PE at Discharge GENERAL: in NAD NECK: Supple, trachea midline. No JVD or lymphadenopathy. CARDIOVASCULAR: Regular rate and rhythm without murmurs, gallops, or rubs. RESPIRATORY: Breath sounds equal bilaterally. No accessory muscle use. GASTROINTESTINAL: Abdomen soft, non-tender, nondistended. MUSCULOSKELETAL: No cyanosis, or edema. BACK: Nontender without obvious deformity. No CVA tenderness. Pt update on day of discharge Follow-up for multiple medical conditions listed in the problem list Patient very anxious to go home. She stated that she wants to be reevaluated by physical therapist because she feels like she can walk now. Also complaining about being on a heart healthy diet. She stated that she was on blood pressure medicine because of her thyroid problem not because of hypertension. She is tolerating oral intake. Denied any abdominal pain or nausea vomiting. d/w patient's nurse and physical therapist and also GI. Per physical therapist patient is noncompliant and when they go in to the room she does not want to work with her. I seen patient multiple times able to walk on her own without any systemic. Per physical therapist when she goes in she tells and that she cannot walk so she is not able to work with her. I personally brought in physical therapist into her room while i was present and told the patient that physical therapist will work with her but she must be compliant and work with her. Patient stated at that time that if she knew her stuff she would know that she needs to walk before she can due therapy. she stated that she has chronic back pain and she needs to warm her muscles by walking herself. Patient was seen ambulating on her own. Hospital Course 61-year-old female with a PMH of Seizure Disorder, HTN, Hyperlipidemia and Tobacco Abuse who presented for dizziness and multiple falls. Found to have Dilantin toxicity on admission, since that time Dilantin has been discontinued. Patient remains on Keppra. Dizziness: Unclear etiology, initially thought to be secondary to Dilantin toxicity, dehydration, and hypotension, however, all of these have resolved and patient continues to complain of dizziness/room spinning. Possible BPPV, no nystagmus on exam. TSH wnl. Head CT with no acute findings. Orthostatics negative. Neurology consult appreciated. Brain MRI normal. -Continue Dilantin and BP meds. Dilantin levels rechecked within normal limits. -Continue Meclizine -Antiemetics prn Falls: Secondary to dizziness. CT C-Spine/Maxillofacial w/ no acute findings. -Patient was manipulative. Initially PT session go home then patient supposedly was not able to walk now. So she was sent to rehabilitation but then wanted to go home so markedly she was able to walk without difficulty. She was evaluated by psych multiple times and per psych this is a personality disorder and patient manipulate the situation. Dilantin Toxicity: Dilantin 39 on admission. -On Dilantin 400mg po bid at home, changed to 200 mg daily, 300 mg HS per neurology. - Dilantin level repeated during hospitalization and was within normal limits. Chest pain Acute, left sided 02/20. Resolved on its own. EKG without acute ischemic changes. - CXR, EKG, trend trops x 3. -Atypical. Abdominal pain: Resolved. -CT of abdomen and pelvis showed mediastinal mass, see below. Also CBD mass and dilatation noted. GB US: Abnormal GB appearance but no acute abnormality. -antiemetics and pain control prn -s/p ERCP showing small gallstones s/p stent placement. difficult to remove small stones but no filling defect. Mediastinal mass: unclear etiology -IR consulted for biopsy of mass, biopsy under anesthesia performed 02/18. Pathology results suggest vascular component but otherwise unable to characterize the mass. 02/22 oncology consultation appreciated - recommended vascular surgery consult who states patient is not a candidate for biopsy at this point. Fu as outpatient. Renal lesion -Renal ultrasound shows lesions that is not able to biopsy. -MRCP showed 2 lesion mildly complex cyst. -To be follow-up as outpatient with her oncologist. Seizure Disorder: No reported seizure activity. -Continue Keppra 500mg bid and Dilantin 200 mg BID. -Appreciate neurology recommendations. -seizure precautions Normocytic Anemia: Hgb 8.9, no reported active bleeding. B12 and folate levels low. -B12 injection x 1. -on PO folate daily. -Monitor CBC, her oncologist is managing. Anxiety: acute on chronic Patient complains of multiple panic attacks and uncontrolled anxiety on a regular basis. She cites family problems as triggers. Psych consult appreciated. -continue patient's Xanax 1mg tid (verified on [facility]). Wean to 0.5 TID . -Psychiatry following and stated that patient has a personality pathology most likely borderline personality. Acute on Chronic Pain: patient sees Dr. Wong as outpatient, per [facility], patient fills Soma 350mg tid, Xanax 1mg tid, and [place] 10/325mg q6h. 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 Follow up with neuro. -Patient has dependency on control substance. Management as outpatient. Acute Delirium/agitation more like manipulation -Patient delirium was false and was manipulation on her part. She was evaluated multiple times by psychiatrists. Pt Condition on Discharge: Good Discharge Disposition: Discharge Home Discharge Time: > 30 minutes Discharge Instructions DIET: Follow Instructions for: Heart Healthy Diet Activities you can perform: Regular-No Restrictions Follow up Referrals: Gastroenterology - 2 Weeks with Andrade Ingram MD Neurology - 2 Weeks Oncology - 1 Week with Suzanne Nation MD PCP Follow-up - 1 Week Surgical - 4 Weeks with Jen Samaniego MD New Medications: Cyanocobalamin (Vitamin B-12) 1,000 Mcg Tab 1000 MCG PO DAILY for low vitamin B12, #30 TAB 0 Refills Folic Acid (Folic Acid) 1 Mg Tablet 1 MG PO DAILY for low levels, #30 TAB 0 Refills Meclizine HCl (Meclizine 25) 25 Mg Tab 25 MG PO Q8HR PRN for vertigo, #30 TAB 0 Refills Phenytoin Extended (Dilantin) 100 Mg Cap 200 MG PO DAILY@0600 for seizure, #30 CAP 0 Refills Phenytoin Extended (Dilantin) 100 Mg Cap 300 MG PO HS for seizure, #30 CAP 0 Refills Continued Medications: Alprazolam (Xanax) 0.5 Mg Tab 0.5 MG PO BID for Control Anxiety, #10 TAB Levetiracetam (Keppra) 500 Mg Tab 500 MG PO Q12HR for Control Seizures, #60 TAB 3 Refills Levothyroxine (Levothyroxine) 125 Mcg Tab 125 MCG PO DAILY for Thyroid, #30 TAB 0 Refills Montelukast (Montelukast) 10 Mg Tab 10 MG PO DAILY for Allergies, #30 TAB 0 Refills Propranolol (Propranolol) 20 Mg Tab 20 MG PO TID, #90 TAB 0 Refills Rosuvastatin (Crestor) 10 Mg Tab 10 MG PO DAILY for Cholesterol Management, #30 TAB 0 Refills Discontinued Medications: Lisinopril-Hctz (Lisinopril-Hctz) 20-25 Mg Tab 1 TAB PO DAILY for Blood Pressure Management, #30 TAB 0 Refills Phenytoin Extended (Dilantin) 100 Mg Cap 400 MG PO BID for Control Seizures, #60 CAP 3 Refills Katheryn Ordoñez MD Feb 28, 2017 15:47
== END 2017-02-28 13:09 | disposition home or self-care (01) | DRG 918 ==
LOC: NEPC 14:44 → NEDA 21:57 → NEPGCP 23:58 → OBSVTOIN 02-14 08:55 → N06A 02-14 23:40
PROVIDERS: ADMIT Family Medicine; ATTEND Family Medicine
PROC: 0WBC3ZX Excision of Mediastinum, Percutaneous Approach, Diagnostic (ICD-10-PCS; 2017-02-18)
PROC: 0F798DZ Dilation of Common Bile Duct with Intraluminal Device, Via Natural or Artificial Opening Endoscopic (ICD-10-PCS; 2017-02-27)
PROC: 0FC98ZZ Extirpation of Matter from Common Bile Duct, Via Natural or Artificial Opening Endoscopic (ICD-10-PCS; principal; 2017-02-27 13:27)
DX: T42.0X5A Adverse effect of hydantoin derivatives, initial encounter (principal); I95.9 Hypotension, unspecified; E87.1 Hypo-osmolality and hyponatremia; S06.0X9A Concussion with loss of consciousness of unspecified duration, initial encounter; D51.9 Vitamin B12 deficiency anemia, unspecified; R44.3 Hallucinations, unspecified; F11.20 Opioid dependence, uncomplicated; F13.20 Sedative, hypnotic or anxiolytic dependence, uncomplicated; D52.9 Folate deficiency anemia, unspecified; K80.70 Calculus of gallbladder and bile duct without cholecystitis without obstruction; E86.0 Dehydration; I10 Essential (primary) hypertension; S00.11XA Contusion of right eyelid and periocular area, initial encounter; S00.12XA Contusion of left eyelid and periocular area, initial encounter; E87.6 Hypokalemia; G40.909 Epilepsy, unspecified, not intractable, without status epilepticus; R22.2 Localized swelling, mass and lump, trunk; H26.9 Unspecified cataract; E05.00 Thyrotoxicosis with diffuse goiter without thyrotoxic crisis or storm; E78.5 Hyperlipidemia, unspecified; R55 Syncope and collapse; K52.9 Noninfective gastroenteritis and colitis, unspecified; M51.27 Other intervertebral disc displacement, lumbosacral region; H81.10 Benign paroxysmal vertigo, unspecified ear; K57.30 Diverticulosis of large intestine without perforation or abscess without bleeding; R16.1 Splenomegaly, not elsewhere classified; R29.6 Repeated falls; N28.1 Cyst of kidney, acquired; M51.36 Other intervertebral disc degeneration, lumbar region; M50.30 Other cervical disc degeneration, unspecified cervical region; N28.9 Disorder of kidney and ureter, unspecified; F60.3 Borderline personality disorder; F41.0 Panic disorder [episodic paroxysmal anxiety]; F41.1 Generalized anxiety disorder; Z63.9 Problem related to primary support group, unspecified; Z87.891 Personal history of nicotine dependence; Z88.0 Allergy status to penicillin
CPT/HCPCS: 32405; 70450; 70486; 70553; 71010; 71250; 72125; 72148; 74177; 74183; 74330; 76377; 76705; 76775; 76937; 77012; 80048; 80053; 80185; 81001; 81219; 82550; 82552; 82607; 82728; 82746; 83036; 83090; 83540; 83550; 83690; 83735; 83921; 84100; 84439; 84443; 84484; 85025; 85027; 85610; 85730; 88305; 88341; 93005; 96361; 96374; 99211; A9579; C1769; C2625; G0378; G0463; G8987-GP; G8988-GP; J1170; J1630; J2060; J2250; J2270; J2405; J3010; J3420; J7030; Q9963; Q9967

== ENCOUNTER 2017-02-28 21:19 | Observation (INO) | payer MEDICARE, OTHER ==
[~2017-02-28 21:19] MED LIST changes: +FOLI1TAB6 PO; -LISI20TA3 PO; +MECL1TAB42 PO; +VITA10002 PO
[2017-02-28 21:30] VITALS: BP 137/91; PULSE 97; RESP 20; TEMP 98.7; O2SAT 98
[2017-02-28 23:45] VITALS: BP 156/91; PULSE 88; RESP 16; O2SAT 98
[2017-02-28 23:55] LABS: ANION GAP 6 MEQ/L (5-15); AST (GOT) 26 U/L (15-37); BICARBONATE 27.6 MEQ/L (21.0-32.0); BLOOD UREA NITROGEN 23 MG/DL (7-18); CHLORIDE 98 MEQ/L (98-107); GLOMERULAR FILTRATION RATE 63 ML/MIN (>89); POTASSIUM 3.5 MEQ/L (3.5-5.1); SODIUM (NA) 132 MEQ/L (136-145)
[2017-03-01 00:10] LABS: ALKALINE PHOSPHATASE 149 U/L (45-117); ALT (GPT) 29 U/L (10-53); TOTAL BILIRUBIN ADULT 0.7 MG/DL (0.2-1.0)
[2017-03-01] MEDS ORDERED: LORazepam 2 MG/ML VIAL IM ONE (00:45)
[2017-03-01] MEDS ORDERED: HALOPERIDOL LACTATE 5 MG/ML AMP IM ONE (00:45)
[2017-03-01 01:02] LABS: AUTOMATED NEUTROPHIL # 5.4 TH/MM3 (1.8-7.7); BASOPHIL % 0.5 % (0.0-2.0); EOSINOPHIL # 0.1 TH/MM3 (0-0.4); EOSINOPHIL % 1.3 % (0.0-4.0); HEMO FLAGS DIFF FINAL; LYMPH % 11.7 % (9.0-44.0); LYMPHOCYTE # 0.8 TH/MM3 (1.0-4.8); MEAN CELL VOLUME 91.6 FL (80.0-100.0); MEAN CORPUSCULAR HEMOGLOBIN 32.2 PG (27.0-34.0); MEAN CORPUSCULAR HGB CONC 35.1 % (32.0-36.0); MONO % 5.2 % (0.0-8.0); NEUT % 81.3 % (16.0-70.0); PLATELET COUNT 272 TH/MM3 (150-450); RED BLOOD COUNT 3.71 MIL/MM3 (4.00-5.30); RED CELL DISTRIBUTION WIDTH 14.6 % (11.6-17.2); WHITE BLOOD COUNT 6.7 TH/MM3 (4.0-11.0)
[2017-03-01 01:06] LABS: BLOOD, URINE NEG (NEG); COMMENT (UR) CULT NOT INDICATED; CULTURE IF INDICATED CULT NOT INDICATED; GLUCOSE,URINE NEG (NEG); KETONE, URINE NEG (NEG); MUCUS URINE FEW /lpf (OCC); NITRITE,URINE NEG (NEG); SQUAMOUS EPITHELIAL CELL URINE <1 /hpf (0-5); URINE COLOR YELLOW (YELLW/STRAW)
--- NOTE | 2017-03-01 01:38 | RADRPT ---
EXAM DATE/TIME: 03/01/2017 01:18 [facility] COMPARISON: CT BRAIN W/O CONTRAST, February 26, 2017, 11:44. INDICATIONS : Altered mental status. RADIATION DOSE: 56.35 CTDIvol (mGy) MEDICAL HISTORY : Hypertension. SURGICAL HISTORY : None. ENCOUNTER: Initial ACUITY: 1 day PAIN SCALE: 0/10 LOCATION: cranial TECHNIQUE: Multiple contiguous axial images were obtained of the head. Using automated exposure control and adj ustment of the mA and/or kV according to patient size, radiation dose was kept as low as reasonably a chievable to obtain optimal diagnostic quality images. DICOM format image data is available electro nically for review and comparison. FINDINGS: CEREBRUM: The ventricles are normal for age. No evidence of midline shift, mass lesion, hemorrhage or acute in farction. No extra-axial fluid collections are seen. POSTERIOR FOSSA: The cerebellum and brainstem are intact. The 4th ventricle is midline. The cerebellopontine angle i s unremarkable. EXTRACRANIAL: The visualized portion of the orbits is intact. SKULL: The calvaria is intact. No evidence of skull fracture. CONCLUSION: Normal examination for a patient of this age. Delfino Stapleton MD on March 01, 2017 at 1:35 Board Certified Radiologist. This report was verified electronically.
--- NOTE | 2017-03-01 01:54 | PD ---
HPI Chief Complaint: Psychiatric Symptoms Time Seen by Provider: 00:16 Travel History International Travel<30 days: No Contact w/Intl Traveler<30days: No Traveled to known affect area: No History of Present Illness HPI 61-year-old female came to the emergency room for altered mental status. Patient was admitted and discharged from the hospital not too long ago for Dilantin toxicity. Patient has history of seizures. However today she is making no sense when she is talking. She has some contusion around both eyes periorbitally. She probably fell a few days ago. She was initially taken to the psych pod that given her state patient was sent to the medical pod. She appears delirious. Patient is not a reliable historian and I am unaware of the length of time that has elapsed since her symptoms started. Since there is no family member or friend to give additional history. Her vital signs otherwise seems stable. PFS Past Medical History Narrative Medical List of her past medical, surgical, social and family history reviewed from the nursing note. Arthritis: No Autoimmune Disease: Yes (GRAVES DISEASE) Heart Rhythm Problems: No Cancer: No Cardiovascular Problems: Yes High Cholesterol: Yes Chemotherapy: No Chest Pain: No Congestive Heart Failure: No Cerebrovascular Accident: No Diabetes: No Diminished Hearing: No Endocrine: Yes Gastrointestinal Disorders: No Genitourinary: No Headaches: No Hypertension: Yes Implanted Vascular Access Dvce: No Musculoskeletal: No Neurologic: No Psychiatric: No Reproductive: No Respiratory: No Immunizations Current: Yes Migraines: No Radiation Therapy: No Seizures: Yes Thyroid Disease: Yes (HYPOTHYROIDISM ) Tetanus Vaccination: < 5 Years Influenza Vaccination: No Menopausal: Yes Past Surgical History Other Surgery: No Social History Alcohol Use: No Tobacco Use: Yes (1 PPD) Substance Use: No Allergies-Medications (Allergen,Severity, Reaction): Coded Allergies: penicillin G (Unverified Allergy, Severe, 03/01/17) Sulfa (Sulfonamide Antibiotics) (Verified Allergy, Unknown, 03/01/17) Uncoded Allergies: NSAIDS (Allergy, Severe, 04/22/09) Comments List of her allergies reviewed from the nursing note. Reported Meds & Prescriptions Reported Meds & Active Scripts Active Vitamin B-12 (Cyanocobalamin) 1,000 Mcg Tab 1,000 Mcg PO DAILY Folic Acid 1 Mg Tablet 1 Mg PO DAILY Dilantin (Phenytoin Extended) 100 Mg Cap 300 Mg PO HS Dilantin (Phenytoin Extended) 100 Mg Cap 200 Mg PO DAILY@0600 Meclizine 25 (Meclizine HCl) 25 Mg Tab 25 Mg PO Q8HR PRN Keppra (Levetiracetam) 500 Mg Tab 500 Mg PO Q12HR Xanax (Alprazolam) 0.5 Mg Tab 0.5 Mg PO BID Reported Montelukast (Montelukast Sodium) 10 Mg Tab 10 Mg PO DAILY Crestor (Rosuvastatin Calcium) 10 Mg Tab 10 Mg PO DAILY Levothyroxine (Levothyroxine Sodium) 125 Mcg Tab 125 Mcg PO DAILY Propranolol (Propranolol HCl) 20 Mg Tab 20 Mg PO TID Narrative Medication List of her home medications reviewed from the nursing note. Review of Systems Except as stated in HPI: all other systems reviewed are Neg Physical Exam Narrative GENERAL: Awake, confused, talking agitatedly but does not make any sense. Word salad SKIN: Focused skin assessment warm/dry. Periorbital bruising HEAD: Atraumatic. Normocephalic. EYES: Pupils equal and round. No scleral icterus. No injection or drainage. ENT: No nasal bleeding or discharge. Mucous membranes pink and moist. NECK: Trachea midline. No JVD. CARDIOVASCULAR: Regular rate and rhythm. No murmur appreciated. RESPIRATORY: No accessory muscle use. Clear to auscultation. Breath sounds equal bilaterally. GASTROINTESTINAL: Abdomen soft, non-tender, nondistended. Hepatic and splenic margins not palpable. MUSCULOSKELETAL: No obvious deformities. No clubbing. No cyanosis. No edema. NEUROLOGICAL: Confused, pressured speech, word salad. No obvious cranial nerve deficits. Motor grossly within normal limits. Questionable expressive aphasia PSYCHIATRIC: Anxious poor insight and judgment Data Data Last Documented VS Orders Orders Complete Blood Count With Diff (02/28/17 22:26) Comprehensive Metabolic Panel (02/28/17 22:26) Urinalysis - C+S If Indicated (02/28/17 22:26) Drug Screen, Random Urine (02/28/17 22:26) Psych Screen (02/28/17 22:26) Phenytoin (Dilantin) (02/28/17 23:10) Ct Brain W/O Iv Contrast(Rout) (03/01/17 ) Haloperidol Inj (Haldol Inj) (03/01/17 00:45) Lorazepam Inj (Ativan Inj) (03/01/17 00:45) ^ Straight Catheter (03/01/17 00:31) Electrocardiogram (03/01/17 ) Mri Brain W&W/O Contrast (03/01/17 ) Mra Brain W/O Contrast (Cow) (03/01/17 ) Admit Order (Ed Use Only) (03/01/17 01:57) Labs Laboratory Tests Test 02/28/17 00:45 02/28/17 23:10 03/01/17 00:30 Urine Color YELLOW Urine Turbidity CLEAR Urine pH 6.0 Urine Specific Bowers 1.016 Urine Protein NEG mg/dL Urine Glucose (UA) NEG mg/dL Urine Ketones NEG mg/dL Urine Occult Blood NEG Urine Nitrite NEG Urine Bilirubin NEG Urine Urobilinogen LESS THAN 2.0 MG/DL Urine Leukocyte Esterase NEG Urine WBC 2 /hpf Urine Squamous Epithelial Cells <1 /hpf Urine Mucus FEW /lpf Microscopic Urinalysis Comment CULT NOT INDICATED Urine Opiates Screen NEG Urine Barbiturates Screen NEG Urine Amphetamines Screen NEG Urine Benzodiazepines Screen POS Urine Cocaine Screen NEG Urine Cannabinoids Screen NEG Blood Urea Nitrogen 23 MG/DL Creatinine 0.91 MG/DL Random Glucose 92 MG/DL Total Protein 7.6 GM/DL Albumin 3.9 GM/DL Calcium Level 10.0 MG/DL Alkaline Phosphatase 149 U/L Aspartate Amino Transf (AST/SGOT) 26 U/L Alanine Aminotransferase (ALT/SGPT) 29 U/L Total Bilirubin 0.7 MG/DL Sodium Level 132 MEQ/L Potassium Level 3.5 MEQ/L Chloride Level 98 MEQ/L Carbon Dioxide Level 27.6 MEQ/L Anion Gap 6 MEQ/L Estimat Glomerular Filtration Rate 63 ML/MIN Phenytoin (Dilantin) Level 9.6 MCG/ML White Blood Count 6.7 TH/MM3 Red Blood Count 3.71 MIL/MM3 Hemoglobin 11.9 GM/DL Hematocrit 34.0 % Mean Corpuscular Volume 91.6 FL Mean Corpuscular Hemoglobin 32.2 PG Mean Corpuscular Hemoglobin Concent 35.1 % Red Cell Distribution Width 14.6 % Platelet Count 272 TH/MM3 Mean Platelet Volume 7.8 FL Neutrophils (%) (Auto) 81.3 % Lymphocytes (%) (Auto) 11.7 % Monocytes (%) (Auto) 5.2 % Eosinophils (%) (Auto) 1.3 % Basophils (%) (Auto) 0.5 % Neutrophils # (Auto) 5.4 TH/MM3 Lymphocytes # (Auto) 0.8 TH/MM3 Monocytes # (Auto) 0.3 TH/MM3 Eosinophils # (Auto) 0.1 TH/MM3 Basophils # (Auto) 0.0 TH/MM3 CBC Comment DIFF FINAL Differential Comment MDM Medical Decision Making Medical Screen Exam Complete: Yes Emergency Medical Condition: Yes Medical Record Reviewed: Yes Interpretation(s) Twelve-lead EKG was reviewed by me. Normal sinus rhythm, normal axis, poor R- wave progression, old anterior ND, nonspecific ST-T wave changes. Heart rate of 60 bpm. Differential Diagnosis CVA, metabolic encephalopathy, electrolyte abnormality, intracranial bleed, UTI Narrative Course 1:[address] scan is within normal limits. Blood test results of back and her sodium is slightly low. Rest of the blood test result is within acceptable limit. I would like to medically admit her for her condition. I'll order an MRI of her brain as well for possible CVA Procedures EKG Prior to Arrival: No Diagnosis Primary Impression: Altered mental status, unspecified Additional Impression: Expressive aphasia Admitting Information Admitting Physician Requests: it Mary Beth Dos Santos MD Mar 01, 2017 01:54
[2017-03-01] MEDS ORDERED: LACTULOSE SYRUP 20 GM/30 ML CUP PO PRN (02:00)
[2017-03-01] MEDS ORDERED: MAGNESIUM HYDROXIDE SUSP 30 ML CUP PO PRN (02:00)
[2017-03-01] MEDS ORDERED: SENNOSIDES 8.6 MG TAB PO PRN (02:00)
[2017-03-01] MEDS ORDERED: ONDANSETRON HCL 4 MG/2 ML VIAL IVP PRN (02:00)
[2017-03-01] MEDS ORDERED: ACETAMINOPHEN 325 MG TAB PO PRN (02:00)
[2017-03-01] MEDS ORDERED: BISACODYL 10 MG SUPP RECTAL PRN (02:00)
[2017-03-01] MEDS ORDERED: SODIUM CHLORIDE 0.9% FLUSH 10 ML FLUSH IV FLUSH PRN (02:00)
[2017-03-01 02:15] VITALS: BP 91/58; PULSE 75; RESP 18; O2SAT 96
[2017-03-01] MEDS: SODIUM CHLOR 0.9% 1000 ML INJ 1,000 ML IV SCH ×2 (03:31→11:59)
[2017-03-01 04:04] VITALS: BP_SYST 106; BP_DIAS 56; BP_DIAS 57; PULSE 81; PULSE 82; RESP 18; TEMP 97.8; O2SAT 98
--- NOTE | 2017-03-01 04:41 | HHI.HP ---
HPI Service [facility] Primary Care Physician Unknown Admission Diagnosis altered mental status, expressive aphasia Diagnoses: (1) Encephalopathy Diagnosis: Principal (2) Seizure disorder Diagnosis: Principal (3) Mediastinal mass Diagnosis: Principal (4) Tobacco abuse Diagnosis: Principal Travel History International Travel<30 Days: No Contact w/Intl Traveler <30 Da: No Traveled to Known Affected Are: No History of Present Illness This is a 61-year-old female with a PMH of HTN, Hyperlipidemia, Seizure Disorder , Personality Disorder, Recurrent Falls, Mediastinal Mass and Tobacco Abuse who is brought to the ER secondary to altered mental status. Patient unable to provide much history. Recent admit 02/14-02/28/17 secondary to Dilantin Toxicity s /p eval by Neurology w/ Dilantin switched to 200mg qd and 300mg qhs from 400mg bid and continued on Keppra 500mg bid, also found to have mediastinal mass, s/p biopsy w/ unclear etiology, plan is for outpatient follow up w/ CT Sx, found to have CBD dilatation w/ cholelithiasis, s/p ERCP w/ Sphincterotomy and Stent Placement 02/27/[address] Ingram. D/c'd home on 02/28/17. Brought back to ER for AMS, details unclear. Initially admitted to [facility] for likely Psychiatric etiology, however pt noted to have word salad, mild expressive aphasia. CT Head w/ no acute findings. MRI/MRA pending. BP 106/57, HR 81, O2 sat 98% on RA , Afebrile. CBC at baseline. Chemistry essentially unremarkable. UA negative. Urine Drug Screen positive for Benzo. Phenytoin 9.6. Review of Systems Except as stated in HPI: all other systems reviewed are Neg ROS: Largely unable to obtain. Past Family Social History Past Medical History PMH: HTN, Hyperlipidemia, Seizure Disorder, Personality Disorder, Recurrent Falls, Mediastinal Mass and Tobacco Abuse Past Surgical History PAST SURGICAL HISTORY: None Allergies: Coded Allergies: penicillin G (Unverified Allergy, Severe, 03/01/17) Sulfa (Sulfonamide Antibiotics) (Verified Allergy, Unknown, 03/01/17) Uncoded Allergies: NSAIDS (Allergy, Severe, 04/22/09) Family History PAST FAMILY HISTORY: Reviewed. No h/o DM or CAD Social History PAST SOCIAL HISTORY: Negative for alcohol or drugs. Smokes 1ppd. Physical Exam Vital Signs Vital Signs Date Time Temp Pulse Resp B/P Pulse Ox O2 Delivery O2 Flow Rate FiO2 03/01/17 04:04 97.8 82 18 106/57 98 03/01/17 04:04 97.8 81 18 106/56 98 03/01/17 02:15 75 18 91/58 96 Room Air 02/28/17 23:45 88 16 156/91 98 Room Air 02/28/17 21:30 98.7 97 20 137/91 98 Physical Exam PE: GENERAL: Middle-aged female, agitated, fast speech, appears confused, not answering questions appropriately. HEENT: PERRLA, EOMI. No scleral icterus or conjunctival pallor. No lid lag or facial droop. Facial bruising. CARDIOVASCULAR: Regular rate and rhythm. No obvious murmurs to auscultation. No chest tenderness to palpation. RESPIRATORY: No obvious rhonchi or wheezing. Clear to auscultation. Breath sounds equal bilaterally. GASTROINTESTINAL: Abdomen soft, non-tender, nondistended. BS normal. MUSCULOSKELETAL: Extremities without clubbing, cyanosis, or edema. No obvious deformities. NEUROLOGICAL: Awake, alert, not answering questions appropriately. No focal neurologic deficits. Moving both upper and lower extremities spontaneously. Laboratory Laboratory Tests Test 02/28/17 03/01/17 23:10 00:30 Sodium Level 132 Potassium Level 3.5 Chloride Level 98 Carbon Dioxide Level 27.6 Anion Gap 6 Blood Urea Nitrogen 23 Creatinine 0.91 Estimat Glomerular Filtration 63 Rate Random Glucose 92 Calcium Level 10.0 Total Bilirubin 0.7 Aspartate Amino Transf 26 (AST/SGOT) Alanine Aminotransferase 29 (ALT/SGPT) Alkaline Phosphatase 149 Total Protein 7.6 Albumin 3.9 Phenytoin (Dilantin) Level 9.6 White Blood Count 6.7 Red Blood Count 3.71 Hemoglobin 11.9 Hematocrit 34.0 Mean Corpuscular Volume 91.6 Mean Corpuscular Hemoglobin 32.2 Mean Corpuscular Hemoglobin 35.1 Concent Red Cell Distribution Width 14.6 Platelet Count 272 Mean Platelet Volume 7.8 Neutrophils (%) (Auto) 81.3 Lymphocytes (%) (Auto) 11.7 Monocytes (%) (Auto) 5.2 Eosinophils (%) (Auto) 1.3 Basophils (%) (Auto) 0.5 Neutrophils # (Auto) 5.4 Lymphocytes # (Auto) 0.8 Monocytes # (Auto) 0.3 Eosinophils # (Auto) 0.1 Basophils # (Auto) 0.0 CBC Comment DIFF FINAL Differential Comment Result Diagram: 03/01/17 0030 02/28/17 2310 Assessment and Plan Problem List: (1) Encephalopathy ICD Code: G93.40 Status: Acute (2) Seizure disorder ICD Code: G40.909 Status: Chronic (3) Mediastinal mass ICD Code: J98.59 Status: Acute (4) Tobacco abuse ICD Code: Z72.0 Status: Chronic Assessment and Plan A/P: 1. Encephalopathy: Unclear etiology. Initially admitted to [facility] as thought to be secondary to Psych disorder, however pt noted to be significantly confused , pressured speech, not making sense. CT Head w/ no acute findings, images reviewed by me. Recent admit for Dilantin toxicity, Dilantin 9.6. Urine Drug Screen positive for Benzo. Labs essentially unremarkable. Seen by Psych on previous admit, found to have Personality Disorder, however no h/o psychosis. Consult Psych and Neuro for further eval. MRI/MRA pending. 2. Seizure Disorder: Stable. No recent seizure activity, resume home medications, seizure precautions. 3. Mediastinal Mass: found on previous admit, s/p eval by CT Sx w/ plan for outpatient follow-up, biopsy inconclusive. 4. Tobacco Abuse: NicoDerm/Ativan prn if needed. 5. DVT Prophylaxis: SCD/Teds. 6. Social work for d/c planning as needed. 7. Case discussed w/ ER physician at length. Katherine Boss MD Mar 01, 2017 04:41
[2017-03-01] MEDS ORDERED: PHENYTOIN SODIUM 100 MG CAP PO SCH ×2 (06:00→21:00)
[2017-03-01 08:25] VITALS: BP 93/56; PULSE 70; RESP 16; TEMP 98.6; O2SAT 96
[2017-03-01] MEDS ORDERED: LEVOTHYROXINE SODIUM 125 MCG TAB PO SCH (09:00)
[2017-03-01] MEDS ORDERED: FOLIC ACID 1 MG TAB PO SCH (09:00)
[2017-03-01] MEDS ORDERED: SODIUM CHLORIDE 0.9% FLUSH 10 ML FLUSH IV FLUSH SCH (09:00)
[2017-03-01] MEDS ORDERED: MONTELUKAST SODIUM 10 MG TAB PO SCH (09:00)
[2017-03-01] MEDS ORDERED: ALPRAZolam 0.5 MG TAB PO SCH (09:00)
[2017-03-01] MEDS ORDERED: levETIRAcetam 500 MG TAB PO SCH (09:00)
[2017-03-01] MEDS ORDERED: DOCUSATE SODIUM 50 MG/SENNA 8.6 MG TAB PO SCH (09:00)
[2017-03-01] MEDS ORDERED: ATORVASTATIN 20 MG TAB PO SCH (09:00)
[2017-03-01] MEDS ORDERED: GADODIAMIDE PF 287 MG/ML 20 ML VIAL (for RAD MRI) IV ONE (11:47)
--- NOTE | 2017-03-01 11:50 | RADRPT ---
EXAM DATE/TIME: 03/01/2017 11:08 [facility] COMPARISON: MRI BRAIN W & W/O CONTRAST, February 17, 2017, 18:00. INDICATIONS : Aphasia. CONTRAST: 17 cc Omniscan (gadodiamide) IV MEDICAL HISTORY : Hypertension. SURGICAL HISTORY : None. ENCOUNTER: Initial ACUITY: 1 day PAIN SCORE: 0/10 LOCATION: cranial Known MRI Precautions: Sedation utilized? No Anesthesia present? MRI reaction? If YES explain: TECHNIQUE: Multiplanar, multisequence MRI of the brain was performed both prior to and following the administrat ion of paramagnetic contrast. FINDINGS: CEREBRUM: The ventricles are normal for age. No evidence of midline shift, mass lesion, hemorrhage or acute in farction. No extraaxial fluid collections are seen. The pituitary gland and suprasellar cistern are normal in configuration. WHITE MATTER: No significant signal abnormalities are seen in the white matter. POSTERIOR FOSSA: The cerebellum and brainstem are intact. The 4th ventricle is midline. The cerebellopontine angle is unremarkable. The cerebellar tonsils are normal in position. DIFFUSION IMAGING: No focal areas of restricted diffusion are seen. No evidence of acute infarction. EXTRACRANIAL: The visualized portions of the orbits and paranasal sinuses are unremarkable. POST-CONTRAST: No abnormal areas of parenchymal or dural enhancement. No evidence of blood-brain barrier breakdown. CONCLUSION: No acute intracranial abnormalities. No acute infarction seen. Hesham Etienne MD on March 01, 2017 at 11:47 Board Certified Radiologist. This report was verified electronically.
--- NOTE | 2017-03-01 11:52 | RADRPT ---
EXAM DATE/TIME: 03/01/2017 11:08 [facility] COMPARISON: No previous studies available for comparison. INDICATIONS : Aphasia. MEDICAL HISTORY : Hypertension. SURGICAL HISTORY : None. ENCOUNTER: Initial ACUITY: 1 day PAIN SCORE: 0/10 LOCATION: cranial Please note a normal MRA of the brain does not entirely exclude the possibility of a small aneurysm, nor the possibility of distal intracranial vessel disease. TECHNIQUE: 3D time of flight MRA was performed. Source images, multiplanar STS MIP, and 3D volume MIP reconstru ctions were reviewed. FINDINGS: There is excellent visualization of the major intracranial arteries out to the second-order branch ve ssels. There is no evidence for aneurysm, vessel truncation or stenosis, and no evidence for vascula r malformation. Anterior communicating artery is not seen. Hypoplastic posterior to meeting arteries. Vertebrobasilar junction normal. CONCLUSION: 1. Normal MRA of the brain. 2. Normal variants as described above. Hesham Etienne MD on March 01, 2017 at 11:49 Board Certified Radiologist. This report was verified electronically.
[2017-03-01 12:00] VITALS: BP 108/64; PULSE 73; RESP 18; TEMP 98.6; O2SAT 98
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
--- NOTE | 2017-03-01 15:26 | PD.PSY.CON ---
Provisional Diagnosis Admission Date Mar 01, 2017 at 01:59 Warthen I. None Warthen II. Borderline personality traits Warthen III. seizure disorder, Graves disease hypertension, hyperlipidemia Warthen IV. chronic medical conditions Warthen V. 50 History of Present Illness Service Psychiatry Consult Requested By ED team Reason for Consult altered mental status Primary Care Physician Unknown HPI Patient is a 61-year-old woman, no significant past psychiatric history, no previous psychiatric admissions, no previous suicide attempts or self-injurious behavior, past medical history of seizure disorder, Graves disease hypertension, hyperlipidemia was brought to the ER for altered mental status which psychiatry was consulted for evaluation. Patient recently was seen earlier this month for the last and toxicity at discharge on the 02/28/17. Patient has been in the ER and as per patient was brought in by EMS activated by her doctor due to concerns of her Dilantin level. Patient states that the patient had been feeling fine denying any depressive manic or psychotic symptoms. Patient reported that she was previously in rehabilitation program for the past 19 days of the staying in a new place with 2 roommates. Patient states that she had no physical complaints but only that her doctor was concerned about underlying the level which brought her back to the emergency room. Patient noted to be somewhat tangential but was not noted to have reports out at time of interview. Patient states that she follows up with her primary care doctor for all her medications and does not have any mental health services. Past psychiatric history: Denies any previous psychiatric diagnoses, denies previous psychiatric hospitalizations, denies previous suicide attempt or self- interest behavior. Substance use history: Tobacco (+); denies any alcohol or any other illicit drug use. Denies previous detox or rehabilitation programs. Past medical history: seizure disorder, Graves disease hypertension, hyperlipidemia Allergies: NSAIDs Social history: Currently living with 2 roommates in a home for the past 18 days , currently on disability benefits, highest education with some college. Review of Systems Except as stated in HPI: all other systems reviewed are Neg Past Family Social History Coded Allergies: penicillin G (Unverified Allergy, Severe, 03/01/17) Sulfa (Sulfonamide Antibiotics) (Verified Allergy, Unknown, 03/01/17) Uncoded Allergies: NSAIDS (Allergy, Severe, 04/22/09) Active Scripts Cyanocobalamin (Vitamin B-12)1,000 Mcg Tab1,000 Mcg PO DAILY #30 TAB Ref 0 Prov:Katheryn Ordoñez MD 02/28/17 Folic Acid 1 Mg Tablet1 Mg PO DAILY #30 TAB Ref 0 Prov:Katheryn Ordoñez MD 02/24/17 Phenytoin Extended (Dilantin)100 Mg [id number] Mg PO HS #30 CAP Ref 0 Prov:Katheryn Ordoñez MD 02/24/17 Phenytoin Extended (Dilantin)100 Mg [id number] Mg PO DAILY@0600 #30 CAP Ref 0 Prov:Katheryn Ordoñez MD 02/24/17 Meclizine HCl (Meclizine 25)25 Mg Tab25 Mg PO Q8HR PRN (vertigo) #30 TAB Ref 0 Prov:Katheryn Ordoñez MD 02/24/17 Levetiracetam (Keppra)500 Mg [id number] Mg PO Q12HR #60 TAB Ref 3 Prov:Hesham Forbes MD 01/15/17 Alprazolam (Xanax)0.5 Mg Tab0.5 Mg PO BID #10 TAB Prov:Hesham Forbes MD 01/15/17 Reported Medications Montelukast 10 Mg Tab10 Mg PO DAILY #30 TAB Ref 0 01/07/17 Rosuvastatin (Crestor)10 Mg Tab10 Mg PO DAILY #30 TAB Ref 0 01/07/17 Levothyroxine 125 Mcg [id number] Mcg PO DAILY #30 TAB Ref 0 01/07/17 Propranolol 20 Mg Tab20 Mg PO TID #90 TAB Ref 0 01/07/17 Discontinued Reported Medications Lisinopril-Hctz 20-25 Mg Tab1 Tab PO DAILY #30 TAB Ref 0 01/07/17 Discontinued Scripts Phenytoin Extended (Dilantin)100 Mg [id number] Mg PO BID #60 CAP Ref 3 Prov:Hesham Forbes MD 01/15/17 Current Medications Medications (Trade) Dose Ordered Sig/Sheng Route Start Time Stop Time Status Last Admin (NS 1000 ml Inj) 1,000 ml @ 100 mls/hr Q10H IV 03/01/17 01:59 03/01/17 03:31 (NS Flush) 2 ml UNSCH PRN IV FLUSH 03/01/17 02:00 (NS Flush) 2 ml BID IV FLUSH 03/01/17 09:00 03/01/17 09:58 (Zofran Inj) 4 mg Q6H PRN IVP 03/01/17 02:00 (Tylenol) 650 mg Q6H PRN PO 03/01/17 02:00 (Marilyn-Colace) 1 tab BID PO 03/01/17 09:00 (Milk Of Magnesia Liq) 30 ml Q12H PRN PO 03/01/17 02:00 (Senokot) 17.2 mg Q12H PRN PO 03/01/17 02:00 (Dulcolax Supp) 10 mg DAILY PRN RECTAL 03/01/17 02:00 (Lactulose Liq) 30 ml DAILY PRN PO 03/01/17 02:00 (Xanax) 0.5 mg BID PO 03/01/17 09:00 03/01/17 09:59 (Folate) 1 mg DAILY PO 03/01/17 09:00 03/01/17 09:58 (Keppra) 500 mg Q12HR PO 03/01/17 09:00 03/01/17 09:58 (Synthroid) 125 mcg DAILY@0600 PO 03/01/17 09:00 03/01/17 10:00 (Singulair) 10 mg DAILY PO 03/01/17 09:00 03/01/17 09:58 (Dilantin) 200 mg DAILY@0600 PO 03/01/17 06:00 03/01/17 05:37 (Dilantin) 300 mg HS PO 03/01/17 21:00 (Lipitor) 20 mg DAILY PO 03/01/17 09:00 03/01/17 09:58 Social History Domiciled with two roommates, has adult daughter. Patient's Strengths (min. 2) verbal and communicative Physical Exam Patient examined by ED medical team, upon my evaluation patient obese, with no gross motor abnormalities, no noted psychomotor agitation or retardation Vital Signs Vital Signs Date Time Temp Pulse Resp B/P Pulse Ox O2 Delivery O2 Flow Rate FiO2 03/01/17 12:00 98.6 73 18 108/64 98 03/01/17 02:15 Room Air Mental Status Examination Appearance Patient appears stated age, obese, in casual clothing, calm and cooperative interview, fair eye contact. Speech: Unremarkable Orientation: x3 Memory: Unremarkable Thought Process: Tangential Thought Content: Unremarkable Language Fluid and spontaneous Fund of Knowledge Average Hallucination Type: None Attention and Concentration: Good Suicidal Ideation: No Previous Suicide Attempts: No Homicidal Ideation: No Previous Homicide Attempts: No Insight: Fair Judgment: WNL Affect: Euthymic Mood: Appropriate Assessment & Plan Problem List: (1) Personality disorder ICD Code: F60.9 Assessment & Plan Patient is a 61-year-old woman with no prior psychiatric history, with likely borderline personality traits, was recently discharged from Hospital on the and returned back to the ER today was noted to have altered mental status which psychiatry was consulted for evaluation. Patient upon evaluation was found to be oriented 3, was noted to be tangential but no depressive manic or psychotic symptoms elicited; denies SI , HI or delusions. Patient states having a clear plan of returning back to her home following with outpatient provider Dr. Wong after discharge from the emergency department. Patient at this time is psychiatrically cleared for discharge. Hesham Wolf MD Mar 01, 2017 15:26
--- NOTE | 2017-03-01 15:45 | EKG ---
Date Performed: 03/01/2017 Time Performed: 02:11:18 PTAGE: 61 years EKG: Sinus rhythm Borderline atrial abnormality Small inferior Q waves of undetermined significance Compared to prior tracing, T waves are slightly more flattened anterolaterally, otherwise no significant change BORDERL INE ECG PREVIOUS TRACING : 02/21/2017 13.40 DOCTOR: Jovany Das Interpretating Date/Time 03/01/2017 15:44:09
== END 2017-03-01 17:44 | disposition home or self-care (01) ==
LOC: NEPE 21:19 → NEDA 03-01 01:59 → NEPFCDU 03-01 03:16
PROVIDERS: ADMIT Family Medicine; ATTEND Family Medicine
DX: F60.89 Other specific personality disorders (principal); R47.01 Aphasia; G40.909 Epilepsy, unspecified, not intractable, without status epilepticus; J98.59 Other diseases of mediastinum, not elsewhere classified; E78.5 Hyperlipidemia, unspecified; I10 Essential (primary) hypertension; E78.00 Pure hypercholesterolemia, unspecified; E03.9 Hypothyroidism, unspecified; F17.200 Nicotine dependence, unspecified, uncomplicated; G93.40 Encephalopathy, unspecified; Z79.899 Other long term (current) drug therapy
CPT/HCPCS: 70450; 70544; 70553; 80053; 80185; 80307; 81001; 85025; 93005; 96365; 96372; 97162; 99285; A9579; G0378; G8987; G8988; J1630; J2060; J7030

== ENCOUNTER 2017-03-11 16:07 | Inpatient (IN) | payer MEDICARE, OTHER ==
[~2017-03-11] VITALS: Ht 167.6 cm; Wt 89.5 kg
[2017-03-11 16:15] VITALS: BP 117/85; PULSE 74; RESP 22; TEMP 98.4
--- NOTE | 2017-03-11 16:15 | PD ---
HPI Chief Complaint: ba Time Seen by Provider: 16:15 Travel History International Travel<30 days: No Contact w/Intl Traveler<30days: No Traveled to known affect area: No History of Present Illness HPI 61-year-old female with history of hypothyroidism, seizure disorder, hypertension, presents to emergency department under an exparte for psychiatric evaluation. Patient states this is because her [id number] does not like her and is the head at [employer] and can "[employer] act anybody in the [place]." Patient denies suicidal homicidal ideations. She is very focused on her relationship with her daughter in law and how she does not need to be here. Would like her labs checked to confirm she is okay. Has no other symptoms to report. PFSH Past Medical History Arthritis: No Autoimmune Disease: Yes (GRAVES DISEASE) Heart Rhythm Problems: No Cancer: No Cardiovascular Problems: Yes High Cholesterol: Yes Chemotherapy: No Chest Pain: No Congestive Heart Failure: No Cerebrovascular Accident: No Diabetes: No Diminished Hearing: No Endocrine: Yes Gastrointestinal Disorders: No Genitourinary: No Headaches: No Hypertension: Yes Implanted Vascular Access Dvce: No Musculoskeletal: No Neurologic: Yes (SEIZURES) Psychiatric: No Reproductive: No Respiratory: No Immunizations Current: Yes Migraines: No Radiation Therapy: No Seizures: Yes Thyroid Disease: Yes (HYPOTHYROIDISM ) Menopausal: Yes Past Surgical History Other Surgery: No Social History Alcohol Use: No Tobacco Use: Yes (1 PPD) Substance Use: No Allergies-Medications (Allergen,Severity, Reaction): Coded Allergies: penicillin G (Unverified Allergy, Severe, 03/11/17) Sulfa (Sulfonamide Antibiotics) (Verified Allergy, Unknown, 03/11/17) Uncoded Allergies: NSAIDS (Allergy, Severe, 04/22/09) Reported Meds & Prescriptions Reported Meds & Active Scripts Active Vitamin B-12 (Cyanocobalamin) 1,000 Mcg Tab 1,000 Mcg PO DAILY Folic Acid 1 Mg Tablet 1 Mg PO DAILY Dilantin (Phenytoin Extended) 100 Mg Cap 300 Mg PO HS Dilantin (Phenytoin Extended) 100 Mg Cap 200 Mg PO DAILY@0600 Meclizine 25 (Meclizine HCl) 25 Mg Tab 25 Mg PO Q8HR PRN Keppra (Levetiracetam) 500 Mg Tab 500 Mg PO Q12HR Xanax (Alprazolam) 0.5 Mg Tab 0.5 Mg PO BID Reported Montelukast (Montelukast Sodium) 10 Mg Tab 10 Mg PO DAILY Crestor (Rosuvastatin Calcium) 10 Mg Tab 10 Mg PO DAILY Levothyroxine (Levothyroxine Sodium) 125 Mcg Tab 125 Mcg PO DAILY Propranolol (Propranolol HCl) 20 Mg Tab 20 Mg PO TID Review of Systems ROS Limitations: Poor Historian Except as stated in HPI: all other systems reviewed are Neg Physical Exam Exam Limitations: Poor Historian Narrative GENERAL: Well-nourished female patient, with bizarre affect, in no acute distress SKIN: Focused skin assessment warm/dry. HEAD: Atraumatic. Normocephalic. EYES: Pupils equal and round. No scleral icterus. No injection or drainage. ENT: No nasal bleeding or discharge. Mucous membranes pink and moist. NECK: Trachea midline. No JVD. CARDIOVASCULAR: Regular rate and rhythm. No murmur appreciated. RESPIRATORY: No accessory muscle use. Clear to auscultation. Breath sounds equal bilaterally. GASTROINTESTINAL: Abdomen soft, non-tender, nondistended. Hepatic and splenic margins not palpable. MUSCULOSKELETAL: No obvious deformities. No clubbing. No cyanosis. No edema. NEUROLOGICAL: Awake and alert. No obvious cranial nerve deficits. Motor grossly within normal limits. Normal speech. Data Data Last Documented VS Vital Signs Date Time Temp Pulse Resp B/P (MAP) Pulse Ox O2 Delivery O2 Flow Rate FiO2 03/11/17 16:15 98.4 74 22 117/85 (96) Orders Orders Complete Blood Count With Diff (03/11/17 16:15) Basic Metabolic Panel (Bmp) (03/11/17 16:15) Thyroid Stimulating Hormone (03/11/17 16:15) Urinalysis - C+S If Indicated (03/11/17 16:15) Phenytoin (Dilantin) (03/11/17 16:15) Psych Screen (03/11/17 16:15) Drug Screen, Random Urine (03/11/17 16:15) Alcohol (Ethanol) (03/11/17 16:15) Potassium Chloride Eff (K-Lyte Cl Eff) (03/11/17 17:45) Labs Laboratory Tests Test 03/11/17 16:40 03/11/17 17:40 White Blood Count 5.3 TH/MM3 Red Blood Count 3.59 MIL/MM3 Hemoglobin 11.7 GM/DL Hematocrit 32.6 % Mean Corpuscular Volume 90.8 FL Mean Corpuscular Hemoglobin 32.4 PG Mean Corpuscular Hemoglobin Concent 35.7 % Red Cell Distribution Width 15.2 % Platelet Count 326 TH/MM3 Mean Platelet Volume 7.8 FL Neutrophils (%) (Auto) 69.6 % Lymphocytes (%) (Auto) 20.0 % Monocytes (%) (Auto) 5.2 % Eosinophils (%) (Auto) 4.4 % Basophils (%) (Auto) 0.8 % Neutrophils # (Auto) 3.7 TH/MM3 Lymphocytes # (Auto) 1.1 TH/MM3 Monocytes # (Auto) 0.3 TH/MM3 Eosinophils # (Auto) 0.2 TH/MM3 Basophils # (Auto) 0.0 TH/MM3 CBC Comment DIFF FINAL Differential Comment Blood Urea Nitrogen 16 MG/DL Creatinine 0.89 MG/DL Random Glucose 151 MG/DL Calcium Level 9.6 MG/DL Sodium Level 138 MEQ/L Potassium Level 3.1 MEQ/L Chloride Level 101 MEQ/L Carbon Dioxide Level 29.7 MEQ/L Anion Gap 7 MEQ/L Estimat Glomerular Filtration Rate 65 ML/MIN Thyroid Stimulating Hormone 3rd Gen 0.194 uIU/ML Phenytoin (Dilantin) Level 5.2 MCG/ML Ethyl Alcohol Level LESS THAN 3 MG/DL Urine Color YELLOW Urine Turbidity HAZY Urine pH 6.0 Urine Specific Clare 1.011 Urine Protein NEG mg/dL Urine Glucose (UA) NEG mg/dL Urine Ketones NEG mg/dL Urine Occult Blood NEG Urine Nitrite NEG Urine Bilirubin NEG Urine Urobilinogen LESS THAN 2.0 MG/DL Urine Leukocyte Esterase MOD Urine RBC 2 /hpf Urine WBC 5 /hpf Urine Squamous Epithelial Cells 2 /hpf Urine Bacteria RARE /hpf Microscopic Urinalysis Comment CULT NOT INDICATED MDM Medical Decision Making Medical Screen Exam Complete: Yes Emergency Medical Condition: Yes Medical Record Reviewed: Yes Differential Diagnosis Mood disorder versus personality disorder versus adjustment reaction disorder versus acute psychosis Narrative Course 61-year-old female presents to emergency department under an ex parte for psychiatric evaluation. Patient appears without distress. She has very bizarre and hyper focused on her patient ship with her [id number]. Denies suicidal homicidal ideations. No other symptoms to report. Laboratory Tests Test 03/11/17 16:40 03/11/17 17:40 White Blood Count 5.3 TH/MM3 Red Blood Count 3.59 MIL/MM3 Hemoglobin 11.7 GM/DL Hematocrit 32.6 % Mean Corpuscular Volume 90.8 FL Mean Corpuscular Hemoglobin 32.4 PG Mean Corpuscular Hemoglobin Concent 35.7 % Red Cell Distribution Width 15.2 % Platelet Count 326 TH/MM3 Mean Platelet Volume 7.8 FL Neutrophils (%) (Auto) 69.6 % Lymphocytes (%) (Auto) 20.0 % Monocytes (%) (Auto) 5.2 % Eosinophils (%) (Auto) 4.4 % Basophils (%) (Auto) 0.8 % Neutrophils # (Auto) 3.7 TH/MM3 Lymphocytes # (Auto) 1.1 TH/MM3 Monocytes # (Auto) 0.3 TH/MM3 Eosinophils # (Auto) 0.2 TH/MM3 Basophils # (Auto) 0.0 TH/MM3 CBC Comment DIFF FINAL Differential Comment Blood Urea Nitrogen 16 MG/DL Creatinine 0.89 MG/DL Random Glucose 151 MG/DL Calcium Level 9.6 MG/DL Sodium Level 138 MEQ/L Potassium Level 3.1 MEQ/L Chloride Level 101 MEQ/L Carbon Dioxide Level 29.7 MEQ/L Anion Gap 7 MEQ/L Estimat Glomerular Filtration Rate 65 ML/MIN Thyroid Stimulating Hormone 3rd Gen 0.194 uIU/ML Phenytoin (Dilantin) Level 5.2 MCG/ML Ethyl Alcohol Level LESS THAN 3 MG/DL Urine Color YELLOW Urine Turbidity HAZY Urine pH 6.0 Urine Specific Clare 1.011 Urine Protein NEG mg/dL Urine Glucose (UA) NEG mg/dL Urine Ketones NEG mg/dL Urine Occult Blood NEG Urine Nitrite NEG Urine Bilirubin NEG Urine Urobilinogen LESS THAN 2.0 MG/DL Urine Leukocyte Esterase MOD Urine RBC 2 /hpf Urine WBC 5 /hpf Urine Squamous Epithelial Cells 2 /hpf Urine Bacteria RARE /hpf Microscopic Urinalysis Comment CULT NOT INDICATED Patient is medically cleared and a psychiatric screening for further evaluation and disposition. Diagnosis Primary Impression: Anxiety disorder, unspecified Qualified Codes: F41.9 - Anxiety disorder, unspecified Additional Impression: Personality disorder Condition: Stable SorianoTri olmedo BAILEE Mar 11, 2017 16:15
[2017-03-11 17:15] LABS: ALCOHOL LESS THAN 3 MG/DL (0-5); ANION GAP 7 MEQ/L (5-15); BICARBONATE 29.7 MEQ/L (21.0-32.0); BLOOD UREA NITROGEN 16 MG/DL (7-18); CHLORIDE 101 MEQ/L (98-107); GLOMERULAR FILTRATION RATE 65 ML/MIN (>89); POTASSIUM 3.1 MEQ/L (3.5-5.1); SODIUM (NA) 138 MEQ/L (136-145)
[2017-03-11 17:38] LABS: AUTOMATED NEUTROPHIL # 3.7 TH/MM3 (1.8-7.7); BASOPHIL % 0.8 % (0.0-2.0); EOSINOPHIL # 0.2 TH/MM3 (0-0.4); EOSINOPHIL % 4.4 % (0.0-4.0); HEMATOCRIT 32.6 % (35.0-46.0); HEMO FLAGS DIFF FINAL; LYMPHOCYTE # 1.1 TH/MM3 (1.0-4.8); MEAN CELL VOLUME 90.8 FL (80.0-100.0); MEAN CORPUSCULAR HEMOGLOBIN 32.4 PG (27.0-34.0); MEAN CORPUSCULAR HGB CONC 35.7 % (32.0-36.0); MONO % 5.2 % (0.0-8.0); NEUT % 69.6 % (16.0-70.0); PLATELET COUNT 326 TH/MM3 (150-450); RED BLOOD COUNT 3.59 MIL/MM3 (4.00-5.30); RED CELL DISTRIBUTION WIDTH 15.2 % (11.6-17.2); WHITE BLOOD COUNT 5.3 TH/MM3 (4.0-11.0)
[2017-03-11] MEDS ORDERED: POTASSIUM CHLORIDE 25 MEQ EFFERVESCENT TAB PO ONE (17:45)
[2017-03-11 18:17] LABS: BACTERIA, URINE RARE /hpf; BLOOD, URINE NEG (NEG); COMMENT (UR) CULT NOT INDICATED; CULTURE IF INDICATED CULT NOT INDICATED; GLUCOSE,URINE NEG (NEG); KETONE, URINE NEG (NEG); NITRITE,URINE NEG (NEG); SQUAMOUS EPITHELIAL CELL URINE 2 /hpf (0-5); URINE COLOR YELLOW (YELLW/STRAW)
[2017-03-11 20:57] VITALS: BP 152/82; PULSE 58; RESP 15; O2SAT 99
[2017-03-11 22:00] VITALS: BP 117/62; PULSE 61; RESP 17; O2SAT 98
[2017-03-11] MEDS ORDERED: BENZTROPINE MESYLATE 1 MG TAB PO PRN (22:00)
[2017-03-11] MEDS ORDERED: LORazepam 2 MG/ML VIAL IM PRN (22:00)
[2017-03-11] MEDS ORDERED: OLANZapine IM 10 MG VIAL IM ONE (22:00)
[2017-03-11] MEDS ORDERED: MAGNESIUM HYDROXIDE SUSP 30 ML CUP PO PRN (22:00)
[2017-03-11] MEDS ORDERED: ALUMINUM/MAGNESIUM/SIMETH 30 ML CUP PO PRN (22:00)
[2017-03-11] MEDS ORDERED: BENZTROPINE MESYLATE 2 MG/2 ML VIAL IM PRN (22:00)
[2017-03-12 00:12] VITALS: BP 115/75; PULSE 74; RESP 20; TEMP 97.2; O2SAT 98
[2017-03-12] MEDS ORDERED: LEVOTHYROXINE SODIUM 125 MCG TAB PO SCH (06:00)
[2017-03-12 06:53] VITALS: BP 100/58; PULSE 53; RESP 16; TEMP 96.9
[2017-03-12] MEDS: REMOVE OLD PATCH T-DERMAL SCH (09:00)
[2017-03-12] MEDS: NICOTINE 21 MG/24 HR PATCH T-DERMAL SCH (09:00)
[2017-03-12] MEDS: PROPRANOLOL HCL 20 MG TAB PO SCH ×3 (09:52→18:00)
[2017-03-12] MEDS: CYANOCOBALAMIN 1,000 MCG TAB PO SCH (09:53)
[2017-03-12] MEDS: ATORVASTATIN 20 MG TAB PO SCH (09:53)
[2017-03-12] MEDS: levETIRAcetam 500 MG TAB PO SCH ×2 (09:53→21:00)
[2017-03-12] MEDS: MONTELUKAST SODIUM 10 MG TAB PO SCH (09:53)
[2017-03-12] MEDS: FOLIC ACID 1 MG TAB PO SCH (09:53)
[2017-03-12 10:36] LABS: ANION GAP 8 MEQ/L (5-15); BICARBONATE 31.1 MEQ/L (21.0-32.0); BLOOD UREA NITROGEN 13 MG/DL (7-18); CHLORIDE 100 MEQ/L (98-107); GLOMERULAR FILTRATION RATE 80 ML/MIN (>89); HDL CHOLESTEROL 55.7 MG/DL (40.0-60.0); LDL CHOLESTEROL 80 MG/DL (0-99); SODIUM (NA) 139 MEQ/L (136-145)
[2017-03-12 10:39] LABS: POTASSIUM 2.8 MEQ/L (3.5-5.1)
[2017-03-12 11:04] LABS: HEMOGLOBIN A1a 0.8 %; HEMOGLOBIN A1b 1.1 %; HEMOGLOBIN Ao 88.5 %; HEMOGLOBIN LA1C 1.9 %; HEMOGLOBIN P3 4.2 %
[2017-03-12] MEDS ORDERED: POTASSIUM CHLORIDE 25 MEQ EFFERVESCENT TAB PO ONE (11:15)
[2017-03-12] MEDS ORDERED: MAGNESIUM OXIDE 400 MG TAB PO SCH (13:30)
--- NOTE | 2017-03-12 14:16 | PD.CONS ---
[facility] By [facility] Wolf Reason for Consult low potassium Primary Care Physician No Primary Care Physician Diagnoses: History of Present Illness This is a 61-year-old female past mental history of hyperthyroidism, seizure disorder, cataracts, personality disorder, recent diagnosis of paroxysmal benign additional vertigo who presented with a Aldrich act and was admitted to inpatient psychiatry. I got a stat consult from Dr. Wolf psychiatrist in regards to patient's potassium. I saw patient and her only concerns was that she wanted to be back on the meclizine due to dizziness. He also asked if I would check her Dilantin level. Patient then told me that she was brought here because her [id number] Aldrich act her. She thinks that her [id number] does not want her and her son's life. Patient also denied any chest pain, palpitation, shortness of breathing, lightheadedness or dizziness. She stated that her potassium is always low. Otherwise she had no complaints. Review of symptoms reviewed with patient and all other are negative. Past Family Social History Allergies: Coded Allergies: penicillin G (Unverified Allergy, Severe, 03/11/17) Sulfa (Sulfonamide Antibiotics) (Verified Allergy, Unknown, 03/11/17) Uncoded Allergies: NSAIDS (Allergy, Severe, 04/22/09) Past Medical History HTN, Hyperlipidemia, Seizure Disorder, Personality Disorder, benign positional vertigo, Mediastinal Mass and Tobacco Abuse Past Surgical History none Reported Medications Reported Meds & Active Scripts Active Vitamin B-12 (Cyanocobalamin) 1,000 Mcg Tab 1,000 Mcg PO DAILY Folic Acid 1 Mg Tablet 1 Mg PO DAILY Dilantin (Phenytoin Extended) 100 Mg Cap 300 Mg PO HS Dilantin (Phenytoin Extended) 100 Mg Cap 200 Mg PO DAILY@0600 Meclizine 25 (Meclizine HCl) 25 Mg Tab 25 Mg PO Q8HR PRN Keppra (Levetiracetam) 500 Mg Tab 500 Mg PO Q12HR Xanax (Alprazolam) 0.5 Mg Tab 0.5 Mg PO BID Reported Montelukast (Montelukast Sodium) 10 Mg Tab 10 Mg PO DAILY Crestor (Rosuvastatin Calcium) 10 Mg Tab 10 Mg PO DAILY Levothyroxine (Levothyroxine Sodium) 125 Mcg Tab 125 Mcg PO DAILY Propranolol (Propranolol HCl) 20 Mg Tab 20 Mg PO TID Active Ordered Medications Current Medications Potassium Bicarb/ Potassium Chloride (K-Lyte Cl Eff) 25 meq ONCE ONCE PO Last administered on 03/11/17 18:03; Start 03/11/17 at 17:45; Stop 03/11/17 at 17:46; Status DC Olanzapine (ZyPREXA INJ) 10 mg ONCE ONCE IM Last administered on 03/11/17 22: 00; Start 03/11/17 at 22:00; Stop 03/11/17 at 22:01; Status DC Cyanocobalamin (Vitamin B12) 1,000 mcg DAILY PO Last administered on 03/12/17 09:53; Start 03/12/17 at 09:00 Folic Acid (Folate) 1 mg DAILY PO Last administered on 03/12/17 09:53; Start 03/12/17 at 09:00 Levetriacetam (Keppra) 500 mg Q12HR PO Last administered on 03/12/17 09:53; Start 03/12/17 at 09:00 Levothyroxine Sodium (Synthroid) 125 mcg DAILY@0600 PO ; Start 03/12/17 at 06:00 Meclizine HCl (Antivert) 25 mg Q8H PRN PO vertigo; Start 03/11/17 at 22:00 Montelukast Sodium (Singulair) 10 mg DAILY PO Last administered on 03/12/17 09 :53; Start 03/12/17 at 09:00 Phenytoin (Dilantin) 200 mg DAILY@0600 PO ; Start 03/12/17 at 06:00 Phenytoin (Dilantin) 300 mg HS PO ; Start 03/12/17 at 21:00 Propranolol HCl (Inderal) 20 mg TID PO Last administered on 03/12/17 13:00; Start 03/12/17 at 09:00 Atorvastatin Calcium (Lipitor) 20 mg DAILY PO Last administered on 03/12/17 09 :53; Start 03/12/17 at 09:00 Lorazepam (Ativan) 0.5 mg Q12H PRN PO MODERATE TO SEVERE ANXIETY; Start at 22:00 Lorazepam (Ativan Inj) 0.5 mg Q12H PRN IM MODERATE TO SEVERE ANXIETY; Start at 22:00 Diphenhydramine HCl (Benadryl) 50 mg HS PRN PO INSOMNIA; Start 03/11/17 at 22: 00 Acetaminophen (Tylenol) 650 mg Q4H PRN PO Pain 1-5 or Temp >101F; Start at 22:00 Magnesium Hydroxide (Milk Of Magnesia Liq) 30 ml DAILY PRN PO CONSTIPATION; Start 03/11/17 at 22:00 Al Hydrox/Mg Hydrox/Simethicone (Mag-Al Plus Susp Liq) 30 ml Q6H PRN PO DYSPEPSIA; Start 03/11/17 at 22:00 Nicotine (Habitrol 21 Mg Patch.24 Hr) 1 patch DAILY T-DERMAL ; Start 03/12/17 at 09:00 Benztropine Mesylate (Cogentin) 1 mg Q12H PRN PO EXTRA PYRAMIDAL SYMPTOMS; Start 03/11/17 at 22:00 Benztropine Mesylate (Cogentin Inj) 1 mg Q12H PRN IM EXTRA PYRAMIDAL SYMPTOMS; Start 03/11/17 at 22:00 Miscellaneous Information 1 DAILY T-DERMAL ; Start 03/12/17 at 09:00 Potassium Bicarb/ Potassium Chloride (K-Lyte Cl Eff) 75 meq ONCE ONCE PO Last administered on 03/12/17t 11:15; Start 03/12/17 at 11:15; Stop 03/12/17 at 11:30; Status DC Olanzapine (ZyPREXA) 5 mg Q12HR PO ; Start 03/12/17 at 21:00 Magnesium Oxide (Mag-Ox) 400 mg Q12HR PO ; Start 03/12/17 at 13:30; Stop at 13:35; Status DC Magnesium Oxide (Mag-Ox) 400 mg DAILY@1100,2100 PO ; Start 03/12/17 at 21:00 Family History Reviewed. Negative family history. Social History Patient stated that she just recently got a new beautiful apartment that she needs to return to. Negative for alcohol or drugs. Smokes 1ppd. Physical Exam Vital Signs Vital Signs Date Time Temp Pulse Resp B/P (MAP) Pulse Ox O2 Delivery O2 Flow Rate FiO2 03/12/17 06:53 96.9 53 16 100/58 (72) 03/12/17 00:12 97.2 74 20 115/75 (88) 98 03/11/17 23:51 8/29/17 22:00 61 17 117/62 (80) 98 Room Air 03/11/17 20:57 58 15 152/82 (105) 99 Room Air 03/11/17 16:15 98.4 74 22 117/85 (96) Physical Exam GENERAL: This is a unkempt well-nourished, well-developed patient, in no apparent distress. SKIN: No rashes, ecchymoses or lesions. Cool and dry. HEAD: Atraumatic. Normocephalic. No temporal or scalp tenderness. EYES: Pupils equal round and reactive. Extraocular motions intact. No scleral icterus. No injection or drainage. ENT: Nose without bleeding, purulent drainage or septal hematoma. Throat without erythema, tonsillar hypertrophy or exudate. Uvula midline. Airway patent. NECK: Trachea midline. No JVD or lymphadenopathy. Supple, nontender, no meningeal signs. CARDIOVASCULAR: Regular rate and rhythm without murmurs, gallops, or rubs. RESPIRATORY: Clear to auscultation. Breath sounds equal bilaterally. No wheezes , rales, or rhonchi. GASTROINTESTINAL: Abdomen soft, non-tender, nondistended. No hepato-splenomegaly , or palpable masses. No guarding. MUSCULOSKELETAL: Extremities without clubbing, cyanosis, or edema. No joint tenderness, effusion, or edema noted. No calf tenderness. Negative Homans sign bilaterally. NEUROLOGICAL: Awake and alert. Cranial nerves II through XII intact. Motor and sensory grossly within normal limits. Five out of 5 muscle strength in all muscle groups. Normal speech. Laboratory Laboratory Tests Test 03/11/17 16:40 03/11/17 17:40 03/12/17 08:11 White Blood Count 5.3 Red Blood Count 3.59 Hemoglobin 11.7 Hematocrit 32.6 Mean Corpuscular Volume 90.8 Mean Corpuscular Hemoglobin 32.4 Mean Corpuscular Hemoglobin Concent 35.7 Red Cell Distribution Width 15.2 Platelet Count 326 Mean Platelet Volume 7.8 Neutrophils (%) (Auto) 69.6 Lymphocytes (%) (Auto) 20.0 Monocytes (%) (Auto) 5.2 Eosinophils (%) (Auto) 4.4 Basophils (%) (Auto) 0.8 Neutrophils # (Auto) 3.7 Lymphocytes # (Auto) 1.1 Monocytes # (Auto) 0.3 Eosinophils # (Auto) 0.2 Basophils # (Auto) 0.0 CBC Comment DIFF FINAL Differential Comment Blood Urea Nitrogen 16 13 Creatinine 0.89 0.74 Random Glucose 151 95 Calcium Level 9.6 10.2 Sodium Level 138 139 Potassium Level 3.1 2.8 Chloride Level 101 100 Carbon Dioxide Level 29.7 31.1 Anion Gap 7 8 Estimat Glomerular Filtration Rate 65 80 Thyroid Stimulating Hormone 3rd Gen 0.194 Phenytoin (Dilantin) Level 5.2 Ethyl Alcohol Level LESS THAN 3 Urine Color YELLOW Urine Turbidity HAZY Urine pH 6.0 Urine Specific [place] 1.011 Urine Protein NEG Urine Glucose (UA) NEG Urine Ketones NEG Urine Occult Blood NEG Urine Nitrite NEG Urine Bilirubin NEG Urine Urobilinogen LESS THAN 2.0 Urine Leukocyte Esterase MOD Urine RBC 2 Urine WBC 5 Urine Squamous Epithelial Cells 2 Urine Bacteria RARE Microscopic Urinalysis Comment CULT NOT INDICATED Urine Opiates Screen NEG Urine Barbiturates Screen NEG Urine Amphetamines Screen NEG Urine Benzodiazepines Screen POS Urine Cocaine Screen NEG Urine Cannabinoids Screen NEG Hemoglobin A1c 4.3 Magnesium Level 1.5 Triglycerides Level 200 Cholesterol Level 176 LDL Cholesterol 80 HDL Cholesterol 55.7 Cholesterol/HDL Ratio 3.15 Result Diagram: 03/11/17 1640 03/12/17 0811 Assessment and Plan Assessment and Plan 61-year-old female well-known to me who has a personality disorder and was Aldrich act. [facility] consulted for potassium management. Hypokalemia, asymptomatic -Acute on chronic. Intermittent. Patient does have a history of low potassium. Most likely she will need schedule potassium. -Will give 75 mEq of potassium and recheck 2 hours after receiving medication. -I also check magnesium level which was 1.5. Will give magnesium oxide 400 mg by mouth twice a day. BPPV -Patient does have meclizine in the EMR system. It is written as when necessary. Will have nurse give patient a dose. History of seizure disorder -Patient on Keppra and Dilantin. Patient requesting to have Dilantin check although this was checked on her last admission. Will recheck Dilantin. Anxiety/hypothyroidism/personality disorder/allergic rhinitis -TSH is depressed. Will decrease levothyroxine. Patient will need TSH rechecked and in 6 weeks by her primary care physician. Discussed Condition With patient Katheryn Ordoñez MD Mar 12, 2017 14:16
--- NOTE | 2017-03-12 17:05 | HHI.HP ---
Provisional Diagnosis Admission Date Mar 11, 2017 at 21:59 [place] [facility]. Unspecified psychosis, r/o schizoaffective disorder, r/o bipolar disorder, r/o neurocognitive disorder Certification of Person's Competence To Provide Express and Informed Consent I have personally examined Maeve Navarro , a person being served at [facility] on, Mar 12, 2017 16:31. Express and informed consent means consent voluntarily given in writing, by a competent person, after sufficient explanation and disclosure of the subject matter involved to enable the person to make a knowing and willful decision without any element of force, fraud, deceit, duress, or other form of constraint or coercion. This person is 18 years of age or older, is not now known to be incompetent to consent to treatment with a guardian advocate, and does not have a health care surrogate or proxy currently making medical treatment decisions. I have found this person to be one of the following: [] Competent to provide express and informed consent, as defined above, for voluntary admission to this facility and is competent to provide express and informed consent for treatment. He/she has the consistent capacity to make well reasoned, willful, and knowing decisions concerning his or her medical or mental health treatment. The person fully and consistently understands the purpose of the admission for examination/placement and is fully capable of personally exercising all rights assured under [place] [] Incompetent to provide express and informed consent to voluntary admission, and this is incompetent to provide express and informed consent to treatment. The person must be transferred to involuntary status and a petition for a guardian advocate filed with the Circuit Court. [x] Refusing to provide express and informed consent to voluntary admission but is competent to provide express and informed consent for treatment. The person must be discharged or transferred to involuntary status. Form shall be completed within 24 hours of a person's arrival at the receiving facility and filed in the clinical record of each person: 1. Admitted on a voluntary basis 2. Permitted to provide express and informed consent to his/her own treatment 3. Allowed to transfer from involuntary to voluntary status 4. Prior to permitting a person to consent to his or her own treatment after having been previously found incompetent to consent to treatment. History of Present Illness Capacity: Has Capacity HPI Patient is a 61-year-old woman with an unknown past psychiatric history, denies previous psychiatric hospitalizations, denies any previous suicide attempt or self-injurious behavior with a past medical history of seizure disorder, back pain and hypothyroidism was brought into the hospital under an exparte requesting psychiatric involuntary evaluation. As per the exparte, patients son requested this evaluation reporting patient with disorganized behavior, mood lability, disorganized speech N patient not caring for herself and that she has not been eating adequately. Patient was transferred to the inpatient psychiatry unit for further evaluation and management. Patient found sitting on hospital bed noted to be calm and cooperative interview but was noted to have some pressured speech, disorganized thought and tangentiality. Patient states that shes been having a tumultuous relationship with her son and her [id number] and that her [id number] tried to Aldrich act or 3 times. Patient states that she was under Aldrich act activated by son stating that yesterday he was upset with her over the phone and loses the reason she is in the hospital today. Patient throughout interview was perseverative on her recent behavior due to fluctuating Dilantin levels to control her seizures. Patient denies any depressive symptoms state that she sleeping well, good appetite, . Concentration, mood being not bad, denies any perceptual disturbances. When asked about her previous history with any psychotropic medications patient states that she was given Haldol by her primary care doctor but only took once and when asked why she was prescribed this patient states that she was given several packs to try. Patient states that her primary care doctor is Dr. Kaycee Wong at [place]. Patient at this time denies any suicidality or homicidality. Past psychiatric history: No previous psychiatric diagnosis as per patient, denies any previous psychiatric hospitalizations, denies any previous suicide attempt or self-injurious behavior. Patient reports previous to being on Haldol and curyung in the past but was unable to provide details as to when or why she was on this medication. Substance use history: Tobacco (+); denies any alcohol or any other illicit drug use. Denies previous detox or rehabilitation programs. Past medical history: seizure disorder, Graves disease, hypertension, hyperlipidemia Allergies: NSAIDs Social history: Currently living with 2 roommates in a home for the past 18 days , currently on disability benefits, highest education with some college. Review of Systems Except as stated in HPI: all other systems reviewed are Neg Past Psych History Violence risk - others (6 mos) low Violence risk - self (6 mos) low Substance Abuse History Drugs/Alcohol past 12 months Tobacco (+); denies any alcohol or any other illicit drug use. Denies previous detox or rehabilitation programs. Past Family Social History Coded Allergies: penicillin G (Unverified Allergy, Severe, 03/11/17) Sulfa (Sulfonamide Antibiotics) (Verified Allergy, Unknown, 03/11/17) Uncoded Allergies: NSAIDS (Allergy, Severe, 04/22/09) Active Scripts Cyanocobalamin (Vitamin B-12) 1,000 Mcg Tab, 1000 MCG PO DAILY for low vitamin B12, #30 TAB 0 Refills Prov:Katheryn Ordoñez MD 02/28/17 Folic Acid (Folic Acid) 1 Mg Tablet, 1 MG PO DAILY for low levels, #30 TAB 0 Refills Prov:Katheryn Ordoñez MD 02/24/17 Phenytoin Extended (Dilantin) 100 Mg Cap, 300 MG PO HS for seizure, #30 CAP 0 Refills Prov:Katheryn Ordoñez MD 02/24/17 Phenytoin Extended (Dilantin) 100 Mg Cap, 200 MG PO DAILY@0600 for seizure, #30 CAP 0 Refills Prov:Katheryn Ordoñez MD 02/24/17 Meclizine HCl (Meclizine 25) 25 Mg Tab, 25 MG PO Q8HR Y for vertigo, #30 TAB 0 Refills Prov:Katheryn Ordoñez MD 02/24/17 Levetiracetam (Keppra) 500 Mg Tab, 500 MG PO Q12HR for Control Seizures, #60 TAB 3 Refills Prov:Hesham Forbes MD 01/15/17 Alprazolam (Xanax) 0.5 Mg Tab, 0.5 MG PO BID for Control Anxiety, #10 TAB Prov:Hesham Forbes MD 01/15/17 Reported Medications Montelukast (Montelukast) 10 Mg Tab, 10 MG PO DAILY for Allergies, #30 TAB 0 Refills 01/07/17 Rosuvastatin (Crestor) 10 Mg Tab, 10 MG PO DAILY for Cholesterol Management, # 30 TAB 0 Refills 01/07/17 Levothyroxine (Levothyroxine) 125 Mcg Tab, 125 MCG PO DAILY for Thyroid, #30 TAB 0 Refills 01/07/17 Propranolol (Propranolol) 20 Mg Tab, 20 MG PO TID, #90 TAB 0 Refills 01/07/17 Current Medications Medications (Trade) Dose Ordered Sig/Sheng Route Start Time Stop Time Status Last Admin (Vitamin B12) 1,000 mcg DAILY PO 03/12/17 09:00 03/12/17 09:53 (Folate) 1 mg DAILY PO 03/12/17 09:00 03/12/17 09:53 (Keppra) 500 mg Q12HR PO 03/12/17 09:00 03/12/17 09:53 (Antivert) 25 mg Q8H PRN PO 03/11/17 22:00 (Singulair) 10 mg DAILY PO 03/12/17 09:00 03/12/17 09:53 (Dilantin) 200 mg DAILY@0600 PO 03/12/17 06:00 (Dilantin) 300 mg HS PO 03/12/17 21:00 (Inderal) 20 mg TID PO 03/12/17 09:00 03/12/17 13:00 (Lipitor) 20 mg DAILY PO 03/12/17 09:00 03/12/17 09:53 (Ativan) 0.5 mg Q12H PRN PO 03/11/17 22:00 (Ativan Inj) 0.5 mg Q12H PRN IM 03/11/17 22:00 (Benadryl) 50 mg HS PRN PO 03/11/17 22:00 (Tylenol) 650 mg Q4H PRN PO 03/11/17 22:00 (Milk Of Magnesia Liq) 30 ml DAILY PRN PO 03/11/17 22:00 (Mag-Al Plus Susp Liq) 30 ml Q6H PRN PO 03/11/17 22:00 (Habitrol 21 Mg Patch.24 Hr) 1 patch DAILY T-DERMAL 03/12/17 09:00 (Cogentin) 1 mg Q12H PRN PO 03/11/17 22:00 (Cogentin Inj) 1 mg Q12H PRN IM 03/11/17 22:00 Miscellaneous Information 1 DAILY T-DERMAL 03/12/17 09:00 (Mag-Ox) 400 mg DAILY@1100,2100 PO 03/12/17 21:00 (Synthroid) 112 mcg DAILY@0600 PO 03/13/17 06:00 (ZyPREXA) 10 mg HS PO 03/12/17 21:00 UNV Social History Currently living with 2 roommates in a home for the past 18 days, currently on disability benefits, highest education with some college. Patient's Strengths (min. 2) Verbal and communicative Physical Exam Patient upon my evaluation patient obese, with no gross motor abnormalities, no noted psychomotor agitation or retardation, no tremor, no EPS Vital Signs Vital Signs Date Time Temp Pulse Resp B/P (MAP) Pulse Ox O2 Delivery O2 Flow Rate FiO2 03/12/17 06:53 96.9 53 16 100/58 (72) 03/12/17 00:12 98 03/11/17 22:00 Room Air I/O 03/12/17 03/12/17 03/12/17 07:59 15:59 23:59 Intake Total 240 ml Balance 240 ml Lab Results Labs reviewed. Lastly. Test 03/11/17 16:40 03/11/17 17:40 03/12/17 08:11 03/12/17 16:05 White Blood Count 5.3 TH/MM3 Red Blood Count 3.59 MIL/MM3 Hemoglobin 11.7 GM/DL Hematocrit 32.6 % Mean Corpuscular Volume 90.8 FL Mean Corpuscular Hemoglobin 32.4 PG Mean Corpuscular Hemoglobin Concent 35.7 % Red Cell Distribution Width 15.2 % Platelet Count 326 TH/MM3 Mean Platelet Volume 7.8 FL Neutrophils (%) (Auto) 69.6 % Lymphocytes (%) (Auto) 20.0 % Monocytes (%) (Auto) 5.2 % Eosinophils (%) (Auto) 4.4 % Basophils (%) (Auto) 0.8 % Neutrophils # (Auto) 3.7 TH/MM3 Lymphocytes # (Auto) 1.1 TH/MM3 Monocytes # (Auto) 0.3 TH/MM3 Eosinophils # (Auto) 0.2 TH/MM3 Basophils # (Auto) 0.0 TH/MM3 CBC Comment DIFF FINAL Differential Comment Blood Urea Nitrogen 16 MG/DL 13 MG/DL Creatinine 0.89 MG/DL 0.74 MG/DL Random Glucose 151 MG/DL 95 MG/DL Calcium Level 9.6 MG/DL 10.2 MG/DL Sodium Level 138 MEQ/L 139 MEQ/L Potassium Level 3.1 MEQ/L 2.8 MEQ/L Chloride Level 101 MEQ/L 100 MEQ/L Carbon Dioxide Level 29.7 MEQ/L 31.1 MEQ/L Anion Gap 7 MEQ/L 8 MEQ/L Estimat Glomerular Filtration Rate 65 ML/MIN 80 ML/MIN Thyroid Stimulating Hormone 3rd Gen 0.194 uIU/ML Phenytoin (Dilantin) Level 5.2 MCG/ML Ethyl Alcohol Level LESS THAN 3 MG/DL Urine Color YELLOW Urine Turbidity HAZY Urine pH 6.0 Urine Specific [place] 1.011 Urine Protein NEG mg/dL Urine Glucose (UA) NEG mg/dL Urine Ketones NEG mg/dL Urine Occult Blood NEG Urine Nitrite NEG Urine Bilirubin NEG Urine Urobilinogen LESS THAN 2.0 MG/DL Urine Leukocyte Esterase MOD Urine RBC 2 /hpf Urine WBC 5 /hpf Urine Squamous Epithelial Cells 2 /hpf Urine Bacteria RARE /hpf Microscopic Urinalysis Comment CULT NOT INDICATED Urine Opiates Screen NEG Urine Barbiturates Screen NEG Urine Amphetamines Screen NEG Urine Benzodiazepines Screen POS Urine Cocaine Screen NEG Urine Cannabinoids Screen NEG Hemoglobin A1c 4.3 % Magnesium Level 1.5 MG/DL Triglycerides Level 200 MG/DL Cholesterol Level 176 MG/DL LDL Cholesterol 80 MG/DL HDL Cholesterol 55.7 MG/DL Cholesterol/HDL Ratio 3.15 RATIO Mental Status Examination Appearance Appears stated age, obese, fair grooming and hygiene, calm and cooperative interview, Speech: Pressured Orientation: x3 Memory: Impaired (describe) (likely to be impaired but difficult to discern due to patient's tangentiality and disorganized thought) Thought Process: Tangential, Other (disorganized at times) Language Fluent spontaneous Fund of Knowledge Average Hallucination Type: None Attention and Concentration: Easily Distracted Suicidal Ideation: No Previous Suicide Attempts: No Homicidal Ideation: No Previous Homicide Attempts: No Insight: Poor Judgment: Poor Affect: Anxious Mood: Other ("fine") Motor Activity: Normal gait Assessment & Plan Problem List: (1) Unspecified psychosis ICD Codes: F29 - Unspecified psychosis not due to a substance or known physiological condition Assessment & Plan Patient is a 61-year-old woman with unclear past psychiatric history who was recently brought into the hospital for involuntary evaluation via exparte initiated by patients son for alleged disorganized and bizarre behavior , and concern for inability to take adequate care of self. Patient initial lab work showed hypokalemia which medical team is managing. Due to inconsistencys from patient during interview as well as noted tangentiality and disorganization at times is unclear whether patient has an underlying psychotic disorder versus mood disorder versus neurocognitive disorder versus acute delirium due to metabolic abnormalities. As there is concerns for patient ability to care of self and disorganization as per exparte I will petition for involuntary hospitalization and request second opinion. Patient will remain on the inpatient psychiatric unit for further observation of mood and behavior, collateral pending from son. Well recommend starting olanzapine 10 mg by mouth at bedtime. Discharge planning in progress Hesham Wolf MD Mar 12, 2017 17:05
[2017-03-12 18:30] VITALS: BP 124/76; PULSE 65; RESP 17; TEMP 97; O2SAT 98
[2017-03-12] MEDS: LORazepam 0.5 MG TAB PO PRN (18:35)
[2017-03-12] MEDS: PHENYTOIN SODIUM 100 MG CAP PO SCH (21:00)
[2017-03-12] MEDS: MAGNESIUM OXIDE 400 MG TAB PO SCH (21:00)
[2017-03-12] MEDS ORDERED: OLANZapine 5 MG TAB PO SCH (21:00)
[2017-03-12] MEDS ORDERED: OLANZapine 10 MG TAB PO SCH (21:00)
[2017-03-13] MEDS: PHENYTOIN SODIUM 100 MG CAP PO SCH ×2 (05:50→21:51)
[2017-03-13] MEDS: LEVOTHYROXINE SODIUM 112 MCG TAB PO SCH (05:50)
[2017-03-13 06:24] VITALS: BP 136/8; PULSE 71; RESP 16; TEMP 97.8; O2SAT 97
--- NOTE | 2017-03-13 07:46 | PD.PSY.CON ---
Provisional Diagnosis Admission Date Mar 11, 2017 at 21:59 [place] I. 1. Affective psychosis BPAD manic with psychosis? [place] II. Deferred History of Present Illness Service Psychiatry Consult Requested By Dr. Wolf Reason for Consult Second opinion for involuntary psychiatric hospitalization Primary Care Physician No Primary Care Physician HPI From Dr. Wolf's H&P: Patient is a 61-year-old woman with an unknown past psychiatric history, denies previous psychiatric hospitalizations, denies any previous suicide attempt or self-injurious behavior with a past medical history of seizure disorder, back pain and hypothyroidism was brought into the hospital under an exparte requesting psychiatric involuntary evaluation. As per the exparte, patients son requested this evaluation reporting patient with disorganized behavior, mood lability, disorganized speech N patient not caring for herself and that she has not been eating adequately. Patient was transferred to the inpatient psychiatry unit for further evaluation and management. Patient found sitting on hospital bed noted to be calm and cooperative interview but was noted to have some pressured speech, disorganized thought and tangentiality. Patient states that shes been having a tumultuous relationship with her son and her [id number] and that her nuavyptd-as-jfn tried to Aldrich act or 3 times. Patient states that she was under Aldrich act activated by son stating that yesterday he was upset with her over the phone and loses the reason she is in the hospital today. Patient throughout interview was perseverative on her recent behavior due to fluctuating Dilantin levels to control her seizures. Patient denies any depressive symptoms state that she sleeping well, good appetite, . Concentration, mood being not bad, denies any perceptual disturbances. When asked about her previous history with any psychotropic medications patient states that she was given Haldol by her primary care doctor but only took once and when asked why she was prescribed this patient states that she was given several packs to try. Patient states that her primary care doctor is Dr. Kaycee Wong at [place]. Patient at this time denies any suicidality or homicidality. Past psychiatric history: No previous psychiatric diagnosis as per patient, denies any previous psychiatric hospitalizations, denies any previous suicide attempt or self-injurious behavior. Patient reports previous to being on Haldol and [place] in the past but was unable to provide details as to when or why she was on this medication. Substance use history: Tobacco (+); denies any alcohol or any other illicit drug use. Denies previous detox or rehabilitation programs. Past medical history: seizure disorder, Graves disease, hypertension, hyperlipidemia Allergies: NSAIDs Social history: Currently living with 2 roommates in a home for the past 18 days , currently on disability benefits, highest education with some college. On my exam today: Patient seen and examined with nurse. Chart reviewed. Case discussed with nursing staff. On my examination today, the patient presents as disinhibited, impulsive and rambling in her speech. Speech is also pressured and difficult to interrupt. Odd circumlocutions noted, such as "lost gravity" for a fall. Affect expansive. Thought process with significant loosening of associations. Denies AVH but appears a little internally preoccupied. Denies SI or HI but seems unreliable to contract for safety. No depressive symptoms. No avinash delusions. Remainder of the psychiatric ROS is negative. Complains of some dizziness but otherwise no physical complaints. Past psychiatric history: Patient denies a history of psychiatric diagnosis. She denies a history of inpatient psychiatric treatment. She denies a history of suicide attempts. Family history: The patient denies any family history of mental illness. Chemical dependency history: The patient denies any abuse of drugs or alcohol. Social history: The patient reports that she is renting a room. She has a son. She is single. 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 Review of Systems ROS Limitations: Psychotic, Poor Historian Except as stated in HPI: all other systems reviewed are Neg Past Family Social History Coded Allergies: penicillin G (Unverified Allergy, Severe, 03/11/17) Sulfa (Sulfonamide Antibiotics) (Verified Allergy, Unknown, 03/11/17) Uncoded Allergies: NSAIDS (Allergy, Severe, 04/22/09) Past Medical History See electronic medical record Active Scripts Cyanocobalamin (Vitamin B-12) 1,000 Mcg Tab, 1000 MCG PO DAILY for low vitamin B12, #30 TAB 0 Refills Prov:Katheryn Ordoñez MD 02/28/17 Folic Acid (Folic Acid) 1 Mg Tablet, 1 MG PO DAILY for low levels, #30 TAB 0 Refills Prov:Katheryn Ordoñez MD 02/24/17 Phenytoin Extended (Dilantin) 100 Mg Cap, 300 MG PO HS for seizure, #30 CAP 0 Refills Prov:Katheryn Ordoñez MD 02/24/17 Phenytoin Extended (Dilantin) 100 Mg Cap, 200 MG PO DAILY@0600 for seizure, #30 CAP 0 Refills Prov:Katheryn Ordoñez MD 02/24/17 Meclizine HCl (Meclizine 25) 25 Mg Tab, 25 MG PO Q8HR Y for vertigo, #30 TAB 0 Refills Prov:Katheryn Ordoñez MD 02/24/17 Levetiracetam (Keppra) 500 Mg Tab, 500 MG PO Q12HR for Control Seizures, #60 TAB 3 Refills Prov:Hesham Forbes MD 01/15/17 Alprazolam (Xanax) 0.5 Mg Tab, 0.5 MG PO BID for Control Anxiety, #10 TAB Prov:Hesham Forbes MD 01/15/17 Reported Medications Montelukast (Montelukast) 10 Mg Tab, 10 MG PO DAILY for Allergies, #30 TAB 0 Refills 01/07/17 Rosuvastatin (Crestor) 10 Mg Tab, 10 MG PO DAILY for Cholesterol Management, # 30 TAB 0 Refills 01/07/17 Levothyroxine (Levothyroxine) 125 Mcg Tab, 125 MCG PO DAILY for Thyroid, #30 TAB 0 Refills 01/07/17 Propranolol (Propranolol) 20 Mg Tab, 20 MG PO TID, #90 TAB 0 Refills 01/07/17 Current Medications Medications (Trade) Dose Ordered Sig/Sheng Route Start Time Stop Time Status Last Admin (Vitamin B12) 1,000 mcg DAILY PO 03/12/17 09:00 03/12/17 09:53 (Folate) 1 mg DAILY PO 03/12/17 09:00 03/12/17 09:53 (Keppra) 500 mg Q12HR PO 03/12/17 09:00 03/12/17 09:53 (Antivert) 25 mg Q8H PRN PO 03/11/17 22:00 (Singulair) 10 mg DAILY PO 03/12/17 09:00 03/12/17 09:53 (Dilantin) 200 mg DAILY@0600 PO 03/12/17 06:00 03/13/17 05:50 (Dilantin) 300 mg HS PO 03/12/17 21:00 (Inderal) 20 mg TID PO 03/12/17 09:00 03/12/17 18:00 (Lipitor) 20 mg DAILY PO 03/12/17 09:00 03/12/17 09:53 (Ativan) 0.5 mg Q12H PRN PO 03/11/17 22:00 03/12/17 18:35 (Ativan Inj) 0.5 mg Q12H PRN IM 03/11/17 22:00 (Benadryl) 50 mg HS PRN PO 03/11/17 22:00 (Tylenol) 650 mg Q4H PRN PO 03/11/17 22:00 (Milk Of Magnesia Liq) 30 ml DAILY PRN PO 03/11/17 22:00 (Mag-Al Plus Susp Liq) 30 ml Q6H PRN PO 03/11/17 22:00 (Habitrol 21 Mg Patch.24 Hr) 1 patch DAILY T-DERMAL 03/12/17 09:00 (Cogentin) 1 mg Q12H PRN PO 03/11/17 22:00 (Cogentin Inj) 1 mg Q12H PRN IM 03/11/17 22:00 Miscellaneous Information 1 DAILY T-DERMAL 03/12/17 09:00 (Mag-Ox) 400 mg DAILY@1100,2100 PO 03/12/17 21:00 (Synthroid) 112 mcg DAILY@0600 PO 03/13/17 06:00 03/13/17 05:50 (ZyPREXA) 10 mg HS PO 03/12/17 21:00 Future Hold Patient's Strengths (min. 2) In a monitored setting. Verbally fluent. Physical Exam Physical exam completed by hospitalist sales development consultant. On my examination today, the patient appears to be in no acute physical distress. No motor abnormalities noted. She is somewhat psychomotor agitated. Labs and vitals reviewed: Vital Signs Vital Signs Date Time Temp Pulse Resp B/P (MAP) Pulse Ox O2 Delivery O2 Flow Rate FiO2 03/13/17 06:24 97.8 71 16 136/8 (50) 97 03/11/17 22:00 Room Air Lab Results Test 03/12/17 08:11 03/12/17 16:05 Blood Urea Nitrogen 13 MG/DL Creatinine 0.74 MG/DL Random Glucose 95 MG/DL Calcium Level 10.2 MG/DL Sodium Level 139 MEQ/L Potassium Level 2.8 MEQ/L 4.3 MEQ/L Chloride Level 100 MEQ/L Carbon Dioxide Level 31.1 MEQ/L Anion Gap 8 MEQ/L Estimat Glomerular Filtration Rate 80 ML/MIN Hemoglobin A1c 4.3 % Magnesium Level 1.5 MG/DL Triglycerides Level 200 MG/DL Cholesterol Level 176 MG/DL LDL Cholesterol 80 MG/DL HDL Cholesterol 55.7 MG/DL Cholesterol/HDL Ratio 3.15 RATIO Phenytoin (Dilantin) Level 2.7 MCG/ML Mental Status Examination Speech: Pressured Orientation: x3 Memory: Impaired (describe) Thought Process: Loose Association, Tangential Hallucination Type: None (Denies but appears int stim) Attention and Concentration: Easily Distracted Suicidal Ideation: No Previous Suicide Attempts: No Homicidal Ideation: No Previous Homicide Attempts: No Insight: Poor Judgment: Poor Affect: Other (expansive) Mood: Other (Denies issues with mood) Motor Activity: Normal gait Assessment & Plan Problem List: (1) Affective psychosis ICD Codes: F39 - Unspecified mood [affective] disorder Assessment & Plan Given the circumstances of the patient's presentation here in her presentation on my examination today, I concur with Dr. Wolf that the patient meets criteria for involuntary psychiatric hospitalization under the Aldrich act. I completed the second opinion paperwork. Further care as per Dr. Wolf. Thank you very much for this consultation. Signing off. Jayson Palma MD Mar 13, 2017 07:46
[2017-03-13] MEDS: REMOVE OLD PATCH T-DERMAL SCH (09:00)
[2017-03-13] MEDS: PROPRANOLOL HCL 20 MG TAB PO SCH ×3 (09:00→18:20)
[2017-03-13] MEDS: NICOTINE 21 MG/24 HR PATCH T-DERMAL SCH (09:00)
[2017-03-13] MEDS: MONTELUKAST SODIUM 10 MG TAB PO SCH (09:41)
[2017-03-13] MEDS: levETIRAcetam 500 MG TAB PO SCH ×2 (09:41→21:51)
[2017-03-13] MEDS: FOLIC ACID 1 MG TAB PO SCH (09:41)
[2017-03-13] MEDS: ATORVASTATIN 20 MG TAB PO SCH (09:41)
[2017-03-13] MEDS: CYANOCOBALAMIN 1,000 MCG TAB PO SCH (09:41)
[2017-03-13 09:42] VITALS: BP 138/88; PULSE 90; RESP 17; O2SAT 98
[2017-03-13] MEDS: LORazepam 0.5 MG TAB PO PRN ×2 (09:55→23:18)
[2017-03-13 10:31] LABS: POTASSIUM 3.4 MEQ/L (3.5-5.1)
[2017-03-13] MEDS: MAGNESIUM OXIDE 400 MG TAB PO SCH ×2 (11:52→21:52)
[2017-03-13 13:00] VITALS: BP 115/77; PULSE 65; RESP 17; O2SAT 99
[2017-03-13] MEDS: POTASSIUM CHLORIDE 20 MEQ CONTROLLED RELEASE TAB PO SCH ×2 (13:41→21:00)
--- NOTE | 2017-03-13 16:31 | HHI.PYPN ---
Subjective Remarks Patient seen for follow-up, chart reviewed. Patient found walking on the unit but able to engage in interview. [place] continues to be noted to be tangential , disorganized with flight of ideas. Patient refused treatment but later agreed to start taking the medications. Patient also noted after interview to be talking to self and responding to internal stimuli. Patient's roommate reported this morning that the patient was talking all night to herself. Patient believes that she is in the hospital because of Dilantin toxicity. Patient then jumps topics and states that she wanted to say that she was abused but did not specify by whom. Patient noted with pressured speech and unable to remain organized. Review of Systems Except as stated in HPI: all other systems reviewed are Neg Objective Alert: Yes [place]: Person, Place Mood: Calm Affect: Labile Memory Intact: Comment (intact except for recent ) Hallucinations: Other (denies) Delusions: Yes Delusion Type: Paranoid (of her son), Other (delusion of having Dilaudid toxicity) Suicidal: Ideation (denies) Homicidal: Ideation (denies) Insight/Judgment Poor insight, limited impulse control, poor judgement Labs labs reviewed Test 03/13/17 08:45 Blood Urea Nitrogen 12 MG/DL Creatinine 0.94 MG/DL Random Glucose 197 MG/DL Calcium Level 10.4 MG/DL Sodium Level 135 MEQ/L Potassium Level 3.4 MEQ/L Chloride Level 99 MEQ/L Carbon Dioxide Level 25.0 MEQ/L Anion Gap 11 MEQ/L Estimat Glomerular Filtration Rate 61 ML/MIN Vitals/IOs Vital Signs Date Time Temp Pulse Resp B/P (MAP) Pulse Ox O2 Delivery O2 Flow Rate FiO2 03/13/17 13:00 65 17 115/77 (90) 99 03/13/17 06:24 97.8 03/11/17 22:00 Room Air Intake and Output 03/13/17 03/13/17 03/14/17 08:00 16:00 00:00 Intake Total 240 ml 240 ml Balance 240 ml 240 ml Assessment & Plan Problem List: (1) Unspecified psychosis ICD Codes: F29 - Unspecified psychosis not due to a substance or known physiological condition Assessment & Plan Patient noted to be more psychotic as she is noted to be internally preoccupied , talking to self while on the unit despite denying AH during interview. Patient agreed to comply with treatment tonight.Continue currnet treatment, discharge planning in progress. Justification for Cont. Inpt. At risk for decompensation if at lower level of care Hesham Wolf MD Mar 13, 2017 16:31
[2017-03-13 18:22] VITALS: PULSE 75; RESP 16; TEMP 98.4; O2SAT 100
[2017-03-13] MEDS: diphenhydrAMINE HCL 50 MG CAP PO PRN (21:51)
[2017-03-14] MEDS: ACETAMINOPHEN 325 MG TAB PO PRN (01:11)
[2017-03-14 06:09] VITALS: BP 113/66; PULSE 69; RESP 17; TEMP 97.7; O2SAT 100
[2017-03-14] MEDS: LEVOTHYROXINE SODIUM 112 MCG TAB PO SCH (06:24)
[2017-03-14] MEDS: PHENYTOIN SODIUM 100 MG CAP PO SCH ×2 (06:24→21:33)
--- NOTE | 2017-03-14 08:45 | HHI.PR ---
Subjective Remarks Follow-up visit hypokalemia, BPPV, seizure disorder, hypothyroidism. Patient seen and examined today. She reports she is concerned about her levels of Dilantin. States she had toxicity prior as she was taking 400 mg twice a day. Discussed with patient at the level results and other labs to be drawn to be able to adjust her Dilantin level. Verbalized understanding. 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 States her qufwsaws-qu-jns is still wanted that puts her to psychiatric unit and that he hasn't seen her son for a while. Patient is very repetitive with her story. But she denies any chest pain, palpitations, shortness of breath, dizziness, lightheadedness, nausea, vomiting, diarrhea. Objective Vitals Vital Signs Date Time Temp Pulse Resp B/P (MAP) Pulse Ox O2 Delivery O2 Flow Rate FiO2 03/14/17 06:09 97.7 69 17 113/66 (82) 100 03/13/17 18:22 98.4 75 16 100 03/13/17 13:00 65 17 115/77 (90) 99 03/13/17 09:42 90 17 138/88 (105) 98 I/O 03/13/17 03/13/17 03/13/17 03/14/17 03/14/17 03/14/17 07:00 15:00 23:00 07:00 15:00 23:00 Intake Total 480 ml 240 ml Balance 480 ml 240 ml Intake Oral 480 ml 240 ml Result Diagram: 03/11/17 [facility] 03/13/17 0845 Objective Remarks GENERAL: This is a well-nourished, well-developed patient, in no apparent distress. SKIN: Warm and dry. HEENT: Normocephalic. Pupils equal round and reactive. Nose without bleeding. Airway patent. NECK: Trachea midline. No JVD. Supple. CARDIOVASCULAR: Regular rate and rhythm without murmurs, gallops, or rubs. RESPIRATORY: Clear to auscultation. Breath sounds equal bilaterally. No wheezes , rales, or rhonchi. GASTROINTESTINAL: Abdomen soft, non-tender, nondistended. Bowel Sounds normoactive x4. MUSCULOSKELETAL: Extremities without clubbing, cyanosis, or edema. NEUROLOGICAL: Awake and alert. Oriented to time, place, person. No focal neuro deficit. Moves all extremities. Normal speech. A/P Problem List: (1) Affective psychosis ICD Code: F39 - Unspecified mood [affective] disorder (2) Anxiety disorder, unspecified ICD Code: F41.9 - Anxiety disorder, unspecified Status: Acute (3) Personality disorder ICD Code: F60.9 - Personality disorder, unspecified Status: Acute (4) Seizure disorder ICD Code: G40.909 - Epilepsy, unspecified, not intractable, without status epilepticus Status: Chronic Assessment and Plan 61-year-old female who has a personality disorder and was Aldrich act. [facility] consulted for medical management. Hypokalemia, asymptomatic Hypomagnesemia - Acute on chronic. Intermittent. Patient does have a history of low potassium. - Scheduled potassium ordered potassium 20 MEQ every 12 hours - magnesium level which was 1.5. - Mag ox 400 mg twice a day - Recheck labs BPPV - Meclizine when necessary - Improved History of seizure disorder - Patient on Keppra and Dilantin. - Dilantin level 5.2 --> 2.7 - Check albumin before dose adjustment. - Will possibly increase Dilantin to 300mg BID - Trend Dilantin level Anxiety/hypothyroidism/personality disorder/allergic rhinitis -T SH is depressed. Decrease levothyroxine. - TSH rechecked and in 6 weeks by her primary care physician DVT prop low risk, ambulatory Discuss with patient, nursing, Dr. Bates Problem Qualifiers (1) Anxiety disorder, unspecified: Qualified Codes: F41.9 - Anxiety disorder, unspecified Debra Venegas Mar 14, 2017 08:45
[2017-03-14] MEDS: REMOVE OLD PATCH T-DERMAL SCH (09:00)
[2017-03-14] MEDS: NICOTINE 21 MG/24 HR PATCH T-DERMAL SCH (09:00)
[2017-03-14] MEDS: MONTELUKAST SODIUM 10 MG TAB PO SCH (09:09)
[2017-03-14] MEDS: ATORVASTATIN 20 MG TAB PO SCH (09:09)
[2017-03-14] MEDS: levETIRAcetam 500 MG TAB PO SCH ×2 (09:09→21:33)
[2017-03-14] MEDS: CYANOCOBALAMIN 1,000 MCG TAB PO SCH (09:09)
[2017-03-14] MEDS: FOLIC ACID 1 MG TAB PO SCH (09:09)
[2017-03-14] MEDS: PROPRANOLOL HCL 20 MG TAB PO SCH ×4 (09:09→18:32)
[2017-03-14] MEDS: POTASSIUM CHLORIDE 20 MEQ CONTROLLED RELEASE TAB PO SCH ×2 (09:09→21:33)
[2017-03-14] MEDS ORDERED: OLANZapine 5 MG TAB PO ONE (11:00)
[2017-03-14] MEDS: MAGNESIUM OXIDE 400 MG TAB PO SCH ×2 (11:20→21:39)
--- NOTE | 2017-03-14 12:39 | HHI.PYPN ---
Subjective Remarks Patient seen for follow-up, chart reviewed. Patient found walking around units and responding to internal stimuli and target to self. Patient upon interview continue to be noted disorganized, flight of ideas, tangential with pressured speech. Patient continues to be perseverative on the fact that she is hospitalized due to "a life and toxicity". Patient also expressing feeling upset that she was brought under extra today for evaluation and is paranoid that her [id number] is the one that put her in the hospital. Patient was difficulty with impulse control but has not been aggressive nor agitated on the unit. Review of Systems Except as stated in HPI: all other systems reviewed are Neg Objective Alert: Yes [place]: Person, Place Mood: Calm Affect: Labile Memory Intact: Comment (intact except for recent ) Hallucinations: Other (denies) Delusions: Yes Delusion Type: Paranoid (of her son), Other (delusion of having Dilaudid toxicity) Suicidal: Ideation (denies) Homicidal: Ideation (denies) Insight/Judgment Poor insight, impulse control and judgment Remarks Pressured speech Labs Labs reviewed. Test 03/14/17 10:46 Potassium Level 4.2 MEQ/L Albumin 3.8 GM/DL Vitals/IOs Vital Signs Date Time Temp Pulse Resp B/P (MAP) Pulse Ox O2 Delivery O2 Flow Rate FiO2 03/14/17 06:09 97.7 69 17 113/66 (82) 100 03/11/17 22:00 Room Air Assessment & Plan Problem List: (1) Unspecified psychosis ICD Codes: F29 - Unspecified psychosis not due to a substance or known physiological condition Assessment & Plan Patient this time continuing noted to be psychotic, disorganized target to self , responding to internal stimuli, pressured speech and tangential with flight of ideas. Patient agreed to treatment yesterday but was not able to have it provided as patient did not sign for the medication. Patient today agreed to sign for medications which she will start today. Olanzapine 5 mg by mouth given now then Olanzapine 5 mg by mouth twice a day with upward titration for psychosis. Discharge planning in progress Justification for Cont. Inpt. At risk for further decompensation if at lower level of care. Hesham Wolf MD Mar 14, 2017 12:39
[2017-03-14 14:12] LABS: INDIRECT BILIRUBIN 0.3 MG/DL (0.0-0.8); TOTAL BILIRUBIN ADULT 0.5 MG/DL (0.2-1.0)
[2017-03-14] MEDS: MECLIZINE HCL 25 MG TAB PO PRN (16:35)
[2017-03-14 18:16] VITALS: BP 122/80; PULSE 59; RESP 17; TEMP 97.9; O2SAT 99
[2017-03-14] MEDS: OLANZapine 10 MG TAB PO SCH (21:33)
[2017-03-15] MEDS: PHENYTOIN SODIUM 100 MG CAP PO SCH ×2 (06:06→22:15)
[2017-03-15] MEDS: LEVOTHYROXINE SODIUM 112 MCG TAB PO SCH (06:06)
[2017-03-15 06:15] VITALS: BP 109/55; PULSE 59; RESP 19; TEMP 98; O2SAT 99
[2017-03-15] MEDS: CYANOCOBALAMIN 1,000 MCG TAB PO SCH (08:25)
[2017-03-15] MEDS: ATORVASTATIN 20 MG TAB PO SCH (08:25)
[2017-03-15] MEDS: PROPRANOLOL HCL 20 MG TAB PO SCH ×3 (08:26→18:00)
[2017-03-15] MEDS: levETIRAcetam 500 MG TAB PO SCH ×2 (08:26→22:15)
[2017-03-15] MEDS: OLANZapine 10 MG TAB PO SCH ×2 (08:26→22:16)
[2017-03-15] MEDS: MONTELUKAST SODIUM 10 MG TAB PO SCH (08:26)
[2017-03-15] MEDS: POTASSIUM CHLORIDE 20 MEQ CONTROLLED RELEASE TAB PO SCH ×2 (08:26→22:16)
[2017-03-15] MEDS: FOLIC ACID 1 MG TAB PO SCH (08:26)
[2017-03-15] MEDS: REMOVE OLD PATCH T-DERMAL SCH (08:27)
[2017-03-15] MEDS: NICOTINE 21 MG/24 HR PATCH T-DERMAL SCH (08:27)
[2017-03-15] MEDS: LORazepam 0.5 MG TAB PO PRN ×2 (08:31→23:28)
[2017-03-15] MEDS: MAGNESIUM OXIDE 400 MG TAB PO SCH (11:00)
[2017-03-15 11:34] LABS: FREE T3 2.09 PG/ML (2.18-3.98); FREE T4 1.08 NG/DL (0.76-1.46)
--- NOTE | 2017-03-15 13:14 | HHI.PR ---
Subjective Remarks Follow-up visit hypokalemia, BPPV, seizure disorder, hypothyroidism. Patient seen and examined today. Patient continues to be concerned about her Dilantin levels requesting that we check again. Assured patient we are monitoring closely. She is complaining of pain and swelling in the right knee. She reports falling several months ago but reports the knee just began hurting her last night. She at first requested Roxicodone then Lortab 10s. She denies any complaints of N/V, chest pain or shortness of breath. Discussed with nursing staff. Objective Vitals Vital Signs Date Time Temp Pulse Resp B/P (MAP) Pulse Ox O2 Delivery O2 Flow Rate FiO2 03/15/17 06:15 98.0 59 19 109/55 (73) 99 03/14/17 18:16 97.9 59 17 122/80 (94) 99 Result Diagram: 03/11/17 1640 03/14/17 1046 Objective Remarks GENERAL: This is a well-nourished, well-developed patient, in no apparent distress. Awake and alert. Appears anxious. SKIN: Warm and dry. No rash noted. HEENT: Normocephalic. EOMI. Nose without bleeding. Airway patent. NECK: Trachea midline. No JVD. Supple. CARDIOVASCULAR: Regular rate and rhythm without murmurs, gallops, or rubs. RESPIRATORY: Clear to auscultation. Breath sounds equal bilaterally. No wheezes , rales, or rhonchi. GASTROINTESTINAL: Abdomen soft, non-tender, nondistended. Bowel Sounds normoactive x4. MUSCULOSKELETAL: Extremities without clubbing, cyanosis. Right knee appears mildly swollen and is tender to palpation. Patient is witnessed ambulating in the room without any difficulty. NEUROLOGICAL: Awake and alert. Oriented to time, place, person. No focal neuro deficit. Moves all extremities. Pressured speech. Medications and IVs Current Medications Medications (Trade) Dose Ordered Sig/Sheng Route Start Time Stop Time Status Last Admin (Vitamin B12) 1,000 mcg DAILY PO 03/12/17 09:00 03/15/17 08:25 (Folate) 1 mg DAILY PO 03/12/17 09:00 03/15/17 08:26 (Keppra) 500 mg Q12HR PO 03/12/17 09:00 03/15/17 08:26 (Antivert) 25 mg Q8H PRN PO 03/11/17 22:00 03/14/17 16:35 (Singulair) 10 mg DAILY PO 03/12/17 09:00 03/15/17 08:26 (Dilantin) 300 mg HS PO 03/12/17 21:00 03/14/17 21:33 (Inderal) 20 mg TID PO 03/12/17 09:00 03/15/17 08:26 (Lipitor) 20 mg DAILY PO 03/12/17 09:00 03/15/17 08:25 (Ativan) 0.5 mg Q12H PRN PO 03/11/17 22:00 03/15/17 08:31 (Ativan Inj) 0.5 mg Q12H PRN IM 03/11/17 22:00 (Benadryl) 50 mg HS PRN PO 03/11/17 22:00 03/13/17 21:51 (Tylenol) 650 mg Q4H PRN PO 03/11/17 22:00 (Milk Of Magnesia Liq) 30 ml DAILY PRN PO 03/11/17 22:00 (Mag-Al Plus Susp Liq) 30 ml Q6H PRN PO 03/11/17 22:00 (Habitrol 21 Mg Patch.24 Hr) 1 patch DAILY T-DERMAL 03/12/17 09:00 (Cogentin) 1 mg Q12H PRN PO 03/11/17 22:00 (Cogentin Inj) 1 mg Q12H PRN IM 03/11/17 22:00 Miscellaneous Information 1 DAILY T-DERMAL 03/12/17 09:00 (Mag-Ox) 400 mg DAILY@1100,2100 PO 03/12/17 21:00 03/15/17 11:00 (Synthroid) 112 mcg DAILY@0600 PO 03/13/17 06:00 03/15/17 06:06 (KCl) 20 meq Q12HR PO 03/13/17 14:00 03/15/17 08:26 (ZyPREXA) 5 mg BID PO 03/14/17 21:00 03/15/17 08:26 (Dilantin) 300 mg DAILY@0600 PO 03/15/17 06:00 03/15/17 06:06 A/P Problem List: (1) Affective psychosis ICD Code: F39 - Unspecified mood [affective] disorder (2) Anxiety disorder, unspecified ICD Code: F41.9 - Anxiety disorder, unspecified Status: Acute (3) Personality disorder ICD Code: F60.9 - Personality disorder, unspecified Status: Acute (4) Seizure disorder ICD Code: G40.909 - Epilepsy, unspecified, not intractable, without status epilepticus Status: Chronic Assessment and Plan 61-year-old female who has a personality disorder and was Aldrich act. [facility] consulted for medical management. Right knee pain - s/p fall several months ago ppr. Asymptomatic until last night. No recent fall or injury per patient. - Xray right knee ordered - Tylenol prn pain Hypokalemia, asymptomatic Hypomagnesemia - Acute on chronic. Intermittent. Patient does have a history of low potassium. - Scheduled potassium ordered potassium 20 MEQ every 12 hours. Last K level 4.2 03/14. Repeat in am. - magnesium level which was 1.5. Started on Mag ox 400mg BID. Continue. Repeat mag level in am. BPPV - Meclizine when necessary - Improved History of seizure disorder - Patient on Keppra and Dilantin. - Dilantin level 5.2 --> 2.7 --> 4.9. Dose increased from 200mg daily to 300mg today. Repeat level in 48hrs. - Keppra level pending - check albumin before dose adjustment - Will possibly increase Dilantin to 300mg BID - Trend Dilantin level Anxiety/hypothyroidism/personality disorder/allergic rhinitis - TSH is depressed. Dose of levothyroxine decreased from 125mcg to 112mcg. - TSH to be rechecked in 6 weeks by her primary care physician Hypercalcemia - check PTH Vitamin D deficiency - begin Vitamin D repletion - repeat level in 3 months with PCP DVT prop low risk, ambulatory Discuss with patient, Dr. Bates Attending Statement The exam, history, and the medical decision-making described in the above note were completed with the assistance of the mid-level provider. I reviewed and agree with the findings presented. I attest that I had a [id number] encounter with the patient on the same day, and personally performed and documented my assessment and findings in the medical record. Pt mainly complaining of right knee pain but states that she fell since december. pt poor historian and we must redirect her as she tends to be tangential. right need is tender to touch however pt came into the room w no difficulty. HR rrr, lungs are clear, abdomen soft NT will get xray of knee. Caution w giving narcotics as I'm concerned that pt may be seeking narcotics. Will review x-ray. levothyroxine dose has been adjusted based on TSH levels. monitor dilantin closely as her dilantin level was low and dose has been adjusted. mild hypercalcemia was noted, PTH level drawn and elevated, concerning for primary hyperparathyroidism. will monitor calcium level closely. Change diet to low Calcium <1000mg/day. repeat calcium levels, check 24 hr urine calcium. Check u/s of neck. GS consult once u/s available. Repeat calcium level in AM if elevated will need to transfer to med/psych floor for IVFs if needed. May need to be started on pamidronate. stop vit D supplementation Problem Qualifiers (1) Anxiety disorder, unspecified: Qualified Codes: F41.9 - Anxiety disorder, unspecified Isa Storey Mar 15, 2017 13:14 Alma Delia Bates MD Mar 15, 2017 18:23
[2017-03-15] MEDS ORDERED: CHOLECALCIFEROL (VIT D3) 1000 UNIT TAB PO SCH (15:00)
--- NOTE | 2017-03-15 16:09 | HHI.PYPN ---
Subjective Remarks Patient was seen and case discussed with nursing. Patient remains pressured and hyperverbal, flight of ideas. Continues to complain of pain. Says her reason for admission hears "Dilantin toxicity." Behaving well on the unit. Compliant with medications. Objective Alert: Yes [place]: Person, Place Mood: Calm Affect: Labile Memory Intact: Comment (intact except for recent ) Hallucinations: Other (denies) Delusions: Yes Delusion Type: Paranoid (guarded), Other (delusion of having Dilantin toxicity) Suicidal: Ideation (denies) Homicidal: Ideation (denies) Insight/Judgment Poor Labs Test 03/15/17 08:25 03/15/17 15:52 25-Hydroxy Vitamin D Total 9.4 ng/ML Free Thyroxine 1.08 NG/DL Free Triiodothyronine (T3) pg/dL 2.09 PG/ML Phenytoin (Dilantin) Level 4.9 MCG/ML Vitals/IOs Vital Signs Date Time Temp Pulse Resp B/P (MAP) Pulse Ox O2 Delivery O2 Flow Rate FiO2 03/15/17 06:15 98.0 59 19 109/55 (73) 99 03/11/17 22:00 Room Air Assessment & Plan Problem List: (1) Unspecified psychosis ICD Codes: F29 - Unspecified psychosis not due to a substance or known physiological condition Assessment & Plan Continue current treatment plan Justification for Cont. Inpt. Patient will decompensate in a less restrictive setting Alton Laureano DO Mar 15, 2017 16:09
--- NOTE | 2017-03-15 19:03 | RADRPT ---
EXAM DATE/TIME: 03/15/2017 18:44 [facility] COMPARISON: No previous studies available for comparison. INDICATIONS : Right knee pain after fall several months ago. MEDICAL HISTORY : Arthritis. SURGICAL HISTORY : None. ENCOUNTER: Initial ACUITY: 3 months PAIN SCORE: 10/10 LOCATION: Right knee. FINDINGS: Two view examination of the right knee demonstrates no evidence of fracture or dislocation. Bony min eralization is normal. The suprapatellar soft tissues have a normal configuration. CONCLUSION: Negative for fracture or significant degenerative changes. Fawad Murguia MD FACR on March 15, 2017 at 19:01 Board Certified Radiologist. This report was verified electronically.
--- NOTE | 2017-03-15 23:19 | RADRPT ---
EXAM DATE/TIME: 03/15/2017 22:00 [facility] COMPARISON: No previous studies available for comparison. INDICATIONS : Mass. MEDICAL HISTORY : Hypercholesterolemia. Hypertension. Hypothyroidism. Seizures. Anxiety. Graves disease. SURGICAL HISTORY : None. ENCOUNTER: Initial ACUITY: 1 day PAIN SCORE: 0/10 LOCATION: Neck. MEASUREMENTS: RIGHT LOBE: 3.8 x 1.5 x 2.0 cm LEFT LOBE: 4.7 x 1.7 x 1.1 cm FINDINGS: The thyroid gland is very heterogeneous, right more than left. No discrete nodules or mass identified . No abnormal fluid collections. CONCLUSION: 1. Heterogeneous thyroid without discrete mass identified sonographically. Delfino Stapleton MD on March 15, 2017 at 23:15 Board Certified Radiologist. This report was verified electronically.
[2017-03-15] MEDS: diphenhydrAMINE HCL 50 MG CAP PO PRN (23:28)
[2017-03-16] MEDS: MAGNESIUM OXIDE 400 MG TAB PO SCH ×3 (02:50→21:48)
[2017-03-16 06:05] VITALS: BP 131/64; PULSE 54; RESP 16; TEMP 98.2; O2SAT 100
[2017-03-16] MEDS: LEVOTHYROXINE SODIUM 112 MCG TAB PO SCH (06:36)
[2017-03-16] MEDS: PHENYTOIN SODIUM 100 MG CAP PO SCH ×2 (06:36→21:46)
[2017-03-16] MEDS: PROPRANOLOL HCL 20 MG TAB PO SCH ×3 (09:00→17:47)
[2017-03-16] MEDS: REMOVE OLD PATCH T-DERMAL SCH (09:00)
[2017-03-16] MEDS: NICOTINE 21 MG/24 HR PATCH T-DERMAL SCH (09:00)
[2017-03-16] MEDS: POTASSIUM CHLORIDE 20 MEQ CONTROLLED RELEASE TAB PO SCH ×2 (09:39→21:49)
[2017-03-16] MEDS: OLANZapine 10 MG TAB PO SCH ×2 (09:39→21:49)
[2017-03-16] MEDS: CYANOCOBALAMIN 1,000 MCG TAB PO SCH (09:39)
[2017-03-16] MEDS: FOLIC ACID 1 MG TAB PO SCH (09:39)
[2017-03-16] MEDS: ATORVASTATIN 20 MG TAB PO SCH (09:39)
[2017-03-16] MEDS: MONTELUKAST SODIUM 10 MG TAB PO SCH (09:40)
[2017-03-16] MEDS: levETIRAcetam 500 MG TAB PO SCH ×2 (09:40→21:48)
[2017-03-16 11:38] LABS: BICARBONATE 25.4 MEQ/L (21.0-32.0); POTASSIUM 4.3 MEQ/L (3.5-5.1)
[2017-03-16] MEDS: LORazepam 0.5 MG TAB PO PRN (11:52)
--- NOTE | 2017-03-16 13:49 | HHI.PYPN ---
Subjective Remarks Patient was seen and case discussed with nursing. Patient remains hyperverbal, rambling and disorganized. Could be responding to internal stimuli but denies any psychotic symptoms. No visitors or phone calls today. Compliant with medications and behaving well on the unit Objective Alert: Yes [place]: Person, Place Mood: Calm Affect: Manic Memory Intact: Comment (intact except for recent ) Hallucinations: Other (denies) Delusions: Yes Delusion Type: Paranoid (guarded), Other (delusion of having Dilantin toxicity) Suicidal: Ideation (denies) Homicidal: Ideation (denies) Insight/Judgment Poor Labs Test 03/15/17 15:52 03/16/17 10:12 Parathyroid Hormone (Intact) 120.4 PG/ML Blood Urea Nitrogen 17 MG/DL Creatinine 0.88 MG/DL Random Glucose 97 MG/DL Calcium Level 9.6 MG/DL Magnesium Level 2.0 MG/DL Sodium Level 141 MEQ/L Potassium Level 4.3 MEQ/L Chloride Level 107 MEQ/L Carbon Dioxide Level 25.4 MEQ/L Anion Gap 9 MEQ/L Estimat Glomerular Filtration Rate 66 ML/MIN Phenytoin (Dilantin) Level 7.7 MCG/ML Vitals/IOs Vital Signs Date Time Temp Pulse Resp B/P (MAP) Pulse Ox O2 Delivery O2 Flow Rate FiO2 03/16/17 06:05 98.2 54 16 131/64 (86) 100 Assessment & Plan Problem List: (1) Unspecified psychosis ICD Codes: F29 - Unspecified psychosis not due to a substance or known physiological condition Assessment & Plan Continue current treatment plan Justification for Cont. Inpt. Patient would decompensate in a less restrictive setting Alton Laureano DO Mar 16, 2017 13:49
[2017-03-16 18:02] VITALS: BP 149/80; PULSE 70; O2SAT 99
[2017-03-16 18:03] VITALS: BP 147/76; PULSE 75
[2017-03-16 18:29] VITALS: BP 117/76; PULSE 99; RESP 17; O2SAT 98
[2017-03-16] MEDS ORDERED: LORazepam 1 MG TAB PO ONE (19:00)
[2017-03-16 22:00] VITALS: BP 113/74; PULSE 64; RESP 16; TEMP 98.4; O2SAT 100
[2017-03-16 22:38] LABS: CREATINE KINASE 68 U/L (26-192)
[2017-03-17 05:32] VITALS: BP 121/66; PULSE 63; RESP 16; TEMP 97.3; O2SAT 97
[2017-03-17 05:47] VITALS: BP 121/66; PULSE 63; RESP 16; TEMP 97.3; O2SAT 97
[2017-03-17] MEDS: PHENYTOIN SODIUM 100 MG CAP PO SCH ×2 (06:10→20:15)
[2017-03-17] MEDS: LEVOTHYROXINE SODIUM 112 MCG TAB PO SCH (06:10)
[2017-03-17] MEDS: CYANOCOBALAMIN 1,000 MCG TAB PO SCH (08:58)
[2017-03-17] MEDS: PROPRANOLOL HCL 20 MG TAB PO SCH ×3 (08:58→17:57)
[2017-03-17] MEDS: MONTELUKAST SODIUM 10 MG TAB PO SCH (08:59)
[2017-03-17] MEDS: OLANZapine 10 MG TAB PO SCH (09:00)
[2017-03-17] MEDS: POTASSIUM CHLORIDE 20 MEQ CONTROLLED RELEASE TAB PO SCH ×2 (09:00→20:14)
[2017-03-17] MEDS: levETIRAcetam 500 MG TAB PO SCH ×2 (09:00→20:14)
[2017-03-17] MEDS: FOLIC ACID 1 MG TAB PO SCH (09:00)
[2017-03-17] MEDS: REMOVE OLD PATCH T-DERMAL SCH (09:00)
[2017-03-17] MEDS: NICOTINE 21 MG/24 HR PATCH T-DERMAL SCH (09:00)
[2017-03-17] MEDS: ATORVASTATIN 20 MG TAB PO SCH (09:00)
[2017-03-17] MEDS: MAGNESIUM OXIDE 400 MG TAB PO SCH ×2 (11:00→21:00)
[2017-03-17 11:10] LABS: CREATINE KINASE 44 U/L (26-192)
--- NOTE | 2017-03-17 15:59 | HHI.PR ---
Subjective Remarks Pt tells me how she feels that the staff is talking about her. She feels like she is under a microscope. She is devastated that her son doesn't want to speak w her. she tells me that she was supposed to get discharged sometime last week but this didn't happen. When I explained to her that she has some elevation of her calcium levels and that we were monitoring it, she tells me that her PCP is aware of this but never found a nodule. She is more concerned about her dilantin levels. Objective Vitals Vital Signs Date Time Temp Pulse Resp B/P (MAP) Pulse Ox O2 Delivery O2 Flow Rate FiO2 03/17/17 05:47 97.3 63 16 121/66 (84) 97 03/17/17 05:32 97.3 63 16 121/66 (84) 97 Manual Cuff/Auscultation 03/16/17 22:00 98.4 64 16 113/74 (87) 100 03/16/17 18:29 99 17 117/76 (90) 98 03/16/17 18:03 75 147/76 (99) 03/16/17 18:02 70 149/80 (103) 99 Result Diagram: 03/16/17 1012 Imaging Last Impressions Thyroid Ultrasound 03/15/17 0000 Signed Impressions: Service Date/Time: Wednesday, March 15, 2017 22:00 - CONCLUSION: 1. Heterogeneous thyroid without discrete mass identified sonographically. Delfino Stapleton MD Knee X-Ray 03/15/17 0000 Signed Impressions: Service Date/Time: Wednesday, March 15, 2017 18:44 - CONCLUSION: Negative for fracture or significant degenerative changes. Fawad Murguia MD FACR Objective Remarks GENERAL:Awake and alert. Appears anxious. SKIN: Warm and dry. No rash noted. HEENT: Normocephalic. EOMI. Airway patent. NECK: Trachea midline. No JVD. Supple. CARDIOVASCULAR: Regular rate and rhythm without murmurs. RESPIRATORY: Clear to auscultation. Breath sounds equal bilaterally. No wheezes GASTROINTESTINAL: Abdomen soft, non-tender, nondistended. Bowel Sounds normoactive x4. MUSCULOSKELETAL: Patient is witnessed ambulating in the room without any difficulty. NEUROLOGICAL: Awake and alert. Oriented to time, place, person. No focal neuro deficit. Moves all extremities. Pressured speech. A/P Problem List: (1) Affective psychosis ICD Code: F39 - Unspecified mood [affective] disorder (2) Anxiety disorder, unspecified ICD Code: F41.9 - Anxiety disorder, unspecified Status: Acute (3) Personality disorder ICD Code: F60.9 - Personality disorder, unspecified Status: Acute (4) Seizure disorder ICD Code: G40.909 - Epilepsy, unspecified, not intractable, without status epilepticus Status: Chronic Assessment and Plan 61-year-old female who has a personality disorder and was [place] act. [facility] consulted for medical management. Right knee pain - s/p fall several months ago. Asymptomatic . No recent fall or injury per patient. - Xray right knee neg for fx or degenerative changes - Tylenol prn pain Hypokalemia, asymptomatic Hypomagnesemia - Acute on chronic. Intermittent. Patient does have a history of low potassium. - Scheduled potassium ordered potassium 20 MEQ every 12 hours. Last K level 4.2 03/14. - magnesium level which was 1.5. on Mag ox 400mg BID. Chest pain: apparently last night she complained to staff that she had chest pains, and per RN, 2 other patients started doing the same. Trop neg x 3. EKG reviewed and showed sinus josé w no ST changes. BPPV - Meclizine when necessary - Improved History of seizure disorder - Patient on Keppra and Dilantin. - Dilantin level 5.2 --> 2.7 --> 4.9-->10.3. Dose increased from 200mg daily to 300mg today. Monitor weekly - Keppra level still pending Anxiety/hypothyroidism/personality disorder/allergic rhinitis - TSH is depressed. Dose of levothyroxine decreased from 125mcg to 112mcg. - TSH to be rechecked in 6 weeks by her primary care physician Hypercalcemia - PTH elevated, low vit D. suspect primary hyperparathyroidism. Pt states that PCP is aware but they never found a nodule. u/s neck doesn't show any masses or nodules. 24hr urine calcium level has been ordered but not yet resulted. low calcium diet <1000mg/day. Pt tells me that she is staying very well hydrated. I recommend checking Ca levels every 3-4 days while in the hospital to make sure it is not trending up. Pt must follow up w endocrinology as an outpatient for further work-up and evaluation. Vitamin D deficiency - most likely due to primary hyperparathyroidism, would hold off on repleting as this might exacerbate calcium levels. Discharge Planning per primary team Problem Qualifiers (1) Anxiety disorder, unspecified: Qualified Codes: F41.9 - Anxiety disorder, unspecified Alma Delia Bates MD Mar 17, 2017 15:59
[2017-03-17 16:09] LABS: CREATINE KINASE 55 U/L (26-192)
--- NOTE | 2017-03-17 16:43 | HHI.PYPN ---
Subjective Remarks Patient seen for follow-up, chart reviewed. As per nursing report patient noted to be very talkative while on the unit with other patients and staff. Patient seen sitting in hospital bed, cooperative interview but noted to be tangential at times disorganized and continues to have some pressured speech but less than initial presentation. Patient states that she had been compliant with her medications and was wanting to be discharged home. Patient states that she spoke with her son yesterday but did not speak with him much. She reports that she has been feeling "happy" and feels that she is well enough to be able to take care of herself at home. Patient continues to be perseverative on the fact that she was "put in the hospital" by his son's . Discussion about reasons son had placed in exparte was reviewed with patient which patient did not acknowledge and simply stated that it was the son's who wanted her to be put in the hospital. Patient's son communicated with patient's nurse and was reporting that he was still concerned with his mother's behavior which had been ongoing for the past 2 months after she was discharged from a health and rehabilitation facility. He mentioned that the patient was removed from her previous apartment as her roommates that that location did not tolerate her constant talking. Patient's son continues to be concerned with her ability to care for herself outside in the community. He states he has not coming to visit her yet but has spoken to her over the phone. Review of Systems Except as stated in HPI: all other systems reviewed are Neg Objective Alert: Yes [place]: Person, Place Mood: Calm Affect: Labile Memory Intact: Comment (intact except for recent memory pertaining to her admission) Hallucinations: Other (denies) Delusions: Yes Delusion Type: Paranoid (guarded), Other (delusion of having Dilantin toxicity) Suicidal: Ideation (denies) Homicidal: Ideation (denies) Insight/Judgment Poor insight, impulse control and judgment Labs Labs reviewed. Test 03/16/17 21:54 03/17/17 08:40 03/17/17 15:15 Total Creatine Kinase 68 U/L 44 U/L 55 U/L Troponin I LESS THAN 0.02 NG/ML LESS THAN 0.02 NG/ML LESS THAN 0.02 NG/ML Phenytoin (Dilantin) Level 10.3 MCG/ML Vitals/IOs Vital Signs Date Time Temp Pulse Resp B/P (MAP) Pulse Ox O2 Delivery O2 Flow Rate FiO2 03/17/17 05:47 97.3 63 16 121/66 (84) 97 Assessment & Plan Problem List: (1) Unspecified psychosis ICD Codes: F29 - Unspecified psychosis not due to a substance or known physiological condition Assessment & Plan Patient at this time continues to be noted to be disorganized at times, tangential but has been noted to have slightly less pressured speech compared to his initial presentation. Patient had a comply with current treatment. There is to concern for patient's current presentation as son feels patient is not able to care for herself outside of the community due to her disorganization. Patient is perseverative that the reason she is in hospital because her son's placed her here. We'll increase olanzapine to 5 mg a.m. and 10 mg at bedtime for psychosis. Continue to monitor for medication response and adverse drug reactions. Discharge planning in progress Justification for Cont. Inpt. At risk for decompensation if it lower level of care Hesham Wolf MD Mar 17, 2017 16:43
[2017-03-17 18:00] VITALS: BP 130/88; PULSE 64; RESP 16; TEMP 97.9
--- NOTE | 2017-03-17 20:03 | EKG ---
Date Performed: 03/17/2017 Time Performed: 02:32:09 PTAGE: 61 years EKG: SINUS BRADYCARDIA BORDERLINE ECG PREVIOUS TRACING : 03/16/2017 19.09 DOCTOR: Babita Tracy Interpretating Date/Time 03/17/2017 20:01:31
--- NOTE | 2017-03-17 20:11 | EKG ---
Date Performed: 03/16/2017 Time Performed: 19:09:02 PTAGE: 61 years EKG: SINUS BRADYCARDIA BORDERLINE ECG PREVIOUS TRACING : 03/01/2017 02.11 DOCTOR: Babita Tracy Interpretating Date/Time 03/17/2017 20:06:34
[2017-03-17] MEDS ORDERED: OLANZapine 10 MG TAB PO SCH (21:00)
[2017-03-17] MEDS: diphenhydrAMINE HCL 50 MG CAP PO PRN (22:59)
[2017-03-17] MEDS: LORazepam 0.5 MG TAB PO PRN (22:59)
[2017-03-18] MEDS: PHENYTOIN SODIUM 100 MG CAP PO SCH ×2 (06:29→21:21)
[2017-03-18] MEDS: LEVOTHYROXINE SODIUM 112 MCG TAB PO SCH (06:29)
[2017-03-18 07:09] VITALS: BP 120/76; PULSE 62; RESP 17; TEMP 97.9; O2SAT 97
[2017-03-18] MEDS: PROPRANOLOL HCL 20 MG TAB PO SCH ×3 (09:00→18:00)
[2017-03-18] MEDS: REMOVE OLD PATCH T-DERMAL SCH (09:00)
[2017-03-18] MEDS: OLANZapine 5 MG TAB PO SCH (09:00)
[2017-03-18] MEDS: MONTELUKAST SODIUM 10 MG TAB PO SCH (09:01)
[2017-03-18] MEDS: FOLIC ACID 1 MG TAB PO SCH (09:01)
[2017-03-18] MEDS: levETIRAcetam 500 MG TAB PO SCH ×2 (09:01→21:21)
[2017-03-18] MEDS: CYANOCOBALAMIN 1,000 MCG TAB PO SCH (09:02)
[2017-03-18] MEDS: ATORVASTATIN 20 MG TAB PO SCH (09:02)
[2017-03-18] MEDS: POTASSIUM CHLORIDE 20 MEQ CONTROLLED RELEASE TAB PO SCH (09:02)
[2017-03-18] MEDS: NICOTINE 21 MG/24 HR PATCH T-DERMAL SCH (09:03)
[2017-03-18] MEDS: MAGNESIUM OXIDE 400 MG TAB PO SCH ×2 (11:00→21:27)
[2017-03-18] MEDS: LORazepam 0.5 MG TAB PO PRN ×2 (12:25→21:25)
--- NOTE | 2017-03-18 13:45 | EKG ---
Date Performed: 03/17/2017 Time Performed: 14:36:45 PTAGE: 61 years EKG: SINUS BRADYCARDIA BORDERLINE ECG Compared to prior tracing no significant change PREVIOUS TRACING : 03/17/2017 02.32 DOCTOR: Obinna Crespo Interpretating Date/Time 03/18/2017 13:44:08
--- NOTE | 2017-03-18 14:31 | HHI.PYPN ---
Subjective Remarks Patient seen for follow-up, chart reviewed. As discussion with nursing staff patient continues to be very talkative and seen talking to self while in the hallways as well as during the night which patient's previous roommates have complained about. Patient was seen sitting in hospital bed, cooperative in interview and noted to be still disorganized at times, tangential noted to have slightly less pressured speech but continues to be notable. Patient states that she had reported trying to get back in touch with her son yesterday but was able to speak unless evening which she mentions he was yelling at her but was not able to elaborate as to why. Patient went off on a tangent stating that her hospitalization was all due to the son's . Patient acknowledged that she talks to herself during the day but states that she does not have any auditory hallucinations. Patient continues to report changes in her speech grade due to "[place] toxicity" despite having been medically cleared at discharge during her last admission for that reason. Patient states she would like to discharge and states that she is able to care for herself but when reminded that the expert a that was issued by her son has stated her inability to care for herself patient continues to refer back to her son's and that it was because of that person she is in the hospital. Review of Systems Except as stated in HPI: all other systems reviewed are Neg Objective Alert: Yes [place]: Person, Place Mood: Calm Affect: Labile Memory Intact: Comment (intact except for recent memory pertaining to her admission) Hallucinations: Other (denies) Delusions: Yes Delusion Type: Paranoid (pertaining to son's ), Other (delusion of having Dilantin toxicity) Suicidal: Ideation (denies) Homicidal: Ideation (denies) Insight/Judgment Poor insight, impulse control and judgment Labs Test 03/17/17 15:15 Total Creatine Kinase 55 U/L Troponin I LESS THAN 0.02 NG/ML Vitals/IOs Vital Signs Date Time Temp Pulse Resp B/P (MAP) Pulse Ox O2 Delivery O2 Flow Rate FiO2 03/18/17 07:09 97.9 62 17 120/76 (91) 97 Intake and Output 03/18/17 03/18/17 03/19/17 08:00 16:00 00:00 Intake Total 240 ml Balance 240 ml Assessment & Plan Problem List: (1) Unspecified psychosis ICD Codes: F29 - Unspecified psychosis not due to a substance or known physiological condition Assessment & Plan Patient is time continues to be noted to be disorganized and tangential but slightly less pressured speech as she is now able to be interrupted. Patient continues to have poor insight, paranoid delusions of being "put in the hospital " by her son's . Patient continues to be noted to be talking to self, remains disorganized but able to maintain basic ADLs. We'll increase olanzapine to 5 mg a.m. 15 mg at bedtime for psychosis. We'll try to arrange a meeting with patient's son with treatment team. Discharge planning in progress Justification for Cont. Inpt. At risk for decompensation if it lower level of care Hesham Wolf MD Mar 18, 2017 14:31
[2017-03-18 18:35] VITALS: BP 139/71; PULSE 60; RESP 17; TEMP 97.3; O2SAT 100
[2017-03-18] MEDS: diphenhydrAMINE HCL 50 MG CAP PO PRN (21:22)
[2017-03-19 06:09] VITALS: BP 116/60; PULSE 53; RESP 16; TEMP 97.5; O2SAT 98
[2017-03-19] MEDS: PHENYTOIN SODIUM 100 MG CAP PO SCH ×2 (06:40→20:39)
[2017-03-19] MEDS: LEVOTHYROXINE SODIUM 112 MCG TAB PO SCH (06:40)
[2017-03-19] MEDS: MONTELUKAST SODIUM 10 MG TAB PO SCH (08:36)
[2017-03-19] MEDS: FOLIC ACID 1 MG TAB PO SCH (08:36)
[2017-03-19] MEDS: ATORVASTATIN 20 MG TAB PO SCH (08:36)
[2017-03-19] MEDS: CYANOCOBALAMIN 1,000 MCG TAB PO SCH (08:36)
[2017-03-19] MEDS: OLANZapine 5 MG TAB PO SCH (08:36)
[2017-03-19] MEDS: levETIRAcetam 500 MG TAB PO SCH ×2 (08:36→20:39)
[2017-03-19] MEDS: POTASSIUM CHLORIDE 20 MEQ CONTROLLED RELEASE TAB PO SCH (08:36)
[2017-03-19] MEDS: PROPRANOLOL HCL 20 MG TAB PO SCH ×3 (08:37→18:00)
[2017-03-19] MEDS: REMOVE OLD PATCH T-DERMAL SCH (08:40)
[2017-03-19] MEDS: NICOTINE 21 MG/24 HR PATCH T-DERMAL SCH (08:40)
[2017-03-19] MEDS: LORazepam 0.5 MG TAB PO PRN ×2 (10:28→22:18)
[2017-03-19] MEDS: MAGNESIUM OXIDE 400 MG TAB PO SCH ×2 (11:00→20:41)
--- NOTE | 2017-03-19 15:55 | HHI.PYPN ---
Subjective Remarks Patient seen for follow-up, chart reviewed. Patient found hospital bed, cooperative interview. Patient states that she had been feeling "good", reports eating drinking well tolerating medications well with no adverse drug reactions. Patient continues to have perseveration on having "Dilantin toxicity " as well as paranoid ideations toward son's and having had her "put in the hospital". Patient aware that she will be taken to mental health court tomorrow disposition for involuntary admission was placed. Patient states that she would like to be discharged and feels that she is able to care for herself at home and refuting claims made by her son as per the ex parte issued. Review of Systems Except as stated in HPI: all other systems reviewed are Neg Objective Alert: Yes [place]: Person, Place Mood: Calm Affect: Labile (less labile today) Memory Intact: Comment (intact except for recent memory pertaining to her admission) Hallucinations: Other (denies) Delusions: Yes Delusion Type: Paranoid (pertaining to son's ), Other (delusion of having Dilantin toxicity) Suicidal: Ideation (denies) Homicidal: Ideation (denies) Insight/Judgment Poor insight, limited impulse control and judgment Vitals/IOs Vital Signs Date Time Temp Pulse Resp B/P (MAP) Pulse Ox O2 Delivery O2 Flow Rate FiO2 03/19/17 06:09 97.5 53 16 116/60 (78) 98 Assessment & Plan Problem List: (1) Unspecified psychosis ICD Codes: F29 - Unspecified psychosis not due to a substance or known physiological condition Assessment & Plan Patient at this time continues to be noted to be disorganized, tangiential and with pressured speech but noted to have some improvement as these are slightly less intense. Patient appears to be responding to current treatment but will require further stabilization. Patient will present to mental health court tomorrow for petition for involuntary admission. We'll continue with olanzapine 20 mg by mouth at bedtime as there is noted response. If response does not continue to improve will consider or switching to a first generation antipsychotic or adding mood stabilizer as schizoaffective disorder is in the differential diagnoses. Discharge planning in progress. Justification for Cont. Inpt. At risk for decompensation if it lower level of care Hesham Wolf MD Mar 19, 2017 15:55
[2017-03-19 18:26] VITALS: BP 123/78; PULSE 58; RESP 16; TEMP 97.6; O2SAT 100
[2017-03-19 19:09] LABS: BICARBONATE 28.3 MEQ/L (21.0-32.0)
[2017-03-19 19:48] LABS: POTASSIUM 4.1 MEQ/L (3.5-5.1)
[2017-03-19] MEDS: OLANZapine 10 MG TAB PO SCH (20:39)
[2017-03-19] MEDS: MECLIZINE HCL 25 MG TAB PO PRN (22:18)
[2017-03-20] MEDS: LEVOTHYROXINE SODIUM 112 MCG TAB PO SCH (05:12)
[2017-03-20] MEDS: PHENYTOIN SODIUM 100 MG CAP PO SCH ×2 (05:13→21:25)
[2017-03-20 06:11] VITALS: BP 117/56; PULSE 61; RESP 17; TEMP 97.3; O2SAT 100
[2017-03-20] MEDS: REMOVE OLD PATCH T-DERMAL SCH (09:00)
--- NOTE | 2017-03-20 09:50 | HHI.PR ---
Subjective Remarks Follow-up for consult for medical management. Pt noted having chronic pain of her cervical and lumbar regions. pt stated she is followed by mixer driver for her thyroid and chronic issues and is "supposed to see her when I get out of here." Denied cough, fever, shortness of breath, nausea, vomiting, diarrhea. Objective Vitals Vital Signs Date Time Temp Pulse Resp B/P (MAP) Pulse Ox O2 Delivery O2 Flow Rate FiO2 03/20/17 06:11 97.3 61 17 117/56 (76) 100 03/19/17 18:26 97.6 58 16 123/78 (93) 100 Result Diagram: 03/19/17 1826 Imaging Last Impressions Thyroid Ultrasound 03/15/17 0000 Signed Impressions: Service Date/Time: Wednesday, March 15, 2017 22:00 - CONCLUSION: 1. Heterogeneous thyroid without discrete mass identified sonographically. Delfino Stapleton MD Knee X-Ray 03/15/17 0000 Signed Impressions: Service Date/Time: Wednesday, March 15, 2017 18:44 - CONCLUSION: Negative for fracture or significant degenerative changes. Fawad Murguia MD FACR Objective Remarks GENERAL: Pt encountered in her hospital room. At times sitting, and others laying down due to "back and neck pain." SKIN: Warm and dry. Multiple tattoos noted HEAD: Normocephalic. EYES: No scleral icterus. No injection or drainage. NECK: Supple, trachea midline. No lymphadenopathy. CARDIOVASCULAR: Regular rate and rhythm without murmurs, gallops, or rubs. RESPIRATORY: Breath sounds equal bilaterally. No accessory muscle use. GASTROINTESTINAL: Abdomen soft, non-tender, nondistended. MUSCULOSKELETAL: No cyanosis, or edema. PSYCHIATRIC: Alert and oriented x 3. Speech was fast and at times tangential. Pleasant and cooperative. Medications and IVs Current Medications Medications (Trade) Dose Ordered Sig/Sheng Route Start Time Stop Time Status Last Admin (Vitamin B12) 1,000 mcg DAILY PO 03/12/17 09:00 03/20/17 09:59 (Folate) 1 mg DAILY PO 03/12/17 09:00 03/20/17 09:59 (Keppra) 500 mg Q12HR PO 03/12/17 09:00 03/20/17 09:58 (Antivert) 25 mg Q8H PRN PO 03/11/17 22:00 03/20/17 10:20 (Singulair) 10 mg DAILY PO 03/12/17 09:00 03/20/17 10:02 (Dilantin) 300 mg HS PO 03/12/17 21:00 03/19/17 20:39 (Inderal) 20 mg TID PO 03/12/17 09:00 03/20/17 14:20 (Lipitor) 20 mg DAILY PO 03/12/17 09:00 03/20/17 10:01 (Ativan) 0.5 mg Q12H PRN PO 03/11/17 22:00 03/20/17 10:19 (Ativan Inj) 0.5 mg Q12H PRN IM 03/11/17 22:00 (Benadryl) 50 mg HS PRN PO 03/11/17 22:00 03/18/17 21:22 (Tylenol) 650 mg Q4H PRN PO 03/11/17 22:00 (Milk Of Magnesia Liq) 30 ml DAILY PRN PO 03/11/17 22:00 (Mag-Al Plus Susp Liq) 30 ml Q6H PRN PO 03/11/17 22:00 (Habitrol 21 Mg Patch.24 Hr) 1 patch DAILY T-DERMAL 03/12/17 09:00 03/20/17 09:58 (Cogentin) 1 mg Q12H PRN PO 03/11/17 22:00 (Cogentin Inj) 1 mg Q12H PRN IM 03/11/17 22:00 Miscellaneous Information 1 DAILY T-DERMAL 03/12/17 09:00 03/18/17 09:00 (Mag-Ox) 400 mg DAILY@1100,2100 PO 03/12/17 21:00 03/20/17 10:54 (Synthroid) 112 mcg DAILY@0600 PO 03/13/17 06:00 03/20/17 05:12 (Dilantin) 300 mg DAILY@0600 PO 03/15/17 06:00 03/20/17 05:13 (KCl) 20 meq DAILY PO 03/18/17 09:00 03/20/17 10:03 (ZyPREXA) 20 mg HS PO 03/19/17 21:00 03/19/17 20:39 (Abilify) 5 mg DAILY PO 03/20/17 11:00 9/7/17 10:54 Urinary Catheter: No A/P Problem List: (1) Affective psychosis ICD Code: F39 - Unspecified mood [affective] disorder (2) Anxiety disorder, unspecified ICD Code: F41.9 - Anxiety disorder, unspecified Status: Acute (3) Personality disorder ICD Code: F60.9 - Personality disorder, unspecified Status: Acute (4) Seizure disorder ICD Code: G40.909 - Epilepsy, unspecified, not intractable, without status epilepticus Status: Chronic Assessment and Plan 61-year-old female who has a personality disorder and was [place] [facility]. [facility] consulted for medical management. Hypokalemia: Resolved with replacement. Hypertension: Normotensive. Hypothyroid: check in 6-8 weeks on outpatient. Pt medically stable. Will sign off. Please contact Hospitalist service for further issues or questions. Right knee pain - s/p fall several months ago. Asymptomatic . No recent fall or injury per patient. - Xray right knee neg for fx or degenerative changes - Tylenol prn pain Hypokalemia, asymptomatic Hypomagnesemia - Acute on chronic. Intermittent. Patient does have a history of low potassium. - Scheduled potassium ordered potassium 20 MEQ every 12 hours. Last K level 4.2 03/14. - magnesium level which was 1.5. on Mag ox 400mg BID. Chest pain: Trop neg x 3. EKG reviewed and showed sinus josé w no ST changes. BPPV - Meclizine when necessary - Improved History of seizure disorder - Patient on Keppra and Dilantin. - Dilantin level 5.2 --> 2.7 --> 4.9-->10.3. Dose increased from 200mg daily to 300mg today. Monitor weekly Anxiety/hypothyroidism/personality disorder/allergic rhinitis - TSH is depressed. Dose of levothyroxine decreased from 125mcg to 112mcg. - TSH to be rechecked in 6 weeks by her primary care physician Hypercalcemia - PTH elevated, low vit D. suspect primary hyperparathyroidism. Pt states that PCP is aware but they never found a nodule. u/s neck doesn't show any masses or nodules. 24hr urine calcium level has been ordered but not yet resulted. low calcium diet <1000mg/day. Pt tells me that she is staying very well hydrated. I recommend checking Ca levels every 3-4 days while in the hospital to make sure it is not trending up. Pt must follow up w endocrinology as an outpatient for further work-up and evaluation. Vitamin D deficiency - most likely due to primary hyperparathyroidism, would hold off on repleting as this might exacerbate calcium levels. Case discussed with Pt and Drs. Wolf and Ke Problem Qualifiers (1) Anxiety disorder, unspecified: Qualified Codes: F41.9 - Anxiety disorder, unspecified Jayesh Valerio Jr. Mar 20, 2017 09:50
[2017-03-20] MEDS: NICOTINE 21 MG/24 HR PATCH T-DERMAL SCH (09:58)
[2017-03-20] MEDS: levETIRAcetam 500 MG TAB PO SCH ×2 (09:58→21:24)
[2017-03-20] MEDS: PROPRANOLOL HCL 20 MG TAB PO SCH ×3 (09:59→18:28)
[2017-03-20] MEDS: CYANOCOBALAMIN 1,000 MCG TAB PO SCH (09:59)
[2017-03-20] MEDS: FOLIC ACID 1 MG TAB PO SCH (09:59)
[2017-03-20] MEDS: ATORVASTATIN 20 MG TAB PO SCH (10:01)
[2017-03-20] MEDS: MONTELUKAST SODIUM 10 MG TAB PO SCH (10:02)
[2017-03-20] MEDS: POTASSIUM CHLORIDE 20 MEQ CONTROLLED RELEASE TAB PO SCH (10:03)
[2017-03-20] MEDS: LORazepam 0.5 MG TAB PO PRN ×2 (10:19→22:01)
[2017-03-20] MEDS: MECLIZINE HCL 25 MG TAB PO PRN ×2 (10:20→22:01)
[2017-03-20] MEDS: ARIPiprazole 5 MG TAB PO SCH (10:54)
[2017-03-20] MEDS: MAGNESIUM OXIDE 400 MG TAB PO SCH ×2 (10:54→22:01)
--- NOTE | 2017-03-20 13:45 | HHI.PYPN ---
Subjective Remarks Patient seen for follow-up, chart review. She was taken to [place] court which judgment decided to have patient continue involuntary admission for stabilization. Patient states that she felt she is ready to go home and was noticeably upset that she has to say for further treatment. Patient has been compliant with medication regimen. Patient states that she continue her relationship discord with her son continues to blame her son's for her being put in the hospital. Review of Systems Except as stated in HPI: all other systems reviewed are Neg Objective Alert: Yes [place]: Person, Place Mood: Calm Affect: Labile (less labile today) Memory Intact: Comment (intact except for recent memory pertaining to her admission) Hallucinations: Other (denies) Delusions: Yes Delusion Type: Paranoid (pertaining to son's ), Other (delusion of having Dilantin toxicity is less today) Suicidal: Ideation (denies) Homicidal: Ideation (denies) Insight/Judgment Limited insight, fair impulse control and judgment Remarks Patient continues to have pressured speech but less so today, he continues to have some tangentiality and loosening associations Labs Test 03/19/17 18:26 Blood Urea Nitrogen 21 MG/DL Creatinine 0.98 MG/DL Random Glucose 101 MG/DL Calcium Level 9.4 MG/DL Sodium Level 136 MEQ/L Potassium Level 4.1 MEQ/L Chloride Level 102 MEQ/L Carbon Dioxide Level 28.3 MEQ/L Anion Gap 6 MEQ/L Estimat Glomerular Filtration Rate 58 ML/MIN Vitals/IOs Vital Signs Date Time Temp Pulse Resp B/P (MAP) Pulse Ox O2 Delivery O2 Flow Rate FiO2 03/20/17 06:11 97.3 61 17 117/56 (76) 100 Assessment & Plan Problem List: (1) Unspecified psychosis ICD Codes: F29 - Unspecified psychosis not due to a substance or known physiological condition Assessment & Plan Patient at this time and noted to be slightly less disorganized with less pressured speech a little continues to be noted to have loosening associations and some tangentiality. Patient improving with current regimen. We will start Abilify 5 mg by mouth daily and continue olanzapine 20 mg by mouth at bedtime for psychosis. Once patient is more stable will attempt to have family meeting with son determined the patient is back at baseline. Discharge planning in progress Justification for Cont. Inpt. At risk for decompensation if it lower level of care Hesham Wolf MD Mar 20, 2017 13:45
[2017-03-20 18:29] VITALS: BP 161/75; PULSE 55; RESP 17; TEMP 98.6; O2SAT 98
[2017-03-20] MEDS: OLANZapine 10 MG TAB PO SCH (21:24)
[2017-03-21] MEDS: LEVOTHYROXINE SODIUM 112 MCG TAB PO SCH (06:14)
[2017-03-21] MEDS: PHENYTOIN SODIUM 100 MG CAP PO SCH ×2 (06:14→22:17)
[2017-03-21] MEDS: NICOTINE 21 MG/24 HR PATCH T-DERMAL SCH (09:00)
[2017-03-21] MEDS: REMOVE OLD PATCH T-DERMAL SCH (09:00)
[2017-03-21] MEDS: ATORVASTATIN 20 MG TAB PO SCH (10:04)
[2017-03-21] MEDS: CYANOCOBALAMIN 1,000 MCG TAB PO SCH (10:04)
[2017-03-21] MEDS: ARIPiprazole 5 MG TAB PO SCH (10:04)
[2017-03-21] MEDS: PROPRANOLOL HCL 20 MG TAB PO SCH ×3 (10:04→18:19)
[2017-03-21] MEDS: FOLIC ACID 1 MG TAB PO SCH (10:04)
[2017-03-21] MEDS: MONTELUKAST SODIUM 10 MG TAB PO SCH (10:04)
[2017-03-21] MEDS: POTASSIUM CHLORIDE 20 MEQ CONTROLLED RELEASE TAB PO SCH (10:05)
[2017-03-21] MEDS: levETIRAcetam 500 MG TAB PO SCH ×2 (10:05→22:15)
[2017-03-21] MEDS: MECLIZINE HCL 25 MG TAB PO PRN (10:21)
[2017-03-21] MEDS: LORazepam 0.5 MG TAB PO PRN ×2 (10:21→22:15)
--- NOTE | 2017-03-21 10:28 | HHI.PYPN ---
Subjective Remarks Patient seen and examined in coverage for Dr. Wolf with nurse. Chart reviewed. Case discussed with nursing staff. On my examination today, the patient continues to insist that her psychiatric symptoms are a sequela of Dilantin poisoning with says that she is "getting better." She continues to blame her son for being a major stressor that led to her decompensation. She denies any SI, HI or AVH. Denies side effects from medications besides perhaps some mild grogginess. No physical complaints. Review of Systems ROS Limitations: Poor Historian Except as stated in HPI: all other systems reviewed are Neg Objective Alert: Yes [place]: Person, Place Mood: Calm Affect: Labile (mild) Memory Intact: Comment (not formally assessed) Hallucinations: Other (Denies AVH) Delusions: Yes Delusion Type: Paranoid, Other (delusion of having Dilantin toxicity is present today) Suicidal: Ideation (Denies SI) Homicidal: Ideation (Denies HI) Insight/Judgment Poor Remarks No abnormal motor movements noted. Labs Labs reviewed. GFR mildly decreased in recent BMP. Vitals/IOs Vital Signs Date Time Temp Pulse Resp B/P (MAP) Pulse Ox O2 Delivery O2 Flow Rate FiO2 03/20/17 18:29 98.6 55 17 161/75 (103) 98 Assessment & Plan Problem List: (1) Unspecified psychosis ICD Codes: F29 - Unspecified psychosis not due to a substance or known physiological condition Assessment & Plan Continue current psychotropics as ordered to allow further time to acclimate to these medications. Thereafter, to consider further titration of patient's Abilify to target residual psychotic symptoms. Check updated BMP in am. Continue to monitor on the inpatient unit. Continue other medications and care as ordered. Justification for Cont. Inpt. Impairment in reality construction. Discharge Planning Per Dr. Wolf's sign out, possible discharge beginning of next week. Jayson Palma MD Mar 21, 2017 10:28
[2017-03-21] MEDS: MAGNESIUM OXIDE 400 MG TAB PO SCH ×2 (11:00→22:18)
[2017-03-21] MEDS: OLANZapine 10 MG TAB PO SCH (22:15)
[2017-03-22] MEDS: PHENYTOIN SODIUM 100 MG CAP PO SCH ×2 (06:00→22:13)
[2017-03-22] MEDS: LEVOTHYROXINE SODIUM 112 MCG TAB PO SCH (06:00)
[2017-03-22 06:36] VITALS: BP 128/78; PULSE 61; RESP 18; TEMP 97.8; O2SAT 98
[2017-03-22] MEDS: REMOVE OLD PATCH T-DERMAL SCH (09:00)
[2017-03-22] MEDS: POTASSIUM CHLORIDE 20 MEQ CONTROLLED RELEASE TAB PO SCH (09:00)
[2017-03-22] MEDS: NICOTINE 21 MG/24 HR PATCH T-DERMAL SCH (09:00)
[2017-03-22] MEDS: ATORVASTATIN 20 MG TAB PO SCH (09:22)
[2017-03-22] MEDS: PROPRANOLOL HCL 20 MG TAB PO SCH ×3 (09:22→17:37)
[2017-03-22] MEDS: ARIPiprazole 5 MG TAB PO SCH (09:22)
[2017-03-22] MEDS: CYANOCOBALAMIN 1,000 MCG TAB PO SCH (09:22)
[2017-03-22] MEDS: MONTELUKAST SODIUM 10 MG TAB PO SCH (09:22)
[2017-03-22] MEDS: FOLIC ACID 1 MG TAB PO SCH (09:22)
[2017-03-22] MEDS: levETIRAcetam 500 MG TAB PO SCH ×2 (09:22→22:13)
[2017-03-22] MEDS: MECLIZINE HCL 25 MG TAB PO PRN ×2 (09:25→23:11)
[2017-03-22] MEDS: LORazepam 0.5 MG TAB PO PRN ×2 (10:29→22:12)
[2017-03-22] MEDS: MAGNESIUM OXIDE 400 MG TAB PO SCH ×2 (11:00→21:00)
[2017-03-22 12:53] LABS: POTASSIUM 4.3 MEQ/L (3.5-5.1)
--- NOTE | 2017-03-22 13:00 | HHI.PYPN ---
Subjective Remarks Patient seen and case discussed with nurse. Labs reviewed. Objective Alert: Yes [place]: Person, Place Mood: Calm Affect: Labile (mild) Memory Intact: Comment (not formally assessed) Hallucinations: Other (Denies AVH) Delusions: Yes Delusion Type: Paranoid, Other (delusion of having Dilantin toxicity is present today) Suicidal: Ideation (Denies SI) Homicidal: Ideation (Denies HI) Insight/Judgment Impaired Labs Test 03/22/17 11:20 Blood Urea Nitrogen 19 MG/DL Creatinine 0.82 MG/DL Random Glucose 72 MG/DL Calcium Level 9.8 MG/DL Sodium Level 136 MEQ/L Potassium Level 4.3 MEQ/L Chloride Level 103 MEQ/L Carbon Dioxide Level 28.0 MEQ/L Anion Gap 5 MEQ/L Estimat Glomerular Filtration Rate 71 ML/MIN Vitals/IOs Vital Signs Date Time Temp Pulse Resp B/P (MAP) Pulse Ox O2 Delivery O2 Flow Rate FiO2 03/22/17 06:36 97.8 61 18 128/78 (95) 98 Assessment & Plan Problem List: (1) Unspecified psychosis ICD Codes: F29 - Unspecified psychosis not due to a substance or known physiological condition Assessment & Plan Estimated LOS: days continue current antipsychotic medication to evaluate for efficacy versus tolerability. Justification for Cont. Inpt. Patient likely to decompensate at lower level of care. Jovany Sarmiento MD Mar 22, 2017 13:00
[2017-03-22 18:00] VITALS: BP 143/70; PULSE 52; RESP 18; TEMP 98.2; O2SAT 97
[2017-03-22] MEDS: OLANZapine 10 MG TAB PO SCH (22:12)
[2017-03-23] MEDS: LEVOTHYROXINE SODIUM 112 MCG TAB PO SCH (06:24)
[2017-03-23] MEDS: MECLIZINE HCL 25 MG TAB PO PRN ×2 (06:25→17:32)
[2017-03-23] MEDS: PHENYTOIN SODIUM 100 MG CAP PO SCH ×2 (06:25→22:04)
[2017-03-23 07:08] VITALS: BP 114/62; PULSE 62; RESP 18; TEMP 97.9; O2SAT 99
[2017-03-23] MEDS: PROPRANOLOL HCL 20 MG TAB PO SCH ×3 (08:05→17:32)
[2017-03-23] MEDS: FOLIC ACID 1 MG TAB PO SCH (08:06)
[2017-03-23] MEDS: ARIPiprazole 5 MG TAB PO SCH (08:06)
[2017-03-23] MEDS: ATORVASTATIN 20 MG TAB PO SCH (08:06)
[2017-03-23] MEDS: CYANOCOBALAMIN 1,000 MCG TAB PO SCH (08:06)
[2017-03-23] MEDS: levETIRAcetam 500 MG TAB PO SCH ×2 (08:06→22:03)
[2017-03-23] MEDS: MONTELUKAST SODIUM 10 MG TAB PO SCH (08:06)
[2017-03-23] MEDS: POTASSIUM CHLORIDE 20 MEQ CONTROLLED RELEASE TAB PO SCH (08:06)
[2017-03-23] MEDS: NICOTINE 21 MG/24 HR PATCH T-DERMAL SCH (08:10)
[2017-03-23] MEDS: REMOVE OLD PATCH T-DERMAL SCH (08:10)
[2017-03-23] MEDS: MAGNESIUM OXIDE 400 MG TAB PO SCH ×2 (11:00→22:04)
[2017-03-23 11:35] VITALS: BP 151/92; PULSE 62
--- NOTE | 2017-03-23 11:40 | HHI.PYPN ---
Subjective Remarks Patient seen and examined with nurse. Chart reviewed. Case discussed with nursing staff. Patient reportedly requesting to switch back to a regular diet. I have reviewed the chart and see no reason why she is on a diabetic diet. Her hemoglobin A1c is within normal limits when last checked. On my examination today, patient repeats much of the same material that she has discussed with me previously, including her belief that her psychiatric symptoms are related to Dilantin toxicity. She says that she feels like she should take her Antivert approximately every 4 hours to manage this issue. She denies suicidal or homicidal ideation. Denies side effects from medications. No new physical complaints. Review of Systems ROS Limitations: Poor Historian Except as stated in HPI: all other systems reviewed are Neg Objective Alert: Yes [place]: Person, Place Mood: Calm Affect: Appropriate (fairly appropriate) Memory Intact: Comment (not formally assessed) Hallucinations: Other (no hallucinations) Delusions: Yes Delusion Type: Other (regarding Dilantin toxicity, ongoing) Suicidal: Ideation (Denies SI) Homicidal: Ideation (Denies HI) Insight/Judgment Poor Remarks No motor abnormalities noted. Grooming and hygiene fair. Thought process a little bit circumstantial. Labs Labs reviewed. Calcium remains within normal limits. GFR improved. Vitals/IOs Vital Signs Date Time Temp Pulse Resp B/P (MAP) Pulse Ox O2 Delivery O2 Flow Rate FiO2 03/23/17 07:08 97.9 62 18 114/62 (79) 99 Intake and Output 03/23/17 03/23/17 03/23/17 07:59 15:59 23:59 Intake Total 360 ml Balance 360 ml Assessment & Plan Problem List: (1) Unspecified psychosis ICD Codes: F29 - Unspecified psychosis not due to a substance or known physiological condition Assessment & Plan I have ordered a regular diet. I will defer adjustments to the patient's meclizine to the hospitalist. Continue current psychotropics as ordered. Continue other medications and care as ordered. Justification for Cont. Inpt. Risk for decompensation Discharge Planning Pending psychiatric stabilization Jayson Palma MD Mar 23, 2017 11:40
[2017-03-23 17:05] VITALS: PULSE 62
[2017-03-23 17:49] VITALS: BP 146/74; PULSE 53; RESP 16; TEMP 98.1; O2SAT 98
[2017-03-23] MEDS: OLANZapine 10 MG TAB PO SCH (22:04)
[2017-03-23] MEDS: ACETAMINOPHEN 325 MG TAB PO PRN (23:29)
[2017-03-23] MEDS: LORazepam 0.5 MG TAB PO PRN (23:33)
[2017-03-24] MEDS: LEVOTHYROXINE SODIUM 112 MCG TAB PO SCH (05:51)
[2017-03-24] MEDS: PHENYTOIN SODIUM 100 MG CAP PO SCH ×2 (05:52→20:37)
[2017-03-24 06:14] VITALS: BP 119/73; PULSE 52; RESP 17; O2SAT 95
[2017-03-24] MEDS: NICOTINE 21 MG/24 HR PATCH T-DERMAL SCH (08:45)
[2017-03-24] MEDS: MONTELUKAST SODIUM 10 MG TAB PO SCH (08:45)
[2017-03-24] MEDS: ATORVASTATIN 20 MG TAB PO SCH (08:45)
[2017-03-24] MEDS: levETIRAcetam 500 MG TAB PO SCH ×2 (08:45→20:37)
[2017-03-24] MEDS: ARIPiprazole 5 MG TAB PO SCH (08:45)
[2017-03-24] MEDS: POTASSIUM CHLORIDE 20 MEQ CONTROLLED RELEASE TAB PO SCH (08:45)
[2017-03-24] MEDS: CYANOCOBALAMIN 1,000 MCG TAB PO SCH (08:45)
[2017-03-24] MEDS: FOLIC ACID 1 MG TAB PO SCH (08:45)
[2017-03-24] MEDS: REMOVE OLD PATCH T-DERMAL SCH (08:46)
[2017-03-24] MEDS: PROPRANOLOL HCL 20 MG TAB PO SCH ×3 (08:47→16:42)
[2017-03-24 08:49] VITALS: PULSE 62
[2017-03-24] MEDS: MAGNESIUM OXIDE 400 MG TAB PO SCH ×2 (11:00→20:38)
--- NOTE | 2017-03-24 11:35 | HHI.PYPN ---
Subjective Remarks Patient seen and examined with nurse. Chart reviewed. Case discussed with nursing staff who reports that the patient remains somewhat intrusive but no real behavioral problem otherwise. On my examination today, the patient continues to display a mild somatic preoccupation. She denies any SI or HI. Denies AVH. Hopeful for discharge soon. Denies side effects from medications. No physical complaints. Review of Systems Except as stated in HPI: all other systems reviewed are Neg Objective Alert: Yes [place]: Person, Place Mood: Calm Affect: Euthymic Memory Intact: Comment (not formally assessed) Hallucinations: Other (none) Delusions: No Delusion Type: Other (mild somatic preoccupation) Suicidal: Ideation (Denies SI) Homicidal: Ideation (Denies HI) Insight/Judgment Poor Remarks No motor abnormalities noted Labs Labs reviewed. Vitals/IOs Vital Signs Date Time Temp Pulse Resp B/P (MAP) Pulse Ox O2 Delivery O2 Flow Rate FiO2 03/24/17 08:49 62 03/24/17 06:14 17 119/73 (88) 95 03/23/17 17:49 98.1 Intake and Output 03/24/17 03/24/17 03/25/17 08:00 16:00 00:00 Intake Total 360 ml Balance 360 ml Assessment & Plan Problem List: (1) Unspecified psychosis ICD Codes: F29 - Unspecified psychosis not due to a substance or known physiological condition Assessment & Plan Continue current psychotropics as ordered. Continue other medications and care as ordered. Justification for Cont. Inpt. Risk for decompensation. Discharge Planning Pending psychiatric stabilization. Jayson Palma MD Mar 24, 2017 11:35
[2017-03-24 18:21] VITALS: BP 153/81; PULSE 78; RESP 18; TEMP 98.6; O2SAT 99
[2017-03-24] MEDS: MECLIZINE HCL 25 MG TAB PO PRN (20:38)
[2017-03-24] MEDS: OLANZapine 10 MG TAB PO SCH (20:38)
[2017-03-24] MEDS: LORazepam 0.5 MG TAB PO PRN (22:02)
[2017-03-24] MEDS: ACETAMINOPHEN 325 MG TAB PO PRN (22:06)
[2017-03-25] MEDS: LEVOTHYROXINE SODIUM 112 MCG TAB PO SCH (05:33)
[2017-03-25] MEDS: PHENYTOIN SODIUM 100 MG CAP PO SCH (05:33)
[2017-03-25 06:03] VITALS: BP 110/56; PULSE 48; RESP 17; TEMP 97.8; O2SAT 97
[2017-03-25] MEDS: NICOTINE 21 MG/24 HR PATCH T-DERMAL SCH (09:00)
[2017-03-25] MEDS: REMOVE OLD PATCH T-DERMAL SCH (09:00)
[2017-03-25] MEDS: PROPRANOLOL HCL 20 MG TAB PO SCH ×2 (09:00→13:00)
[2017-03-25] MEDS: POTASSIUM CHLORIDE 20 MEQ CONTROLLED RELEASE TAB PO SCH (09:00)
[2017-03-25] MEDS: LORazepam 0.5 MG TAB PO PRN (09:20)
[2017-03-25] MEDS: levETIRAcetam 500 MG TAB PO SCH (09:20)
[2017-03-25] MEDS: MONTELUKAST SODIUM 10 MG TAB PO SCH (09:20)
[2017-03-25] MEDS: MECLIZINE HCL 25 MG TAB PO PRN (09:20)
[2017-03-25] MEDS: ARIPiprazole 5 MG TAB PO SCH (09:20)
[2017-03-25] MEDS: ACETAMINOPHEN 325 MG TAB PO PRN (09:20)
[2017-03-25] MEDS: FOLIC ACID 1 MG TAB PO SCH (09:20)
[2017-03-25] MEDS: CYANOCOBALAMIN 1,000 MCG TAB PO SCH (09:20)
[2017-03-25] MEDS: ATORVASTATIN 20 MG TAB PO SCH (09:21)
[2017-03-25] MEDS: MAGNESIUM OXIDE 400 MG TAB PO SCH (11:00)
[2017-03-25] MEDS ORDERED: DILA100C PO (13:48)
[2017-03-25] MEDS ORDERED: OLAN10TA PO (13:48)
[2017-03-25] MEDS ORDERED: SYNT112T PO (13:48)
[2017-03-25] MEDS ORDERED: POTA20TA5 PO (13:48)
[2017-03-25] MEDS ORDERED: MAGN400T3 PO (13:48)
[2017-03-25] MEDS ORDERED: ARIP1TAB11 PO (13:48)
--- NOTE | 2017-03-25 13:59 | HHI.DS ---
Psychiatry Discharge Summary Inpatient Psychiatric care?: Yes Advance Directive: No Reason Not Provided: Due to Patient Condition Mental Health AdvanceDirective: No Health Care Proxy: No Admission Admission Date Mar 11, 2017 at 21:59 Admission Diagnosis: (1) Unspecified psychosis ICD Code: F29 - Unspecified psychosis not due to a substance or known physiological condition Brief History Patient is a 61-year-old woman with an unknown past psychiatric history, denies previous psychiatric hospitalizations, denies any previous suicide attempt or self-injurious behavior with a past medical history of seizure disorder, back pain and hypothyroidism was brought into the hospital under an exparte requesting psychiatric involuntary evaluation. As per the exparte, patients son requested this evaluation reporting patient with disorganized behavior, mood lability, disorganized speech N patient not caring for herself and that she has not been eating adequately. Patient was transferred to the inpatient psychiatry unit for further evaluation and management. Patient found sitting on hospital bed noted to be calm and cooperative interview but was noted to have some pressured speech, disorganized thought and tangentiality. Patient states that shes been having a tumultuous relationship with her son and her [id number] and that her [id number] tried to Aldrich act or 3 times. Patient states that she was under Aldrich act activated by son stating that yesterday he was upset with her over the phone and loses the reason she is in the hospital today. Patient throughout interview was perseverative on her recent behavior due to fluctuating Dilantin levels to control her seizures. Patient denies any depressive symptoms state that she sleeping well, good appetite, . Concentration, mood being not bad, denies any perceptual disturbances. When asked about her previous history with any psychotropic medications patient states that she was given Haldol by her primary care doctor but only took once and when asked why she was prescribed this patient states that she was given several packs to try. Patient states that her primary care doctor is Dr. Kaycee Wong at [place]. Patient at this time denies any suicidality or homicidality. Tobacco Use In Past 30 Days: Cigarettes But Not Daily Alcohol Use: Never Hospital Course Patient was admitted to a locked, inpatient psychiatric unit. A general medical consultation was obtained. Appropriate precautions were in place throughout patient's hospital stay. Patient was seen and examined on the unit by psychiatry and also visited by counselor. Psychotropic medications were adjusted. Patient tolerated medication changes well without side effects. There was no evidence of any suicidality or homicidality on the inpatient unit. Patient has been sleeping and eating well, and her participation in unit activities has been fair. There has been no evidence of significant self-care deficit on the inpatient unit. On the day of discharge: Patient seen and examined with nurse. Chart reviewed. Case discussed in treatment team. No behavioral issues overnight per nursing staff. Counselor has reached out to the patient's son who reportedly verbalizes no concerns about patient being discharged home today. On my examination today, the patient is requesting discharge from the inpatient psychiatric unit. Mood is reportedly stable and I can elicit no depressive or hypomanic/manic symptoms. She denies any suicidal or homicidal ideation, intent or plan on direct questioning and contracts for safety. Denies any audiovisual hallucinations. No delusions elicited. Patient does continue to have a mild somatic preoccupation. Denies side effects from medications. No new physical complaints. Weighing the acute, chronic, and protective factors and based on the available evidence, I plastics and composites inspector to a reasonable degree of medical certainty that the patient is at low imminent risk of harm to self or others from a mental illness as defined under the Aldrich act and her level of function is adequate for outpatient care. The patient does not meet criteria for ongoing involuntary psychiatric hospitalization, and since she is requesting discharge from the inpatient psychiatric unit today I am obliged to discharge her home with psychiatric follow-up as arranged by counselor. Patient is also to follow-up with primary care and neurology as well as endocrinology as recommended by hospitalist. I have counseled the patient regarding warning signs for need to return to the psychiatric emergency room as part of a general safety plan. Results Blood Pressure 110 / 56 Vital Signs Date Time Temp Pulse Resp B/P (MAP) Pulse Ox O2 Delivery O2 Flow Rate FiO2 03/25/17 06:03 97.8 48 17 110/56 (74) 97 Laboratory Results Test 03/12/17 08:11 Cholesterol Level 176 MG/DL (120-200) HDL Cholesterol 55.7 MG/DL (40.0-60.0) Hemoglobin A1c 4.3 % (4.3-6.0) LDL Cholesterol 80 MG/DL (0-99) Triglycerides Level 200 MG/DL (42-150) Summary of Procedures None done Imaging Last Impressions Thyroid Ultrasound 03/15/17 0000 Signed Impressions: Service Date/Time: Wednesday, March 15, 2017 22:00 - CONCLUSION: 1. Heterogeneous thyroid without discrete mass identified sonographically. Delfino Stapleton MD Knee X-Ray 03/15/17 0000 Signed Impressions: Service Date/Time: Wednesday, March 15, 2017 18:44 - CONCLUSION: Negative for fracture or significant degenerative changes. Fawad Murguia MD FACR Pending results at discharge: No Medications # of Antipsychotic meds at D/C: 2 Appropriate >1 Antipsych meds?: 4 Approp Antipsych med options 1 - Minimum of three failed multiple trials of monotherapy. 2 - Documented plan to taper to monotherapy due to previous use of multiple meds OR cross-taper in progress at D/C. 3 - Documentation of augmentation of Clozapine. 4 - Justification other than those listed in allowable values 1-3, document here : Required multiple antipsychotics for stabilization Discharge Discharge Date: Mar 25, 2017 Discharge Diagnosis: (1) Unspecified psychosis Diagnosis: Principal (stabilized) ICD Code: F29 - Unspecified psychosis not due to a substance or known physiological condition Mental Status Exam at Disch Patient is casually dressed. Patient is well groomed. Patient is awake and alert and oriented person in hospital at least. No evidence of delirium. No motor abnormalities appreciated. Speech is within normal limits for rate, tone , volume. Memory grossly intact on clinical exam. Mood is stable and euthymic. Affect is full and reactive. Thought process linear. No delusions elicited. Mild somatic preoccupation noted. Denies audiovisual hallucinations and does not appear internally stimulated. Denies suicidal or homicidal ideation, intent, or plan and contracts for safety. Insight and judgment seem fair to poor. Pt Condition on Discharge: Stable Discharge Disposition: Discharge Home Discharge Instructions Diet Instructions: As Tolerated, No Restrictions Activities you can perform: Weight Bearing as Ivone Scheduled Appointment: as per counselor's notes New Orders: CALCIUM - 2-3 Days DILANTIN (FREE) - 2-3 Days TSH 3RD GEN - 6 Weeks New Medications: Aripiprazole (Aripiprazole) 5 Mg Tab 5 MG PO DAILY for Mental Health for 15 Days, TAB 1 Refill Levothyroxine (Synthroid) 112 Mcg Tab 112 MCG PO DAILY@0600 for Thyroid for 15 Days, TAB 1 Refill Magnesium Oxide (Magnesium Oxide) 400 Mg Tab 400 MG PO DAILY@1100,2100 for Health for 15 Days, TAB 1 Refill Olanzapine (Olanzapine) 10 Mg Tab 20 MG PO HS for Mental Health for 15 Days, TAB 1 Refill Phenytoin Extended (Dilantin) 100 Mg Cap 300 MG PO DAILY@0600 for Seizure Control for 15 Days, CAP 1 Refill Potassium Chloride Microencaps (Potassium Chloride Microencaps) 20 Meq Tab 20 MEQ PO DAILY for Health for 15 Days, TAB 1 Refill Continued Medications: Alprazolam (Xanax) 0.5 Mg Tab 0.5 MG PO BID for Control Anxiety, #10 TAB Cyanocobalamin (Vitamin B-12) 1,000 Mcg Tab 1000 MCG PO DAILY for low vitamin B12, #30 TAB 0 Refills Folic Acid (Folic Acid) 1 Mg Tablet 1 MG PO DAILY for low levels, #30 TAB 0 Refills Levetiracetam (Keppra) 500 Mg Tab 500 MG PO Q12HR for Control Seizures, #60 TAB 3 Refills Meclizine HCl (Meclizine 25) 25 Mg Tab 25 MG PO Q8HR PRN for vertigo, #30 TAB 0 Refills Montelukast (Montelukast) 10 Mg Tab 10 MG PO DAILY for Allergies, #30 TAB 0 Refills Phenytoin Extended (Dilantin) 100 Mg Cap 300 MG PO HS for seizure, #30 CAP 0 Refills Propranolol (Propranolol) 20 Mg Tab 20 MG PO TID, #90 TAB 0 Refills Rosuvastatin (Crestor) 10 Mg Tab 10 MG PO DAILY for Cholesterol Management, #30 TAB 0 Refills Discontinued Medications: Levothyroxine (Levothyroxine) 125 Mcg Tab 125 MCG PO DAILY for Thyroid, #30 TAB 0 Refills Phenytoin Extended (Dilantin) 100 Mg Cap 200 MG PO DAILY@0600 for seizure, #30 CAP 0 Refills Discharge Time > 30 minutes Discharge/Advance Care Plan Health Problems: (1) Unspecified psychosis Goals to promote your health * To prevent worsening of your condition and complications * To maintain your health at the optimal level Directions to meet your goals Take your medications as prescribed Follow your dietary instruction Follow activity as directed Keep your appointments as scheduled Take your immunizations and boosters as scheduled If your symptoms worsen call your PCP, if no PCP go to Urgent Care Center or Emergency Room For 03/02 questions related to your inpatient stay or results of tests pending at discharge, please contact Dr. Jayson Palma at Smoking is Dangerous to Your Health. Avoid second hand smoking Jayson Palma MD Mar 25, 2017 13:59
== END 2017-03-25 16:10 | disposition home or self-care (01) | DRG 885 ==
LOC: NEDAMB 16:07 → NEDA 21:59 → H260 03-12
PROVIDERS: ADMIT Psychiatry & Neurology Psychiatry; ATTEND Psychiatry & Neurology Psychiatry
DX: F29 Unspecified psychosis not due to a substance or known physiological condition (principal); G40.909 Epilepsy, unspecified, not intractable, without status epilepticus; I10 Essential (primary) hypertension; E66.9 Obesity, unspecified; E78.5 Hyperlipidemia, unspecified; Z68.31 Body mass index [BMI] 31.0-31.9, adult; E05.00 Thyrotoxicosis with diffuse goiter without thyrotoxic crisis or storm; E03.9 Hypothyroidism, unspecified; F17.210 Nicotine dependence, cigarettes, uncomplicated; E87.6 Hypokalemia; M25.561 Pain in right knee; H81.10 Benign paroxysmal vertigo, unspecified ear; E55.9 Vitamin D deficiency, unspecified; R07.9 Chest pain, unspecified
CPT/HCPCS: 73560; 76536; 80048; 80061; 80076; 80177; 80185; 80307; 81001; 82040; 82306; 82310; 82330; 82550; 82948; 83036; 83735; 83970; 84132; 84439; 84443; 84481; 84484; 85025; 93005; Q0163